=== PATIENT | male | born 1940 | race Caucasian/White ===

== ENCOUNTER 2018-02-21 08:32 | Outpatient (CLI) | payer OTHER, SELFPAY ==
[2018-02-21 10:23] LABS: ALT 33 U/L (12-78); AST 20 U/L (15-37); Albumin 4.1 g/dL (3.4-5.0); Alkaline Phosphatase 78 U/L (46-116); Anion Gap 7.8 mmol/L (3-11); BUN 13 mg/dL (7-18); Bilirubin, Total 0.7 mg/dL (0.2-1.0); CO2 27.2 mmol/L (21.0-32.0); CREATININE 1.15 mg/dL (0.70-1.30); Calcium 8.7 mg/dL (8.5-10.1); Chloride 104 mmol/L (98-107); Cholesterol 195 mg/dL (50-200); Glucose 101 mg/dL (70-100); HDL Cholesterol 36 mg/dL (40-60); LDL CHOLESTEROL 129 mg/dL (<100); Potassium 4.1 mmol/L (3.5-5.1); Sodium 139 mmol/L (136-145); TSH (W/Ref FT4) 3.36 uIU/mL (0.358-3.74); Total Protein 7.6 g/dL (6.4-8.2); Triglyceride 225 mg/dL (30-150)
[2018-02-22 10:29] LABS: PSA, Screening 1.1 ng/ml (0-6.5)
== END 2018-02-21 08:52 ==
DX: I10 Essential (primary) hypertension (principal); E03.9 Hypothyroidism, unspecified; E78.5 Hyperlipidemia, unspecified; Z12.5 Encounter for screening for malignant neoplasm of prostate
CPT/HCPCS: 36415; 80053; 80061; 83721; 84153; 84443

== ENCOUNTER 2018-12-13 13:03 | Emergency (ER) | payer OTHER, SELFPAY ==
[2018-12-13 13:19] VITALS: BP 152/64; PULSE 76; RESP 16; TEMP 36.9; O2SAT 100
--- NOTE | 2018-12-13 13:45 | W.ED.GENAD ---
Discharge Plan Disposition Patient Disposition: HOME Condition: Good Discharge Details Chief Complaint: Laceration Clinical Impression: Laceration Primary Care Provider: Carl Hooker ED Provider: [place] Home Meds and New Rx's Prescriptions: No Action vitamin B complex [B Complex-Vitamin B12] tablet 1 tab PO DAILY RF: 0 calcium carbonate 500 mg calcium (1,250 mg) tablet 500 mg PO BID RF: 0 levothyroxine 50 mcg capsule 50 mcg PO DAILY Qty: 90 RF: 3 inhalational spacing device [Aerochamber Plus Flow-Vu,S Msk] 1 EACH spacer 1 ea UD PRN PRNQty: 1 RF: 0 multivitamin [Daily Multiple] 1 EACH tablet 1 ea PO HS RF: 0 ibuprofen 200 MG tablet 400 mg PO Q6H PRN RF: 0 amlodipine 10 mg tablet 10 mg PO DAILY Qty: 90 RF: 3 ranitidine HCl 150 mg capsule 150 mg PO BID Qty: 180 RF: 3 fluticasone propion-salmeterol 115-21 mcg/actuation HFA aerosol inhaler 2 puff IH BID PRN (Reason: shortness of breath or wheezing) Qty: 8 RF: 0 albuterol sulfate 90 mcg/actuation HFA aerosol inhaler 2 puff IH Q4H PRN (Reason: shortness of breath or wheezing) Qty: 8.5 RF: 3 naproxen sodium [Aleve] 220 MG capsule 220 mg PO PRN PRNRF: 0 Discharge Instructions Instructions: Laceration (ED), Skin Adhesive Care (ED) Additional Instructions: Your tetanus is up-to-date. Please keep the area bandaged and covered. If you notice any redness, drainage, swelling, or pain please return immediately for reassessment. If you notice any worsening of your symptoms, or any new symptoms such as vomiting, diarrhea, fever, chills, shortness of breath, chest pain, numbness, weakness, or fainting , please return immediately to the emergency department for reevaluation. Please follow up with your primary care provider as soon as possible for reassessment and reevaluation. As always, it was a pleasure participating in your medical care today. Referrals: Carl Hooker [Primary Care Provider] - Discharge Data Discharge Date/Time-TO BE ENTERED AT DEPARTURE: 12/13/18 14:43 Medical Decision Making This is a very pleasant 78-year-old male who presents today with evidence of a superficial laceration to the left nondominant palmar hand just below the thenar eminence. Tetanus was updated in 2011. No evidence of neurovascular compromise, brisk capillary refill is present. Laceration is 1.5 cm in linear in nature. The area was scrubbed vigorously with chlorhexidine and then washed out. Because of the notably superficial component, I see no indication for suturing at this time. Dermabond was applied over the skin with excellent wound edge reapproximation. Patient tolerated this well. 3 layers were applied, and then the area was bandaged. Tetanus is up-to-date. Patient will be discharged home with close follow-up with his PCP, instructions for red flags which to return. I have extensively reviewed the treatment plan and discharge instructions with the patient. I have addressed all patient concerns at this time. The patient was made aware of what symptoms to monitor for that would warrant a return to the emergency department. Discussed the plan with the patient, they demonstrate verbal understanding and agreement with our assessment and plan at this time. HPI General Date/Time Provider Initiated Documentation: 12/13/18 13:14. HPI Narrative: This is a 78-year-old pleasant male who presents today for evaluation of laceration to his left nondominant hand on the palmar aspect. Patient states that he was working on an engine when a piece of metal slipped and caused a small laceration. His tetanus was updated in 2011. He denies any associated numbness tingling or weakness in the hand. He denies any other complaints of pain. No other modifying factors. Related Data Home Medications Medication Instructions Recorded Confirmed inhalational spacing device #1 ea 09/23/12 02/18/18 [Aerochamber Plus Flow-Vu,S Msk] ibuprofen 400 mg PO Q6H PRN tab-cap 03/06/15 12/13/18 multivitamin [Daily Multiple] 1 ea PO HS 03/06/15 12/13/18 naproxen sodium [Aleve] 220 mg PO PRN PRN 04/18/17 12/13/18 calcium carbonate 500 mg calcium 500 mg PO BID tab 02/16/18 12/13/18 (1,250 mg) tablet levothyroxine 50 mcg capsule 50 mcg PO DAILY #90 cap 02/16/18 12/13/18 vitamin B complex tablet 1 tab PO DAILY 02/16/18 12/13/18 amlodipine 10 mg tablet 10 mg PO DAILY #90 tab 02/22/18 ranitidine 150 mg capsule 150 mg PO BID #180 cap 04/17/18 12/13/18 fluticasone propionate-salmeterol 2 puff IH BID PRN #8 gm 05/16/18 12/13/18 115 mcg-21 mcg/actuation HFA inhaler albuterol sulfate HFA 90 2 puff IH Q4H PRN #8.5 gm 11/23/18 12/13/18 mcg/actuation aerosol inhaler Previous Rx's Medication Instructions Recorded levothyroxine 50 mcg capsule 50 mcg PO DAILY #90 cap 02/16/18 amlodipine 10 mg tablet 10 mg PO DAILY #90 tab 02/22/18 ranitidine 150 mg capsule 150 mg PO BID #180 cap 04/17/18 fluticasone propionate-salmeterol 2 puff IH BID PRN #8 gm 05/16/18 115 mcg-21 mcg/actuation HFA inhaler albuterol sulfate HFA 90 2 puff IH Q4H PRN #8.5 gm 11/23/18 mcg/actuation aerosol inhaler Allergies Allergy/AdvReac Type Severity Reaction Status Date / Time No Known Allergies Allergy Unverified 12/13/18 13:21 General Stated Complaint: Laceration JACKLEINE: 4 Review of Systems Review of Systems All systems reviewed & are unremarkable except as noted in HPI and below PFSH Social History Smoking/Tobacco Use Status: Former Tobacco Use Quit Date: 06/13/99 Alcohol Intake: never Drug use: Never Substance use type: does not use Household members: spouse Pets and animals: No What type of physical activity do you participate in: none Frequency: does not exercise Dina/Protestant: Yazdanism Special dina needs: No Do you feel safe in your relationship?: Yes Exam Narrative Exam Narrative: 1.Const: Well-nourished, Well-developed, appearing stated age 2.Eyes: PERRL, no conjunctival injection, and symmetrical lids. 3.ENT: Atraumatic external nose and ears. Moist MM. Neck: Symmetric, trachea midline, No thyromegaly. 4.CVS: +S1/S2, No murmurs or gallops. Peripheral pulses 2+ and equal in all extremities. Brisk capillary refill in all extremities. 5.RESP: Unlabored respiratory effort. Clear to auscultation bilaterally. No wheezes rales or rhonchi 6.GI: Soft, Nontender/Nondistended, No hepatosplenomegaly. No guarding or rebound. 7.MSK: Normocephalic/Atraumatic, Extremities w/o deformity or ttp No cyanosis or clubbing, Normal movement of all extremities left hand: Symmetrically palpable radial and ulnar pulses. Capillary refill less than 2 seconds to all digits. Intact sensation to light touch of the radial, median and ulnar nerves demonstrated by testing in the dorsal web space of the thumb, the distal palmar aspect of the index finger, and the lateral surface of the fifth finger. 2 point discrimination intact to 5mm (up to 6mm can be normal in digits 3-5) of discrimination in the affected digit. Intact motor function of the radial, median and ulnar nerves demonstrated by strength of extension of the isolated distal joint of the index finger, hand manual plate filler, and spreading of the 2nd through 5th digits. Intact recurrent median nerve as demonstrated by ability to move thumb fully through opposition, abduction and flexion. No snuffbox tenderness. 8.Skin: Warm, Dry. Small 1.5 cm linear laceration over the palmar aspect of the thenar eminence of the left hand. No evidence of deep tissue involvement, tendon involvement, or other abnormality. Minimal oozing of blood, no active significant hemorrhage. 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 Sensation grossly intact, no focal neurologic deficits. 10.Psych: (AAO) x3. Appropriate mood and affect Course Vital Signs Temperature 36.9 C 12/13/18 13:19 Pulse 76 12/13/18 13:19 Respiratory Rate 16 12/13/18 13:19 Blood Pressure 152/64 H 12/13/18 13:19 Pulse Oximetry 100 12/13/18 13:19 Temperature 36.9 C 12/13/18 13:19 Temperature Source Skin 12/13/18 13:19 Pulse 76 12/13/18 13:19 Respiratory Rate 16 12/13/18 13:19 Respiratory Effort Non-Labored 12/13/18 13:19 Blood Pressure 152/64 H 12/13/18 13:19 Blood Pressure Position Sitting 12/13/18 13:19 Pulse Oximetry 100 12/13/18 13:19 Oxygen Delivery Method Room Air 12/13/18 13:19 Oxygen Flow Rate 0 12/13/18 13:19 Pain Level 1 12/13/18 13:19
== END 2018-12-13 14:43 | disposition home or self-care (01) ==
PROVIDERS: Emergency Provider Student in an Organized Health Care Education/Training Program; PCP Family Medicine
DX: S61.412A Laceration without foreign body of left hand, initial encounter (principal); W45.8XXA Other foreign body or object entering through skin, initial encounter; I10 Essential (primary) hypertension
CPT/HCPCS: 12001

== ENCOUNTER 2019-02-21 06:49 | Outpatient (CLI) | payer OTHER, SELFPAY ==
[2019-02-21 07:30] LABS: HGB 16.2 g/dL (13.5-17.5); Mean Corp. HGB Concentration 34.5 g/dL (32.0-36.0); Mean Corpuscular Hemoglobin 32.1 pg (27.0-33.0); Mean Corpuscular Volume 93.1 fL (80-95); Mean Platelet Volume 9.7 fL (8.0-11.0); Platelet Count 291 x1000/uL (130-400); RBC 5.05 m/cumm (4.50-6.00); RBC Distribution Width 13.4 % (11.8-14.1)
[2019-02-21 08:09] LABS: ALT 34 U/L (16-63); AST 19 U/L (15-37); Albumin 4.3 g/dL (3.4-5.0); Alkaline Phosphatase 71 U/L (46-116); Anion Gap 7.1 mmol/L (3-11); BUN 13 mg/dL (7-18); Bilirubin, Total 0.6 mg/dL (0.2-1.0); CO2 28.9 mmol/L (21.0-32.0); CREATININE 1.08 mg/dL (0.70-1.30); Calcium 9.2 mg/dL (8.5-10.1); Chloride 107 mmol/L (98-107); Glucose 116 mg/dL (70-100); Potassium 3.9 mmol/L (3.5-5.1); Sodium 143 mmol/L (136-145); TSH (W/Ref FT4) 3.78 uIU/mL (0.36-3.74); Total Protein 7.9 g/dL (6.4-8.2)
[2019-02-21 08:37] LABS: FREE T4 1.03 ng/dL (0.76-1.46)
[2019-02-22 11:04] LABS: PSA, Screening 1.3 ng/ml (0-6.5)
== END 2019-02-21 07:09 ==
PROVIDERS: PCP Family Medicine; Visit Provider Family Medicine
DX: E03.9 Hypothyroidism, unspecified (principal); I10 Essential (primary) hypertension; J44.9 Chronic obstructive pulmonary disease, unspecified; N40.0 Benign prostatic hyperplasia without lower urinary tract symptoms; Z12.5 Encounter for screening for malignant neoplasm of prostate
CPT/HCPCS: 36415; 80053; 84153; 85027; 84439; 84443

== ENCOUNTER 2019-02-21 06:53 | Outpatient (CLI) | payer OTHER, SELFPAY ==
--- NOTE | 2019-02-21 | PFT_ITS ---
PULMONARY FUNCTION TEST REPORT Patient - Michelle Swenson DATE OF SERVICE February 21, 2019 REQUESTING PROVIDER Carl Hooker M.D. INTERPRETATION OF STUDY Spirometry shows mild obstructive airways disease with no significant bronchodilator response. LUNG VOLUMES - Lung volumes show no evidence of restriction. There is mild hyperinflation and air trapping. DIFFUSION CAPACITY- Mildly reduced even when corrected to alveolar volume. AIRWAY RESISTANCE - Normal. IMPRESSION Mild obstructive airways disease with no bronchodilator response. This is associated with mild hyperinflation and air trapping and mild diffusion defect. Clinical correlation recommended. Mariana Colin M.D. DAMION/ T- 03/01/2019
[2019-02-21] MEDS: Albuterol HFA 18 GM 200 PUFF INH IH (09:12)
[2019-02-21] MEDS: Inhaler, Assist Device 1 EACH MC (09:12)
== END 2019-02-21 07:13 ==
PROVIDERS: PCP Family Medicine; Visit Provider Family Medicine
DX: J44.9 Chronic obstructive pulmonary disease, unspecified (principal); R05 Cough; I10 Essential (primary) hypertension; Z87.891 Personal history of nicotine dependence
CPT/HCPCS: 94060; 94150; 94726; 94729

== ENCOUNTER 2019-08-27 07:31 | Outpatient (CLI) | payer OTHER, SELFPAY ==
[2019-08-27 09:59] LABS: Hemoglobin A1C 5.7 % (3.8-5.6)
[2019-08-27 10:32] LABS: Calculated LDL 147 mg/dL (<100); Cholesterol 220 mg/dL (<200); Glucose 112 mg/dL (74-106); HDL Cholesterol 41 mg/dL (40-60); TSH 2.49 uIU/mL (0.36-3.74); Triglyceride 160 mg/dL (<150)
== END 2019-08-27 07:51 ==
PROVIDERS: PCP Family Medicine; Visit Provider Family Medicine
DX: E03.9 Hypothyroidism, unspecified (principal); I10 Essential (primary) hypertension
CPT/HCPCS: 36415; 80061; 82947; 83036; 84443

== ENCOUNTER 2020-02-27 04:46 | Outpatient (CLI) | payer OTHER, SELFPAY ==
[2020-02-27 12:13] LABS: HCT 47.2 % (40.0-50.0); MCH 31.9 pg (27.0-33.0); MCHC 33.9 % (32.0-36.0); MCV 94.2 fL (80-95); MPV 10.2 fL (8.0-11.0); Platelet Count 282 10^3/uL (130-400); RBC 5.01 10^6/uL (4.36-5.78); RDW-SD 44.6 fL; WBC 7.44 10^3/uL (4.4-10.8)
[2020-02-27 12:35] LABS: Hemoglobin A1C 5.5 % (<5.7)
[2020-02-27 12:48] LABS: ALT 34 U/L (16-63); AST 14 U/L (15-37); Alkaline Phosphatase 85 U/L (46-116); BUN 12 mg/dL (7-18); Bilirubin, Total 0.6 mg/dL (0.2-1.0); CREATININE 1.16 mg/dL (0.70-1.30); Chloride 107 mmol/L (98-107); Glucose 103 mg/dL (74-106); Potassium 4.2 mmol/L (3.5-5.1); Sodium 142 mmol/L (136-145); Total Protein 7.4 g/dL (6.4-8.2)
== END 2020-02-27 05:06 ==
PROVIDERS: PCP Family Medicine; Visit Provider Family Medicine
DX: Z00.00 Encounter for general adult medical examination without abnormal findings (principal); Z13.1 Encounter for screening for diabetes mellitus; Z13.228 Encounter for screening for other metabolic disorders
CPT/HCPCS: 36415; 80053; 85027; 83036

== ENCOUNTER 2020-05-07 01:58 | Outpatient (CLI) | payer OTHER, SELFPAY ==
[2020-05-08 15:10] LABS: SARS-CoV-2 RNA Not Detected (NotDetected); SARS-CoV-2 RNA Source Nasal/Nares
== END 2020-05-07 02:18 ==
PROVIDERS: PCP Family Medicine; Visit Provider Surgery
DX: Z11.59 Encounter for screening for other viral diseases (principal); Z01.818 Encounter for other preprocedural examination
CPT/HCPCS: U0003

== ENCOUNTER 2020-05-12 09:46 | Day surgery (SDC) | payer OTHER, SELFPAY ==
--- NOTE | 2020-05-12 06:58 | COLE_ITS ---
Date of service: 05/12/20 Time of Service: 11:39 Colonoscopy Report Date of procedure: 05/12/20 Pre-op diagnosis general: Hx of polyps Post-op diagnosis procedure note: same Procedure: colonoscopy with polypectomy Surgeon: Samantha Bauer Anesthesia proc note operative: other (General/ASA 3/Nathaniel Aguilar, NICK) Estimated blood loss (mL): 5 Pathology: other (Ascending, descending and ractal polyp) Complications: None Disposition: same day Indications: The patient is here for Colonoscopy pre-op. His last screening was in 2016, which was remarkable for tubular adenoma and a tubulovillious adenoma. 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 He has no family history of colon cancer. He has not had any bowel habit changes. -Discussed colonoscopy bowel prep as well as the procedure. Discussed possible complications of the procedure to include bleeding, pain, perforation, missed small lesion/polyp, sore throat, aspiration and adverse reaction to the medi cations. Questions were answered to patient?s satisfaction. No guarantees were implied or given. Prep: Miralax/Dulcolax Procedure Start Time: 11:39 Procedure End Time: 12:00 Retraction Time: 17 minutes Findings: 3 small polyps Procedure Description: After informed consent was obtained the patient was taken to the procedure room and placed in a left decubitous position. Monitors were applied and a time out was done. The patients name, date of , procedure, allergies to medications and metal in their body was reviewed. The patient was then sedated. Once sedated and comfortable a rectal exam was done. External exam was normal. Internal exam revealed a normal sphincter tone and no palpable masses. The prostate felt smooth. The scope was then introduced and retro-flexed. No internal hemorrhoids were identified. The scope was then advanced to the cecum without difficulty. The ileocecal valve and appendiceal orifice were identified. The prep was good. The scope was then slowly retracted over 17 minutes back into the rectum. Polyps were removed with cold forceps in the ascending, descending colon and rectum. There were no diverticula noted. The scope was removed and the patient was woken up and taken back to Same day surgery in stable condition. The patient tolerated the procedure well and there were no immediate complications. Follow up: recommendations will depend on final pathology
--- NOTE | 2020-05-12 07:05 | W.PM.DSUDISC ---
Discharge Plan Disposition Patient Disposition: HOME Condition: Good Discharge Details Reason For Visit: colonoscopy Attending Provider: Samantha Bauer Primary Care Provider: Carl Hooker Home Meds and New Rx's Prescriptions: Continued vitamin B complex [B Complex-Vitamin B12] tablet 1 tab PO DAILY RF: 0 triamcinolone acetonide 0.1 % cream 1 applic TP TID PRN Qty: 80 RF: 2 cod liver oil Oil 5 ml PO DAILY RF: 0 (DME) nebulizer accessories Kit See Rx Instructions .ROUTE .MEDSUPPLY Qty: 50 RF: 1 (DME) Aerochamber Plus Flow-Vu,S Msk 1 EACH spacer 1 ea UD PRN Qty: 1 RF: 0 multivitamin [Daily Multiple] 1 EACH tablet 1 ea PO HS RF: 0 levothyroxine 50 mcg capsule 50 mcg PO DAILY Qty: 90 RF: 3 amlodipine 10 mg tablet 10 mg PO DAILY Qty: 90 RF: 3 Spiriva Respimat 1.25 mcg/actuation mist 2 puff IH DAILY Qty: 12 RF: 3 pantoprazole 20 mg tablet,delayed release (DR/EC) 20 mg PO DAILY Qty: 90 RF: 3 albuterol sulfate 2.5 mg /3 mL (0.083 %) solution for nebulization 2.5 mg IH QID PRN (Reason: shortness of breath or wheezing) Qty: 360 RF: 5 albuterol sulfate 90 mcg/actuation HFA aerosol inhaler 2 puff IH Q4H PRN (Reason: shortness of breath or wheezing) Qty: 18 RF: 5 Discontinued polyethylene glycol 3350 17 gram/dose powder 238 g PO ONCE Qty: 238 RF: 0 bisacodyl [Dulcolax (bisacodyl)] 5 mg tablet,delayed release (DR/EC) 5 mg PO ONCE Qty: 4 RF: 0 No Action budesonide-formoterol [Symbicort] 160-4.5 mcg/actuation HFA aerosol inhaler 2 puff IH Q12H RF: 0 Discharge Instructions Instructions: Colorectal Polyps (DC) Additional Instructions: Findings:3 polyps Follow up: 3-5 years Please call if you develop: fevers >101.5 Nausea or Vomiting Abdominal pain that is not transient DAY SURGERY UNIT POST ENDOSCOPY INSTRUCTIONS 1. Because there will be medication in your system for the next 24 hours, you may feel a little sleepy. Your coordination will be affected. Therefore: a. Do not drive or operate dangerous equipment for 24 hours. b. Do not drink alcohol beverages for 24 hours (not even beer). c. Plan to go home and rest for the day. 2. Generally there are no restrictions on your activity after a day or so has gone by, but you may feel a bit fatigued for a few days. 3 After you arrive home you may have a light meal and return to a normal diet as you can tolerate it without feeling sick to your stomach. 4. After surgery, you may feel pain or discomfort. This should be only transient, but if it persists please contact your doctor. 5. If there are any questions regarding the findings of your procedure, please feel free to contact your doctor. 6. If you are unable to contact your doctor with a problem, contact the hospital at [phone]. 7. Continue all your regular medications unless directed otherwise. I understand the above instructions and have no questions. Signature of Patient or Responsible Adult Escort Date/Time Name of Responsible Adult Escort Signature of Nurse Date/Time Stand Alone Forms: Kristopher Mcgovern (PAULU) Activity:: Activity as Tolerated Diet:: As Tolerated Discharge Orders Discharge Orders: Discharge Order (Routine); Ordered 05/12/20 Ordered By: Samantha Bauer
[2020-05-12 09:47] VITALS: BP 133/70; PULSE 82; RESP 24; TEMP 36.9; O2SAT 97
[2020-05-12] MEDS: Lactated Ringers 1,000 ML 80 ML IV (10:35)
--- NOTE | 2020-05-12 11:46 | BOWEL_PTH ---
PATIENT: Michelle Swenson LOC: [facility] U#:[id number] AGE/SX: 79/M ROOM: RE05/12/[address]: Samantha Bauer MD : 1940 BED: DIS: 05/12/2020 SPEC #: [id number] RECD: 05/12/20 12:45 STATUS: VITO RE #: [id number] LORENZA: 05/12/20 11:[address]: Samantha Bauer DEPT: Surgical Specimen RECD BY: Lizet Melgar ENTERED: 05/12/20 12:46 SP TYPE: Bowel OTHR DR: Carl Hooker MD Tissues: 1 - BIOPSY BOWEL 2 - BIOPSY BOWEL 3 - BIOPSY BOWEL Procedures: GROSS AND MICRO LEVEL 4 Comments: [id number]
[2020-05-12 12:36] VITALS: BP 129/64; PULSE 77; RESP 20; TEMP 36.3; O2SAT 97
== END 2020-05-12 13:35 | disposition home or self-care (01) ==
LOC: SUR 09:47
PROVIDERS: PCP Family Medicine; Visit Provider Surgery
PROC: 0DJD8ZZ Inspection of Lower Intestinal Tract, Via Natural or Artificial Opening Endoscopic (ICD-10-PCS; CPT 45378; principal; 2020-05-12 10:45)
DX: Z12.11 Encounter for screening for malignant neoplasm of colon (principal); Z86.010 Personal history of colon polyps; D12.8 Benign neoplasm of rectum; D12.2 Benign neoplasm of ascending colon; D12.4 Benign neoplasm of descending colon
CPT/HCPCS: 45380; 88305; J2001

== ENCOUNTER 2020-05-26 08:28 | Emergency (ER) | payer OTHER, SELFPAY ==
[2020-05-26] VITALS (27 sets, daily range): BP systolic 114–165; BP diastolic 50–117; PULSE 41–116; RESP 10–33; TEMP 36.5; O2SAT 82–99
--- NOTE | 2020-05-26 08:30 | RT.EKG_ITS ---
APPROVED REPORT Exam: Resting ECG Patient Location: E HR:86 bpm ECG Measurements Heart Rate 86 AXIS VA 174 P 78 QRSd 138 QRS 48 QT 418 T 55 QTc 502 Conclusion Sinus rhythm...normal P axis, V-rate 60- 99 Supraventricular bigeminy...bigeminy string>4 w/ SV complexes Right bundle branch block...QRSd>120, terminal axis(90,270) ---- PACs.
[2020-05-26 09:22] LABS: Abs Immature Grans 0.02 10^3/uL (0.0-0.06); Absolute Basophil Count 0.03 10^3/uL (0.0-0.2); Absolute Eosinophil Count 0.19 10^3/uL (0.0-0.7); Absolute Lymphocyte Count 1.64 10^3/uL (1.2-3.4); Absolute Monocyte Count 0.53 10^3/uL (0.1-0.8); Absolute Neutrophil Count 4.17 10^3/uL (1.2-6.7); Basophils % 0.5; Eosinophils % 2.9; HCT 47.6 % (40.0-50.0); HGB 16.5 g/dL (13.5-17.5); Immature Grans % 0.3; Lymphocytes % 24.9; MCH 32.4 pg (27.0-33.0); MCHC 34.7 % (32.0-36.0); MCV 93.5 fL (80-95); MPV 9.9 fL (8.0-11.0); Monocytes % 8.1; Neutrophils % 63.3; Nucleated RBC 0 %; Platelet Count 300 10^3/uL (130-400); RBC 5.09 10^6/uL (4.36-5.78); RDW 12.7 % (11.8-14.1); RDW-SD 43.8 fL; WBC 6.58 10^3/uL (4.4-10.8)
[2020-05-26] MEDS: Lactated Ringers 500 ML IV (09:26)
[2020-05-26] MEDS: Normal Saline Flush 10 ML SYR IVP (09:27)
[2020-05-26 09:35] LABS: Bilirubin Negative (Negative); Blood Negative (Negative); Clarity Clear (Clear); Glucose Negative (Negative); Ketones Negative (Negative); Leukocyte Esterase Small (Negative); Nitrite Negative (Negative); Specific Gravity 1.025 (1.005-1.025); Urobilinogen 0.2 EU/dL (Up TO 0.2)
[2020-05-26 09:47] LABS: ALT 37 U/L (16-63); AST 24 U/L (15-37); Alkaline Phosphatase 75 U/L (46-116); Anion Gap 5.4 mmol/L (3-11); BUN 19 mg/dL (7-18); Bilirubin, Total 0.7 mg/dL (0.2-1.0); CO2 28.6 mmol/L (21.0-32.0); CREATININE 1.26 mg/dL (0.70-1.30); Chloride 106 mmol/L (98-107); Estimated GFR 55.35 (mL/min/1.73m2); Glucose 122 mg/dL (74-106); Magnesium 2.2 mg/dL (1.8-2.4); Sodium 140 mmol/L (136-145); TSH (W/Ref FT4) 2.33 uIU/mL (0.36-3.74); Total Protein 8.2 g/dL (6.4-8.2); Troponin I 0.06 ng/mL (<0.06)
--- NOTE | 2020-05-26 09:54 | ED.GENADUL_ITS ---
Discharge Plan Disposition Patient Disposition: HOME Condition: Stable Discharge Details Clinical Impression: Acute UTI Primary Care Provider: Carl Hooker ED Provider: Corey Shah Home Meds and New Rx's Prescriptions: New cephalexin [Keflex] 500 mg capsule 500 mg PO BID Qty: 13 RF: 0 Continued vitamin B complex [B Complex-Vitamin B12] tablet 1 tab PO DAILY RF: 0 triamcinolone acetonide 0.1 % cream 1 applic TP TID PRN Qty: 80 RF: 2 cod liver oil Oil 5 ml PO DAILY RF: 0 (DME) nebulizer accessories Kit See Rx Instructions .ROUTE .MEDSUPPLY Qty: 50 RF: 1 (DME) Aerochamber Plus Flow-Vu,S Msk 1 EACH spacer 1 ea UD PRN Qty: 1 RF: 0 multivitamin [Daily Multiple] 1 EACH tablet 1 ea PO HS RF: 0 levothyroxine 50 mcg capsule 50 mcg PO DAILY Qty: 90 RF: 3 amlodipine 10 mg tablet 10 mg PO DAILY Qty: 90 RF: 3 Spiriva Respimat 1.25 mcg/actuation mist 2 puff IH DAILY Qty: 12 RF: 3 pantoprazole 20 mg tablet,delayed release (DR/EC) 20 mg PO DAILY Qty: 90 RF: 3 albuterol sulfate 2.5 mg /3 mL (0.083 %) solution for nebulization 2.5 mg IH QID PRN (Reason: shortness of breath or wheezing) Qty: 360 RF: 5 albuterol sulfate 90 mcg/actuation HFA aerosol inhaler 2 puff IH Q4H PRN (Reason: shortness of breath or wheezing) Qty: 18 RF: 5 budesonide-formoterol [Symbicort] 160-4.5 mcg/actuation HFA aerosol inhaler 2 puff IH Q12H RF: 0 Discharge Instructions Instructions: Urinary Tract Infection in Men (ED) Additional Instructions: Please keep monitor technician in place for the next 2 weeks and then return to the front end architect of the hospital for interpretation. Please take full course of antibiotic as prescribed. Please contact your primary care physician to arrange follow-up. Return to the ER for any worsening or new concerning symptoms. Referrals: Carl Hooker [Primary Care Provider] - Discharge Data Discharge Date/Time-TO BE ENTERED AT DEPARTURE: 05/26/20 10:47 Medical Decision Making 79-year-old male here with concern that this pulse ox was low at home and also noted to have a low pulse at home in the 30s. Screening ECG was reviewed and interpreted by me: Please see report. Patient does have superior treatment bigeminy and I wonder if this is causing erroneous reading on home pulse oximeter. His pulse here is 50-60. Patient is saturating well here and hemodynamically stable with sinus rhythm with bigeminy. Labs reviewed and nondiagnostic. No significant electrolyte abnormalities. Troponin negative. Urinalysis is consistent with urinary tract infection. On further questioning, patient does note that he has had some intermittent dysuria for at least a few weeks. Plan to treat for urinary tract infection. I will initiate antibiotic treatment here and have him follow-up with his primary care physician. Patient was observed in the emergency department on continuous cardiac monitoring and noted to have no significant cardiac arrhythmia during his observation. 14-day home monitor technician was initiated with plans for this to be followed up with his primary care physician. Patient was encouraged to return for any worsening or new concerning symptoms. HPI General Date/Time Provider Initiated Documentation: 05/26/20 08:30 . HPI Narrative: 79-year-old male with multiple medical problems including COPD, presents with chief complaint of low heart rate. Patient notes today he was checking his pulse ox and noted that his heart rate was in the upper 30s. No modifiers. He said this is atypical for him. He denied associated palpitations. No chest pain. No shortness of breath. No lightheadedness. No recent swelling. No change in chronic cough. No fevers. When I ask if he has had any dizziness he states he had a sensation of tingling in his scalp. He denies numbness or weakness. No visual changes. Related Data Home Medications Medication Instructions Recorded Confirmed Aerochamber Plus Flow-MikiS Msk #1 ea 09/23/12 05/06/20 multivitamin [Daily Multiple] 1 ea PO HS 03/06/15 05/26/20 vitamin B complex 1 tab PO DAILY 02/16/18 05/26/20 cod liver oil 5 ml PO DAILY 02/20/19 05/26/20 nebulizer accessories #50 each 02/20/19 05/06/20 amlodipine 10 mg tablet 10 mg PO DAILY #90 tab 09/26/19 05/26/20 levothyroxine 50 mcg capsule 50 mcg PO DAILY #90 cap 09/26/19 05/26/20 tiotropium bromide 1.25 2 puff IH DAILY #12 gm 09/27/19 05/26/20 mcg/actuation mist for inhalation triamcinolone acetonide 0.1 % 1 applic TP TID PRN #80 gm 12/01/19 05/26/20 topical cream pantoprazole 20 mg tablet,delayed 20 mg PO DAILY #90 tab 12/10/19 05/26/20 release albuterol sulfate 2.5 mg IH QID PRN #360 ml 03/03/20 05/26/20 albuterol sulfate 90 mcg/actuation 2 puff IH Q4H PRN #18 gm 03/30/20 05/26/20 aerosol inhaler budesonide-formoterol [Symbicort] 2 puff IH Q12H 05/12/20 05/26/20 cephalexin [Keflex] 500 mg PO BID #13 cap 05/26/20 Previous Rx's Medication Instructions Recorded nebulizer accessories #50 each 02/20/19 amlodipine 10 mg tablet 10 mg PO DAILY #90 tab 09/26/19 levothyroxine 50 mcg capsule 50 mcg PO DAILY #90 cap 09/26/19 tiotropium bromide 1.25 2 puff IH DAILY #12 gm 09/27/19 mcg/actuation mist for inhalation triamcinolone acetonide 0.1 % 1 applic TP TID PRN #80 gm 12/01/19 topical cream pantoprazole 20 mg tablet,delayed 20 mg PO DAILY #90 tab 12/10/19 release albuterol sulfate 2.5 mg IH QID PRN #360 ml 03/03/20 albuterol sulfate 90 mcg/actuation 2 puff IH Q4H PRN #18 gm 03/30/20 aerosol inhaler cephalexin [Keflex] 500 mg PO BID #13 cap 05/26/20 Allergies Allergy/AdvReac Type Severity Reaction Status Date / Time No Known Allergies Allergy Unverified 05/26/20 08:41 General Stated Complaint: Dizzy/Sync JACKELINE: 3 Review of Systems All systems reviewed & are unremarkable except as noted in HPI and below Constitutional Constitutional: Denies fever(s) Cardiovascular Cardiovascular: Denies chest pain PFSH Medical History (Updated 05/26/20 @ 10:39 by Corey Shah MD) COPD (chronic obstructive pulmonary disease) Essential (primary) hypertension GERD (gastroesophageal reflux disease) Hyperglycemia Hypothyroidism Primary malignant neoplasm of colon Surgical History Arthroplasty of knee (~09/2012) right Pt. states no arthoplasty but ARTHROSCOPY Colonoscopy - MAC (04/20/17) ELBOW SURGERY B/L Hemorrhoidectomy Vasectomy Family History Mother , AGE 76 Bone cancer Father , AGE 85 Diabetes Essential hypertension Hyperlipidemia Stroke Sister Essential hypertension Hyperlipidemia Maternal Grandfather Lung cancer Paternal Grandfather Heart disease Stroke Maternal Grandmother , Age 98 Diabetes Asthma Paternal Grandmother Heart disease Stroke Social History Smoking/Tobacco Use Status: Former Tobacco Use Quit Date: 09/12/99 Smoking risk assessment performed?: Yes Alcohol Intake: former Drug use: Never Substance use type: does not use Caregiver/Support person: No Household members: spouse Communication Needs: Hard of Hearing Pets and animals: No Do you think of yourself as: straight/heterosexual What is your relationship status?: Panel score (0-1 are the most socially isolated patients): 1 Do you feel safe at home: Yes Do you feel safe in your relationship?: Yes Exam Const General: cooperative and no acute distress Eyes Conjunctivae: normal conjunctivae Sclera: normal sclerae Neck Neck: supple Resp Auscultation: clear to auscultation bilaterally, no rales, no rhonchi and no wheezes Cardio Jugular venous pressure: no JVD Rate: regular rate Rhythm: regular rhythm GI Palpation: soft, not firm, no guarding, no masses, not rigid and nontender Skin General skin exam: no rashes or lesions noted Neuro General: patient alert, patient awake and tone normal Extrem General: no edema Psych Appearance: grossly normal Mental Status: mental status grossly normal Speech and Movement: speech and movement normal Course Vital Signs Vital signs: Vital Signs Pulse Oximetry 85 L 05/26/20 08:34 Temperature 36.5 C 05/26/20 08:36 Temperature Source Skin 05/26/20 08:36 Pulse 78 05/26/20 09:30 Pulse 90 05/26/20 09:40 Respiratory Rate 20 05/26/20 09:40 Respiratory Effort Non-Labored 05/26/20 08:55 Respiratory Depth Normal 05/26/20 08:55 Respiratory Pattern Normal 05/26/20 08:55 Blood Pressure 136/73 05/26/20 09:30 Blood Pressure Mean 86 05/26/20 09:30 Blood Pressure Position Sitting 05/26/20 08:36 Pulse Oximetry 96 05/26/20 09:40 Oxygen Delivery Method Room Air 05/26/20 08:36 Oxygen Flow Rate 0 05/26/20 08:36 Pain Level 0 05/26/20 08:36 Lab/Test Results Lab/Test Results: Laboratory Tests Range/Units 05/26/20 05/26/20 05/26/20 08:45 08:45 09:30 WBC (4.4-10.8) 10^3/uL 6.58 RBC (4.36-5.78) 10^6/uL 5.09 Hgb (13.5-17.5) g/dL 16.5 Hct (40.0-50.0) % 47.6 MCV (80-95) fL 93.5 MCH (27.0-33.0) pg 32.4 MCHC (32.0-36.0) % 34.7 RDW (11.8-14.1) % 12.7 Plt Count (130-400) 10^3/uL 300 MPV (8.0-11.0) fL 9.9 Immature Gran % 0.3 Neutrophils % 63.3 Lymphocytes % 24.9 Monocytes % 8.1 Eosinophils % 2.9 Basophils % 0.5 Nucleated RBC % % 0 Absolute Neutrophils (1.2-6.7) 10^3/uL 4.17 Absolute Lymphocytes (1.2-3.4) 10^3/uL 1.64 Absolute Monocytes (0.1-0.8) 10^3/uL 0.53 Absolute Eosinophils (0.0-0.7) 10^3/uL 0.19 Absolute Basophils (0.0-0.2) 10^3/uL 0.03 Sodium (136-145) mmol/L 140 Potassium (3.5-5.1) mmol/L 4.0 Chloride (98-107) mmol/L 106 Carbon Dioxide (21.0-32.0) mmol/L 28.6 Anion Gap (3-11) mmol/L 5.4 BUN (7-18) mg/dL 19 H Creatinine (0.70-1.30) mg/dL 1.26 Estimated GFR/1.73 m2 (mL/min/1.73m2) 55.35 Glucose (74-106) mg/dL 122 H Calcium (8.5-10.1) mg/dL 9.0 Magnesium (1.8-2.4) mg/dL 2.2 Total Bilirubin (0.2-1.0) mg/dL 0.7 AST (15-37) U/L 24 ALT (16-63) U/L 37 Alkaline Phosphatase (46-116) U/L 75 Troponin I (<0.06) ng/mL 0.06 Total Protein (6.4-8.2) g/dL 8.2 Albumin (3.4-5.0) g/dL 4.0 TSH (0.36-3.74) uIU/mL 2.33 Urine Color (Yellow) Yellow Urine Clarity (Clear) Clear Urine pH (5-8) 6.0 Ur Specific White (1.005-1.025) 1.025 Urine Protein (Negative) mg/dL Negative Urine Ketones (Negative) mg/dL Negative Urine Blood (Negative) Negative Urine Nitrite (Negative) Negative Urine Bilirubin (Negative) Negative Urine Urobilinogen (Up TO 0.2) EU/dL 0.2 Ur Leukocyte Esterase (Negative) Small H Urine Glucose (Negative) mg/dL Negative
[2020-05-26 09:57] LABS: Bacteria Moderate HPF (Negative); Epithelial Cells Negative HPF (Negative); RBC 0-2 HPF (0-2); WBC >50 HPF (0-5)
[2020-05-26 09:58] LABS: C & S Indicated? Yes; Casts Negative LPF (Negative); Crystals Negative HPF (Negative); Mucus Negative (Negative)
[2020-05-26] MEDS: Cephalexin 500 MG CAP PO (10:38)
--- NOTE | 2020-06-10 09:46 | ZIOP_ITS ---
Date of service: 06/10/20 Time of Service: 09:46 14 Day Regional Medical Director Referring Provider:: Morro Indications:: Bradycardia Note: This is a 14-day monitor reportedly ordered for bradycardia Predominant rhythm was sinus. Average heart rate was 75. Minimum was 56 maximum was 105 while in sinus rhythm There were moderately frequent premature ventricular contractions, 4.36% of total There were moderately frequent atrial premature contractions. There were multiple brief self-limited atrial runs generally 4-5 beats in duration There was a more prolonged episode of supraventricular tachycardia lasting approximately 2-1/2 minutes rate 150 There was no atrial fibrillation. There were no pauses greater than 3 seconds. There was no high-grade AV block Patient symptoms did not clearly correspond to any dysrhythmia
== END 2020-05-26 10:47 | disposition home or self-care (01) ==
PROVIDERS: Emergency Provider Student in an Organized Health Care Education/Training Program; PCP Family Medicine
DX: N39.0 Urinary tract infection, site not specified (principal); R00.8 Other abnormalities of heart beat; J44.9 Chronic obstructive pulmonary disease, unspecified; Z87.891 Personal history of nicotine dependence; I10 Essential (primary) hypertension
CPT/HCPCS: 0296T; 36415; 80053; 93005; 96360; 99284; 81003; 81015; 83735; 84443; 84484; 85025; 87086; 93010

== ENCOUNTER 2020-08-11 01:45 | Outpatient (CLI) | payer OTHER, SELFPAY ==
--- NOTE | 2020-08-11 07:15 | DI.NM_ITS ---
APPROVED REPORT Exam: Exercise Treadmill Patient Location: Out-Patient Room/Bed: Stress Nurse: Maude Hope RN Ordering Provider:ROMULO WISE, Contact Number: [phone] BMI: 31.00 Baseline Rhythm: Sinus Rhythm Comment: RBBB, borderline prolonged QT interval, inverted T waves V1-V4, PAC, PVC Indications: dyspnea on exertion, h/o PSVT Medical History Medical History: COPD, VILLEDA, hypertension, gerd, PSVT, hyperlipidemia, hypothyroidism Cardiac Medications: Metoprolol tartrate, amoldipine, pantoprazole, spiriva, albuterol sulfate Allergies: NKA Cardiac Risk Factors: family hx, hypertension, COPD, obesity, smoker (former) Previous Cardiac Procedures: None Pretest Chest Pain Characteristics: None Exercise History: Sedentary Physical Disabilities: None Lung Sounds: Clear to auscultation Heart Sounds: Regular Stress Test Details Test: Exercise stress testing was performed using a Delvis protocol. Nuclear Acquisition: Rest Tc-99m/Stress Tc-99m 1 day Rest Isotope: Tc-99m Sestamibi. Dose: 12.1 Date: 08/11/2020 Injection Time: 0915 Stress Isotope: Tc-99m Sestamibi. Dose: 36.6 Date: 08/11/2020 Injection Time: 1110 HR Resting HR Supine: 80 bpm Max Heart Rate (APMHR): 141 bpm Resting HR Standin bpm Target HR (85% APMHR): 119 bpm Max HR Achieved: 128 bpm % of APMHR: 90 Recovery HR: 92 bpm HR response to stress: Normal HR response to stress Comment: metoprolol tartrate held for 48 hrs BP Resting BP Supine: 150/76 mmHg Resting BP Standin/78 mmHg Max BP: 182/60 mmHg Recovery BP: 148/72 mmHg BP response to stress: Normal blood pressure response to stress. ECG Resting ECG: Sinus Rhythm, RBBB, borderline prolonged QT interval Ectopy: PAC, PVC Comment: Inverted T waves leads V1-V4 Stress ECG: Sinus Tachycardia, RBBB ST Change: No significant ST segment changes noted Arrhythmia: Frequent PACs, PVCs, couplet Comment: Inverted T waves leads V1-V4 Recovery ECG: Sinus Rhythm, RBBB Recovery ST Change: No significant ST segment changes noted Recovery Arrhythmia: PACs, PVCs Comment: Inverted T waves leads V1-V4 Clinical Reason for Termination: Dyspnea Stress Symptoms: Dyspnea, General Fatigue Exercise duration: 5 min59 sec Highest Stage Reached: Stage 2: 2.5 mph at 12% grade. Exercise capacity: 7.05 METs Blum Treadmill Score: 5 Rate Pressure Product: [id number] Stress ECG Conclusion 1. The patient exercised for 6 minutes (7 METS). Exercise was stopped due to fatigue. 2. The EKG portion of this exam is nondiagnostic due to baseline inverted T waves. Blum Treadmill Score is 5 which is Low risk. Stress Test Summary STAGE Time (mins) Speed (mph) Grade (%) HR BP SYMPTOMS METS Supine 80 150/76 Standing 79 138/78 1 3 1.7 10 108 4.6 2 6 2.5 12 110 7 1 min recovery 118 182/60 3 min recovery 98 164/66 6 min recovery 92 148/72 MPI Conclusion The patient's ejection fraction was 69% with stress. There were no wall motion normalities. There is no evidence of ischemia on the imaging portion exam. This represents a normal SPECT stress test.
== END 2020-08-11 02:05 ==
PROVIDERS: PCP Family Medicine
DX: Z86.79 Personal history of other diseases of the circulatory system (principal); R06.09 Other forms of dyspnea; Z82.49 Family history of ischemic heart disease and other diseases of the circulatory system; I10 Essential (primary) hypertension; J44.9 Chronic obstructive pulmonary disease, unspecified; E66.9 Obesity, unspecified; Z87.891 Personal history of nicotine dependence
CPT/HCPCS: 78452; 93017

== ENCOUNTER 2020-08-21 01:23 | Outpatient (CLI) | payer OTHER, SELFPAY ==
--- NOTE | 2020-08-21 07:00 | DI.US_ITS ---
APPROVED REPORT EXAM: Comprehensive 2D, Doppler, and color-flow Echocardiogram Patient Location: Out-Patient Vision Impaired Teacher: Rita Frye RDCS (AE) Indications: Dyspnea on exertion, Paroxysmal SVT Other Information Study Quality: Adequate Conclusion Left Ventricle : The left ventricle is normal size. The left ventricular systolic function is normal. The left ventricular ejection fraction is within the normal range. There is normal left ventricular wall thickness. There is normal LV segmental wall motion. The left ventricular diastolic function is normal. LVEF is 55%. Right Ventricle : The right ventricle is normal size. The right ventricular systolic function is norm al. The RVSP is 26.7mmHg. Atria : The left atrium size is normal. The right atrium size is normal. Mitral Valve : Mild mitral annular calcification. Trace to mild mitral regurgitation. No evidence of mitral valve stenosis. Great Vessels : The aortic root is normal in size. The ascending aorta is normal in size. Aortic arch is not well visualized. IVC is normal in size and collapses >50% with inspiration. Please see remainder of study for further details. Wall motion Left Ventricle The left ventricle is normal size. The left ventricular systolic function is normal. The left ventric ular ejection fraction is within the normal range. There is normal left ventricular wall thickness. T here is normal LV segmental wall motion. The left ventricular diastolic function is normal. There is no ventricular septal defect visualized. LVEF is 55%. Right Ventricle The right ventricle is normal size. The right ventricular systolic function is normal. The RVSP is 26 .7mmHg. Atria The left atrium size is normal. The right atrium size is normal. The interatrial septum is intact wit h no evidence for an atrial septal defect. Aortic Valve The aortic valve is normal in structure. Aortic valve is trileaflet. There is no aortic valvular sten osis. No aortic regurgitation is present. Mitral Valve Mild mitral annular calcification. No evidence of mitral valve stenosis. Trace to mild mitral regurgi tation. Tricuspid Valve The tricuspid valve is normal in structure. There is no tricuspid valve stenosis. Trace tricuspid reg urgitation. Pulmonic Valve The pulmonary valve is normal in structure. There is no pulmonic valvular stenosis. Trace pulmonic re gurgitation. Great Vessels The aortic root is normal in size. The ascending aorta is normal in size. Aortic arch is not well vis ualized. IVC is normal in size and collapses >50% with inspiration. Pericardium There is no pericardial effusion. 2D Dimensions IVSD d PLAX 0.80 cm M: 0.6-1.2 LV Vol A2C d MOD 119.5 mL LVPW d PLAX 0.81 cm M: 0.6 - 1.2 LV Vol A4C d MOD 98.3 mL LVID d PLAX 4.74 cm M: 4.2 - 5.8 LA vol/ BSA A2C s A-L 22.1 mL/m2 LVDs 3.35 cm M: 2.5 - 4.0 LA vol/ BSA A4C s A-L 17.8 mL/m2 Ao Root d 3.27 cm M: 3.1 - 3.7 LA Vol/ BSA Biplane s A-L 20.1 mL/m2 RA Area A4C 16.11 cm2 LA Area A4C s MOD 16.17 cm2 RA Vol/ BSA A4C s A-L 17.4 mL/m2 LA Area A2C s MOD 17.81 cm2 Ao Asc Diam d 3.33 cm M: 2.6 - 3.4 LV EF A4C MOD 56.0 % LV EF Teichholz 55.6 % LV EF A2C MOD 53.1 % LVEF (Galicia's) 55.82 % M: 52 - 72 LV EF Biplane MOD 55.8 % LV Volume 81.99 mL M: 62 - 150 SV 63.83 mL LV Volume Index 35.64 mL/m2 M: 34 - 74 SV Index 27.70 mL/m2 LV Vol Biplane MOD 114.4 mL FS 28.90 % M-Mode TAPSE 1.90 cm (M/F) >1.7 LV Diastology MV E' medial 0.052 (>0.07 m/s) E/A Ratio 0.8 LV E/e MED 11.65 (<14) MV E Vmax 0.61 (0.4-1.3 m/s) MV E' lateral 0.066 (>0.1 m/s) MV A Vmax 0.80 (0.4-1.3 m/s) LV E/e LAT 9.10 (<14) MV E/A Ratio 0.73 MV E/E' medial 11.70 MV E/E' lateral 9.12 Aortic Valve LVOT Area 3.37 cm2 AoV Area Vmax 2.78 cm2 LVOT Vmax 0.94 m/s AoV Area/ BSA (Vmax) 1.21 cm2/m2 LVOT Mean Jose Luis. 0.59 m/s JUAN Mean Jose Luis. 2.40 cm2 LVOT Peak Grad 3.5 mmHg JUAN Mean Jose Luis. Index 1.04 cm2/m2 LVOT Mean Grad 1.7 mmHg LVOT VTI 0.209 m LVOT Diam s 2.05 cm AoV Vmax 1.13 m/s Velocity Ratio 0.83 AoV Mean Jose Luis. 0.83 m/s AoV Peak Grad 5.1 mmHg LVOT SV 70.36 mL AoV Mean Grad 3.0 mmHg AoV VTI 0.264 m AoV Area VTI 2.67 cm2 AoV Area/ BSA (VTI) 1.16 cm/m2 Mitral Valve MV DT 340 (160-240 msec) MV PHT 99 msec MV Area PHT 2.23 cm2 Pulmonary Valve PV Vmax 1.00 (0.5-1.5 m/s) RVOT Peak Gr. 2.06 mmHg PV Peak Grad 4.0 mmHg RVOT Mean Gr. 1.05 mmHg PV Mean Grad 2.4 mmHg RVOT VTI 0.170 m PV VTI 0.224 m RVOT Vmax 0.72 m/s Tricuspid Valve TR Peak Grad 23.6 mmHg TR Vmax 2.43 m/s RA Pressure 3.00 mmHg RVSP (TR) 26.7 mmHg
== END 2020-08-21 01:43 ==
PROVIDERS: PCP Family Medicine; Visit Provider Internal Medicine Cardiovascular Disease
DX: I47.1 Supraventricular tachycardia (principal); R06.09 Other forms of dyspnea; I34.0 Nonrheumatic mitral (valve) insufficiency
CPT/HCPCS: 93306

== ENCOUNTER 2020-08-27 00:47 | Outpatient (CLI) | payer OTHER, SELFPAY ==
--- NOTE | 2020-08-27 09:35 | DI.RAD_ITS ---
EXAM: XR CHEST 2V PA LATERAL CLINICAL HISTORY: exertional dyspnea/copd/negative cardiac workup,R06.00. TECHNIQUE: 2D digital imaging was performed. COMPARISON: CR CHEST 2 VIEWS PA,LAT from 09/08/2017 FINDINGS: Heart size is normal. The mediastinum is not widened. Lungs are clear. No infiltrates nor pleural effusions. Mild hyperinflation. IMPRESSION: No acute pulmonary findings.No significant change from August 2017 DATA REPOSITORY: RADIATION DOSE DELIVERED:
== END 2020-08-27 01:07 ==
PROVIDERS: PCP Family Medicine; Visit Provider Family Medicine
DX: R06.09 Other forms of dyspnea (principal); J44.9 Chronic obstructive pulmonary disease, unspecified
CPT/HCPCS: 71046

== ENCOUNTER 2021-03-02 09:32 | Outpatient (CLI) | payer OTHER, SELFPAY ==
[2021-03-02 12:48] LABS: TSH 1.89 uIU/mL (0.36-3.74)
[2021-03-02 17:56] LABS: PSA, Screening 1.3 ng/mL (0.0-6.5)
== END 2021-03-02 09:33 | disposition home or self-care (01) ==
LOC: LOS 09:33
PROVIDERS: PCP Nurse Practitioner Family; Referring Provider Nurse Practitioner Family; Visit Provider Nurse Practitioner Family
DX: E03.9 Hypothyroidism, unspecified (principal); N40.0 Benign prostatic hyperplasia without lower urinary tract symptoms; Z12.5 Encounter for screening for malignant neoplasm of prostate
CPT/HCPCS: 36415; 84153; 84443

== ENCOUNTER 2022-03-05 00:56 | Outpatient (CLI) | payer OTHER, SELFPAY ==
--- OUTSIDE RECORDS SUMMARY | 2022-03-05 01:30 | XMS_ITS | Encounter Summary ---
:1940 Author Organization [facility] Address [facility] [address] [place] [address] Care Team Providers Name Role Phone Arminda Vick MD Primary Care Provider Reason for Visit Auth/Cert Specialty Diagnoses / Procedures Referred By Contact Refer red To Contact Diagnoses Age-related nuclear cataract, right eye Cataract Procedures PRO REMV CATARACT EXTRACAP,INSERT LENS CATARACT EXTRACTION, EXTRACAPSULAR, W/ LENS INSERTION Referral ID Status Reason Start Date Expiration Date Visits Requ ested Visits Authorized [id number] 1 1 Encounter Details Date Type Department Care Team Description 06/09/2015 Hospital Encounter Outpatient Surgery Oliver Harper e-related nuclear Center Gerda Avelar MD cataract of right [facility] [address] [place] [phone] Social History Tobacco Use Types Packs/Day Years Used Date Former Smoker Cigarettes, Pipe, Cigars 1 40 Qu it: 10/31/1999 Smokeless Tobacco: Never Used Alcohol Use Standard Drinks/Week Comments No 0 (1 standard drink = 0.6 oz pure alcoho l) Sex Assigned at Date Recorded Not on file documented as of this encounter Last Filed Vital Signs Vital Sign Reading Time Taken Comments Blood Pressure 119/60 06/09/2015 9:39 AM EST Pulse 82 06/09/2015 9:39 AM EST Temperature 36 ??C (96.8 ??F) 06/09/2015 9:24 AM EST Respiratory Rate 20 06/09/2015 9:39 AM EST Oxygen Saturation 92% 06/09/2015 9:39 AM EST Inhaled Oxygen Concentration - - Weight 104.8 kg (231 lb) 06/09/2015 7:54 AM EST Height 182.9 cm (6' 0.01) 06/09/2015 7:54 AM EST Body Mass Index 31.32 06/09/2015 7:54 AM EST documented in this encounter Discharge Instructions Discharge InstructionsKelsey Ribera RN - 06/09/2015 7:54 AM EST Home Care Instructions after Cataract Surgery Do not remove the eye patch or shield, unless instructed to do so. Take it easy today. Avoid strenuous activities. Bring your eye drops and the Eye Care Kit with you to each visit after your surgery. Resume all your regular medicines. It is normal to have a scratchy sensation or mild pain in your eye. Your eye will be red tomorrow- this is normal. If you develop vomiting or severe pain not relieved with medication please call. Your appointment with Dr. Harper is in the Eye Clinic Desk 4-B tomorrow. You may have received medication before and/or during your procedure, which affect your judgement and reaction time therefore for the next 24 hours: You may be unsteady on your feet, be careful on stairs. Do not drink alcoholic beverages. Do not drive or operate any type of machinery. Do not make important legal decisions. If you are having any problems or additional concerns or questions please call: 8am to 5 pm -F - [phone] After 5 pm or on a weekend or holiday please call the hospital rail detector car operator at [phone] and ask for opthalmology MD primary care nurse practitioner. documented in this encounter Medications at Time of Discharge Medication Sig Dispensed Refills Start Date End Date albuterol (ACCUNEB) 1.25 Take 1 ampule by 0 mg/3 mL Solution for nebulization every 6 Nebulization hours as needed for Wheezing. levothyroxine (SYNTHROID) Take 25 mcg by mouth 0 25 mcg Tablet daily. cyanocobalamin 1,000 mcg Take 1,000 mcg by 0 Tablet mouth daily. multivitamin (THERAGRAN) Take 1 tablet by mouth 0 Tablet daily. ibuprofen (ADVIL) 200 mg Take 400 mg by mouth 0 tablet as needed. amlodipine (NORVASC) 10 Take 10 mg by mouth 0 mg tablet daily. CIS Free Text Med - 2 Puff(s), Inh, Four 0 2008 Albuterol (Refill) times daily and PRN RANITIDINE HCL (ZANTAC 0 10/25/2008 ORAL) documented as of this encounter H&P Notes Valentino Harper MD - 06/09/2015 8:33 AM EST History and physical for PCP reviewed, no interval changes. Risks, benefits and alternatives of surgery revisited. Patient is keen to proceed with CEIOL OD. documented in this encounter Miscellaneous Notes Op Note - Valentino Harper MD - 06/09/2015 9:18 AM EST [facility] [place], [place] Operative Note Patient Name: Michelle Swenson : [id number] MR#: [id number] Case Date: 06/09/2015 Surgeon: Surgeon(s) and Role: * Valentino Harper MD - Primary Patient: Michelle Swenson Diagnosis: Cataract, Right eye Procedure: Cataract extraction/lens implantation, Right eye Complications: None Blood loss: Minimal Anesthesia type: General Implant: [id number] lens, 19.0 D power, placed in the capsular bag Procedure in detail: After the risks, benefits, and alternatives of the planned procedure had been discussed with the patient and the informed consent signed, the patient was taken back to the operating room suite. There, the patient was prepped and draped in the standard sterile ophthalmic fashion. Alid speculum was introduced into the operative eye. A paracentesis wound was created 60 degrees to the left of the planned temporal incision. Viscoat viscoelastic was injected intracamerally. The main temporal incision was then created using a 2.4 mm keratome. The anterior capsulotomy was then createdusing the combination of a cystotome and Utrata forceps. Hydrodissection was performed using a straight hydrodissection cannula. The nucleus was then divided in a groove and split technique. The nuclear fragments were then removed using the phacoemulsification handpiece. The remaining cortical and epinuclear material was then removed using the irrigation/aspiration handpiece. The capsular bag was filled with Provisc viscoelastic. The [id number] lens was then injected into the capsular bag using a lens injection system. The remaining viscoelastic was then removed from the eye using the irrigation/aspiration handpiece. The wounds were then hydrated. With the wounds found not to be leaking, all viscoelastic removed from the anterior segment, and the lens centered in the capsular bag, the surgery was deemed concluded. All instrumentation was removed from the operative eye. The patient was then escorted to the post-anesthesia care unit having tolerated the procedure well without additional issues. I performed this surgery by myself without the assistance of a resident. documented in this encounter Plan of Treatment Not on filedocumented as of this encounter Procedures Procedure Name Priority Date/Time Associated Diagnosis Comme nts CATARACT EXTRACTION, 06/09/2015 8:36 AM EST Age-relate d nuclear EXTRACAPSULAR, W/ LENS cataract of right eye INSERTION (WRVU 8.52) documented in this encounter Visit Diagnoses Diagnosis Age-related nuclear cataract of right ey e Senile nuclear sclerosis documented in this encounter Administered Medications Inactive Administered Medications - up to 3 most recent administrations Medication Order MAR Action Action Date Dose Rate Site cyclopentolate (CYCLODRYL) 1 % Given 06/09/2015 8:[address] op ophthalmic solution 1 drop 1 drop, Right Eye, EVERY 5 MIN, 3 doses, First dose on Tue06/09/15 at 0815, Last dose on Tue06/09/15 at 0825, 1 drop to the operative eye every 5 minutes times 3. Start day of surgery, Day of Surgery (Day of Procedure), Routine Given 06/09/2015 8:12 AM EST 1 drop Given 06/09/2015 8:05 AM EST 1 drop ibuprofen (ADVIL;MOTRIN) tablet 600 mg Given 06/09/2015 9:44 AM EST 600 mg 600 mg, Oral, ONCE, 1 dose, On Tue06/09/15 at 1000, Administer orally with milk or food to minimize GI irritation. Maximum dose of 3200 mg from all sources in 24 hours, PACU Recovery, Routine ketorolac tromethamine (ACULAR) 0.5 % Given 06/09/2015 8:[address] 1 drop ophthalmic solution 1 drop 1 drop, Right Eye, ONCE, 1 dose, On Tue06/09/15 at 0815, 1 drop to the operative eye once, start on day of surgery, Day of Surgery (Day of Procedure), Routine lactated ringers infusion 1,000 New Bag 06/09/2015 8:15 AM EST 1,000 mLs 100 mL/hr mL 1,000 mL, at 100 mL/hr, Intravenous, CONTINUOUS, Starting on Tue06/09/15 at 0815, Until Tue06/09/15 at 1231 moxifloxacin (VIGAMOX) 0.5 % ophthalmic Given 06/09/2015 8:21 AM EST 1 drop solution 1 drop 1 drop, Right Eye, EVERY 5 MIN, 3 doses, First dose on Tue06/09/15 at 0815, Last dose on Tue06/09/15 at 0825, 1 drop to the operative eye every 5 minutes times 3. Start on the day of surgery., Day of Surgery (Day of Procedure), Routine Given 06/09/2015 8:12 AM EST 1 drop Given 06/09/2015 8:04 AM EST 1 drop PHENYLephrine (MYDFRIN) 2.5 % ophthalmic Given 06/09/2015 8:21 A M EST 1 drop solution 1 drop 1 drop, Right Eye, EVERY 5 MIN, 3 doses, First dose on Tue06/09/15 at 0815, Last dose on Tue06/09/15 at 0825, 1 drop to the operative eye every 5 minutes times 3. Start on the day of surgery., Day of Surgery (Day of Procedure), Routine Given 06/09/2015 8:13 AM EST 1 drop Given 06/09/2015 8:05 AM EST 1 drop prednisoLONE acetate (PRED FORTE) 1 % Given 06/09/2015 8:[address] 1 drop ophthalmic suspension 1 drop 1 drop, Right Eye, ONCE, 1 dose, On Tue06/09/15 at 0815, 1 drop to the operative eye once, start on day of surgery, Day of Surgery (Day of Procedure), Routine documented in this encounter Active and Recently Administered Medications Times are shown in EST. Scheduled Medication Order 06/07/2015 06/08/2015 06/09/2015 cyclopentolate (CYCLODRYL) 1 % ophthalmic solution 1 drop (COMPL ETED) 0805 (Given - Provider: Kelsey Ribera RN)0812 (Given - Provider: Kelsey Ribera RN)0821 (Given - Provider: Kelsey Ribera RN) 1 drop, Right Eye, EVERY 5 MIN, 3 doses, First dose on Tue06/09/15 at 0815, Last dose on Tue06/09/15 at 0825, 1 drop to the operative eye every 5 minutes times 3. Start day of surgery, Day of Surgery (Day of Procedure), Routine ibuprofen (ADVIL;MOTRIN) tablet 600 mg (COMPLETED) 943 (Given - Provider: Kelsey Ribera RN) 600 mg, Oral, ONCE, 1 dose, Tue06/09/15 at 1000, Administer orally with milk or food to minimize GI irritation. Maximum dose of 3200 mg from all sources in 24 hours, PACU Recovery, Routine ketorolac tromethamine (ACULAR) 0.5 % ophthalmic solution 1 drop (COMPLETED) 08 (Given - Provider: Kelsey Ribera RN) 1 drop, Right Eye, ONCE, 1 dose, Tue at 0815, 1 drop to the operative eye once, start on day of surgery, Day of Surgery (Day of Procedure), Routine moxifloxacin (VIGAMOX) 0.5 % ophthalmic solution 1 drop (COMPLET ED) 0804 (Given - Provider: Kelsey Ribera RN)0812 (Given - Provider: Kelsey Ribera RN)0821 (Given - Provider: Kelsey Ribera RN) 1 drop, Right Eye, EVERY 5 MIN, 3 doses, First dose on Tue06/09/15 at 0815, Last dose on Tue06/09/15 at 0825, 1 drop to the operative eye every 5 minutes times 3. Start on the day of surgery., Day of Surgery (Day of Procedure), Routine PHENYLephrine (MYDFRIN) 2.5 % ophthalmic solution 1 drop (COMPLE VÍCTOR) 0805 (Given - Provider: Kelsey Ribera RN)0813 (Given - Provider: Kelsey Ribera RN)0821 (Given - Provider: Kelsey Ribera RN) 1 drop, Right Eye, EVERY 5 MIN, 3 doses, First dose on Tue06/09/15 at 0815, Last dose on Tue06/09/15 at 0825, 1 drop to the operative eye every 5 minutes times 3. Start on the day of surgery., Day of Surgery (Day of Procedure), Routine prednisoLONE acetate (PRED FORTE) 1 % ophthalmic suspension 1 drop (COMPLETED) 08 (Given - Provider: Kelsey jiang RN) 1 drop, Right Eye, ONCE, 1 dose, Tue at 0815, 1 drop to the operative eye once, start on day of surgery, Day of Surgery (Day of Procedure), Routine Continuous Medication Order 06/07/2015 06/08/2015 06/09/2015 lactated ringers infusion 1,000 mL (CANCELED) 0815 (New Bag - Provider: Kelsey Ribera RN)0930 (Anesthesia Volume Adjustment - Provider: Stephanie Costa CRNA) 1,000 mL, at 100 mL/hr, Intravenous, CON TINUOUS, Starting Tue06/09/15 at 0815, Until Tue06/09/15 at 1231 PRN Medication Order 06/07/2015 06/08/2015 06/09/2015 fentaNYL 50 mcg/mL multi-dose injection (CANCELED) 0856 (Given - Provider: Stephanie Costa CRNA)0859 (Given - Provider: Stephanie Costa CRNA) 25 mcg, Intravenous, EVERY 5 MIN PRN, St arting Tue06/09/15 at 0753, Until Tue06/09/15 at 1231, Pain, For use in the Operating Room (OR), [facility] ([facility])C, or Special Procedure Room o nly under direct provider supervision an d verbal order. Hold for respiratory rate less than 8 breaths per minute. (maximum dose 100 mcg), Intra-Operative (Intra-Procedure), Routine documented in this encounter Care Teams Adoption Services Manager Relationship Specialty Start Date End Date Arminda Vick MD PCP - General 05/05/10 09/11/[address] [place] [address] documented as of this encounter
--- OUTSIDE RECORDS SUMMARY | 2022-03-05 01:30 | XMS_ITS | Encounter Summary ---
:1940 Author Organization [facility] [place] [address] Care Team Providers Name Role Phone Arminda Vick MD Primary Care Provider Reason for Visit Reason Comments Post Op 1 week s/p cat w/ IOL OD Pseudophakia OU (OS 03/31/2015) Encounter Details Date Type Department Care Team Description 06/16/2015 Office Visit Ophthalmology at [facility] Yessenia Harper, Pseudophakia of [facility] [place] [address] [place] [address] OPHTHALMOLOGY DEPT [place], [place] [address] Social History Tobacco Use Types Packs/Day Years Used Date Former Smoker Cigarettes, Pipe, Cigars 1 40 Qu it: 10/31/1999 Smokeless Tobacco: Never Used Alcohol Use Standard Drinks/Week Comments No 0 (1 standard drink = 0.6 oz pure alcoho l) Sex Assigned at Date Recorded Not on file documented as of this encounter Progress Notes Valentino Harper MD - 06/16/2015 9:47 AM EST Michelle Swenson is a 74 y.o. male with the following medical problems; Past Medical History Diagnosis Date ??? Hypertensive disease 1 year Borddering on high, amlodipine besylate ??? Breathing problem ? emphysema ??? Cancer 3 Years colon polop W/ cells removed all good ??? Digestive problems ? heartburn ??? ENT disease ? hearing loss, tinnitus ??? Cataract ??? GERD (gastroesophageal reflux disease) ??? COPD (chronic obstructive pulmonary disease) ??? Thyroid disease Assessment and Plan: Pseudophakia of right eye POW# 1 Doing well Plan: - Prednisolone acetate 1% three times a day in the operative eye for 1 week, followed by twice a dayfor 1 week, then once daily for the subsequent week - Moxifloxicin STOP - Ketorolac four times a day in operative eye until it runs out Follow up: - 3 weeks for MR OU and DFE OU with IOP check Findings discussed with Michelle Swenson today and he has expressed understanding. He will call me if he has any further concerns. documented in this encounter Miscellaneous Notes Assessment & Plan Note - Valentino Harper MD - 06/16/2015 9:47 AM EST Associated Problem(s): Pseudophakia of right eye POW# 1 Doing well Plan: - Prednisolone acetate 1% three times a day in the operative eye for 1 week, followed by twice a dayfor 1 week, then once daily for the subsequent week - Moxifloxicin STOP - Ketorolac four times a day in operative eye until it runs out Follow up: - 3 weeks for MR OU and DFE OU with IOP check documented in this encounter Plan of Treatment Not on filedocumented as of this encounter Visit Diagnoses Diagnosis Pseudophakia of right eye Lens replaced by other means documented in this encounter Care Teams Credentialing Analyst Relationship Specialty Start Date End Date Arminda Vick MD PCP - General 05/05/10 09/11/15 [address] [place] [address] documented as of this encounter
--- OUTSIDE RECORDS SUMMARY | 2022-03-05 01:30 | XMS_ITS | Encounter Summary ---
:1940 Author Organization [facility] [address] Care Team Providers Name Role Phone Arminda Vick MD Primary Care Provider Reason for Visit Reason Comments Post Op 1 week s/p cat w/ IOL OS Encounter Details Date Type Department Care Team Description 04/07/2015 Office Visit Ophthalmology at [facility] Yessenia Harper, Pseudophakia of [facility] [place] [address] [place] [address] OPHTHALMOLOGY DEPT [place] [phone] Social History Tobacco Use Types Packs/Day Years Used Date Former Smoker Cigarettes, Pipe, Cigars 1 40 Qu it: 10/31/1999 Smokeless Tobacco: Never Used Alcohol Use Standard Drinks/Week Comments No 0 (1 standard drink = 0.6 oz pure alcoho l) Sex Assigned at Date Recorded Not on file documented as of this encounter Progress Notes Valentino Harper MD - 04/07/2015 10:02 AM EDT Michelle Swenson is a 74 y.o. male [...] Thyroid disease Assessment and Plan: Pseudophakia of left eye POW# 1 Doing well. Corneal suture removed. Plan: - Prednisolone acetate 1% three times a day in the operative eye for 1 week, followed by twice a dayfor 1 week, then once daily for the subsequent week - Moxifloxicin QID for 4 days - Ketorolac four times a day in operative eye until it runs out Follow up: - 3 weeks for MR and IOP check Findings discussed with Michelle Swenson today and he has expressed understanding. He will call me if he has any further concerns. documented in this encounter Miscellaneous Notes Assessment & Plan Note - Valentino Harper MD - 04/07/2015 9:59 AM EDT Associated Problem(s): Pseudophakia of left eye POW# 1 Doing well. Corneal suture removed. Plan: - Prednisolone acetate 1% three times a day in the operative eye for 1 week, followed by twice a dayfor 1 week, then once daily for the subsequent week - Moxifloxicin QID for 4 days - Ketorolac four times a day in operative eye until it runs out Follow up: - 3 weeks for MR and IOP check documented in this encounter Plan of Treatment Not on filedocumented as of this encounter Visit Diagnoses Diagnosis Pseudophakia of left eye Lens replaced by other means documented in this encounter Care Teams Web Marketing Strategist Relationship Specialty Start Date End Date Arminda Vick MD PCP - General 05/05/10 09/11/15 [address] [place] [address] documented as of this encounter
--- OUTSIDE RECORDS SUMMARY | 2022-03-05 01:30 | XMS_ITS | Clinical Summary ---
:1940 Author Organization [place] [address] Care Team Providers Name Role Phone Genna Marks APRN Primary Care Provider Allergies No known active allergies Medications Medication Sig Dispensed Refills Start Date End Date Status CIS Free Text Med - 2 Puff(s), Inh, 0 10/25/2008 Active Albuterol (Refill) Four times daily and PRN RANITIDINE HCL 0 10/25/2008 Acti ve (ZANTAC ORAL) amlodipine (NORVASC) Take 10 mg by mouth 0 Active 10 mg tablet daily. ibuprofen (ADVIL) 200 Take 400 mg by 0 Active mg tablet mouth as needed. levothyroxine Take 25 mcg by 0 A ctive (SYNTHROID) 25 mcg mouth daily. Tablet cyanocobalamin 1,000 Take 1,000 mcg by 0 Active mcg Tablet mouth daily. multivitamin Take 1 tablet by 0 Active (THERAGRAN) Tablet mouth daily. albuterol (ACCUNEB) Take 1 ampule by 0 Active 1.25 mg/3 mL Solution nebulization every for Nebulization 6 hours as needed for Wheezing. Active Problems Problem Noted Date Bilateral pseudophakia 07/11/2015 Last Assessment & Plan: Formatting of th is note might be different from the original. Doing great- return precautions given. Will use OTC readers. 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 POW# 1 Doing well Plan: - Prednisolone acetate 1% three times a day in the operative eye for 1 week, followed by twice a day for 1 week, then once daily for the subsequent week - Moxifloxicin STOP - Ketorolac four times a day in operativ e eye until it runs out Follow up: - 3 weeks for MR OU and DFE OU with IOP check Pseudophakia of left eye 04/07/2015 Last Assessment & Plan: Formatting of th is note might be different from the original. POM #1. Doing well - off all drops. S/P right knee arthroscopy 10/12/2012 Overview: Case Date: 10/03/2012 Surgeon: Sammie Hopkins MD Procedure(s): ARTHROSCOPY KNEE, MENISCECTOMY SINGLE W/ SHAVING FINDINGS: Patellofemoral Joint: GRADE II-III BOTH SIDES Medial Compartment: COMPLEX MEDIAL MENIS TORRI TEAR POSTERIOR HORN, GRADE II CHANGES ACL/PCL: INTACT Lateral Compartment: GRADE II Resolved Problems Problem Noted Date Resolved Date Age-related nuclear cataract of right eye 05/06/2015 11/10/2015 Last Assessment & Plan: Formatting of th is note might be different from the original. Michelle Swenson has visually significan t cataract interfering with visual tasks. We discussed the risks, benefits and alternatives to cataract surgery. Michelle expressed understanding and is keen to [place] cataract surgery in his Right eye wi th a monofocal IOL. he denies any history of amblyopia, patc nicolas or strabismus surgery in the past. No history of trauma or Flomax use. No PXE or phacodenesis noted on exam. Target Refraction: [place] to -0.50 Discus sed that this is an estimate and that there would likely be a post operative need for glasses to achieve best vision. Type of Cataract: 3+NSC + vacoules Special surgical issues: None Anesthesia: GA - due to anxiety Dilation: 7.5mm Allergies: No Known Allergies Surgical orders entered Surgical consent signed POM and surgical coordination initiated Call prn any problems or questions. Age-related nuclear cataract, bilateral 02/20/2015 11/10/2015 Last Assessment & Plan: Formatting of th is note might be different from the original. Michelle Swenson has visually significan t cataract interfering with visual tasks. Left eye worse than the right. We discussed the risks, benefits and alternatives to cataract surgery. Michelle expressed u nderstanding and is keen to pursue catar act surgery in his Left eye with a monofocal IOL. he denies any history of amblyopia, patc nicolas or strabismus surgery in the past. No history of trauma or Flomax use. No PXE or phacodenesis noted on exam. Target Refraction: [place] to -0.50 Discus sed that this is an estimate and that there would likely be a post operative need for glasses to achieve best vision. 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 Immunizations Name Administration Dates Next Due Influenza Vaccine w/Preservative, Split 04/12/2011 Influenza Vaccine, Whole 04/08/2008, 05/02/2006 Family History Medical History Relation Comments Coronary Artery Disease Father High Blood Pressure Father Cancer Maternal Grandfather Diabetes Maternal Grandmother Breast Cancer Maternal Uncle Heart Disease Paternal Grandmother Alcohol Use Disorder Paternal Uncle Relation Status Comments Father Maternal Grandfather Maternal Grandmother Maternal Uncle Paternal Grandmother Paternal Uncle Social History Tobacco Use Types Packs/Day Years Used Date Former Smoker Cigarettes, Pipe, Cigars 1 40 Qu it: 10/31/1999 Smokeless Tobacco: Never Used Alcohol Use Standard Drinks/Week Comments No 0 (1 standard drink = 0.6 oz pure alcoho l) Sex Assigned at Date Recorded Not on file Last Filed Vital Signs Vital Sign Reading Time Taken Comments Blood Pressure 147/73 11/10/2015 11:19 AM EDT Pulse 85 11/10/2015 11:19 AM EDT Temperature 36.6 ??C (97.9 ??F) 11/10/2015 11:19 AM EDT Respiratory Rate 16 11/10/2015 11:19 AM EDT Oxygen Saturation 94% 11/10/2015 11:19 AM EDT Inhaled Oxygen Concentration - - Weight 104.3 kg (230 lb) 11/10/2015 11:19 AM EDT Height 182.9 cm (6') 11/10/2015 11:19 AM EDT Body Mass Index 31.19 11/10/2015 11:19 AM EDT Plan of Treatment Health Maintenance Due Date Last Done Comments Covid-19 Vaccine (#1) 1946 Hepatitis C Screening 1959 Tdap adult 1960 Tetanus vaccine 1960 Zoster vaccine (1 of 2) 1991 Advance Directive 1996 Pneumoccocal Vaccine: 65+ (1 - PCV) 2006 Influenza (Flu) vaccine (1 of 1 - 02/11/2022 04/12/2011, , Influenza standard series) 05/02/2006 Medical Devices Implanted Type Area Aluminizer Device Shelf Model / Identifier Expiration Serial / Date Lot Iol,Ma60ac,19.5 ([id number]) (Autoreq) - [id number] IMPLANTS Left: Pete 01/29/2018 MA60AC 19.5 / Implanted: Qty: 1 on 03/31/2015 at [facility] - [id number] / [id number] Iol,Sn60wf,19.0 ([id number]) ([employer]) - [id number] IMPLANTS Right: Pete 02/11/2020 [id number] 19.0 / Implanted: Qty: 1 on 06/09/2015 by Valentino Harper MD at [facility] - [id number] / [id number] Explanted Type Area Aluminizer Device Shelf Model / Identifier Expiration Serial / Date Lot Iol,Sn60wf,20.0 ([id number]) ([employer]oreq) - [id number] IMPLANTS Left: Pete 01/11/2020 SN60WF 20.0 / Implanted: Qty: 1 [facility] - [id number] / Explanted: Qty: 1 on 03/31/2015 at [facility] [id number] 20.0 Insurance Payer Benefit Plan Subscriber ID Effective Dates Phone Address Type / Group BRITTNEY VELARDE [id number] 2007-Becca [phone] [address] [address] [address] [place] [address] Advance Directives Latest Code Status on File Code Status Date Activated Date Inactivated Comments Full Code 03/31/2015 11:49 AM 03/31/2015 5:25 PM Does patient have capacity to make decision: Yes Full Code 10/03/2012 11:50 AM 10/03/2012 4:04 PM Order Status: Initial Order Does patient have decision making capacity? Yes, Order is based on Patients wishes. Care Teams Sewing Inspector Relationship Specialty Start Date End Date Genna Marks, HEREDITARY CANCER PROGRAM COORDINATOR PCP - General Family Medicine 09/12/[address] [place] [address]
--- OUTSIDE RECORDS SUMMARY | 2022-03-05 01:30 | XMS_ITS | Encounter Summary ---
:1940 Author Organization [facility] [place] [address] Care Team Providers Name Role Phone Arminda Vick MD Primary Care Provider Reason for Visit Reason Onset Date Comments Post Op Shared with Dr. Dhara york. 1 Day S/P CE IOL OD 06/09/15. Post Op 06/10/2015 Encounter Details Date Type Department Care Team Description 06/10/2015 Office Visit Ophthalmology at [facility], Status post cataract extract ion and insertion of intraocular lens, right; [facility] MD Valent[place] [address] [place] [address] OPHTHALMOLOGY DEPT [place], [place] [address] Social History Tobacco Use Types Packs/Day Years Used Date Former Smoker Cigarettes, Pipe, Cigars 1 40 Qu it: 10/31/1999 Smokeless Tobacco: Never Used Alcohol Use Standard Drinks/Week Comments No 0 (1 standard drink = 0.6 oz pure alcoho l) Sex Assigned at Date Recorded Not on file documented as of this encounter Patient Instructions Patient InstructionsValentino Harper MD - 06/10/2015 9:48 AM EST Instruction following eye surgery Section of Ophthalmology [facility] 1) AVOID EYE INJURIES: Following eye surgery your eye is more susceptible to injuries. Therefore, special attention has to be given to preventing an accidental injury - Do not rub the operative eye - Wear eye protection at all times - glasses or a shield during the day - Shield at night for the first 7 days after surgery. - Do not engage in any activities that could result in a blow to the eye. - Do not engage in any heavy physical activities that cause you to strain. 2) AVOID EYE CONTAMINATION: Following eye surgery your eye is more susceptible to ocular infections. - Wash hands before touching the eye. - Do not swim or bath in contaminated water such as a pond or hot tub. - Wash hands after any contamination such as working in the garden. 3) CALL THE EYE CLINIC WITH ANY WORSENING PAIN, REDNESS, NEW FLASHES NEW FLOATERS OR DECREASING VISION: There is always a doctor telecommunications support at the eye clinic if you develop a problem as described above, especially in the first 14 days following surgery: 4) USE THE PRESCRIBED EYE DROPs AND BRING THEM FOLLOW UP APPOINTMENTS - Prednisolone acetate (pink cap) 1 drop operative eye 4 times a day (Shake before using) - Vigamox (galeano cap) 1 drop operative eye 4 times a day (when you run out, it is OK to stop) - Ketorolac (foote cap) 1 drop operative eye 4 times a day (this drop may burn or sting) documented in this encounter Progress Notes Valentino Harper MD - 06/10/2015 9:48 AM EST Assessment: No diagnosis found. Michelle Swenson is POD#1 cataract surgery in his right eye Doing well with a normal post operative appearance. Plan: - Prednisolone acetate 1% qid in operative eye - Moxifloxicin qid in operative eye - Ketorolac qid in operative eye - Post op precaution sheet reviewed and given to patient Follow up: - 1 week or as needed. Upon return IOP OU MR operative eye documented in this encounter Plan of Treatment Not on filedocumented as of this encounter Visit Diagnoses Diagnosis Status post cataract extraction and inse rtion of intraocular lens, right Pseudophakia Lens replaced by other means documented in this encounter Care Teams Floor Molder Relationship Specialty Start Date End Date Arminda Vick MD PCP - General 05/05/10 09/11/15 [address] [place] [address] documented as of this encounter
--- OUTSIDE RECORDS SUMMARY | 2022-03-05 01:30 | XMS_ITS | Encounter Summary ---
:1940 Author Organization [facility] [place] [address] Care Team Providers Name Role Phone Genna Marks APRN Primary Care Provider Reason for Visit Reason Comments Eye Problem Encounter Details Date Type Department Care Team Description 11/10/2015 Unscheduled Ophthalmology at [facility] Holly Ruiz, Pseudophakia of Encounter [facility] left eye [facility] [address] OPHTHALMOLOGY [phone] [place] [address] Social History Tobacco Use Types Packs/Day Years Used Date Former Smoker Cigarettes, Pipe, Cigars 1 40 Qu it: 10/31/1999 Smokeless Tobacco: Never Used Alcohol Use Standard Drinks/Week Comments No 0 (1 standard drink = 0.6 oz pure alcoho l) Sex Assigned at Date Recorded Not on file documented as of this encounter Progress Notes Holly Mason MD - 11/10/2015 12:16 PM EDT Encounter Diagnosis Name Primary? Pseudophakia of left eye Michelle Swenson, a 75 y.o. male with the following problem(s): 1. New flashes/floaters OS: no RT/RD/RH, bolden's sign negative - RD precautions reviewed. - Findings and concerns discussed with Michelle and he expressed understanding. FOLLOW UP - with Dr. Bowden as scheduled documented in this encounter Plan of Treatment Not on filedocumented as of this encounter Visit Diagnoses Diagnosis Pseudophakia of left eye Lens replaced by other means documented in this encounter Care Teams Bus Washer Relationship Specialty Start Date End Date Genna Marks APRN PCP - General Family Medicine 09/12/[address] [place] [address] documented as of this encounter
--- OUTSIDE RECORDS SUMMARY | 2022-03-05 01:30 | XMS_ITS | Encounter Summary ---
:1940 [place] [address] Care Team Providers Name Role Phone Genna Marks APRN Primary Care Provider Encounter Details Date Type Department Care Team Description 11/10/2015 Emergency Emergency Department [place] [address] Social History Tobacco Use Types Packs/Day Years [...] Mass Index 31.19 11/10/2015 11:19 AM EDT documented in this encounter Medications at Time [...] 10/25/2008 ORAL) documented as of this encounter Miscellaneous Notes ED Triage - Farzana De Luna RN - 11/10/2015 11:19 AM EDT Pt arrived via private vehicle with c/o seeing flashes in his left eye that started yesterday. Had some flashes this morning, but none now. Had cataract surgery 03/2015 on OS. Denies headache, nausea, vomiting or injuries. Pt reports that he called the chocolate packer food and beverage controller yesterday and she informed him to come to [facility] today. Pt reports that he is only letting the chocolate packer look at his eye. A+O x 3, NAD, PWD documented in this encounter Plan of Treatment Not on filedocumented as of this encounter Visit Diagnoses Diagnosis Other subjective visual disturbances documented in this encounter Care Teams Clinical Biostatistics Director Relationship Specialty Start Date End Date Genna Marks APRN PCP - General Family Medicine 09/12/[address] [place] [address] documented as of this encounter
--- OUTSIDE RECORDS SUMMARY | 2022-03-05 01:30 | XMS_ITS | Encounter Summary ---
:1940 Author Organization [place] [address] Care Team Providers Name Role Phone Arminda Vick MD Primary Care Provider Reason for Visit Auth/Cert Specialty Diagnoses / Procedures Referred By Contact Refer red To Contact Diagnoses Age-related nuclear cataract, right eye Cataract Procedures PRO REMV CATARACT EXTRACAP,INSERT LENS CATARACT EXTRACTION, EXTRACAPSULAR, W/ LENS INSERTION Referral ID Status Reason Start Date Expiration Date Visits Requ ested Visits Authorized [id number] 1 1 Encounter Details Date Type Department Care Team Description 06/09/2015 Surgery Outpatient Surgery [facility], CATARACT EXTRACTION, Center Gerda Martinez i, MD EXTRACAPSULAR, W/ LENS [facility] INSERTION (WRVU 8.52) [facility] DR Wilson [place] [address] [place] [address] [phone] (Wo rk) Social History Tobacco Use Types Packs/Day Years [...] questions please call: 8am to 5 pm M-F - [phone] After 5 pm or on a weekend or holiday please call the hospital compressor operator adjuster at [phone] and ask for opthalmology MD enterprise application developer. documented in this encounter Medications at Time [...] Harper MD - 06/09/2015 9:18 AM EST [facility] Operative Note Patient Name: Michelle Swenson : [id number] MR#: [id number] Case Date: 06/09/2015 Surgeon: Surgeon(s) and Role: [...] of right ey e Senile nuclear sclerosis Age-related nuclear cataract of right ey e [...] Routine documented in this encounter Care Teams Data Integration Developer Relationship Specialty Start Date End Date Arminda Vick MD PCP - General 05/05/10 09/11/[address] [place] [address] documented as of this encounter
--- OUTSIDE RECORDS SUMMARY | 2022-03-05 01:30 | XMS_ITS | Encounter Summary ---
:1940 Author Organization [facility] [place] [address] Care Team Providers Name Role Phone Genna Marks APRN Primary Care Provider Reason for Visit Reason Comments Flashes Of Light flashes and floaters OS Pseudophakia OU (OD 06/09/2015, OS 2014) Encounter Details Date Type Department Care Team Description 12/16/2015 Office Visit Ophthalmology at [facility] Zeny Ellis, vitreous, [facility] [place] [address] [place] [address] OPHTHALMOLOGY DEPT [place] [address] Social History Tobacco Use Types Packs/Day Years Used Date Former Smoker Cigarettes, Pipe, Cigars 1 40 Qu it: 10/31/1999 Smokeless Tobacco: Never Used Alcohol Use Standard Drinks/Week Comments No 0 (1 standard drink = 0.6 oz pure alcoho l) Sex Assigned at Date Recorded Not on file documented as of this encounter Progress Notes Valentino Harper MD - 12/16/2015 1:53 PM EDT 1. F.u for flashes/floaters OS: no RT/RD/RH, bolden's sign negative - RD precautions reviewed. - Findings and concerns discussed with Michelle and he expressed understanding. FOLLOW UP - 1 year documented in this encounter Plan of Treatment Not on filedocumented as of this encounter Visit Diagnoses Diagnosis Floater, vitreous, left documented in this encounter Care Teams Dynamicist Relationship Specialty Start Date End Date Genna Marks APRN PCP - General Family Medicine 09/12/15 [address] [place] [address] documented as of this encounter
--- OUTSIDE RECORDS SUMMARY | 2022-03-05 01:30 | XMS_ITS | Encounter Summary ---
:1940 Author Organization [facility] [place] [address] Care Team Providers Name Role Phone Arminda Vick MD Primary Care Provider Reason for Visit Reason Comments Post Op 1 month s/p cat w/ IOL OD Pseudophakia OU (OS 03/31/2015) Encounter Details Date Type Department Care Team Description 07/11/2015 Office Visit Ophthalmology at [facility] Yessenia Harper [facility] MD Valentino [place] [address] [place] [address] OPHTHALMOLOGY DEPT [place], [place] [address] Social History Tobacco Use Types Packs/Day Years Used Date Former Smoker Cigarettes, Pipe, Cigars 1 40 Qu it: 10/31/1999 Smokeless Tobacco: Never Used Alcohol Use Standard Drinks/Week Comments No 0 (1 standard drink = 0.6 oz pure alcoho l) Sex Assigned at Date Recorded Not on file documented as of this encounter Progress Notes Valentino Harper MD - 07/11/2015 9:30 AM EST Michelle Swenson is a 74 [...] disease) ??? Thyroid disease Assessment and Plan: Bilateral pseudophakia Doing great- return precautions given. Will use OTC readers. 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 He will call me if he has any further concerns. For Follow up Visit 6 mths documented in this encounter Miscellaneous Notes Assessment & Plan Note - Valentino Harper MD - 07/11/2015 9:30 AM EST Associated Problem(s): Bilateral pseudophakia Doing great- return precautions given. Will use OTC readers. 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
--- OUTSIDE RECORDS SUMMARY | 2022-03-05 01:30 | XMS_ITS | Encounter Summary ---
:1940 Author Organization [place] [address] Care Team Providers Name Role Phone Genna Marks APRN Primary Care Provider Encounter Details Date Type Department Care Team Description 05/07/2020 Hospital [place] [address] Social History Tobacco Use Types Packs/Day Years Used Date Former Smoker Cigarettes, Pipe, Cigars 1 40 Qu it: 10/31/1999 Smokeless Tobacco: Never Used Alcohol Use Standard Drinks/Week Comments No 0 (1 standard drink = 0.6 oz pure alcoho l) Sex Assigned at Date Recorded Not on file documented as of this encounter Medications at Time of Discharge [...] 10/25/2008 ORAL) documented as of this encounter Plan of Treatment Not on filedocumented as of this encounter Procedures Procedure Name Priority Date/Time Associated Diagnosis Comme nts COVID-19 PCR Routine 05/07/2020 9:20 AM Results f or this EST procedure are i n the results section . documented in this encounter Results COVID-19 PCR (05/07/2020 9:20 AM EST) [facility] Method Time Signature SARS-CoV-2 Not Detected Not Detected [facility] Comment: This result should be interpreted in com bination with the clinical observations, patient history and epidem iological information. For testing of asymptomatic individuals, assay performa nce characteristics and clinical utility have not been evaluated. Testing for SARS-CoV-2 (Severe acute respiratory syndrome coronavirus 2, form erly known as 2018 novel coronavirus or 2019-nCoV) to aid in the diagnosis of CO VID-19 is performed using the Aptima SARS Co-V-2 Assay on the App[employer] System ([employer] as authorized by the FDA issued Emergency Use Authorization ( EUA). This assay is intended for In-vitro Diagnostic (IVD) use with nasop haryngeal swabs collected from individuals meeting the CDC criteria for testing. The assay is performed based on the instructions for use and addition al guidance provided by the FDA. Testing is performed in the Microbiology Laboratory within the Department of Pathology and Laboratory Medicine at [facility], certified under the Clinical Laboratory Improvement Amendments of 1988 (CLIA), 42 U.S.C. section 263a, to perform high- complexity tests. Assay performance has been verified according to clinical labo ratory regulatory requirements. Test results are provided above. A resul t of Not Detected indicates that the viral RNA target is not present but does not preclude SARS-CoV-2 infection. False negative results may occur if a sp ecimen is improperly collected, transported or handled; if amplification inhibitors are present; or if inadequate numbers of viral particles ar e present in the specimen. A result of Detected suggests a current or recent infection and the patient is presumed to be infected. Positive and negative pr edictive values for this test are highly dependent on disease prevalence. A result of Invalid indicates the inability to conclusively determine the presence or absence of SARS-CoV-2 RNA in the sample which can be due to a vari ety of factors. ??Collection of a new sample for repeat testing is recommended in the case of an invalid result. CDC COVID-19 criteria for testing on hum an specimens and clinical management guidance information are available at [facility] CDC Coronavirus Disease 2019 (COVID-19) webpage under Information fo r Healthcare Professionals (https://www.cdc.gov/coronavirus/2019-nc ov/hcp/index.html). SARS-Cov-2 RNA Source DEPLOYMENT MANAGER Swab [facility] Specimen (Source) Anatomical Collection Method Collection Time Re ceived Time Location / / Volume Laterality Nasopharyngeal swab Other / Unknown 05/07/2020 9:20 (specimen) AM EST 3:57 AM EST Resulting Agency Comment Spec In Lab Rylan Hendrickson MD MICROBIOLOGY - [facility] Address City/State/[place] [address] documented in this encounter Visit Diagnoses Not on filedocumented in this encounter Care Teams Commercial Sales Consultant Relationship Specialty Start Date End Date Genna Marks APRN PCP - General Family Medicine 09/12/15 [address] [place] [address] documented as of this encounter
--- OUTSIDE RECORDS SUMMARY | 2022-03-05 01:30 | XMS_ITS | Encounter Summary ---
:1940 [place] [address] Care Team Providers Name Role Phone Arminda Vick MD Primary Care Provider Reason for Visit Auth/Cert Specialty Diagnoses / Procedures Referred By Contact Refer red To Contact Diagnoses Age-related nuclear cataract, right eye Cataract Procedures PRO REMV CATARACT EXTRACAP,INSERT LENS CATARACT EXTRACTION, EXTRACAPSULAR, W/ LENS INSERTION Referral ID Status Reason Start Date Expiration Date Visits Requ ested Visits Authorized [id number] 1 1 Encounter Details Date Type Department Care Team Description 06/09/2015 Anesthesia Event Outpatient Surgery Sites, Dane Parry MD [facility] [place] [address] [facility] Stephanie Costa CRNA [facility] [place] [address] [facility] [place] [address] Anesthesia Record Procedure Summary Procedure Name Responsible Anesthesia Start Anesthesia Stop Time Anesthesiologist Time CATARACT Sites, Dane Parry MD 06/09/15 0834 06/09/15 0931 EXTRACTION, EXTRACAPSULAR, W/ LENS INSERTION (WRVU 8.52) (Right Eye) Events Date Time Event Comment 06/09/2015 0756 0834 Start 0836 AN Verify 0836 An Start Data 0842 An Induction 0843 An Intubation 0844 Anesthesia Ready 0921 Extubation/LMA Out 0923 an stop data 0931 Recovery or ICU Handoff Patient care was transferred to the destination unit staff after review of the patient's medica l history, current anesthetic/surgi tony status and plan, according to the Provider Handoff Checklist. 0931 Stop Name Total IV Lidocaine 50 mg Propofol 250 mg ePHEDrine 20 mg Dexmedetomidine INF 41.75 mcg fentaNYL 50 mcg/mL multi-dose injection 50 mcg lactated ringers infusion 1,000 mL 400 mL Agents Name O2 Air Sevoflurane (et) Blood No blood administrations on file. Lines, Drains, and Airways Type Details Placement Removal Incision 10/03/12; 02/08/22 (LDA 10/03/12 0000 by 2 1715 by cleanup utility RA#[id number]); Leslie Mcnulty RN Muller, Dierdre L 1715 ([facility] cleanup utility RA#[id number]) Incision 03/31/15; eye; 02/08/22 03/31/15 0000 by Ehler, 02/08/22 1715 by ([facility] cleanup utility BEAU Cordero Die rdre L RA#[id number]); 1715 ([facility] cleanup utility RA#[id number]) Incision 06/09/15; eye; 02/08/22 06/09/15 0000 by 2 1715 by ([facility] cleanup utility Leslie Ledesma Dierdre L RA#[id number]); 1715 ([facility] cleanup utility RA#[id number]) PIV 06/09/15; 0815; median 06/09/15 0815 by 06/09/15 0954 by cubital vein left Kelsey Ribera, Kelsey Richards, (antecubital fossa); RN BEAU [id number] catheter system; 22 gauge, 1 in length; intradermal injection, tolerated well; 06/09/15; 0954 Supraglottic Mask Ventilation: Easy 06/09/15 0843 by 06/09/15 0921 by (1); LMA Type: Unique; LMA TickStephanie leonard CRNA Ticknor, Ruth L, CRNA Size: 4; Inserted by: Stephanie Costa CRNA documented in this encounter Social History Tobacco Use Types Packs/Day Years Used Date Former Smoker Cigarettes, Pipe, Cigars 1 40 Qu it: 10/31/1999 Smokeless Tobacco: Never Used Alcohol Use Standard Drinks/Week Comments No 0 (1 standard drink = 0.6 oz pure alcoho l) Sex Assigned at Date Recorded Not on file documented as of this encounter OR Notes Anesthesia Preprocedure Evaluation - [facility], Dane Parry MD - 06/09/2015 7:55 AM EST Pre-Anesthesia Evaluation for: Michelle Swenson a 74 y.o. male. Procedure(s): CATARACT EXTRACTION, EXTRACAPSULAR, W/ LENS INSERTION Patient Active Problem List Diagnosis ??? Age-related nuclear cataract of right eye ??? Pseudophakia of left eye ??? Age-related nuclear cataract, bilateral ??? S/P right knee arthroscopy Case Date: 10/03/2012 Surgeon: Juan Antonio Hopkins MD Procedure(s): ARTHROSCOPY KNEE, MENISCECTOMY SINGLE W/ SHAVING FINDINGS: Patellofemoral Joint: GRADE II-III BOTH SIDES Medial Compartment: COMPLEX MEDIAL MENISCAL TEAR POSTERIOR HORN, GRADE II CHANGES ACL/PCL: INTACT Lateral Compartment: GRADE II Past Medical History Diagnosis Date ??? Hypertensive disease 1 year Borddering on high, amlodipine besylate ??? Breathing problem ? emphysema ??? Cancer 3 Years colon polop W/ cells removed all good ??? Digestive problems ? heartburn ??? ENT disease ? hearing loss, tinnitus ??? Cataract ??? GERD (gastroesophageal reflux disease) ??? COPD (chronic obstructive pulmonary disease) ??? Thyroid disease Past Surgical History Procedure Laterality Date ??? Pro unlisted procedure, musculoskeletal system, general ? Both elbows ??? Pro unlisted px ur sys ? vasectomy ??? Pro knee scope, med/lat menisectomy 10/03/2012 ARTHROSCOPY KNEE, MENISCECTOMY SINGLE W/ SHAVING performed by Jaun Antonio Hopkins MD at [facility] OSC ??? Pro remv cataract extracap,insert lens Left 03/31/2015 CATARACT EXTRACTION, EXTRACAPSULAR, W/ LENS INSERTION performed by Valentino Harper MD [facility] OSC ??? Cataract removal Left 03/31/2015 OS SK History Substance Use Topics ??? Smoking status: Former Smoker -- 1.00 packs/day for 40 years Types: Cigarettes, Pipe, Cigars Quit date: 10/31/1999 ??? Smokeless tobacco: Never Used ??? Alcohol Use: No History Drug Use No No Known Allergies Medications: MAR and/or home medications have been reviewed. Physical Exam: There were no vitals filed for this visit. There is no weight on file to calculate BMI. Airway Assessment: Mallampati: II TM distance: >3 FB Neck ROM: full Cardiovascular Assessment: Rhythm: regular Pulmonary Assessment: breath sounds clear to auscultation Dental Assessment: Misc Assessment: IV access: Peripheral line Other exam findings: Poor dentition Anesthesia Plan: ASA 2 General, with a(n) intravenous induction I have seen and examined the patient. I have reviewed the medical record. I have reviewed the risks and benefits of sedation vs. GA. I have noted his likely COPD, inhaler use, obesity, and hypertension. Patient had emergence violence last time and we will try a different approach pharmacologically. Region - Other Informed Consent: Anesthetic plan and risks discussed with patient. Plan discussed with PANTOGRAPH TRANSFERRER. PAT Staff Note documented in this encounter Plan of Treatment Not on filedocumented as of this encounter Visit Diagnoses Not on filedocumented in this encounter Administered Medications Inactive Administered Medications - up to 3 most recent administrations Medication Order MAR Action Action Date Dose Rate Site dexmedetomidine Rate/Dose Change 06/09/2015 8:53 0.7 mcg/kg/hr 18.3 m L/hr (PRECEDEX) IV infusion AM EST (anesthesia) CONTINUOUS PRN, Starting on Tue06/09/15 at 0840, Until Tue06/09/15 at 0929, Anesthesia Intra-op, Routine New Bag 06/09/2015 8:40 AM EST 0.6 mcg/kg/hr 15.7 mL/hr ePHEDrine 5 mg/mL multi-dose injection Given 06/09/2015 9:04 AM EST 20 mg PRN, Starting on Tue06/09/15 at 0904, Until Tue06/09/15 at 0931, Anesthesia Intra-op, Routine fentaNYL 50 mcg/mL multi-dose injection Given 06/09/2015 8:59 AM EST 25 mcg 25 mcg, Intravenous, EVERY 5 MIN PRN, Starting on Tue06/09/15 at 0753, Until Tue06/09/15 at 1231, Pain, For use in the Operating Room (OR), [facility] ([facility])C, or Special Procedure Room only under direct provider supervision and verbal order. Hold for respiratory rate less than 8 breaths per minute. (maximum dose 100 mcg), Intra-Operative (Intra-Procedure), Routine Given 06/09/2015 8:56 AM EST 25 mcg lidocaine (PF) (XYLOCAINE) 100 mg/5 mL (2 %) Given 5 8:42 AM EST 50 mg injection PRN, Starting on Tue06/09/15 at 0842, Until Tue06/09/15 at 0931, Anesthesia Intra-op, Routine propofol (DIPRIVAN) 10 mg/mL bolus injection Given 5 8:53 AM EST 50 mg (Anesthesia) PRN, Starting on Tue06/09/15 at 0842, Until Tue06/09/15 at 0931, Anesthesia Intra-op Given 06/09/2015 8:42 AM EST 200 mg documented in this encounter Care Teams Travertine Installer Relationship Specialty Start Date End Date Arminda Vick MD PCP - General 05/05/10 09/11/[address] [address] documented as of this encounter
--- OUTSIDE RECORDS SUMMARY | 2022-03-05 01:30 | XMS_ITS | Encounter Summary ---
:1940 Author Organization [place] [address] Care Team Providers Name Role Phone Arminda Vick MD Primary Care Provider Reason for Visit Reason Onset Date Comments Post Op 1 day s/p cat w/ IOL OS 03/31/2015 Post Op 04/01/2015 Encounter Details Date Type Department Care Team Description 04/01/2015 Office Visit Ophthalmology at [facility] Yessenia Harper, Status post cataract extract ion and insertion of intraocular lens, left; [facility] MD Valent[place] [address] [address] [place] [address] OPHTHALMOLOGY DEPT [place], [place] [address] Social History Tobacco Use Types Packs/Day Years Used Date Former Smoker Cigarettes, Pipe, Cigars 1 40 Qu it: 10/31/1999 Smokeless Tobacco: Never Used Alcohol Use Standard Drinks/Week Comments No 0 (1 standard drink = 0.6 oz pure alcoho l) Sex Assigned at Date Recorded Not on file documented as of this encounter Patient Instructions Patient InstructionsValentino Harper MD - 04/01/2015 9:06 AM EDT Instruction following eye surgery Section of Ophthalmology [facility] 1) AVOID EYE INJURIES: Following eye [...] DECREASING VISION: There is always a doctor food preparation supervisor at the eye clinic if you develop [...] encounter Progress Notes Valentino Harper MD - 04/01/2015 9:06 AM EDT Assessment: No diagnosis found. Michelle Swenson is POD#1 cataract surgery in his left eye Doing well with a normal post [...] extraction and inse rtion of intraocular lens, left Pseudophakia Lens replaced by other means documented in this encounter Care Teams Network Engineering Advisor Relationship Specialty Start Date End Date Arminda Vick MD PCP - General 05/05/10 09/11/15 [address] [place] [address] documented as of this encounter
--- OUTSIDE RECORDS SUMMARY | 2022-03-05 01:30 | XMS_ITS | Encounter Summary ---
:1940 Author Organization [facility] [address] Care Team Providers Name Role Phone Arminda Vick MD Primary Care Provider Reason for Visit Reason Comments Post Op 1 month s/p cat w/ IOL OS Encounter Details Date Type Department Care Team Description 05/06/2015 Office Visit Ophthalmology at [facility] Yessenia Harper, Pseudophakia of left eye; [facility] MD Valentino Age-related [place] [address] [place] [address] OPHTHALMOLOGY DEPT [place], [place] [address] Social History Tobacco Use Types Packs/Day Years Used Date Former Smoker Cigarettes, Pipe, Cigars 1 40 Qu it: 10/31/1999 Smokeless Tobacco: Never Used Alcohol Use Standard Drinks/Week Comments No 0 (1 standard drink = 0.6 oz pure alcoho l) Sex Assigned at Date Recorded Not on file documented as of this encounter Progress Notes Valentino Harper MD - 05/06/2015 1:50 PM EST Michelle Swenson is a 74 y.o. [...] Assessment and Plan: Pseudophakia of left eye POM #1. Doing well - off all drops. Age-related nuclear cataract of right eye Michelle Swenson has visually significant cataract interfering with visual tasks. We discussed the risks, benefits and alternatives to cataract surgery. Michelle expressed understanding and is keen to pursue cataract surgery in his Right eye with a monofocal IOL. he denies any history of amblyopia, patching or strabismus surgery in the past. No history of trauma or Flomax use. No PXE or phacodenesis noted on exam. Target Refraction: [place] to -0.50 Discussed that this is an estimate and that there would likely be a post operative need for glasses to achieve best vision. Type of Cataract: 3+NSC + vacoules Special surgical issues: None Anesthesia: GA - due to anxiety Dilation: 7.5mm Allergies: No Known Allergies Surgical orders entered Surgical consent signed POM and surgical coordination initiated Call prn any problems or questions. Findings discussed with Michelle Swenson today and he has expressed understanding. He will call me if he has any further concerns. For Follow up Visit CEIOL OD documented in this encounter Miscellaneous Notes Assessment & Plan Note - Valentino Harper MD - 05/06/2015 1:49 PM EST Associated Problem(s): Age-related nuclear cataract of right eye (Resolved 11/10/2015) Michelle Swenson has visually significant cataract interfering with visual tasks. We discussed the risks, benefits and alternatives to cataract surgery. Michelle expressed understanding and is keen to pursue cataract surgery in his Right eye with a monofocal IOL. he denies any history of amblyopia, patching or strabismus surgery in the past. No history of trauma or Flomax use. No PXE or phacodenesis noted on exam. Target Refraction: [place] to -0.50 Discussed that this is an estimate and that there would likely be a post operative need for glasses to achieve best vision. Type of Cataract: 3+NSC + vacoules Special surgical issues: None Anesthesia: GA - due to anxiety Dilation: 7.5mm Allergies: No Known Allergies Surgical orders entered Surgical consent signed POM and surgical coordination initiated Call prn any problems or questions. Assessment & Plan Note - Valentino Harper MD - 05/06/2015 1:49 PM EST Associated Problem(s): Pseudophakia of left eye POM #1. Doing well - off all drops. documented in this encounter Plan of Treatment Not on filedocumented as of this encounter Procedures Procedure Name Priority Date/Time Associated Diagnosis Comme nts CATARACT EXTRACTION, Routine 05/06/2015 1:51 PM EST Age-relate d nuclear EXTRACAPSULAR, W/ LENS cataract of right eye INSERTION documented in this encounter Visit Diagnoses Diagnosis Pseudophakia of left eye Lens replaced by other means Age-related nuclear cataract of right ey e Senile nuclear sclerosis documented in this encounter Care Teams Verification Lead Relationship Specialty Start Date End Date Arminda Vick MD PCP - General 05/05/10 09/11/15 [address] [place] [address] documented as of this encounter
--- OUTSIDE RECORDS SUMMARY | 2022-03-05 01:30 | XMS_ITS | Encounter Summary ---
:1940 Author Organization [facility] [place] [address] Care Team Providers Name Role Phone Genna Marks APRN Primary Care Provider Reason for Visit Reason Comments Pseudophakia 6 month check, psph OU. Also seen in October by Dr. Mason for flashes and floaters OS Encounter Details Date Type Department Care Team Description 11/26/2015 Office Visit Ophthalmology at [facility] Zeny Ellis, vitreous, [facility] [place] [address] [place] [address] OPHTHALMOLOGY DEPT [place] [address] Social History Tobacco Use Types Packs/Day Years Used Date Former Smoker Cigarettes, Pipe, Cigars 1 40 Qu it: 10/31/1999 Smokeless Tobacco: Never Used Alcohol Use Standard Drinks/Week Comments No 0 (1 standard drink = 0.6 oz pure alcoho l) Sex Assigned at Date Recorded Not on file documented as of this encounter Progress Notes Valentino Harper MD - 11/26/2015 1:35 PM EDT 1. New flashes/floaters OS: no RT/RD/RH, bolden's sign negative - RD precautions reviewed. - Findings and concerns discussed with Troymis and he expressed understanding. FOLLOW UP - 3 weeks repeat DFE documented in this encounter Plan of Treatment Not on filedocumented as of this encounter Visit Diagnoses Diagnosis Floater, vitreous, left documented in this encounter Care Teams Drier Tender Relationship Specialty Start Date End Date Genna Marks APRN PCP - General Family Medicine 09/12/[address] [place] [address] documented as of this encounter
--- OUTSIDE RECORDS SUMMARY | 2022-03-05 01:31 | XMS_ITS | Encounter Summary ---
:1940 Author Organization [facility] [place] [address] Care Team Providers Name Role Phone Arminda Vick MD Primary Care Provider Encounter Details Date Type Department Care Team Description 08/18/2012 Orders Only Orthopaedics at [facility] Juan Antonio Hopkins, Right knee pain [facility] (Primary Dx) [place] [address] [phone] ORTHOPAEDIC SURGERY [place] [address] Social History Tobacco Use Types Packs/Day Years Used Date Never Assessed Sex Assigned at Date Recorded Not on file documented as of this encounter Plan of Treatment Not on filedocumented as of this encounter Results XR JOINT TEAM ALIGNMENT AP LAT SCHUSS SKYLINE (09/07/2012 7:23 AM EDT) Anatomical Region Laterality Modality N/A Radiographic Imaging Specimen (Source) Anatomical Collection Method Collection Time Re ceived Time Location / / Volume Laterality 09/07/2012 7:23 AM EDT Narrative 09/07/2012 8:57 AM EDT Examination JOINT TEAM STANDING ALIGNMENT AP LAT LIAM USS SKYLINE/RIGHT Clinical History RT KNEE PAIN ?DJD Comparison None. Technique Separate images of the pelvis, knees and feet were acquired in the AP projection with the patient standing. In addition to routine views of the knee, these images were stitched together to f orm a composite image of the pelvis and legs allowing for evaluation of lower ex tremity alignment in the weight bearing position. Findings Standing knee alignment shows mechanical axes in midline. ??Joint spaces are preserved. ??There is trace marginal ost eophyte formation but no effusion. Impression Trace degenerative change otherwise norm al exam. Procedure Note Kelsey Smith MD - 09/07/2012Format ting of this note might be different from the original. Examination JOINT TEAM STANDING ALIGNMENT AP LAT LIAM USS SKYLINE/RIGHT Clinical History RT KNEE PAIN ?DJD Comparison None. Technique Separate images of the pelvis, knees and feet were acquired in the AP projection with the patient standing. In addition to routine views of the knee, these images were stitched together to f orm a composite image of the pelvis and legs allowing for evaluation of lower ex tremity alignment in the weight bearing position. Findings Standing knee alignment shows mechanical axes in midline. Joint spaces are preserved. There is trace marginal osteo phyte formation but no effusion. Impression Trace degenerative change otherwise norm al exam. Juan Antonio Hopkins MD IMG DX ORDERABLES documented in this encounter Visit Diagnoses Diagnosis Right knee pain - Primary Pain in joint, lower leg Right knee pain Pain in joint, lower leg documented in this encounter Care Teams House Cleaner Relationship Specialty Start Date End Date Arminda Vick MD PCP - General 05/05/10 09/11/15 [address] [place] [address] documented as of this encounter
--- OUTSIDE RECORDS SUMMARY | 2022-03-05 01:31 | XMS_ITS | Encounter Summary ---
:1940 Author Organization [facility] [place] [address] Care Team Providers Name Role Phone Arminda Vick MD Primary Care Provider Reason for Visit Reason Comments Follow Up Surgery S/P RIGHT KNEE SCOPE DOS 09/12 08/23 Encounter Details Date Type Department Care Team Description 10/12/2012 Office Visit Orthopaedics at [facility] Graham Cartagena S/P right knee [facility] BRENNEN Guerrier arthroscopy (Primary [facility] [place]note 2] Dx) [place] [address] ORTHOPAEDIC SURGERY [phone] [place], [place] [address] (Wo rk) Social History Tobacco Use Types [...] Sign Reading Time Taken Comments Blood Pressure 149/78 10/12/2012 7:53 AM EDT Pulse 79 10/12/2012 7:53 AM EDT Temperature 36.7 ??C (98 ??F) 10/12/2012 7:53 AM EDT Respiratory Rate - - Oxygen Saturation - - Inhaled Oxygen Concentration - - Weight 104.4 kg (230 lb 1.6 oz) 10/12/2012 7:53 AM EDT Height 185.4 cm (6' 1) 10/12/2012 7:53 AM EDT Body Mass Index 30.36 10/12/2012 7:53 AM EDT documented in this encounter Progress Notes Graham Cartagena PA - 10/12/2012 7:52 AM EDT Case Date: 10/03/2012 Surgeon: Juan Antonio Hopkins MD Procedure(s): ARTHROSCOPY KNEE, MENISCECTOMY SINGLE W/ SHAVING FINDINGS: Patellofemoral Joint: GRADE II-III BOTH SIDES Medial Compartment: COMPLEX MEDIAL MENISCAL TEAR POSTERIOR HORN, GRADE II CHANGES ACL/PCL: INTACT Lateral Compartment: GRADE II HPI: Mr Swenson returns 10 days from his knee arthroscopy. He is doing well. There is no pain. He has mild swelling. ROM and stability are not limiting. He has returned to normal activities without limitation. He has had no trouble with anaesthesia. He denies chest pain or SOB Physical Exam: Ambulatory without assist or antalgia. The right knee shows no effusion; mild synovial bogginess. No pain or laxity with varus valgus stress. ROM from 0-120. Calves soft and nontender with trace dependent edema. Assessment: S/p right knee arthroscopy Plan: He is doing well. We discussed the operative findings. 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 We removed his sutures. He can continue to increase activity as tolerated. documented in this encounter Plan of Treatment Not on filedocumented as of this encounter Visit Diagnoses Diagnosis S/P right knee arthroscopy - Primary Other postprocedural status documented in this encounter Care Teams Oil Well Service Unit Operator Relationship Specialty Start Date End Date Arminda Vick MD PCP - General 05/05/10 09/11/15 [address] [place] [address] documented as of this encounter
--- OUTSIDE RECORDS SUMMARY | 2022-03-05 01:31 | XMS_ITS | Encounter Summary ---
:1940 [place] [address] Care Team Providers Name Role Phone Arminda Vick MD Primary Care Provider Reason for Visit Auth/Cert - Closed Specialty Diagnoses / Procedures Referred By Contact Refer red To Contact Diagnoses Cataract Procedures PRO REMV CATARACT EXTRACAP,INSERT LENS CATARACT EXTRACTION, EXTRACAPSULAR, W/ LENS INSERTION Referral ID Status Reason Start Date Expiration Date Visits Requ ested Visits Authorized [id number] Closed 1 1 Encounter Details Date Type Department Care Team Description 03/31/2015 Anesthesia Event Outpatient Surgery Greg Hinton MD [facility] [place] [address] [place] Stephanie Moreno CRNA [facility] [place] [address] [facility] [place] [address] Anesthesia Record Procedure Summary Procedure Name Responsible Anesthesia Start Anesthesia Stop Time Anesthesiologist Time CATARACT Juan Antonio Hinton MD 03/31/15 1304 03/31/15 1426 EXTRACTION, EXTRACAPSULAR, W/ LENS INSERTION (WRVU 8.52) (Left Eye) Events Date Time Event Comment 03/31/2015 1149 1304 Start 1306 AN Verify 1306 An Start Data 1308 An Induction 1309 An Intubation 1311 Anesthesia Ready 1418 Extubation/LMA Out To Delete (sk ip) the Extubation event, click the X below. 1418 an stop data 1426 Stop Name Total IV Lidocaine 30 mg Propofol 400 mg Ondansetron 8 mg Dexamethasone 8 mg Propofol INF 422.42 mg acetaZOLAMIDE 500 mg lactated ringers infusion 1,000 mL 700 mL Agents Name O2 Sevoflurane (et) Blood No blood administrations on file. Lines, Drains, and Airways Type Details Placement Removal Incision 10/03/12; 02/08/22 (LDA 10/03/12 0000 by 2 1715 by cleanup utility RA#[id number]); Leslie Mcnulty Mul ler, Dierdre L 1715 ([facility] cleanup utility RN RA#[id number]) (RETIRED) Non-Surgical Nasopharyngeal Size: 32 10/03/12 1144 by 03/31/15 1418 by Airway Fr Stephanie Costa Ticknor, Ruth L , NICK HIDE MILL WORKER Incision 03/31/15; eye; 02/08/22 03/31/15 0000 by 2 1715 by ([facility] cleanup utility Holly Cooper Muller, Dierdre L RA#[id number]); 1715 ([facility] RN cleanup utility RA#[id number]) PIV 03/31/15; 1109; median 03/31/15 1109 by 03/31/15 1523 by cubital vein left Friend, Perlita Dumas, RN Friend, Alyse Dumas, (antecubital fossa); RN [id number] catheter system; 22 gauge, 1 in length; BEAU Carrillo; intradermal injection, tolerated well, appears comfortable; 1; 03/31/15; 1523 Supraglottic Mask Ventilation: Easy 03/31/15 1309 by 03/31/15 1418 by (1); LMA Type: Flexible; Stephanie Costa, Stephanie Jama, LMA Size: 4; Inserted by: NICK Costa CRNA documented in this encounter Social History Tobacco Use Types Packs/Day Years Used Date Former Smoker Cigarettes, Pipe, Cigars 1 40 Qu it: 10/31/1999 Smokeless Tobacco: Never Used Alcohol Use Standard Drinks/Week Comments No 0 (1 standard drink = 0.6 oz pure alcoho l) Sex Assigned at Date Recorded Not on file documented as of this encounter OR Notes Anesthesia Postprocedure Evaluation - Juan Antonio Hinton MD - 03/31/2015 4:42 PM EDT Patient: Michelle Swenson Procedure(s) Performed: Procedure(s): CATARACT EXTRACTION, EXTRACAPSULAR, W/ LENS INSERTION Actual Anesthetic: general Patient location: PACU Post-op pain: Adequate analgesia Post-op nausea: no nausea or vomiting Last Vitals: Filed Vitals: 03/31/15 1445 BP: Pulse: 83 Temp: Resp: 20 Post-op cardiovascular and respiratory status: is stable Level of consciousness: awake, alert and oriented Complications: no apparent complications and tolerated the procedure well Fluid Status: normal Anesthesia Preprocedure Evaluation - Juan Antonio Hinton MD - 03/31/2015 11:47 AM EDT Pre-Anesthesia Evaluation for: Michelle Swenson a 74 y.o. male. Procedure(s): CATARACT EXTRACTION, EXTRACAPSULAR, W/ LENS INSERTION Patient Active Problem List Diagnosis ??? Age-related nuclear cataract, bilateral ??? S/P [...] KNEE, MENISCECTOMY SINGLE W/ SHAVING performed by Juan Antonio Hopkins MD at [facility] History Substance Use Topics ??? Smoking status: Former Smoker -- 1.00 packs/day for 40 years Types: Cigarettes, Pipe, Cigars Quit date: 10/31/1999 ??? Smokeless tobacco: Never Used ??? Alcohol Use: No History Drug Use No No Known Allergies Medications: MAR and/or home medications have been reviewed. Physical Exam: Filed Vitals: 03/31/15 1100 BP: 148/74 Pulse: 86 Temp: 36.6 ??C (97.9 ??F) Resp: 20 Body mass index is 30.35 kg/(m^2). Height: 185.4 cm (6' 0.99) Weight - Scale: 104.327 kg (230 lb) Airway Assessment: Mallampati: II TM distance: >3 FB Neck ROM: full Cardiovascular Assessment: Rhythm: regular Rate: normal Pulmonary Assessment: (+) decreased breath sounds Dental Assessment: Comment: Multiple missing Misc Assessment: IV access: Peripheral line Anesthesia Plan: ASA 3 general, with a(n) intravenous induction 74 yo Hx COPD and chronic cough (inhaler use, no recent flares, no home oxygen) GERD controlled on meds (No symptoms today) Hx includes colon ca, htn. Hypothyroid Patient requesting GA to do Anxiety and fear of coughing during procedure Discussed with surgeon who is okay with GA Risks and benefits of GA discussed All questions answered Region - Other Informed Consent: Anesthetic plan and risks discussed with patient. Plan discussed with HIDE MILL WORKER. Misc. Assessment: documented in this encounter Miscellaneous Notes Addendum Note - Juan Antonio Hinton MD - 03/31/2015 4:42 PM EDT Addendum created 03/31/15 1642 by Juan Antonio Hinton MD Modules edited: Notes Section Notes Section: File: [id number] documented in this encounter Plan of Treatment Not on filedocumented as of this encounter Visit Diagnoses Not on filedocumented in this encounter Administered Medications Inactive Administered Medications - up to 3 most recent administrations Medication Order MAR Action Action Date Dose Rate Site acetaZOLAMIDE (DIAMOX) injection Given 03/31/2015 2:13 PM EDT 500 mg PRN, Starting on Tue03/31/15 at 1413, Until Tue03/31/15 at 1426, Anesthesia Intra-op, Routine dexamethasone (DECADRON) injection Given 03/31/2015 1:16 PM EDT 8 mg PRN, Starting on Tue03/31/15 at 1316, Until Tue03/31/15 at 1426, Anesthesia Intra-op, Routine lidocaine (PF) (XYLOCAINE) 100 mg/5 mL (2 %) Given 5 1:08 PM EDT 30 mg injection PRN, Starting on Tue03/31/15 at 1308, Until Tue03/31/15 at 1426, Anesthesia Intra-op, Routine ondansetron (ZOFRAN) injection Given 03/31/2015 1:37 PM EDT 8 mg PRN, Starting on Tue03/31/15 at 1337, Until Tue03/31/15 at 1426, Nausea, Anesthesia Intra-op, Routine propofol (DIPRIVAN) 10 mg/mL bolus injection Given 5 1:43 PM EDT 50 mg (Anesthesia) PRN, Starting on Tue03/31/15 at 1308, Until Tue03/31/15 at 1426, Anesthesia Intra-op Given 03/31/2015 1:08 PM EDT 350 mg propofol (DIPRIVAN) Rate/Dose 03/31/2015 1:45 100 mcg/kg/min 62.6 mL /hr infusion Change PM EDT CONTINUOUS PRN, Starting on Tue03/31/15 at 1314, Until Tue03/31/15 at 1426, Anesthesia Intra-op, Routine New Bag 03/31/2015 1:14 PM EDT 50 mcg/kg/min 31.3 mL/hr documented in this encounter Care Teams Roper Operator Relationship Specialty Start Date End Date Arminda Vick MD PCP - General 05/05/10 09/11/[address] [place] [id number] documented as of this encounter
--- OUTSIDE RECORDS SUMMARY | 2022-03-05 01:31 | XMS_ITS | Encounter Summary ---
:1940 [place] [address] Care Team Providers Name Role Phone Arminda Vick MD Primary Care Provider Encounter Details Date Type Department Care Team Description 10/03/2012 Anesthesia Event Outpatient Surgery Yogesh Hilario MD [facility] DR [place] [address] [place] Gerda BacaFort MohaveKit Cook MD [facility] [place] [address] [place] [address] Anesthesia Record Procedure Summary Procedure Name Responsible Anesthesia Start Anesthesia Stop Anesthesiologist Time Time ARTHROSCOPY KNEE, Graham Hilario MD 10/03/12 1100 3 1153 MENISCECTOMY SINGLE W/ SHAVING (WRVU 7.03) (Right Knee) Events Date Time Event Comment 10/03/2012 1041 1100 Start 1102 AN Verify 1102 An Start Data 1105 An Induction 1107 An Intubation 1108 Anesthesia Ready 1144 Extubation/LMA Out 1146 an stop data 1153 Stop Name Total Propofol 200 mg Propofol INF 182.53 mg IV Lidocaine 50 mg Dexamethasone 8 mg ceFAZolin (ANCEF) 2,000 mg in sodium chloride 0.9% 55 mL 2 g fentaNYL 25 mcg lactated ringers infusion 1,000 mL 0 mL Agents Name O2 Air N2O Sevoflurane (et) Blood No blood administrations on file. Lines, Drains, and Airways Type Details Placement Removal Incision 10/03/12; 02/08/22 (LDA 10/03/12 0000 by 2 1715 by cleanup utility RA#[id number]); Leslie Mcnulty RN Muller, Dierdre L 1715 ([facility] cleanup utility RA#[id number]) PIV 10/03/12; 1055; 10/03/12; 10/03/12 1055 by 10/03 1305 by 1305 Kae Harley RN Majeski, Carolanne, APRN (RETIRED) Mask Ventilation: Easy 10/03/12 1107 by 10/03/12 1144 by Non-Surgical Airway (1); LMA Type: Datil; Stephanie Costa, CRN A Stephanie Costa, LMA Size: 4 DAIRY TESTER (RETIRED) Nasopharyngeal Size: 32 Fr 10/03/12 1144 by 03/13 02/25 1418 by Non-Surgical Airway Stephanie Costa, Stephanie Lazaro, DAIRY TESTER documented in this encounter Social History Tobacco Use Types Packs/Day Years Used Date Former Smoker Cigarettes, Pipe, Cigars 1 40 Qu it: 10/31/1999 Smokeless Tobacco: Never Used Alcohol Use Standard Drinks/Week Comments No 0 (1 standard drink = 0.6 oz pure alcoho l) Sex Assigned at Date Recorded Not on file documented as of this encounter OR Notes Anesthesia Postprocedure Evaluation - Graham Hilario MD - 10/03/2012 12:38 PM EDT Patient: Michelle Swenson Procedure(s) Performed: Procedure(s): ARTHROSCOPY KNEE, MENISCECTOMY SINGLE W/ SHAVING Actual Anesthetic: general Patient location: PACU Post-op pain: Adequate analgesia Post-op nausea: no nausea or vomiting Last Vitals: Filed Vitals: 10/03/12 1220 BP: Pulse: 71 Temp: Resp: 18 Post-op cardiovascular and respiratory status: is stable Level of consciousness: awake, alert and oriented Complications: no apparent complications and tolerated the procedure well Fluid Status: normal Anesthesia Preprocedure Evaluation - Graham Hilario MD - 10/03/2012 10:40 AM EDT Today I evaluated Michelle Swenson a 72 y.o. male. Procedure(s): ARTHROSCOPY KNEE, MENISCECTOMY SINGLE W/ SHAVING There are no active problems to display for this patient. Past Medical History Diagnosis Date ??? Hypertensive disease 1 year Borddering on high, amlodipine besylate ??? Breathing problem ? emphysema ??? Cancer 3 Years colon polop W/ cells removed all good ??? Digestive problems ? heartburn ??? ENT disease ? hearing loss, tinnitus Past Surgical History Procedure Date ??? Musculoskeletal surgery unlisted ? Both elbows ??? Urology surgery procedure unlisted ? vasectomy History Substance Use Topics ??? Smoking status: Former Smoker -- 1.0 packs/day for 40 years Types: Cigarettes, Pipe, Cigars Quit date: 10/31/1999 ??? Smokeless tobacco: Never Used ??? Alcohol Use: No No Known Allergies Medications: MAR and/or home medications have been reviewed. Physical Exam: There were no vitals filed for this visit. There is no height or weight on file to calculate BMI. Airway Assessment: Mallampati: II TM distance: >3 FB Neck ROM: full Cardiovascular Assessment: Rhythm: regular Rate: normal Pulmonary Assessment: Dental Assessment: - normal exam (+) upper dentures and lower dentures Misc Assessment: IV access: Peripheral line Anesthesia Plan: ASA 2 general, with a(n) intravenous induction LMA Anesthetic risks, benefits, and alternatives discussed in detail with patient who appears to understand and agree. Questions answered and consent form signed. Region - Other Informed Consent: Anesthetic plan and risks discussed with patient and spouse. Plan discussed with [NICK Misc. Assessment: documented in this encounter Plan of Treatment Not on filedocumented as of this encounter Visit Diagnoses Not on filedocumented in this encounter Administered Medications Inactive Administered Medications - up to 3 most recent administrations Medication Order MAR Action Action Date Dose Rate Site ceFAZolin (ANCEF) 2,000 mg in Given 10/03/2012 11:00 AM EDT 2 g sodium chloride 0.9% 55 mL 2,000 mg (2 g), Intravenous, ONCE, 1 dose, On Tue10/03/12 at 1115, Administer over 30 Minutes, Indication for (Active or Suspected): Prophylaxis dexamethasone (DECADRON) injection Given 10/03/2012 11:14 AM EDT 8 mg PRN, Starting on Tue10/03/12 at 1114, Until Tue10/03/12 at 1153, Anesthesia Intra-op, Routine fentaNYL 50mcg/mL injection Given 10/03/2012 11:42 AM EDT 25 mcg PRN, Starting on Tue10/03/12 at 1142, Until Tue10/03/12 at 1153, Pain, Anesthesia Intra-op, Routine lactated ringers infusion 1,000 mL New Bag 10/03/2012 11:00 AM EDT mL 1,000 mL, at 100 mL/hr, Intravenous, CONTINUOUS, Starting on Tue10/03/12 at 1100, Until Tue10/03/12 at 1604 lidocaine (PF) (XYLOCAINE) 100 mg/5 mL (2 %) Given 11:05 AM EDT 50 mg injection PRN, Starting on Tue10/03/12 at 1105, Until Tue10/03/12 at 1153, Anesthesia Intra-op, Routine propofol (DIPRIVAN) 10 mg/mL bolus injection Given 11:05 AM EDT 200 mg (Anesthesia) PRN, Starting on Tue10/03/12 at 1105, Until Tue10/03/12 at 1153, Anesthesia Intra-op propofol (DIPRIVAN) infusion New Bag 10/03/2012 11:05 AM 50 mcg/kg/min 31.3 mL/hr CONTINUOUS PRN, Starting on EDT Tue10/03/12 at 1105, Until Tue10/03/12 at 1153, Anesthesia Intra-op, Routine documented in this encounter Care Teams Fiber Optics Supervisor Relationship Specialty Start Date End Date Arminda Vick MD PCP - General 05/05/10 09/11/15 [address] [place] [address] documented as of this encounter
--- OUTSIDE RECORDS SUMMARY | 2022-03-05 01:31 | XMS_ITS | Encounter Summary ---
:1940 Author Organization [facility] [place] [address] Care Team Providers Name Role Phone Arminda Vick MD Primary Care Provider Encounter Details Date Type Department Care Team Description 09/07/2012 Orders Only Orthopaedics at [facility] Juan Antonio Hopkins, Retained metal [facility] fragment (Primary Dx) [place] [address] ORTHOPAEDIC SURGERY [place], [place] [address] Social History Tobacco Use Types [...] as of this encounter Visit Diagnoses Diagnosis Retained metal fragment - Primary Retained metal fragments, unspecified documented in this encounter Care Teams Double Needle Operator Relationship Specialty Start Date End Date Arminda Vick MD PCP - General 05/05/10 09/11/15 [address] [place] [address] documented as of this encounter
--- OUTSIDE RECORDS SUMMARY | 2022-03-05 01:31 | XMS_ITS | Encounter Summary ---
:1940 Author Organization [facility] Address [address] [place] [address] Care Team Providers Name Role Phone Arminda Vick MD Primary Care Provider Reason for Visit Auth/Cert - Closed Specialty Diagnoses / Procedures Referred By Contact Refer red To Contact Diagnoses Cataract Procedures PRO REMV CATARACT EXTRACAP,INSERT LENS CATARACT EXTRACTION, EXTRACAPSULAR, W/ LENS INSERTION Referral ID Status Reason Start Date Expiration Date Visits Requ ested Visits Authorized [id number] Closed 1 1 Encounter Details Date Type Department Care Team Description 03/31/2015 Hospital Encounter Outpatient Surgery Oliver Harper e-related nuclear Center Gerda Avelar MD cataract, bilateral [facility] [place] [id number] [phone] Social History Tobacco Use Types Packs/Day Years [...] Sign Reading Time Taken Comments Blood Pressure 114/57 03/31/2015 2:18 PM EDT Pulse 83 03/31/2015 2:45 PM EDT Temperature 36.7 ??C (98.1 ??F) 03/31/2015 2:18 PM EDT Respiratory Rate 20 03/31/2015 2:45 PM EDT Oxygen Saturation 95% 03/31/2015 2:45 PM EDT Inhaled Oxygen Concentration - - Weight 104.3 kg (230 lb) 03/31/2015 11:00 AM EDT Height 185.4 cm (6' 0.99) 03/31/2015 11:00 AM EDT Body Mass Index 30.35 03/31/2015 11:00 AM EDT documented in this encounter Discharge Instructions Discharge InstructionsFrPerlita jamison RN - 03/31/2015 11:43 AM EDT Instructions for the first day following CATARACT surgery Lucius Sanchez MD, [facility], [facility] Section of ophthalmology [facility] [phone] - Wear either the eye shield or glasses of any kind 24 hours per day for the first week following surgery. - The surgery center nurses should confirm time of your follow up appointment for tomorrow with Dr. Sanchez. This appointment will be at the Eye Clinic in the main building at [facility]. - Mild discomfort is normal, but if you have any severe eye pain or bleeding call [phone] and ask to speak to the eye doctor loss control consultant. - Call you Primary Care Doctor or the Emergency Room for any non eye related medical issues. - Your eye will be red tomorrow - this is normal. - Start your post-op drops in 2 hours. Your post-op drops to take while awake are prednisolone acetate 1% (pink), Vigamox (galeano) and Ketorolac (foote) each four times daily. - Be sure to wait 5 minutes between each drop so that they don't dilute each other. - The prednisolone acetate drops (pink) need to be shaken 30 times. - Some of the drops, especially the Ketorolac (foote), may sting. It can be helpful to refrigerate them to make them more comfortable. - If you are on glaucoma drops, it is very important that you keep taking these as usual. - After the first week, stop the vigamox and ketorolac drops and begin tapering your prednisolone drops to 3x/day for 1 week, then 2x/day for 1 week, then 1x/day for 1 week, then STOP. - Bring your Eye Kit to all postoperative visits. Moderate Sedation You may have received medication before and/or during your procedure, which affects your judgement and reaction time. Do not drive, operate machinery, drink alcoholic beverages, or make any legal decisions for 24 hours. Be careful on stairs, as you may be unsteady on your feet. You may eat a regular diet as tolerated. IV site -- slight redness, or tenderness is normal, you can use a warm compress. If tenderness and redness increases or foul drainage occurs, please contact your M. D. Questions or problems after 5pm or on a weekend: Call the [facility] waterworks operator and ask for the physician on callcovering for your doctor. documented in this encounter Medications at Time of Discharge Medication Sig Dispensed Refills Start Date End Date albuterol (ACCUNEB) 1.25 Take 1 ampule by 0 mg/3 mL Solution for nebulization every 6 Nebulization hours as needed for Wheezing. levothyroxine Take 25 mcg by mouth 0 (SYNTHROID) 25 mcg daily. Tablet cyanocobalamin 1,000 mcg Take 1,000 mcg by 0 Tablet mouth daily. multivitamin (THERAGRAN) Take 1 tablet by 0 Tablet mouth daily. ibuprofen (ADVIL) 200 mg Take 400 mg by mouth 0 tablet as needed. amlodipine (NORVASC) 10 Take 10 mg by mouth 0 mg tablet daily. CIS Free Text Med - 2 Puff(s), Inh, Four 0 2008 Albuterol (Refill) times daily and PRN RANITIDINE HCL (ZANTAC 0 10/25/2008 ORAL) acetaZOLAMIDE (DIAMOX) Take 500 mg by mouth 0 04/07/2015 500 mg Capsule, once. Sustained Release documented as of this encounter H&P Notes Valentino Harper MD - 03/31/2015 11:42 AM EDT History and physical for PCP reviewed, no interval changes. Risks, benefits and alternatives of surgery revisited. Patient is keen to proceed with CEIOL OS. documented in this encounter Miscellaneous Notes Op Note - Valentino Harper MD - 03/31/2015 2:18 PM EDT [facility] Operative Note Patient Name: Michelle Swenson : [id number] MR#: [id number] Case Date: 03/31/2015 Patient: Michelle Swenson Surgeon: Valentino Harper MD Diagnosis: Cataract, Left eye Procedure: Cataract extraction/lens implantation, Left eye Complications: Possible Posterior capsule tear Blood loss: Minimal Anesthesia type: GA Implant: MA60AC lens, 19.5 D power, placed in the sulcus with optic capture. Procedure in detail: After the risks, benefits, and alternatives of the planned procedure had been discussed with the patient and the informed consent signed, the patient was taken back to the operating room suite and general anesthesia was administered successfully. There, the patient was prepped anddraped in the standard sterile ophthalmic fashion. A lid speculum was introduced into the operative eye. A paracentesis wound was created 60 degrees to the left of the planned temporal incision. Viscoat viscoelastic was injected intracamerally. The main temporal incision was then created using a 2.4 mm keratome. The anterior capsulotomy was then created using the combination of a cystotome and Utrata forceps. Hydrodissection was performed using a straight hydrodissection cannula. The nucleus was then divided in a groove and split technique. The nuclear fragments were then removed using the phacoemulsification handpiece. The remaining cortical and epinuclear material was then removed using the irrig ation/aspiration handpiece. The capsular bag was filled with Provisc viscoelastic. The SN60WF lens was then injected into the capsular bag using a lens injection system. The remaining viscoelastic was then removed from the eye using the irrigation/aspiration handpiece. The patient did move during surgery and more general anesthetic was required. A fold was noted in the posterior capsule than could represent a posterior capsule tear. The SN60WF lens was cut in half and removed from an enlarged temporal incision. More viscoat was injected into the ear. The MA60AC lens was placed in the sulcus with optic capture. Miochol was administered. The wounds were then hydrated. With the wounds found not to beleaking. A 10.0 nylon suture was placed a the temporal wound. All instrumentation was removed from the operative eye. The patient was then escorted to the post-anesthesia care unit having tolerated theprocedure well without additional issues. I performed this surgery by myself without the assistance of a resident. He was given Diamox 500mg IV. documented in this encounter Plan of Treatment Not on filedocumented as of this encounter Procedures Procedure Name Priority Date/Time Associated Diagnosis Comme nts CATARACT EXTRACTION, 03/31/2015 1:05 PM EDT Age-relate d nuclear EXTRACAPSULAR, W/ LENS cataract, bilatera l INSERTION (WRVU 8.52) Case Notes MD consulted patient chart a nd IOL Power calculations and chose an MA60AC 19.5 diopter lens. this was confi rmed twice before delivering to field Harish YANEZ documented in this encounter Visit Diagnoses Diagnosis Age-related nuclear cataract, bilateral Senile nuclear sclerosis documented in this encounter Administered Medications Inactive Administered Medications - up to 3 most recent administrations Medication Order MAR Action Action Date Dose Rate Site cyclopentolate (CYCLODRYL) 1 % Given 03/31/2015 11:55 AM EDT 1 d rop ophthalmic solution 1 drop 1 drop, Left Eye, EVERY 5 MIN, 3 doses, First dose on Tue03/31/15 at 1115, Last dose on Tue03/31/15 at 1125, 1 drop to the operative eye every 5 minutes times 3. Start day of surgery, Day of Surgery (Day of Procedure), Routine Given 03/31/2015 11:50 AM EDT 1 drop Given 03/31/2015 11:45 AM EDT 1 drop ibuprofen (ADVIL;MOTRIN) tablet 600 mg Given 03/31/2015 2:58 PM EDT 600 mg 600 mg, Oral, ONCE, 1 dose, On Tue03/31/15 at 1515, Administer orally with milk or food to minimize GI irritation. Maximum dose of 3200 mg from all sources in 24 hours, Day of Surgery (Day of Procedure), Routine ketorolac tromethamine (ACULAR) 0.5 % Given 03/31/2015 11:15 AM EDT 1 drop ophthalmic solution 1 drop 1 drop, Left Eye, ONCE, 1 dose, On Tue03/31/15 at 1115, 1 drop to the operative eye once, start on day of surgery, Day of Surgery (Day of Procedure), Routine lactated ringers infusion 1,000 New Bag 03/31/2015 11:57 AM ED T 1,000 mLs 100 mL/hr mL 1,000 mL, at 100 mL/hr, Intravenous, CONTINUOUS, Starting on Tue03/31/15 at 1115, Until Tue03/31/15 at 1725 moxifloxacin (VIGAMOX) 0.5 % ophthalmic Given 03/31/2015 11:55 A M EDT 1 drop solution 1 drop 1 drop, Left Eye, EVERY 5 MIN, 3 doses, First dose on Tue03/31/15 at 1115, Last dose on Tue03/31/15 at 1125, 1 drop to the operative eye every 5 minutes times 3. Start on the day of surgery., Day of Surgery (Day of Procedure), Routine Given 03/31/2015 11:50 AM EDT 1 drop Given 03/31/2015 11:45 AM EDT 1 drop PHENYLephrine (MYDFRIN) 2.5 % ophthalmic Given 03/31/2015 11:55 AM EDT 1 drop solution 1 drop 1 drop, Left Eye, EVERY 5 MIN, 3 doses, First dose on Tue03/31/15 at 1115, Last dose on Tue03/31/15 at 1125, 1 drop to the operative eye every 5 minutes times 3. Start on the day of surgery., Day of Surgery (Day of Procedure), Routine Given 03/31/2015 11:50 AM EDT 1 drop Given 03/31/2015 11:45 AM EDT 1 drop prednisoLONE acetate (PRED FORTE) 1 % Given 03/31/2015 11:15 AM EDT 1 drop ophthalmic suspension 1 drop 1 drop, Left Eye, ONCE, 1 dose, On Tue03/31/15 at 1115, 1 drop to the operative eye once, start on day of surgery, Day of Surgery (Day of Procedure), Routine documented in this encounter Active and Recently Administered Medications Times are shown in EDT. Scheduled Medication Order 03/29/2015 03/30/2015 03/31/2015 cyclopentolate (CYCLODRYL) 1 % ophthalmic solution 1 drop (COMPL ETED) 1145 (Given - Provider: Perlita Keene RN - Comment: orders released early)1150 (Given - Provider: Perlita Keene RN - Comment: orders released early)1155 (Given - Provider: Perlita Keene RN - Comment: orders released early) 1 drop, Left Eye, EVERY 5 MIN, 3 doses, First dose on Tue03/31/15 at 1115, Last dose on Tue03/31/15 at 1125, 1 drop to the operative eye every 5 minutes times 3. Start day of surgery, Day of Surgery (Day of Procedure), Routine ibuprofen (ADVIL;MOTRIN) tablet 600 mg (COMPLETED) 1458 (Given - Provider: Perlita Keene RN) 600 mg, Oral, ONCE, 1 dose, Tue03/31/15 at 1515, Administer orally with milk or food to minimize GI irritation. Maximum dose of 3200 mg from all sources in 24 hours, Day of Surgery (Day of Procedure), Routine ketorolac tromethamine (ACULAR) 0.5 % ophthalmic solution 1 drop (COMPLETED) 1115 (Given - Provider: Perlita Keene RN - Comment: orders released early) 1 drop, Left Eye, ONCE, 1 dose, 03/13 at 1115, 1 drop to the operative eye once, start on day of surgery, Day of Surgery (Day of Procedure), Routine moxifloxacin (VIGAMOX) 0.5 % ophthalmic solution 1 drop (COMPLET ED) 1145 (Given - Provider: Perlita Keene RN - Comment: orders released early)1150 (Given - Provider: Perlita Keene RN - Comment: orders released early)1155 (Given - Provider: Perlita Keene RN - Comment: orders released early) 1 drop, Left Eye, EVERY 5 MIN, 3 doses, First dose on Tue03/31/15 at 1115, Last dose on Tue03/31/15 at 1125, 1 drop to the operative eye every 5 minutes times 3. Start on the day of surgery., Day of Surgery (Day of Procedure), Routine PHENYLephrine (MYDFRIN) 2.5 % ophthalmic solution 1 drop (COMPLE VÍCTOR) 1145 (Given - Provider: Perlita Keene RN)1150 (Given - Provider: Perlita E Friend, RN - Comment: orders released early)1155 (Given - Provider: Perlita Keene RN - Comment: orders released early) 1 drop, Left Eye, EVERY 5 MIN, 3 doses, First dose on Tue03/31/15 at 1115, Last dose on Tue03/31/15 at 1125, 1 drop to the operative eye every 5 minutes times 3. Start on the day of surgery., Day of Surgery (Day of Procedure), Routine prednisoLONE acetate (PRED FORTE) 1 % ophthalmic suspension 1 drop (COMPLETED) 1115 (Given - Provider: Perlita Keene RN - Comment: orders released early) 1 drop, Left Eye, ONCE, 1 dose, 03/13 at 1115, 1 drop to the operative eye once, start on day of surgery, Day of Surgery (Day of Procedure), Routine Continuous Medication Order 03/29/2015 03/30/2015 03/31/2015 lactated ringers infusion 1,000 mL (CANCELED) 1157 (New Bag - Provider: Perlita Keene RN)1409 (Anesthesia Volume Adjustment - Provider: Stephanie Costa CRNA)1426 (Anesthesia Volume Adjustment - Provider: Stephanie Costa CRNA) 1,000 mL, at 100 mL/hr, Intravenous, CON TINUOUS, Starting Tue03/31/15 at 1115, Until Tue03/31/15 at 1725 documented in this encounter Care Teams Industrial Order Clerk Relationship Specialty Start Date End Date Arminda Vikc MD PCP - General 05/05/10 09/11/[address] [place] [address] documented as of this encounter
--- OUTSIDE RECORDS SUMMARY | 2022-03-05 01:31 | XMS_ITS | Encounter Summary ---
:1940 Author Organization [facility] Address [address] [place] [address] Care Team Providers Name Role Phone Arminda Vick MD Primary Care Provider Reason for Visit Reason Comments Blurred Vision OS x 2 months, sent by Dr. Marcelino Vick Eye Problem nevus OU, pt has had photos of these in the past Encounter Details Date Type Department Care Team Description 01/16/2015 Office Visit Ophthalmology [facility] Sandra Gutiérrez, Combined forms of age-relate d cataract of both eyes; [facility] Choroidal nevus of both eyes; [address] [place] [address] [place] [phone] OPHTHALMOLOGY DEPT [place], [place] [address] Social History Tobacco Use Types Packs/Day Years Used Date Former Smoker Cigarettes, Pipe, Cigars 1 40 Qu it: 10/31/1999 Smokeless Tobacco: Never Used Alcohol Use Standard Drinks/Week Comments No 0 (1 standard drink = 0.6 oz pure alcoho l) Sex Assigned at Date Recorded Not on file documented as of this encounter Progress Notes Sandra Gutiérrez, OD - 01/16/2015 9:35 AM EDT Encounter Diagnoses Name Primary? Combined forms of age-related cataract of both eyes ??? Choroidal nevus of both eyes ??? Refractive error Michelle Swenson is a 74 y.o. with the following ophthalmic problems: Assessment and Plan: Cataracts OS>OD, vision improves with eyeglass Rx but patient requests surgical consultation at this time. - Refer to Dr. Harper for evaluation in 1-2 months per patient request. Choroidal Nevus OD & OS. - Pt ed. Monitor 1 yr. Refractive Error OU - Rx given today - Findings and concerns discussed with Michelle and he expressed understanding. -Upon Return Refer to Dr. Harper for evaluation in 1-2 months per patient request, sooner with changes in sx/vision. 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
--- OUTSIDE RECORDS SUMMARY | 2022-03-05 01:31 | XMS_ITS | Encounter Summary ---
:1940 Author Organization [facility] [place] [address] Care Team Providers Name Role Phone Arminda Vick MD Primary Care Provider Encounter Details Date Type Department Care Team Description 09/07/2012 Hospital Encounter XRay at [facility] Right [facility] [place] [address] Social History Tobacco Use Types Packs/Day [...] Sig Dispensed Refills Start Date End Date CIS Free Text Med - 2 Puff(s), Inh, Four 0 2008 Albuterol (Refill) times daily and PRN RANITIDINE HCL (ZANTAC 0 10/25/2008 ORAL) lisinopril Take 10 mg by mouth 0 09/21 (PRINIVIL;ZESTRIL) 10 mg daily. tablet naproxen sodium (ALEVE) Take 220 mg by mouth 0 10/12/2012 220 mg tablet as needed. documented as of this encounter Miscellaneous Notes Miscellaneous - Provider, Scanning - 09/20/2012 10:56 AM EDT documented in this encounter Plan of Treatment Not on filedocumented as of this encounter Procedures Procedure Name Priority Date/Time Associated Diagnosis Comme nts XR JOINT TEAM Routine 09/07/2012 7:23 AM Right knee pain Resul ts for this ALIGNMENT AP LAT EDT procedure a re in [place] the results section. documented in this encounter Results XR JOINT TEAM ALIGNMENT [...] encounter Visit Diagnoses Diagnosis Right knee pain Pain in joint, lower leg documented in this encounter Care Teams Business Transformation Consultant Relationship Specialty Start Date End Date Arminda Vick MD PCP - General 05/05/10 09/11/[address] [place] [address] documented as of this encounter
--- OUTSIDE RECORDS SUMMARY | 2022-03-05 01:31 | XMS_ITS | Encounter Summary ---
:1940 Author Organization [facility] [place] [address] Care Team Providers Name Role Phone Arminda Vick MD Primary Care Provider Encounter Details Date Type Department Care Team Description 09/07/2012 Hospital Encounter MRI at [facility] [place] Knee pain, [place] [address] Social History Tobacco Use Types Packs/Day [...] as needed. documented as of this encounter Plan of Treatment Not on filedocumented as of this encounter Procedures Procedure Name Priority Date/Time Associated Diagnosis Comme nts MRI KNEE WO Routine 09/07/2012 12:28 PM Knee pain, right Resu lts for this CONTRAST EDT procedure are i n the results section. documented in this encounter Results MRI knee WO contrast (09/07/2012 12:28 PM EDT) Anatomical Region Laterality Modality Knee Magnetic Resonance Specimen (Source) Anatomical Collection Method Collection Time Re ceived Time Location / / Volume Laterality 09/07/2012 12:28 PM EDT Narrative 09/07/2012 4:29 PM EDT Examination MR Knee Without Laex/RIGHT Clinical History medial joint line tenderness ?? eval for MMT Comparison Radiographs of the knees from 09/07/2012 . Technique Images were obtained of the right knee w ithout contrast. Findings Menisci: ??There is a large complex tear of the undersurface of the posterior body and posterior horn of the medial me niscus, largely horizontal in orientation with possible small interrup tion of the superior meniscal surface and small associated parameniscal cyst. ?? There is a focal a globular intrasubstan ce signal intensity in the posterior horn lateral meniscus on series 7-21, wh ich approximates articular surface, which may reflect severe meniscal degene ration or possibly a small complex tear. ??Lateral meniscus otherwise intac t. ?? Ligaments: The cruciate ligaments are in tact as is the lateral collateral ligamentous complex of. ??There is mild soft tissue edema in about the a proximal mid MCL with mild intermediate intrasubstance signal intensity suggestive of a MCL sprain on series 3-1 3. ??No discrete tear. ?? Tendons: Extensor mechanism and popliteu s tendons are normal in appearance. ?? Cartilage: There is alteration normal ch ondral signal intensity of the lateral patellar facet cartilage on series 3-7, compatible with a chondral degeneration. ??There is a small linear hyperintense signal focus at the median ridge on series 3-8, which is suspicious for a partial thickness chondral fissure. Additional of the suspected oscar t high-grade partial thickness chondral fissure at the posterior lateral tibial plateau cartilage on series 6-23 in the sub meniscal region. ?? Bone: No bone marrow signal abnormalitie s. Patella hussein is noted. ?? Other: No knee effusion. Prepatellar garret ma present. Tiny amount of fluid in the semimembranosus gastrocnemius bursa area ?? Impression ? 1. Complex tear of the posterior body segment and posterior horn of the medial meniscus and associated small clu ster of parameniscal cysts, as above. ? 2. Findings compatible with MCL s prain. ??No discrete ligament tear appreciated. ? 3. 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 ?? Additional suspected high-grade partial/ near full thickness chondral fissure at the posterior and lateral tibial plateau cartilage, as above. ?? Film and interpretation reviewed by the attending Procedure Note Tj Vu MD - 09/07/2012Formatti ng of this note might be different from the original. Examination MR Knee Without Alex/RIGHT Clinical History medial joint line tenderness eval for MMT Comparison Radiographs of the knees from 09/07/2012 . Technique Images were obtained of the right knee w ithout contrast. Findings Menisci: There is a large complex tear o f the undersurface of the posterior body and posterior horn of the medial me niscus, largely horizontal in orientation with possible small interrup tion of the superior meniscal surface and small associated parameniscal cyst. There is a focal a globular intrasubstan ce signal intensity in the posterior horn lateral meniscus on series 7-21, wh ich approximates articular surface, which may reflect severe meniscal degene ration or possibly a small complex tear. Lateral meniscus otherwise intact. Ligaments: The cruciate ligaments are in tact as is the lateral collateral ligamentous complex of. There is mild so ft tissue edema in about the a proximal mid MCL with mild intermediate intrasubstance signal intensity suggestive of a MCL sprain on series 3-1 3. No discrete tear. Tendons: Extensor mechanism and popliteu s tendons are normal in appearance. Cartilage: There is alteration normal ch ondral signal intensity of the lateral patellar facet cartilage on series 3-7, compatible with a chondral degeneration. There is a small linear hy perintense signal focus at the median ridge on series 3-8, which is suspicious for a partial thickness chondral fissure. Additional of the suspected oscar t high-grade partial thickness chondral fissure at the posterior lateral tibial plateau cartilage on series 6-23 in the sub meniscal region. Bone: No bone marrow signal abnormalitie s. Patella hussein is noted. Other: No knee effusion. Prepatellar garret ma present. Tiny amount of fluid in the semimembranosus gastrocnemius bursa area Impression 1. Complex tear of the posterior body s egment and posterior horn of the medial meniscus and associated small clu ster of parameniscal cysts, as above. 2. Findings compatible with MCL sprain. No discrete ligament tear appreciated. 3. Patella hussein with area of chondral d egeneration at the lateral patellar facet and suspected partial thickness ch ondral fissure at the median ridge. Additional suspected high-grade partial/ near full thickness chondral fissure at the posterior and lateral tibial plateau cartilage, as above. Film and interpretation reviewed by the attending Juan Antonio Hopkins MD IMG MRI ORDERABLES documented in this encounter Visit Diagnoses Diagnosis Knee pain, right Pain in joint, lower leg documented in this encounter Care Teams Weight Loss Consultant Relationship Specialty Start Date End Date Arminda Vick MD PCP - General 05/05/10 09/11/15 [address] [place] [address] documented as of this encounter
--- OUTSIDE RECORDS SUMMARY | 2022-03-05 01:31 | XMS_ITS | Encounter Summary ---
:1940 Author Organization [facility] [place] [address] Care Team Providers Name Role Phone Arminda Vick MD Primary Care Provider Reason for Visit Reason Comments Right Knee Pain Encounter Details Date Type Department Care Team Description 09/21/2012 Office Visit Orthopaedics at [facility] [place] Juan Antonio Hopkins (medial meniscus [facility] B, tear) (Primary Dx) [place] [address] [place] [address] ORTHOPAEDIC SURGERY [place], [place] [address] Social History Tobacco Use Types [...] Sign Reading Time Taken Comments Blood Pressure 137/80 09/21/2012 7:54 AM EDT Pulse 84 09/21/2012 7:54 AM EDT Temperature - - Respiratory Rate - - Oxygen Saturation - - Inhaled Oxygen Concentration - - Weight 103.6 kg (228 lb 8 oz) 09/21/2012 7:54 AM EDT Height 185.4 cm (6' 1) 09/21/2012 7:54 AM EDT Body Mass Index 30.15 09/21/2012 7:54 AM EDT documented in this encounter Progress Notes Juanito Salamanca PA - 09/21/2012 8:32 AM EDT PATIENT NAME: Michelle Swenson AGE: 72 y.o. MR#: [id number] CHIEF COMPLAINT: right knee pain HISTORY OF PRESENT ILLNESS Mr. Swenson a 72 y.o. year old male comes into clinic today for right knee pain, Follow up after MRI. He reports that 3 months ago he was building a floor he was stepped in between the floor joist and had hit the medial aspect of the right knee and left hip. He reports that if he sits for an hour, he feels like the knee won't straighten for 30-40 seconds. He has noted some instability if he turns wrong. The knee pain has not curtailed his activities. He usually does not take anything for the pain. He has had no swelling or bruising. He feels stiff going up and down stairs. No history of knee problems. PAST MEDICAL HISTORY: HTN, COPD, history of colon polyp PAST SURGICAL HISTORY: Colonoscopy, internal hemorroidectomy, elbow surgery bilaterally. FAMILY HISTORY: Coronary artery disease, hypertension, cancer, diabetes, breast cancer, heart disease, alcohol abuse SOCIAL HISTORY: Tobacco: Quit in 1999 Alcohol: none Occupation: Retired, he does flagging in the summer Physical Exam Blood pressure 137/80, pulse 84, height 185.4 cm (6' 1), weight 103.647 kg (228 lb 8 oz). Constitutional: oriented to person, place, and time and well-developed, well- nourished, and in no distress. Skin: Skin is warm and dry. Comments: Comes in without antalgia. No effusion. ROM 130 deg flexion, 0 deg extension. He does have medial joint line tenderness. No lateral joint line tenderness Stable to varus/valgus stress. Negative Anterior/Posterior drawer. Negative Lachmans with a firm endpoint. He has painful Steinmann's and Mary testing. Able to do a straight leg raise without lag. Normal sensation and motor function distally. Able to do a full squat without difficulty, able to do a single leg squat without pain. Gait, Coordination, and Reflexes Gait Gait: normal MRI: Impression 1. Complex tear of the posterior body segment and posterior horn of the medial meniscus and associated small cluster of parameniscal cysts, as above. 2. Findings compatible with MCL sprain. No discrete ligament tear appreciated. 3. 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 Additional suspected high-grade partial/near full thickness chondral fissure at the posterior and lateral tibial plateau cartilage, as above. ASSESSMENT/PLAN: The patient's plan was formulated in conjunction with Dr. Hopkins. Michelle Swenson is a 72 y.o. male presents to the clinic with right knee pain, and medial joint line tenderness and provocative signs and symptoms consistent with a medial meniscus tear. We reviewed hisMRI at length and discussed options. He is a candidate for arthroscopy, he would like to move forward with that. He understands that he has some degenerative changes that may not entirely respond to scope. documented in this encounter Plan of Treatment Not on filedocumented as of this encounter Procedures Procedure Name Priority Date/Time Associated Diagnosis Comme nts ARTHROSCOPY KNEE, Routine 09/21/2012 8:31 AM MMT (medial menis cus MENISCECTOMY SINGLE W/ EDT tear) SHAVING documented in this encounter Visit Diagnoses Diagnosis MMT (medial meniscus tear) - Primary Tear of medial cartilage or meniscus of knee, current documented in this encounter Care Teams Furniture Manager Relationship Specialty Start Date End Date Arminda Vick MD PCP - General 05/05/10 09/11/15 [address] [place] [address] documented as of this encounter
--- OUTSIDE RECORDS SUMMARY | 2022-03-05 01:31 | XMS_ITS | Encounter Summary ---
:1940 Author Organization [facility] [place] [address] Care Team Providers Name Role Phone Arminda Vick MD Primary Care Provider Encounter Details Date Type Department Care Team Description 09/07/2012 Hospital Encounter XRay at [address] [place] [address] Social History Tobacco Use Types Packs/Day [...] Priority Date/Time Associated Diagnosis Comme nts XR PRE MRI ORBITS Routine 09/07/2012 10:02 AM Retained metal R esults for this EDT fragments, procedure are i n unspecified the results section. documented in this encounter Results XR pre MRI eye foreign body (09/07/2012 10:02 AM EDT) Anatomical Region Laterality Modality Head N/A Radiographic Imaging Specimen (Source) Anatomical Collection Method Collection Time Re ceived Time Location / / Volume Laterality 09/07/2012 10:02 AM EDT Narrative 09/07/2012 10:54 AM EDT Examination EYE F.B. Clinical History HX WELDING, XR PRIOR TO MRI; [facility] Comparison None. ?? Findings 2 views show no radiodense foreign giuseppe s projecting over the orbits. ?? Paranasal sinuses are clear. Procedure Note Kelsey Smith MD - 09/07/2012Format ting of this note might be different from the original. Examination EYE F.B. Clinical History HX WELDING, XR PRIOR TO MRI; [facility] CL[facility] Comparison None. Findings 2 views show no radiodense foreign giuseppe s projecting over the orbits. Paranasal sinuses are clear. Juan Antonio Hopkins MD IMG DX ORDERABLES documented in this encounter Visit Diagnoses Diagnosis Retained metal fragment Retained metal fragments, unspecified documented in this encounter Care Teams Head Of Business Development Relationship Specialty Start Date End Date Arminda Vick MD PCP - General 05/05/10 09/11/15 [address] [place] [address] documented as of this encounter
--- OUTSIDE RECORDS SUMMARY | 2022-03-05 01:31 | XMS_ITS | Encounter Summary ---
:1940 Author Organization [facility] [place] [address] Care Team Providers Name Role Phone Arminda Vick MD Primary Care Provider Encounter Details Date Type Department Care Team Description 10/03/2012 Surgery Outpatient Surgery Jitendra Gibbs, CARLOS HROSCOPY KNEE, Center Gerad Sheridan MD MENISCECTOMY [facility] SHAVING (WRVU 7.03) [facility] [address] [place] [address] [place] [address] [phone] (Wo rk) Social History Tobacco Use Types [...] Sign Reading Time Taken Comments Blood Pressure 131/68 10/03/2012 12:23 PM EDT Pulse 71 10/03/2012 12:20 PM EDT Temperature 36.6 ??C (97.9 ??F) 10/03/2012 11:52 AM EDT Respiratory Rate 18 10/03/2012 12:20 PM EDT Oxygen Saturation 94% 10/03/2012 12:44 PM EDT Inhaled Oxygen Concentration - - Weight 104.3 kg (230 lb) 10/03/2012 10:28 AM EDT Height 185.4 cm (6' 1) 10/03/2012 10:28 AM EDT Body Mass Index 30.34 10/03/2012 10:28 AM EDT documented in this encounter Discharge Instructions Discharge InstructionsKristi Alcocer RN - 10/03/2012 11:56 AM EDT Images from the original note were not included. General Anesthesia Discharge Instructions Go home and rest. You may be sleepy for several hours. Take it easy as sudden position changes may cause nausea. Be careful on stairs, as you may be unsteady on your feet. Do not smoke if you are alone. Follow a light to regular diet as tolerated today. If nausea occurs, start with clear liquids, and progress slowly to a regular diet. Do not drive, operate machinery, drink alcoholic beverages, or make important decisions for 24 hoursafter having general anesthesia. The medications given may change your reaction time or judgement without your awareness. IV site -- slight redness is normal, you can use warm compresses. If tenderness and redness increases or foul drainage occurs, please contact your M.D. Patients who have had endotracheal tubes. (this tube, used by the anesthesia department, is passed down your throat after you are asleep, to ensure safe air passage during your operation). A sore throat is normal due to the tube. Cold liquids or soothing lozenges will help ease the discomfort. The generalized muscle aches are due to the medication given to you just before the tube is inserted. As the medication wears off, you may develop muscle soreness, which usually goes away in 12 - 24 hours. Narcotic pain medications can cause constipation, please ask the surgeons office what they recommendfor prevention of this. Some non-pharmaceutical means of constipation prevention include increasing intake of fluids, eating more fruits and vegetables as well as fruit juices. If after 8 hours at home you are unable to pass urine or are experiencing pain from inability to urinate, call the Outpatient Surgery Center at [phone]. If you get an answering machine, we will return your call. If you need to talk to someone immediately, call the main hospital number [phone] ask for your surgeon promotional model or call your local MD. You may also proceed to the closest Emergency Department. [facility] 03/01 ask for your doctor promotional model [facility] Learning About Deep Vein Thrombosis What is deep vein thrombosis? A deep vein thrombosis (DVT) is a blood clot in certain veins of the legs, pelvis, or arms. The clot is usually in the legs. DVT may damage the vein and cause the area to ache, swell, and change color. DVT also can lead to sores. DVT in these veins needs to be treated because the clots can get bigger, break loose, and travel through the bloodstream to the lungs. A blood clot in a lung can cause . Blood clots can form in the veins when you are not active for a long period of time. For example, they can form if you need to stay in bed because of a health problem or must sit for a long time on an airplane or in a car. Surgery or an injury can damage your blood vessels and cause a clot to form. Cancer also can cause DVT. And some people have blood that clots too easily, which is a problem that may run in families. A risk factor is something that makes you more likely to develop a disease. Here are some major risk factors for DVT: You have surgery. You have to stay in bed for more than 3 days (such as in the hospital). Your blood is likely to clot because of an injury, cancer, or inherited condition. Here are some minor risk factors for DVT: You take control hormones. You are . You are in a car or airplane for a long trip. What are the symptoms? Symptoms of DVT may include: Swelling in the affected area. Redness and warmth in the affected area. Pain or tenderness. You may have pain only when you touch the affected area or when you stand or walk. If your doctor thinks you may have DVT, you will probably have an ultrasound test. You may have other tests as well. How can you prevent DVT? Exercise your lower leg muscles to help blood flow in your legs. Point your toes up toward your headso the calves of your legs are stretched, then relax and repeat. This is a good exercise to do when you are sitting for long periods of time. Get out of bed as soon as you can after an illness or surgery. If you need to stay in bed, do the leg exercise noted above every hour when you are awake. Use special stockings called compression stockings. These stockings are tight at the feet with a gradually looser fit on the leg. Many doctors recommend that you wear compression stockings during a journey longer than 8 hours. Take breaks when you are on long trips. Stop the car and walk around. On long airplane flights, walkup and down the aisle hourly, flex and point your feet every 20 minutes while sitting, and drink plenty of water. Take blood-thinning medicines before and after some types of surgery if your doctor recommends it. Blood thinners also may be used if you are likely to develop clots. How is DVT treated? Treatment for DVT usually involves taking blood thinners. These medicines are given through a vein (intravenously, or IV) or as a pill. You will have blood tests often so your doctor can see how well the blood thinners are working. Your doctor also may suggest that you prop up or elevate your leg when possible, take walks, and wear compression stockings. These measures may help reduce the pain and swelling that can happen with DVT. Follow-up care is a mccormack part of your treatment and safety. Be sure to make and go to all appointments, and call your doctor if you are having problems. It's also a good idea to know your test results and keep a list of the medicines you take. Where can you learn more? Visit our health information library at [email or web address]. You can also view health information on [employer], your personal patient account. Log in or sign up today. Enter X941 in the search box to learn more about Learning About Deep Vein Thrombosis. ?? [id number] [employer]. Care instructions adapted under license by [facility]. This care instruction is for use with your licensed healthcare professional. If you have questionsabout a medical condition or this instruction, always ask your healthcare professional. [employer] disclaims any warranty or liability for your use of this information. Content Version: 8.9.45212; Last Revised: July 29, 2009 Patient InstructionsClint Castaneda MD - 10/03/2012 11:49 AM EDT ORTHOPAEDIC SURGERY DISCHARGE INSTRUCTIONS S/P right knee arthroscopy with meniscal debridement Activity level: Weight bear to your right lower extremity as tolerated. Use crutches or a walker as needed for balance and protection. Anticoagulation: Take an aspirin 325mg tablet twice daily for two weeks. Diet: Resume your regular diet but increase your intake of fluids and fiber while you are on narcotic pain meds to prevent constipation. You should also increase your intake of high protein fluids and foods to promote wound healing. Driving: No driving while you are taking narcotic pain medication OR if you are in significant pain - your judgement and reaction time can be affected. No driving until you are instructed by your orthopedic physician. Call the office if you have questions. Medications: Take the pain medication as prescribed. Shower/Bath: Dressing: Keep the compression wrap in place for 72 hours then remove it including the white surgical dressing. You may shower then but use an occlusive (plastic) dressing or waterproof adhesive dressings until one week after surgery. Then you may shower while letting water run over the wound. DO NOT submerge the wound until sutures removed and the wound is completely healed, approximately 3 weeks. Wound Care: Cover the incisions with bandaids until they are healed. Call your doctor if you develop: Fevers greater than 100.5 Severe nausea or vomiting Increasing pain not controlled by pain medications Increasing redness or drainage from incisions Change in sensation Contact Information: Your orthopaedic surgeon: Jitendra Gibbs MD: Sports: [phone] If it is after 5:00PM on a weekday or a weekend and it is of an urgent nature please call [phone] and ask for the on-call orthopaedic resident. documented in this encounter Medications at Time of Discharge Medication Sig Dispensed Refills Start Date End Date amlodipine (NORVASC) 10 Take 10 mg by mouth 0 mg tablet daily. CIS Free Text Med - 2 Puff(s), Inh, Four 0 2008 Albuterol (Refill) times daily and PRN RANITIDINE HCL (ZANTAC 0 10/25/2008 ORAL) hydroCODone-acetaminophen Take 1-2 tablets by 30 tablet 0 0 10/03/2012 02/20/2015 (VICODIN) 5-500 mg per mouth every 6 hours tablet as needed for Pain. fluticasone (FLOVENT) 110 Inhale 1 puff into 0 02/20/2015 mcg/actuation inhaler the lungs 2 times daily. naproxen sodium (ALEVE) Take 220 mg by mouth 0 10/12/2012 220 mg tablet as needed. documented as of this encounter Progress Notes Jm Vaughan RN - 10/03/2012 1:06 PM EDT Pt sipping gingerale. and son at bedside. Discharge instructions given. documented in this encounter H&P Notes Jitendra Gibbs MD - 10/03/2012 10:40 AM EDT The patient's history and physical exam have been reviewed and completed. There has been no intervalchange from that of the pre-operative history and physical exam done within the last 30 days. Jitendra Gibbs MD - 10/03/2012 10:40 AM EDT Patient Name: Michelle Swenson Patient Age: 72 y.o. Birthdate: 1940 Admit date: 10/03/2012 Attending Physician: Jitendra Gibbs MD See scanned document for pre-procedural H&P. documented in this encounter Miscellaneous Notes Keyonacellaneous - Provider, Scanning - 10/03/2012 9:50 PM EDT Estradaaneous - Provider, Scanning - 10/03/2012 1:07 PM EDT OR Attestation - Jitendra Gibbs MD - 10/03/2012 11:40 AM EDT Attestation: Case Date: 10/03/2012 I was present and I participated during the entire procedure (does not need to include opening and closing). JITENDRA GIBBS MD 10/03/2012 Op Note - Jitendra Gibbs MD - 10/03/2012 11:37 AM EDT [facility] Operative Note Patient Name: Michelle Swenson : [id number] MR#: [id number] Case Date: 10/03/2012 Surgeon: Surgeon(s) and Role: * Jitendra Gibbs MD - Primary * Clint Castaneda MD Preoperative diagnosis: MMT Postoperative diagnosis: MMT Procedure(s): ARTHROSCOPY KNEE, MENISCECTOMY SINGLE W/ SHAVING General Estimated Blood Loss: <5 CC FLUIDS: 400 CC Drains: NONE Disposition: awakened from anesthesia, extubated and taken to the recovery room in a stable condition, having suffered no apparent untoward event. Condition: doing well without problems NO TOURNIQUET USED INDICATIONS: The patient is a 72 y.o. male who presented with symptoms, imaging, and exam findings consistent with a meniscal tear. Being refractory to non-operative measures, the patient elected to undergo surgical intervention. FINDINGS: Patellofemoral Joint: GRADE II-III BOTH SIDES Medial Compartment: COMPLEX MEDIAL MENISCAL TEAR POSTERIOR HORN, GRADE II CHANGES ACL/PCL: INTACT Lateral Compartment: GRADE II DESCRIPTION OF PROCEDURE: After the patient was properly identified in the pre-operative holding area, the patient was taken to the operating room where a clinical time out was held prior to proceeding with the procedure. Pre-operative antibiotics were given within one hour of the procedure. A pneumatic tourniquet was not applied. The patient's lower extremity was prepped and draped in the sterile fashion. We began by making a standard anterior lateral portal. We entered the patellofemoral joint with the arthroscopic cannula. A complete arthroscopic exam was performed in a standard fashion and findings were as noted above. A standard anterior medial portal was then made with a spinal needle and a #15 blade. We then inserted a probe to inspect the medial meniscus. We then inserted an arthroscopic punch and debrided the medial mensicus followed by a 3.5 mm full radius shaver. The mensicus was debrided back to a stable base. The notch was then visualized followed by the lateral compartment. The knee was then irrigated. Portal sites were closed with 4.0 prolene. The knee was then injected with dilaudid and clonidine. A sterile dressing was then applied consisting of xeroform, gauze, Kerlix, followed by an heath wrap. The patient was then extubated, transferred to a stretcher, then brought to the Same Day Surgery holding area having tolerated the procedure well. There appeared to be no operative complications and all sponge and needle counts were correct at the end of the case. Post-operative plan: Weight bear as tolerated with range of motion as tolerated. Crutches for comfort. Aspirin 325 mg PO BID for 2 weeks for DVT prophylaxis until fully ambulatory. Follow-up in 10-14 days for hospital check. documented in this encounter Plan of Treatment Not on filedocumented as of this encounter Procedures Procedure Name Priority Date/Time Associated Diagnosis Comme [facility] ARTHROSCOPY KNEE, 10/03/2012 10:54 AM MMT (medial meni scus MENISCECTOMY SINGLE W/ EDT tear) SHAVING (WRVU 7.03) documented in this encounter Visit Diagnoses Diagnosis Meniscus, medial, posterior horn derange ment - Primary Derangement of posterior horn of medial meniscus MMT (medial meniscus tear) Tear of medial cartilage or meniscus of knee, current documented in this encounter Administered Medications Inactive Administered Medications - up to 3 most recent administrations Medication Order MAR Action Action Date Dose Rate Site epiNEPHrine (ADRENALIN) Given 10/03/2012 11:28 AM EDT 0.25 mg injection ONCE PRN, Starting on Tue10/03/12 at 1128, Until Tue10/03/12 at 1604, Intra-Operative (Intra-Procedure), Routine fentaNYL 50mcg/mL injection Given 10/03/2012 12:19 PM EDT 25 mcg 25-50 mcg, Intravenous, EVERY 5 MIN PRN, Starting on Tue10/03/12 at 1210, Until Tue10/03/12 at 1604, Pain, for breakthrough pain, Hold for respiratory rate less than 10 per minute. Maximum dose: 250 mcg over one hour., PACU Recovery, Routine OXYcodone (ROXICODONE) immediate release Given 10/03/2012 12:45 PM EDT 5 mg tablet 5 mg 5 mg, Oral, EVERY 4 HOURS PRN, Starting on Tue10/03/12 at 1211, Until Tue10/03/12 at 1604, Pain, mild pain, PACU Recovery, Routine Given 10/03/2012 12:20 PM EDT 5 mg documented in this encounter Active and Recently Administered Medications Times are shown in EDT. Scheduled Medication Order 10/01/2012 10/02/2012 10/03/2012 ceFAZolin (ANCEF) 2,000 mg in sodium chloride 0.9% 55 mL (COMPLE VÍCTOR) 1100 (Given - Provider: Stephanie Costa CRNA)1115 (Due) 2 g = 2,000 mg, Intravenous, ONCE, 1 dos e, Tue10/03/12 at 1115, for 30 Minutes, Indication (Active or Suspected): Prophylaxis Continuous Medication Order 10/01/2012 10/02/2012 10/03/2012 lactated ringers infusion 1,000 mL (CANCELED) 1100 (New Bag - Provider: Stephanie Costa CRNA)1129 (Anesthesia Volume Adjustment - Provider: Stephanie Costa CRNA)1152 (Anesthesia Volume Adjustment - Provider: Stephanie Costa CRNA) 1,000 mL, at 100 mL/hr, Intravenous, CON TINUOUS, Starting Tue10/03/12 at 1100, Until Tue10/03/12 at 1604 PRN Medication Order 10/01/2012 10/02/2012 10/03/2012 epiNEPHrine (ADRENALIN) injection (CANCELED) 1128 (Given - Provider: Jitendra Gibbs MD - Comment: in 50 mls of injectable nacl) ONCE PRN, Starting Tue10/03/12 at 1128, Until Tue10/03/12 at 1604, Intra- Operative (Intra-Procedure), Routine fentaNYL 50mcg/mL injection (CANCELED) 1219 (Given - Provider: Jm Vaughan, BEAU) 25-50 mcg, Intravenous, EVERY 5 MIN PRN, Starting e 10/03/12 at 1210, Until 10/03/12 at 1604, Pain, for breakthrough pain, Hold for respiratory rate less than 10 per minute. Maximum dose: 250 mcg over one hour., PACU Recovery, Routine OXYcodone (ROXICODONE) immediate release tablet 5 mg (CANCELED) 1220 (Given - Provider: Jm Vaughan, BEAU)1245 (Given - Provider: Jm Vaughan, BEAU) 5 mg, Oral, EVERY 4 HOURS PRN, Starting e 10/03/12 at 1211, Until Tu10/03/12 at 1604, Pain, mild pain, PACU Recovery, Routine documented in this encounter Care Teams Pump Servicer Supervisor Relationship Specialty Start Date End Date Arminda Vick MD PCP - General 05/05/10 09/11/15 [address] [place] [address] documented as of this encounter
--- OUTSIDE RECORDS SUMMARY | 2022-03-05 01:31 | XMS_ITS | Encounter Summary ---
:1940 Author Organization [facility] [place] [address] Care Team Providers Name Role Phone Arminda Vick MD Primary Care Provider Reason for Visit Reason Comments Right Knee Pain Encounter Details Date Type Department Care Team Description 09/07/2012 Office Visit Orthopaedics at [facility] Juan Antonio Hopkins MD [facility] [place] [address] Knee pain, right [facility] Matt Farias, PA [address] [place] [place] [address] (Primary Dx) [place] [address] Social History Tobacco Use Types Packs/Day [...] Sign Reading Time Taken Comments Blood Pressure 144/66 09/07/2012 9:04 AM EDT Pulse 86 09/07/2012 9:04 AM EDT Temperature - - Respiratory Rate - - Oxygen Saturation - - Inhaled Oxygen Concentration - - Weight 105.3 kg (232 lb 3.2 oz) 09/07/2012 9:04 AM EDT Height 185.4 cm (6' 1) 09/07/2012 9:04 AM EDT Body Mass Index 30.64 09/07/2012 9:04 AM EDT documented in this encounter Progress Notes Matt Farias PA - 09/07/2012 9:03 AM EDT PATIENT NAME: Michelle Swenson AGE: 72 y.o. MR#: [id number] DATE OF VISIT: 09/07/2012 DATE OF INJURY/ONSET: 3 months ago. STAFF: The patient's plan was formulated in conjunction with Dr. Hopkins. CHIEF COMPLAINT: right knee pain HISTORY OF PRESENT ILLNESS Mr. Swenson a 72 y.o. year old male comes into clinic today for right knee pain. He reports that 3 months ago he [...] Retired, he does flagging in the summer Current Outpatient Prescriptions on File Prior to Visit Medication Sig Dispense Refill ??? CIS Free Text Med - Albuterol (Refill) 2 Puff(s), Inh, Four times daily and PRN ??? CIS Free Text Med - Multiple Vitamin ??? RANITIDINE HCL (ZANTAC ORAL) ??? GLUCOSAMINE HCL/CHONDRO CAMARENA A (GLUCOSAMINE-CHONDROITIN ORAL) ROS: negative for fever, chills, chest pain, shortness of breath, nausea or vomiting. Physical Exam Blood pressure 144/66, pulse 86, height 185.4 cm (6' 1), weight 105.325 kg (232 lb 3.2 oz). Constitutional: oriented to person, place, and [...] Gait, Coordination, and Reflexes Gait Gait: normal RADIOLOGICAL STUDIES: I reviewed images of the right knee taken today, which included, Standing alignment, AP, Lateral, Schuss, [place] images, which showed standing knee alignment shows mechanical axes in midline. Joint spaces are preserved. There is trace marginal osteophyte formation but no effusion. ASSESSMENT/PLAN: The patient's plan was formulated in conjunction with Dr. Hopkins. Michelle Swenson is a 72 y.o. male presents to the clinic with right knee pain, and medial joint line tenderness and provocative signs and symptoms consistent with a medial meniscus tear. We reviewed his x-rays and exam findings with the patient. We discussed surgical and non-surgical interventions for his pain. Given his minimal degree of arthritic changes of the left knee, it would be reasonable toproceed with an MRI of the knee to further evaluate his pain, degree of arthritis and help guide surgical management if warranted. The patient was agreeable with this plan. The patient will follow up with Dr. Hopkins after his MRI to is performed to review the results. documented in this encounter Plan of Treatment Not on filedocumented as of this encounter Results MRI knee WO contrast (09/07/2012 12:28 PM EDT) Anatomical Region Laterality Modality Knee Magnetic Resonance Specimen (Source) Anatomical Collection Method Collection Time Re ceived Time Location / / Volume Laterality 09/07/2012 12:28 PM EDT Narrative 09/07/2012 4:29 PM EDT Examination MR Knee Without Alex/RIGHT Clinical History medial joint line tenderness ?? [...] encounter Visit Diagnoses Diagnosis Knee pain, right - Primary Pain in joint, lower leg Knee pain, right Pain in joint, lower leg documented in this encounter Care Teams Auto Garage Attendant Relationship Specialty Start Date End Date Arminda Vick MD PCP - General 05/05/10 09/11/15 [address] [place] [address] documented as of this encounter
--- OUTSIDE RECORDS SUMMARY | 2022-03-05 01:31 | XMS_ITS | Encounter Summary ---
:1940 Author Organization [facility] [place] [address] Care Team Providers Name Role Phone Arminda Vick MD Primary Care Provider Encounter Details Date Type Department Care Team Description 10/03/2012 Hospital Encounter Outpatient Surgery Jitendra Gibbs Meniscus, medial, Center Gerda Arnold MD [facility] (Primary Hospital CENTER DR Enriquez) [facility] [address] [place] [address] [phone] Social History Tobacco Use Types Packs/Day Years [...] urinate, call the Outpatient Surgery Center at [phone]. If you get an answering machine, we will return your call. If you need to talk to someone immediately, call the [facility] number [phone] ask for your surgeon front office agent or call your local MD. You may also proceed to the closest Emergency Department. [facility] 03/01 ask for your doctor front office agent [facility] Learning About Deep Vein Thrombosis What [...] more? Visit our health information library at [email or web address]. You can also view health information on [employer], your personal patient account. Log in or sign up today. Enter X941 in the search box to learn more about Learning About Deep Vein Thrombosis. ?? [phone] Ask The Doctor. Care instructions adapted under license by [facility]. This care instruction is for use with your licensed healthcare professional. If you have questionsabout a medical condition or this instruction, always ask your healthcare professional. Ask The Doctor disclaims any warranty or liability for your use of this information. Content Version: 8.9.10206; Last Revised: July 29, 2009 Patient InstructionsClint [...] Your orthopaedic surgeon: Jitendra Gibbs MD: Sports: [phone] If it is after 5:00PM on a weekday or a weekend and it is of an urgent nature please call [phone] and ask for the on-call orthopaedic resident. [...] H&P. documented in this encounter Miscellaneous Notes Miscellaneous - Provider, Scanning - 10/03/2012 9:50 PM EDT Miscellaneous - Provider, Scanning - 10/03/2012 1:07 PM EDT OR Attestation - Jitendra Gibbs MD - 10/03/2012 11:40 AM EDT Attestation: Case Date: 10/03/2012 I was present and I participated during the entire procedure (does not need to include opening and closing). JITENDRA GIBBS MD 10/03/2012 Op Note - Jitendra Gibbs MD - 10/03/2012 11:37 AM EDT [facility] Operative Note Patient Name: Michelle Swenson : [id number] MR#: [id number] Case Date: 10/03/2012 Surgeon: Surgeon(s) and Role: [...] Date/Time Associated Diagnosis Comme nts ARTHROSCOPY KNEE, 10/03/2012 10:54 AM MMT (medial meni scus MENISCECTOMY SINGLE W/ EDT tear) SHAVING (WRVU 7.03) documented in this encounter Visit Diagnoses Diagnosis Meniscus, medial, posterior horn derange ment - Primary Derangement of posterior horn of medial meniscus documented in this encounter Administered Medications Inactive Administered Medications - up to 3 most recent administrations Medication Order MAR Action Action Date Dose Rate Site fentaNYL 50mcg/mL injection Given 10/03/2012 12:19 PM [...] injection (CANCELED) 1219 (Given - Provider: Jm Vaughan RN) 25-50 mcg, Intravenous, EVERY 5 MIN PRN, Starting Tue10/03/12 at 1210, Until Tue10/03/12 at 1604, Pain, for breakthrough pain, Hold for respiratory rate less than 10 per minute. Maximum dose: 250 mcg over one hour., PACU Recovery, Routine OXYcodone (ROXICODONE) immediate release tablet 5 mg (CANCELED) 1220 (Given - Provider: Jm Vaughan, RN)1245 (Given - Provider: Jm Vaughan, BEAU) 5 mg, Oral, EVERY 4 HOURS PRN, Starting 10/03/12 at 1211, Until 10/03/12 at 1604, Pain, mild pain, PACU Recovery, Routine documented in this encounter Care Teams Toolroom Attendant Relationship Specialty Start Date End Date Arminda Vick MD PCP - General 05/05/10 09/11/15 [address] [place] [address] documented as of this encounter
--- OUTSIDE RECORDS SUMMARY | 2022-03-05 01:31 | XMS_ITS | Encounter Summary ---
:1940 Author Organization [facility] [place] [address] Care Team Providers Name Role Phone Arminda Vick MD Primary Care Provider Reason for Visit Auth/Cert - Closed Specialty Diagnoses / Procedures Referred By Contact Refer red To Contact Diagnoses Cataract Procedures PRO REMV CATARACT EXTRACAP,INSERT LENS CATARACT EXTRACTION, EXTRACAPSULAR, W/ LENS INSERTION Referral ID Status Reason Start Date Expiration Date Visits Requ ested Visits Authorized [id number] Closed 1 1 Encounter Details Date Type Department Care Team Description 03/31/2015 Surgery Outpatient Surgery Meredith, CATARACT EXTRACTION, Center Gerda Martinez i, MD EXTRACAPSULAR, W/ LENS [facility] INSERTION (WRVU 8.52) [facility] [address] Wilson [place] [address] [place] [address] [phone] (Wo rk) Social History Tobacco Use Types [...] Sign Reading Time Taken Comments Blood Pressure 148/74 03/31/2015 11:00 AM EDT Pulse 86 03/31/2015 11:00 AM EDT Temperature 36.6 ??C (97.9 ??F) 03/31/2015 11:00 AM EDT Respiratory Rate 20 03/31/2015 11:00 AM EDT Oxygen Saturation 97% 03/31/2015 11:00 AM EDT Inhaled Oxygen Concentration - - Weight 104.3 kg (230 lb) 03/31/2015 11:00 AM EDT Height 185.4 cm (6' 0.99) 03/31/2015 11:00 AM EDT Body Mass Index 30.35 03/31/2015 11:00 AM EDT documented in this encounter Discharge Instructions Discharge InstructionsFrPerlita jamison RN - 03/31/2015 11:43 AM EDT Instructions for the first day following CATARACT surgery Lucius Sanchez MD, [facility], [facility] Section of ophthalmology [facility] [phone] - Wear either the eye shield or glasses of any kind 24 hours per day for the first week following surgery. - The surgery center nurses should confirm time of your follow up appointment for tomorrow with Dr. Sanchez. This appointment will be at the Eye Clinic in the main building at [facility]. - Mild discomfort is normal, but if you have any severe eye pain or bleeding call [phone] and ask to speak to the eye doctor inspector publications. 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
--- OUTSIDE RECORDS SUMMARY | 2022-03-05 01:31 | XMS_ITS | Encounter Summary ---
:1940 Author Organization [facility] [place] [address] Care Team Providers Name Role Phone Arminda Vick MD Primary Care Provider Reason for Visit Reason Comments Procedure Here for POM, anticipating C E Encounter Details Date Type Department Care Team Description 03/27/2015 Procedure visit Ophthalmology at [facility] C Age-related nuclear [facility] D [place], [place] [address] Social History Tobacco Use Types Packs/Day [...] encounter Procedures Procedure Name Priority Date/Time Associated Comments Diagnosis JYSULER-BKKID-EEC CALC Routine 04/03/2015 10:24 Age-related R esults for this BY LASER INTERFEROMETRY AM EDT nuclear cataract, procedure are in - OU - BOTH EYES bilateral the results section. documented in this encounter Results [id number]-BHC CALC BY LASER [id number] EYES (04/03/2015 10:24 AM EDT) Anatomical Region Laterality Modality Other Specimen (Source) Anatomical Location Collection Method / Collectio n Time Received Time / Laterality Volume Narrative 04/03/2015 10:24 AM EDT reviewed Avg IOL-M K's ?? OD ?? 44.06 @ 086 / 44. 88 @ 176>>>>>> ?O S ?? 44.23 @ 038 / 44.64 @ 128>>>>>> Target ?? OD ??-0.25 ?OS ??-0.25>>>>>> HWTW ?? OD 12.7 ? OS 12.3>>>>>> ACD ? OD 2.98 ? OS 3.45>>>>>> Axial Length ?? OD ??23.96 ??IOL-M ? OS ??23.86>>>>>> Valentino Harper MD OPHTHALMOLOGY SERVICES ORD ALESSANDRA documented in this encounter Visit Diagnoses Diagnosis Age-related nuclear cataract, bilateral Senile nuclear sclerosis documented in this encounter Care Teams Editing Computer Publisher Relationship Specialty Start Date End Date Arminda Vick MD PCP - General 05/05/10 09/11/15 [address] [place] [address] documented as of this encounter
--- OUTSIDE RECORDS SUMMARY | 2022-03-05 01:31 | XMS_ITS | Encounter Summary ---
:1940 Author Organization [facility] [place] [address] Care Team Providers Name Role Phone Arminda Vick MD Primary Care Provider Reason for Visit Reason Comments Cataract Pt sent by Dr. Gutiérrez for cat eval Encounter Details Date Type Department Care Team Description 02/20/2015 Office Visit Ophthalmology at [facility] C Meredith, Age-related nuclear [facility] MD Valentino [place] [address] [place] [address] OPHTHALMOLOGY DEPT [place], [place] [address] Social History Tobacco Use Types Packs/Day Years Used Date Former Smoker Cigarettes, Pipe, Cigars 1 40 Qu it: 10/31/1999 Smokeless Tobacco: Never Used Alcohol Use Standard Drinks/Week Comments No 0 (1 standard drink = 0.6 oz pure alcoho l) Sex Assigned at Date Recorded Not on file documented as of this encounter Progress Notes Valentino Harper MD - 02/20/2015 9:55 AM EDT Michelle Swenson is a 74 [...] disease) ??? Thyroid disease Assessment and Plan: Age-related nuclear cataract, bilateral Michelle Swenson has visually significant cataract interfering with visual tasks. Left eye worse than the right. We discussed the risks, benefits and alternatives to cataract surgery. Michelle expressed understanding and is keen to pursue cataract surgery in his Left eye with a monofocal IOL. he denies any history of amblyopia, patching or strabismus surgery in the past. No history of trauma or Flomax use. No PXE or phacodenesis noted on exam. Target Refraction: [place] to -0.50 Discussed that this is an estimate and that there would likely be a post operative need for glasses to achieve best vision. 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 Findings discussed with Michelle Swenson today and he has expressed understanding. He will call me if he has any further concerns. For Follow up Visit POM documented in this encounter Miscellaneous Notes Assessment & Plan Note - Valentino Harper MD - 02/20/2015 9:54 AM EDT Associated Problem(s): Age-related nuclear cataract, bilateral (Resolved 11/10/2015) Michelle Swenson has visually significant cataract interfering with visual tasks. Left eye worse than the right. We discussed the risks, benefits and alternatives to cataract surgery. Michelle expressed understanding and is keen to pursue cataract surgery in his Left eye with a monofocal IOL. he denies any history of amblyopia, patching or strabismus surgery in the past. No history of trauma or Flomax use. No PXE or phacodenesis noted on exam. Target Refraction: [place] to -0.50 Discussed that this is an estimate and that there would likely be a post operative need for glasses to achieve best vision. 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 documented in this encounter Plan of Treatment Not on filedocumented as of this encounter Procedures Procedure Name Priority Date/Time Associated Diagnosis Comme nts CATARACT EXTRACTION, Routine 02/20/2015 9:53 AM EDT Age-relate d nuclear EXTRACAPSULAR, W/ LENS cataract, bilatera l INSERTION documented in this encounter Results [id number]-ETOOP-YOG CALC BY LASER [id number] EYES (04/03/2015 10:24 AM EDT) Anatomical Region [...] sclerosis documented in this encounter Care Teams Stone Processing Machine Operator Relationship Specialty Start Date End Date Arminda Vick MD PCP - General 05/05/10 09/11/15 [address] [place] [address] documented as of this encounter
--- OUTSIDE RECORDS SUMMARY | 2022-03-05 01:32 | XMS_ITS | Encounter Summary ---
:1940 Author Organization [facility] Address [address] [place] [address] Care Team Providers Name Role Phone Arminda Merino MD Primary Care Provider Encounter Details Date Type Department Care Team Description 03/31/2010 Results Only [facility] , Laboratory Services - [address] [place] [address] [place], [place] [id number] [phone] Social History Tobacco Use Types Packs/Day Years Used Date Never Assessed Sex Assigned at Date Recorded Not on file documented as of this encounter Plan of Treatment Not on filedocumented as of this encounter Procedures Procedure Name Priority Date/Time Associated Diagnosis Comme [facility] SURGICAL PATHOLOGY Routine 03/31/2010 0:00 EDT Re sults for this procedure are i n the results section. documented in this encounter Results SURGICAL PATHOLOGY (03/31/2010 0:00 EDT) Pathology Report: SURGICAL PATHOLOGY REPORT ? [facility] Reports generated via electr Vimty interface contain original data; ? LAB however they are lacking the format of the original report. ? Caution should be taken when reading/interpreting unformatted reports. ? Name: ? LEELA, ALDOPH K ? Accession #: ? [id number] ? : ? 1940 (Age: 69) ??M ? Collec t Date: ? 03/31/2010 ? Location: ? [facility] ? R eceive Date: ? 04/01/2010 ? Provider: GRAHAM CALDERÓN SON DO ? Copy to: ARMINDA MERINO MD ? Final Pathologic Diagnosis: ? A. ?Small intes gerardo, duodenum, biopsy: ? 1. ?Duodenal mu cosa with no specific pathologic features. ? B. ?Stomach, an trum, biopsy: ? 1. ?Antral muco sa with mild, chronic gastritis. ? - No Helicobacter pylori-like microorganisms identified on H&E-stained sections. ? C. ?? Esophagus, dist al, biopsy: ?1. ?? Columna r and squamous mucosa with reactive and inflammatory ? changes. ??See comment. ?- Negative for intestinal metaplasia. ? D. ?? Esophagus, mid, biopsy: ?1. ?? Squamou s mucosa with mild, reactive changes. ??See comment. ? E. ?? Esophagus, prox imal, biopsy: ?1. ?? Squamou s mucosa with no specific pathologic features. ? Comment: ? The findings in the e sophageal biopsies along with the appropriate clinical context, may represent gastr oesophageal reflux disease. (Dr. Tamayo)/mpl ? Document reviewed and electr onically signed by: ? WAYNE GONZALEZ [facility] ? Report ??Date: 04/03/2010 15 :54 ? By the signature above, the attending physician certifies that he/she has ? personally conducted a gross and/or microscopic examination of the described ? specimens and rendered or co nfirmed the above diagnosis. ? Specimen(s) Received: ? A. ?Bx duodenum ? B. ? Bx gastric antrum ? C. ? Bx distal esophagus ? D. ? Bx mid esophagus ? E. ? Bx proximal esophag us ? Clinical History: ? GERD ? Gross Description: ? Received in [facility] solution labelled Leela, Aldoph and biopsy ? duodenum is a single 0.3 x 0.3 x 0.2 cm pink-galeano irregular soft tissue. ? Submitted in toto as (A). ? Received in [facility]'s solut ion labelled Leela, Aldoph and biopsy gastric ?? antrum are two pink-galeano irr egular soft tissues, 0.3 x 0.2 x 0.2 cm and 0.4 x ?? 0.3 x 0.2 cm. ??Submitted in [place] as (B). ? [facility] solut ion labelled Leela, Aldoph and biopsy distal ?? esophagus are six pink-galeano irregular soft tissues ranging from 0.2 x 0.2 x 0.1 cm to 0.6 x 0.3 x 0.1 cm. ?? Submitted in toto as (C1) and (C2). ? Received in [facility]'s solut ion labelled Leela, Aldoph and biopsy mid ? esophagus are two pink-galeano irregular soft tissues, 0.3 x 0.2 x 0.1 cm and 0.3 x 0.3 x 0.1 cm. ??Submitted in toto as (D). ? [facility] solut ion labelled Leela, Aldoph and biopsy proximal esophagus are two pink-galeano irregular soft tissues, each 0.5 x 0.2 x 0.1 cm. ? Submitted in toto as (E). ?? (Jake Gusman)/carloz ? End of Report ? Specimen Performing Organization Address City/State/ZIP Code Phon e Number [facility] [address] [place] [address] SERVICES [facility] [address] [place] [address] documented in this encounter Visit Diagnoses Not on filedocumented in this encounter Care Teams Culinary Worker Relationship Specialty Start Date End Date Arminda Merino MD PCP - General 06/04/09 05/11/[address] [facility] [facility] [place] [address] documented as of this encounter
--- OUTSIDE RECORDS SUMMARY | 2022-03-05 01:32 | XMS_ITS | Encounter Summary ---
:1940 Author Organization [facility] Address [address] [place] [address] Care Team Providers Name Role Phone Arminda Vick MD Primary Care Provider Encounter Details Date Type Department Care Team Description 04/20/2017 Hospital Encounter [facility] Unknown, Provider, [facility] 0 [facility] [phone] [place] [address] (Work) [phone] Social History Tobacco Use Types Packs/Day Years Used Date Never Assessed Sex Assigned at Date Recorded Not on file documented as of this encounter Discharge Disposition Disposition Code Departure Means Destination Home or Self Alf documented in this encounter Plan of Treatment Not on filedocumented as of this encounter Visit Diagnoses Not on filedocumented in this encounter Care Teams Hand Surgeon Relationship Specialty Start Date End Date Arminda Vick MD PCP - General 06/04/09 05/11/[address] [place] [address] [place] [address] documented as of this encounter
--- OUTSIDE RECORDS SUMMARY | 2022-03-05 01:32 | XMS_ITS | Encounter Summary ---
:1940 Author Organization [facility] Address [address] [place] [address] Care Team Providers Name Role Phone Unavailable Primary Care Provider Unavailable Encounter Details Date Type Department Care Team Description 05/28/2008 Before [facility] - [place], Kate Visit Maple conversion DO Graham (Maple) [address] [facility] [address] [place] [address] ,[place], [place] [id number] (Wo rk) Social History Tobacco Use Types Packs/Day Years Used Date Never Assessed Sex Assigned at Date Recorded Not on file documented as of this encounter Plan of Treatment Not on filedocumented as of this encounter Procedures Procedure Name Priority Date/Time Associated Diagnosis Comme [facility] SURGICAL PATHOLOGY Routine 05/28/2008 0:00 EST Re sults for this procedure are i n the results section. documented in this encounter Results SURGICAL PATHOLOGY (05/28/2008 0:00 EST) Pathology Report: SURGICAL PATHOLOGY REPORT ? [facility] Reports generated via electr Veeva interface contain original data; ? LAB however they are lacking the format of the original report. ? Caution should be taken when reading/interpreting unformatted reports. ? Name: ? LEELA, ALDOPH K ? Accession #: ? [id number] ? : ? 1940 (Age: 67) ??M ? Collec t Date: ? 05/28/2008 ? Location: ? [facility] ? R eceive Date: ? 05/28/2008 ? Provider: GRAHAM CALDERÓN SON DO ? Copy to: CINTHIA MERINO MD ? Final Pathologic Diagnosis: ? Colon, 20 cm, biopsy, endoscopic excision: ? - ??Villous adenoma. ??See c omment. ? Comment: ? Supervisor Offset Plate Preparation sectio ns of this case have been reviewed at ? intradepartmental consultati on conference. (Dr. Levin)/lgk ? Document reviewed and electr onically signed by: ? Jayson Cruz MD ? Report ??Date: 05/31/2008 17 :36 ? By the signature above, the attending physician certifies that he/she has ? personally conducted a gross and/or microscopic examination of the described ? specimens and rendered or co nfirmed the above diagnosis. ? Specimen(s) Received: ? Polyp 20 cm ? Clinical History: ? H/O colon polyp 20 cm . ??Re-scope to get the rest of the polyp. ? Gross Description: ? Received in [facility]' s labelled Leela and polyp 20 cm are ? twenty-seven galeano-pink, irreg ular to villous and polypoid tissues ranging from ?? 0.1 x 0.1 x 0.1 cm to 2.7 x 2.0 x 2.0 cm. ??The largest tissue fragment is ? serially sectioned and entir tonya submitted as (A1) through (A9). ??The five ? intermediate tissues are bis ected and submitted entirely as (A10) through (A14). The remaining smaller tissu es are entirely submitted as (A15) through (A21). ?? Deonte Khan)/ronalk ? End of Report ? Specimen Performing Organization Address City/State/ZIP Code Phon e Number [facility] [address] [place] [address] SERVICES [facility] [address] [place] [address] documented in this encounter Visit Diagnoses Not on filedocumented in this encounter
--- OUTSIDE RECORDS SUMMARY | 2022-03-05 01:32 | XMS_ITS | Encounter Summary ---
:1940 Author Organization [facility] Address [address] [place] [address] Care Team Providers Name Role Phone Unavailable Primary Care Provider Unavailable Encounter Details Date Type Department Care Team Description 09/10/2008 Before [facility] - Kaylee, Kate Visit Maple conversion DO Aniya (Maple) [address] [facility] [address] [place] [address] ,[place], [place] [id number] (Wo rk) Social History Tobacco Use Types Packs/Day Years Used Date Never Assessed Sex Assigned at Date Recorded Not on file documented as of this encounter Plan of Treatment Not on filedocumented as of this encounter Procedures Procedure Name Priority Date/Time Associated Diagnosis Comme [facility] SURGICAL PATHOLOGY Routine 09/10/2008 0:00 EDT Re sults for this procedure are i n the results section. documented in this encounter Results SURGICAL PATHOLOGY (09/10/2008 0:00 EDT) Pathology Report: SURGICAL PATHOLOGY REPORT ? [facility] Reports generated via electr [employer] interface contain original data; ? LAB however they are lacking the format of the original report. ? Caution should be taken when reading/interpreting unformatted reports. ? Name: ? JONATHAN, ALDOPH K ? Accession #: ? [id number] ? : ? 1940 (Age: 68) ??M ? Collec t Date: ? 09/10/2008 ? Location: ? [facility] ? R eceive Date: ? 09/10/2008 ? Provider: ANIYA CALDERÓN SON DO ? Copy to: CINTHIA MERINO MD ? Final Pathologic Diagnosis: ? A. ?Colon, hepa tic flexure, polyp, biopsy: ? 1. 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 ??See comment. ? B. ?Colon, poly p, 20 cm, biopsy: ? 1. ?Tubular leroy noma. ? C. ?Colon, poly p, 15 cm, biopsy: ? 1. ?Tubular leroy noma. ? Comment: ? The biopsy of the mathieu yp from the hepatic flexure reveals features of ? 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 The background ?? stroma is desmoplastic. The precise depth of invasion cannot be assessed in this fragmented specimen. This ca se has been reviewed at the intradepartmental ? consultation conference. (Dr Nicole Galindo)/mpl ? Document reviewed and electr onically signed by: ? Rita Galindo MD ? Report ??Date: 09/12/2008 17 :10 ? By the signature above, the attending physician certifies that he/she has ? personally conducted a gross and/or microscopic examination of the described ? specimens and rendered or co nfirmed the above diagnosis. ? Specimen(s) Received: ? A. ?Hepatic fle xure polyp (#1) ? B. ? Polyp 20 cm (#2) ? C. ? Polyp 15 cm (#3) ? Clinical History: ? A. Hepatic flexure po lyp; B. 20 cm polyp, removed piecemeal fashion March 22, 2008, May 28, 2008; H/O colon polyps ? Gross Description: ? Received in [facility] fixative labelled Jonathan, Michelle and #1 ??bx ? hepatic flexure is a 0.6 x 0.4 x 0.2 cm papillary, polypoid structure. ??The ? specimen is inked at the res ection margin, bisected, and submitted entirely as ?? (A1). ??Also present are thr ee smaller fragments of tissue which vary in size ? from 0.2 x 0.2 x 0.1 cm up t o 0.3 x 0.2 x 0.1 cm. ??The specimens are submitted ?? intact as (A2). ? Received in [facility]'s fixat juvenal labelled Jonathan, Aldoph and #2 ??polyp at 20 cm are five biopsies which vary in size from 0.3 x 0.3 x 0.1 cm up to 0.7 x 0.4 x 0.2 cm. ??The specimens ar e submitted intact as (B1) and (B2). ? Received in [facility]'s fixat juvenal labelled Jonathan, Michelle and #3 ??polyp at 15 cm is a 0.4 x 0.3 x 0.2 cm polypoid structure which is submitted intact as ? (C1). ??Also present within the specimen container are multiple fragments of ? tissue which measure 0.6 x 0 .4 x 0.2 cm in aggregate. ??These tissues are ? submitted intact as (C2). ?? (Ruma Emerson)/yvonne ? End of Report ? Specimen Performing Organization Address City/State/ZIP Code Phon e Number [facility] [address] [place] [address] SERVICES [facility] [address] [place] [address] documented in this encounter Visit Diagnoses Not on filedocumented in this encounter
--- OUTSIDE RECORDS SUMMARY | 2022-03-05 01:32 | XMS_ITS | Encounter Summary ---
:1940 Author Organization [facility] Address [address] [place] [address] Care Team Providers Name Role Phone Carl Hooker MD Primary Care Provider Encounter Details Date Type Department Care Team Description 03/02/[address] [facility] Outr Resulting Lab, Pathology & Laboratory Provider [facility] [address] [place], [place] [id number] Social History Tobacco Use Types Packs/Day Years Used Date Never Assessed Sex Assigned at Date Recorded Not on file documented as of this encounter Plan of Treatment Not on filedocumented as of this encounter Procedures Procedure Name Priority Date/Time Associated Comments Diagnosis PSA TOTAL, Routine 03/02/2021 9:58 EDT Results for this DIAGNOSTIC procedure are i n the results section. documented in this encounter Results PSA TOTAL, DIAGNOSTIC (03/02/2021 9:58 EDT) Pathologist Sig nature PSA 1.3 0.0 - 6.5 ng/mL [facility] Specimen Blood - Venous blood (substance) Narrative [facility] - 03/02/2021 17:51 EDT NOTE: Serum PSA concentration should not be in terpreted as absolute evidence for the presence or absence of malignant disease. Assayed on Siemens ADVIA Centaur XPT usi ng chemiluminescent technology.??Values obtained by using different assay methods cannot be used interchangeably. Performing Organization Address City/State/ZIP Code Phon e Number [facility] [address] [place] [address] SERVICES documented in this encounter Visit Diagnoses Not on filedocumented in this encounter Care Teams Geotechnician Relationship Specialty Start Date End Date Carl Hooker MD PCP - General Family Medicine - Primary 05/12/20 Care documented as of this encounter
--- OUTSIDE RECORDS SUMMARY | 2022-03-05 01:32 | XMS_ITS | Clinical Summary ---
:1940 Author Organization [facility] Address [address] [place] [address] Care Team Providers Name Role Phone Carl Hooker MD Primary Care Provider Social History Tobacco Use Types Packs/Day Years Used Date Never Assessed Sex Assigned at Date Recorded Not on file Plan of Treatment Health Maintenance Due Date Last Done Comments Hepatitis C Screen 1940 COVID-19 Vaccine (1) 1953 Fall Risk Screening 2006 Insurance Payer Benefit Plan / Subscriber ID Effective Phone Address T ype Group Dates [place] [id number] 2008-Pre [address] Medicare MEDICARE GENERATIONS sent [id number] [place] [address] Care Teams Pot Runner Relationship Specialty Start Date End Date Carl Hooker MD PCP - General Family Medicine - Primary 05/12/20 Care
--- OUTSIDE RECORDS SUMMARY | 2022-03-05 01:32 | XMS_ITS | Encounter Summary ---
:[address] [facility] Address [address] [place] [address] Care Team Providers Name Role Phone Arminda Vick MD Primary Care Provider Encounter Details Date Type Department Care Team Description 04/20/2017 Results Only [facility] Graham Aj, DO [address] [place] [address] [place] [address] [place] [address] (Wo rk) Social History Tobacco Use Types Packs/Day Years Used Date Never Assessed Sex Assigned at Date Recorded Not on file documented as of this encounter Plan of Treatment Not on filedocumented as of this encounter Procedures Procedure Name Priority Date/Time Associated Diagnosis Comme [facility] SURGICAL PATHOLOGY Routine 04/20/2017 17:55 Resul ts for this EST procedure are i n the results section. documented in this encounter Results SURGICAL PATHOLOGY (04/20/2017 17:55 EST) Pathology Report: SURGICAL PATHOLOGY REPORT [facility] Reports generated via electronic interface contain yessica ginal data; LABORATORY however they are lacking the format of the original re port. SERVICES Caution should be taken when reading/interpreting unfo rmatted reports. Name: ? MICHELLE SWENSON ? Accession #: ? [id number] ? : ? 1940 (Age: [age]) ??M ? Collect Date: ? 04/20/2017 ? Location: ? [facility] ? Receive Date: ? 04/20/20 17 ? Provider: GRAHAM AJ DO Copy to: LUCIA Fareed [facility]- ? Final Pathologic Diagnosis: A. COLON, HEPATIC FLEXURE, POLYP, BIOPSY: - ??Superficial fragments of tubulovillous adenoma. B. COLON, DISTAL TRANSVERSE, POLYP, BIOPSY: - ??Fragment of tubular adenoma. Document reviewed and electronically signed by: DASHAWN DELA CRUZ MD Report ??Date: 04/22/2017 11:52 By the signature above, the attending physician certif ies that he/she has personally conducted a gross and/or microscopic examin ation of the described specimens and rendered or confirmed the above diagnosi s. Specimen(s) Received: A. ??Hepatic flexure polyp B. ??Distal transverse colon polyp Clinical History: Hx of colon Ca Gross Description: A. ?Received in formalin labelled with proper p atient identification (initials C, A) and 1. hepa tic flexure polyp are eight pink-galeano tissues (0.1 x 0.1 x 0.1 cm to 0.4 x 0.3 x 0.1 cm). Entirely submitte d in A1-A3. B. ?Received in formalin labelled with proper p atient identification (initials C, A) and 2. distal transverse colon polyp is a pink-galeano tissue fragment (0.5 x 0.4 x 0.1 cm). Submitted intact in B1. BRENNEN Monterroso (ASCP) 04/21/2017 8:23 AM End of Report Specimen Performing Organization Address City/State/ZIP Code Phon e Number [facility] [address] [place] [id number] SERVICES documented in this encounter Visit Diagnoses Not on filedocumented in this encounter Care Teams Senior Dynamics Crm Developer Relationship Specialty Start Date End Date Arminda Vick MD PCP - General 06/04/09 05/11/[address] [place] [address] [place] [address] documented as of this encounter
--- OUTSIDE RECORDS SUMMARY | 2022-03-05 01:32 | XMS_ITS | Encounter Summary ---
:1940 Author Organization [facility] Address [address] [place] [address] Care Team Providers Name Role Phone Unavailable Primary Care Provider Unavailable Encounter Details Date Type Department Care Team Description 04/05/2008 Before [facility] - Kaylee, Kate Visit Maple conversion DO Graham (Maple) [address] [facility] [address] [place] [address] ,[place], [place] [id number] (Wo rk) Social History Tobacco Use Types Packs/Day Years Used Date Never Assessed Sex Assigned at Date Recorded Not on file documented as of this encounter Plan of Treatment Not on filedocumented as of this encounter Procedures Procedure Name Priority Date/Time Associated Diagnosis Comme [facility] SURGICAL PATHOLOGY Routine 04/05/2008 0:00 EDT Re sults for this procedure are i n the results section. documented in this encounter Results SURGICAL PATHOLOGY (04/05/2008 0:00 EDT) Pathology Report: SURGICAL PATHOLOGY REPORT ? [facility] Reports generated via electr [employer] interface contain original data; ? LAB however they are lacking the format of the original report. ? Caution should be taken when reading/interpreting unformatted reports. ? Name: ? LEELA, ALDOPH K ? Accession #: ? [id number] ? : ? 1940 (Age: 67) ??M ? Collec t Date: ? 04/05/2008 ? Location: ? [facility] ? R eceive Date: ? 04/05/2008 ? Provider: GRAHAM CALDERÓN SON DO ? Copy to: CINTHIA MERINO MD ? Final Pathologic Diagnosis: ? A. ?Colon, asce nding polyp, biopsies: ? 1. ?Fragments o f tubular adenoma. ? B. ?Colon, poly p at 50 cm, biopsies: ? 1. ?Fragments o f tubular adenoma. ? C. ?Colon, poly p at 20 cm, biopsies: ? 1. ?Fragments o f tubulovillous adenoma. ? Document reviewed and electr onically signed by: ? Rosana C Cardozo MD ? Report ??Date: 04/10/2008 17 :18 ? By the signature above, the attending physician certifies that he/she has ? personally conducted a gross and/or microscopic examination of the described ? specimens and rendered or co nfirmed the above diagnosis. ? Specimen(s) Received: ? A. ?Polyp ascen ding colon (#1) ? B. ? Polyp at 50 cm (#2) ? C. ? Polyp at 20 cm (#3) ? Clinical History: ? Screening ? Gross Description: ? Received in [facility]' s fixative labelled Leela and polyp ascending ? colon are multiple galeano-pink soft tissue fragments ranging from 0.1 x 0.1 x 0.1 cm to 0.5 x 0.3 x 0.2 cm. Rehman bmitted entirely as (A1) ??(A3). ? Received in [facility]'s fixat juvenal labelled Leela and polyp at 50 cm is a 0.2 x 0.2 x 0.2 cm galeano-pink poly poid soft tissue fragment. ??Submitted intact as (B). ? Received in [facility]'s fixat juvenal labelled Leela and polyp at 20 cm are four papillary galeano-pink portions of soft tissue which range from 0.6 x 0.4 x 0.3 cm ?? to 1.4 x 0.9 x 0.5 cm. ??Ser ially sectioned and entirely submitted as (C1) ??(C4). (Dr. Evans)/mms ? End of Report ? Specimen Performing Organization Address City/State/ZIP Code Phon e Number [facility] [address] [place] [address] SERVICES [facility] [address] [place] [address] documented in this encounter Visit Diagnoses Not on filedocumented in this encounter
[2022-03-05 11:28] LABS: HCT 46.4 % (40.0-50.0); HGB 15.5 g/dL (13.5-17.5); MCH 31.1 pg (27.0-33.0); MCHC 33.4 % (32.0-36.0); MCV 93 fL (80-95); MPV 9.4 fL (8.0-11.0); Platelet Count 252 10^3/uL (130-400); RBC 4.98 10^6/uL (4.36-5.78); RDW 13.2 % (11.8-14.1); WBC 5.87 10^3/uL (4.4-10.8)
[2022-03-05 12:25] LABS: Hemoglobin A1C 5.7 % (<5.7)
[2022-03-05 12:32] LABS: ALT 29 U/L (16-63); AST 15 U/L (15-37); Albumin 4.1 g/dL (3.4-5.0); Alkaline Phosphatase 71 U/L (46-116); Anion Gap 6.7 mmol/L (3-11); BUN 16 mg/dL (7-18); Bilirubin, Total 0.8 mg/dL (0.2-1.0); CO2 30.3 mmol/L (21.0-32.0); CREATININE 1.2 mg/dL (0.70-1.30); Calcium 9.1 mg/dL (8.5-10.1); Chloride 105 mmol/L (98-107); Estimated GFR 61.13 (mL/min/1.73m2); Glucose 101 mg/dL (74-106); Potassium 3.8 mmol/L (3.5-5.1); Sodium 142 mmol/L (136-145); TSH (W/Ref FT4) 2.12 uIU/mL (0.36-3.74); Total Protein 8.1 g/dL (6.4-8.2)
[2022-03-05 22:53] LABS: PSA, Screening 1.5 ng/mL (<=6.5)
== END 2022-03-05 00:57 | disposition home or self-care (01) ==
PROVIDERS: PCP Nurse Practitioner Family; Visit Provider Nurse Practitioner Family
DX: E03.9 Hypothyroidism, unspecified (principal); I10 Essential (primary) hypertension; R73.9 Hyperglycemia, unspecified; N40.0 Benign prostatic hyperplasia without lower urinary tract symptoms; Z12.5 Encounter for screening for malignant neoplasm of prostate
CPT/HCPCS: 36415; 80053; 84153; 85027; 83036; 84443

== ENCOUNTER → 2022-03-08 01:39 | Outpatient (CLI) | payer OTHER, SELFPAY ==
--- NOTE | 2022-03-08 06:45 | DI.RAD_ITS ---
Exam(s) XR HIP RT COMPLETE AP PELVIS EXAM: XR HIP RT COMPLETE AP PELVIS INDICATION: Worsening RT HIP PAIN, [id number]. COMPARISON: No exams were available for comparison TECHNIQUE: 2D digital imaging was performed. 2 views. FINDINGS: Hip joint spaces are maintained. There is mild bilateral acetabular spurring. There is a minimal en thesophyte at the right greater trochanter. There are mild degenerative changes of the SI joints. N o soft tissue or joint space calcifications. IMPRESSION: Mild degenerative changes. DATA REPOSITORY: RADIATION DOSE DELIVERED:
== END ==
PROVIDERS: PCP Nurse Practitioner Family; Visit Provider Nurse Practitioner Family
DX: M16.11 Unilateral primary osteoarthritis, right hip (principal)
CPT/HCPCS: 73502

== ENCOUNTER 2023-03-11 09:17 | Outpatient (CLI) | payer OTHER, SELFPAY ==
[2023-03-11 07:15] LABS: HCT 47.3 % (40.0-50.0); HGB 16.1 g/dL (13.5-17.5); MCH 31.7 pg (27.0-33.0); MCV 93 fL (80-95); MPV 9.5 fL (8.0-11.0); Platelet Count 253 10^3/uL (130-400); RBC 5.08 10^6/uL (4.36-5.78); RDW 12.9 % (11.8-14.1); RDW-SD 44.2 fL; WBC 6.07 10^3/uL (4.4-10.8)
[2023-03-11 07:39] LABS: Hemoglobin A1C 5.8 % (<5.7)
[2023-03-11 07:59] LABS: Anion Gap 8.1 mmol/L (3-11); BUN 14 mg/dL (7-18); CO2 27.9 mmol/L (21.0-32.0); CREATININE 1.2 mg/dL (0.70-1.30); Calcium 9.2 mg/dL (8.5-10.1); Calculated LDL 132 mg/dL (<100); Chloride 104 mmol/L (98-107); Cholesterol 201 mg/dL (<200); Estimated GFR 60.75 (mL/min/1.73m2); Glucose 129 mg/dL (74-106); HDL Cholesterol 42 mg/dL (40-60); Potassium 3.9 mmol/L (3.5-5.1); Sodium 140 mmol/L (136-145); TSH (W/Ref FT4) 2.84 uIU/mL (0.36-3.74); Triglyceride 138 mg/dL (<150)
[2023-03-11 18:33] LABS: PSA, Screening 1.6 ng/mL (<=6.5)
== END 2023-03-11 09:18 | disposition home or self-care (01) ==
LOC: LBO 09:17
PROVIDERS: PCP Nurse Practitioner Family; Visit Provider Nurse Practitioner Family
DX: D12.6 Benign neoplasm of colon, unspecified (principal); E03.9 Hypothyroidism, unspecified; F10.11 Alcohol abuse, in remission; I10 Essential (primary) hypertension; J44.9 Chronic obstructive pulmonary disease, unspecified; K21.9 Gastro-esophageal reflux disease without esophagitis; N40.0 Benign prostatic hyperplasia without lower urinary tract symptoms; R63.8 Other symptoms and signs concerning food and fluid intake; R73.9 Hyperglycemia, unspecified; Z00.00 Encounter for general adult medical examination without abnormal findings
CPT/HCPCS: 36415; 80048; 80061; 84153; 85027; 83036; 84443

== ENCOUNTER 2024-01-24 19:20 | Emergency (ER) | payer OTHER, SELFPAY ==
[2024-01-24 19:23] VITALS: BP 140/63; PULSE 90; RESP 16; TEMP 37.1; O2SAT 96
--- NOTE | 2024-01-24 19:39 | ED.GENADUL_ITS ---
Discharge Plan Disposition Patient Disposition: Home Condition: Stable Discharge Details Clinical Impression: Acute constipation Primary Care Provider: Umu Mims ED Provider: Marissa Landry Home Meds and New Rx's Prescriptions: Continued (DME) nebulizer accessories Kit See Rx Instructions .ROUTE .MEDSUPPLY Qty: 50 1RF Rx Instructions: As directed amlodipine 10 mg tablet 10 mg PO DAILY Qty: 90 3RF levothyroxine 50 mcg capsule 50 mcg PO DAILY Qty: 90 3RF pantoprazole 20 mg tablet,delayed release (DR/EC) 20 mg PO DAILY Qty: 90 3RF Spiriva Respimat 1.25 mcg/actuation mist 2 puff IH DAILY Qty: 12 3RF betamethasone valerate 0.1 % cream 1 applic topical TID PRN (Reason: skin irritation) Qty: 45 3RF (DME) Aerochamber Plus Flow-Vu,S Msk 1 EACH spacer 1 ea UD PRN Qty: 1 Rx Instructions: DIRECTED WITH INHALER albuterol sulfate 90 mcg/actuation HFA aerosol inhaler 2 puff IH Q4H PRN (Reason: shortness of breath or wheezing) Qty: 34 4RF ipratropium-albuterol 0.5 mg-3 mg(2.5 mg base)/3 mL solution for nebulization 3 ml inhalation QID PRN (Reason: wheezing) Qty: 15 3RF Discharge Instructions Instructions: Constipation, Adult ED Additional Instructions: Increase oral fluids including water. You may try prunes and prune juice at home. You may also get glycerin suppositories and fleets enemas which you can get [id number]. Return to the ER for any worsening abdominal pain, vomiting, fever or concerns. This text was generated using Cogniticsation system, please disregard any oddities of phrase or misspellings. Referrals: Umu Mims NP [Primary Care Provider] - 5 days HPI General Mode of arrival: EMS . Date/Time Provider Initiated Documentation: 01/24/24 19:28 . Limitations to Documentation: no limitations . Information obtained by: patient, RN notes reviewed and old records reviewed . HPI Narrative: 83 year old male presents with cc of constipation unable to pass a very hard stool around 10 this morning. He reports he feels it near his rectum. Denies any fever chills nausea vomiting. Did take MiraLAX and attempted digital disimpaction at home without success. He is alert and oriented x 4 no other associated symptoms or complaints. For the little bit of left lower quadrant abdominal pain. He does have a past medical history paroxysmal SVT, malignant neoplasm of colon, BPH, GERD hypertension. Related Data Home Medications ?Medication ?Instructions ?Recorded ?Confirmed inhalational spacing device #1 ea 09/23/12 03/10/23 (Aerochamber Plus Flow-Vu,Small Mask) nebulizer accessories #50 ea 02/20/19 03/10/23 amlodipine 10 mg tablet 10 mg PO DAILY #90 tabs 03/08/23 01/24/24 betamethasone valerate 0.1 % 1 applic topical TID PRN skin 03/08/23 01/24/24 topical cream irritation #45 grams levothyroxine 50 mcg capsule 50 mcg PO DAILY #90 caps 03/08/23 01/24/24 pantoprazole 20 mg tablet,delayed 20 mg PO DAILY #90 tabs 03/08/23 01/24/24 release tiotropium bromide 1.25 2 puff inhalation DAILY #12 grams 03/08/23 01/24/24 mcg/actuation mist for inhalation (Spiriva Respimat) albuterol sulfate 90 mcg/actuation 2 puff inhalation Q4H PRN 10/06/23 01/24/24 aerosol inhaler shortness of breath or wheezing #34 grams ipratropium 0.5 mg-albuterol 3 mg 3 ml inhalation QID PRN wheezing 12/20/23 01/24/24 (2.5 mg base)/3 mL nebulization #15 mL soln Previous Rx's ?Medication ?Instructions ?Recorded nebulizer accessories #50 ea 02/20/19 amlodipine 10 mg tablet 10 mg PO DAILY #90 tabs 03/08/23 betamethasone valerate 0.1 % 1 applic topical TID PRN skin 03/08/23 topical cream irritation #45 grams levothyroxine 50 mcg capsule 50 mcg PO DAILY #90 caps 03/08/23 pantoprazole 20 mg tablet,delayed 20 mg PO DAILY #90 tabs 03/08/23 release tiotropium bromide 1.25 2 puff inhalation DAILY #12 grams 03/08/23 mcg/actuation mist for inhalation (Spiriva Respimat) albuterol sulfate 90 mcg/actuation 2 puff inhalation Q4H PRN 10/06/23 aerosol inhaler shortness of breath or wheezing #34 grams ipratropium 0.5 mg-albuterol 3 mg 3 ml inhalation QID PRN wheezing 12/20/23 (2.5 mg base)/3 mL nebulization #15 mL soln Allergies Allergy/AdvReac Type Severity Reaction Status Date / Time No Known Allergies Allergy Verified 01/24/24 19:34 General Stated Complaint: Abd Prob JACKELINE: 3 Review of Systems All systems reviewed & are unremarkable except as noted in HPI and below Constitutional Constitutional: Reports as per HPI Gastrointestinal Gastrointestinal: Reports abdominal pain, Reports tenesmus, Reports constipation, Denies nausea and Denies vomiting Exam Narrative Exam Narrative: Constitutional: Alert and oriented x3. Appears stated age. Normal body habitus. Head: Normocephalic, no trauma. Eyes: Pupils PERRL, Red reflex noted, EOM's intact. Eyelids symmetrical without lesions, discharge, or swelling. Chest: RRR, Normal S1, S2, distal pulses intact. Resp: Lungs clear to auscultation bilaterally, no wheezes, rales, or rhonchi. Abdomen: Soft, non-distended, Normoactive bowel sounds all 4 quads. Slightly tender with palpation left lower quadrant. Musculoskeletal: Normal gait, Moves all 4 extremities without difficulty. Skin: No suspicious rashes or lesions. Capillary refill less than 2 sec. Neurologic: Cranial nerves II-XII intact. Alert and oriented x 3. Motor: No de ficits noted. Sensory: Intact bilaterally all 4 extremities. Hematologic/Lymphatic: No ecchymosis, no lymphadenopathy. Course Vital Signs Vital signs: Vital Signs Temperature 37.1 C 01/24/24 19:23 Pulse 90 01/24/24 19:23 Respiratory Rate 16 01/24/24 19:23 Blood Pressure 140/63 01/24/24 19:23 Pulse Oximetry 96 01/24/24 19:23 Temperature 37.1 C 01/24/24 19:23 Temperature Source Temporal Artery Scan 01/24/24 19:23 Pulse 90 01/24/24 19:23 Respiratory Rate 16 01/24/24 19:23 Respiratory Effort Normal 01/24/24 19:29 Blood Pressure 140/63 01/24/24 19:23 Blood Pressure Position Sitting 01/24/24 19:23 Pulse Oximetry 96 01/24/24 19:23 Oxygen Delivery Method Room Air 01/24/24 19:23 Oxygen Flow Rate 0 01/24/24 19:23 Pain Level 5 01/24/24 19:29 Comment Has not taken anything for pain. 01/24/24 19:23 Medical Decision Making 83 year old male presents with cc of constipation unable to pass a very hard stool around 10 this morning. He reports he feels it near his rectum. Denies any fever chills nausea vomiting. Did take MiraLAX and attempted digital disimpaction at home without success. He is alert and oriented x 4 no other associated symptoms or complaints. For the little bit of left lower quadrant abdominal pain. He does have a past medical history paroxysmal SVT, malignant neoplasm of colon, BPH, GERD hypertension. Fleets enema ordered. Patient had successful bowel movement feels much better. Will discharge patient to home with follow-up with PCP. This text was generated using Cogniticsation system, please disregard any oddities of phrase or misspellings. Quality:SDOH Health Related Social Needs: No Data to Display PFSH All Active Problems (Updated 01/24/24 @ 21:12 by Marissa Landry NP) Acute constipation (Acute) Right hip pain (Acute) Exertional dyspnea (Acute) Tubular adenoma of colon (Acute) BPH (benign prostatic hyperplasia) (Acute) Stable. Voiding without difficulty. Continue to monitor. Chronic obstructive lung disease (Acute) O2 saturation 95-97% both at rest and with ambulating in the halls greater than 150 at a fast pace. Long discussion regarding her portable oxygen and not being helpful for his symptoms. Using albuterol prophylactically for increased activity. I also offered pulmonary function tests and or referral to pulmonology. Patient declined both. I stressed that his VILLEDA is not related to low oxygen levels but more to a functional issue with his respiratory status. Encouraged him to focus on weight loss and maintain activity. I encouraged him to call for f/u so we could spend more time on th is condition. Chronic pain of left wrist (Acute 09/14/16) Dental caries (Acute 11/28/12) Essential hypertension (Acute 05/29/13) Gastroesophageal reflux disease (Acute) Taking ranitidine 150 mg daily with good control of his GERD symptoms. Continue and monitor. Hypothyroidism (Acute 12/05/14) Increased BMI (body mass index) (Acute 12/27/16) . BMI is 32%. He has remained stable over the last several years. Encouraged to stay active. We did talk about again making healthy diet choices and portion control. 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 states no arthoplasty but ARTHROSCOPY Family History Mother , AGE 76 Bone cancer Father , AGE 85 Diabetes Essential hypertension Hyperlipidemia Stroke Sister Essential hypertension Hyperlipidemia Maternal Grandfather Lung cancer Paternal Grandfather Heart disease Stroke Maternal Grandmother , Age 98 Diabetes Asthma Paternal Grandmother Heart disease Stroke Social History Smoking/Tobacco Use Status: Former Tobacco Use tobacco type: cigarettes Quit Date: 09/12/99 Second Hand Exposure: Yes Smoking risk assessment performed?: Yes Alcohol Intake: former Drug use: Never Substance use type: does not use Caregiver/Support person: No Household members: spouse Communication Needs: Hard of Hearing Pets and animals: No Do you think of yourself as: straight/heterosexual What is your relationship status?: How often do you talk on the phone with friends or family?: three or more times per week How often do you get together with friends or relatives?: three or more times per week How often do you attend restorationist or jain services?: decline to answer Do you belong to any clubs or organized social groups?: no Panel score (0-1 are the most socially isolated patients): 2 Duration: < 15 minutes/day Do you feel safe at home: Yes Do you feel safe in your relationship?: Yes
[2024-01-24] MEDS: Na Phosphate Enema-Adult 133 ML BTL PR (20:16)
--- NOTE | 2024-01-24 21:50 | NUR.NOTE ---
[facility] needed a authorization paper filled out and faxed.Nursing Note:
== END 2024-01-24 21:13 | disposition home or self-care (01) ==
PROVIDERS: Emergency Provider Registered Nurse Emergency; PCP Nurse Practitioner Family
DX: K59.00 Constipation, unspecified (principal); R10.32 Left lower quadrant pain; Z85.038 Personal history of other malignant neoplasm of large intestine; Z87.891 Personal history of nicotine dependence
CPT/HCPCS: 99283; 99282

== ENCOUNTER 2024-03-12 13:01 | Outpatient (CLI) | payer OTHER, SELFPAY ==
[2024-03-12 10:49] LABS: Hemoglobin A1C 5.6 % (<5.7)
[2024-03-12 11:12] LABS: Anion Gap 8.7 mmol/L (3-11); BUN 15 mg/dL (7-18); CO2 27.3 mmol/L (21.0-32.0); CREATININE 1.3 mg/dL (0.70-1.30); Calcium 9.7 mg/dL (8.5-10.1); Calculated LDL 112 mg/dL (<100); Chloride 106 mmol/L (98-107); Cholesterol 190 mg/dL (<200); Estimated GFR 54.85 (mL/min/1.73m2); Glucose 131 mg/dL (74-106); HDL Cholesterol 42 mg/dL (40-60); Potassium 3.6 mmol/L (3.5-5.1); Sodium 142 mmol/L (136-145); TSH (W/Ref FT4) 2.96 uIU/mL (0.36-3.74); Triglyceride 184 mg/dL (<150)
[2024-03-12 18:28] LABS: PSA, Screening 1.3 ng/mL (<=6.5)
== END 2024-03-12 13:02 | disposition home or self-care (01) ==
LOC: LBO 13:02
PROVIDERS: PCP Nurse Practitioner Family; Visit Provider Nurse Practitioner Family
DX: Z00.00 Encounter for general adult medical examination without abnormal findings (principal); N40.0 Benign prostatic hyperplasia without lower urinary tract symptoms; K21.9 Gastro-esophageal reflux disease without esophagitis; R73.9 Hyperglycemia, unspecified; E03.9 Hypothyroidism, unspecified; I10 Essential (primary) hypertension; Z12.5 Encounter for screening for malignant neoplasm of prostate; J44.9 Chronic obstructive pulmonary disease, unspecified
CPT/HCPCS: 36415; 80048; 80061; 84153; 83036; 84443

== ENCOUNTER 2024-03-12 15:29 | Outpatient (REF) | payer OTHER, SELFPAY ==
[2024-03-12 13:36] LABS: Bilirubin Negative (Negative); Blood Negative (Negative); Clarity Cloudy (Clear); Glucose Negative (Negative); Ketones Negative (Negative); Leukocyte Esterase Negative (Negative); Nitrite Negative (Negative); Urobilinogen 0.2 mg/dL (Up to 0.2)
== END 2024-03-12 15:30 | disposition home or self-care (01) ==
LOC: LBN 15:29
PROVIDERS: PCP Nurse Practitioner Family; Visit Provider Nurse Practitioner Family
DX: I89.0 Lymphedema, not elsewhere classified (principal); Z00.00 Encounter for general adult medical examination without abnormal findings; E03.9 Hypothyroidism, unspecified; I10 Essential (primary) hypertension; K21.9 Gastro-esophageal reflux disease without esophagitis; J44.9 Chronic obstructive pulmonary disease, unspecified; N40.0 Benign prostatic hyperplasia without lower urinary tract symptoms; R73.9 Hyperglycemia, unspecified
CPT/HCPCS: 81003

== ENCOUNTER 2024-03-25 13:51 | Emergency (ER) | payer OTHER, SELFPAY ==
[2024-03-25 13:53] VITALS: BP 161/80; PULSE 103; RESP 18; TEMP 36.5; O2SAT 98
--- NOTE | 2024-03-25 14:03 | ED.GENADUL_ITS ---
Discharge Plan Disposition Patient Disposition: Home Condition: Stable Discharge Details Clinical Impression: Dental infection Primary Care Provider: Umu Mims ED Provider: Juan Antonio Hong Home Meds and New Rx's Prescriptions: New amoxicillin-pot clavulanate 875-125 mg tablet 1 tab PO BID Qty: 14 0RF Continued (DME) nebulizer accessories Kit See Rx Instructions .ROUTE .MEDSUPPLY Qty: 50 1RF Rx Instructions: As directed Spiriva Respimat 1.25 mcg/actuation mist 2 puff IH DAILY Qty: 12 3RF betamethasone valerate 0.1 % cream 1 applic topical TID PRN (Reason: skin irritation) Qty: 45 3RF triamcinolone acetonide 0.1 % ointment 1 applic topical DAILY PRN (Reason: pruritis) Qty: 80 3RF (DME) Aerochamber Plus Flow-Vu,S Msk 1 EACH spacer 1 ea UD PRN Qty: 1 Rx Instructions: DIRECTED WITH INHALER albuterol sulfate 90 mcg/actuation HFA aerosol inhaler 2 puff IH Q4H PRN (Reason: shortness of breath or wheezing) Qty: 34 4RF amlodipine 10 mg tablet 10 mg PO DAILY Qty: 90 3RF ipratropium-albuterol 0.5 mg-3 mg(2.5 mg base)/3 mL solution for nebulization 3 ml inhalation QID PRN (Reason: wheezing) Qty: 15 3RF levothyroxine 50 mcg capsule 50 mcg PO DAILY Qty: 90 3RF Discharge Instructions Additional Instructions: Take the antibiotic as prescribed Follow-up with your dentist as scheduled If you feel more ill, have severe worsening pain or high fevers return to the emergency department for reevaluation HPI General Mode of arrival: ambulatory . Date/Time Provider Initiated Documentation: 03/25/24 13:52 . Limitations to Documentation: no limitations . Information obtained by: patient . History of Present Illness 83 year old M presents to the emergency department with the chief complaint of left lower dental pain, described as moderate, Quality is described as aching, Patient started experiencing this week(s) (2) and it has been constant. No relieving factors improve symptom(s), No exacerbating factors reported . Patient notes no other symptoms.. Patient did receive the following treatments prior to arrival, none Related Data Home Medications ?Medication ?Instructions ?Recorded ?Confirmed inhalational spacing device #1 ea 09/23/12 03/12/24 (Aerochamber Plus Flow-Vu,Small Mask) nebulizer accessories #50 ea 02/20/19 03/12/24 tiotropium bromide 1.25 2 puff inhalation DAILY #12 grams 03/08/23 03/12/24 mcg/actuation mist for inhalation (Spiriva Respimat) albuterol sulfate 90 mcg/actuation 2 puff inhalation Q4H PRN 10/06/23 03/12/24 aerosol inhaler shortness of breath or wheezing #34 grams amlodipine 10 mg tablet 10 mg PO DAILY #90 tabs 03/01/24 03/12/24 ipratropium 0.5 mg-albuterol 3 mg 3 ml inhalation QID PRN wheezing 03/01/24 03/12/24 (2.5 mg base)/3 mL nebulization #15 mL soln levothyroxine 50 mcg capsule 50 mcg PO DAILY #90 caps 03/01/24 03/12/24 betamethasone valerate 0.1 % 1 applic topical TID PRN skin 03/12/24 03/12/24 topical cream irritation #45 grams triamcinolone acetonide 0.1 % 1 applic topical DAILY PRN 03/12/24 03/12/24 topical ointment pruritis #80 grams amoxicillin 875 mg-potassium 1 tab PO BID #14 tabs 03/25/24 clavulanate 125 mg tablet Previous Rx's ?Medication ?Instructions ?Recorded nebulizer accessories #50 ea 02/20/19 tiotropium bromide 1.25 2 puff inhalation DAILY #12 grams 03/08/23 mcg/actuation mist for inhalation (Spiriva Respimat) albuterol sulfate 90 mcg/actuation 2 puff inhalation Q4H PRN 10/06/23 aerosol inhaler shortness of breath or wheezing #34 grams amlodipine 10 mg tablet 10 mg PO DAILY #90 tabs 03/01/24 ipratropium 0.5 mg-albuterol 3 mg 3 ml inhalation QID PRN wheezing 03/01/24 (2.5 mg base)/3 mL nebulization #15 mL soln levothyroxine 50 mcg capsule 50 mcg PO DAILY #90 caps 03/01/24 betamethasone valerate 0.1 % 1 applic topical TID PRN skin 03/12/24 topical cream irritation #45 grams triamcinolone acetonide 0.1 % 1 applic topical DAILY PRN 03/12/24 topical ointment pruritis #80 grams amoxicillin 875 mg-potassium 1 tab PO BID #14 tabs 03/25/24 clavulanate 125 mg tablet Allergies Allergy/AdvReac Type Severity Reaction Status Date / Time No Known Allergies Allergy Verified 03/25/24 13:56 General Stated Complaint: DentalOral JACKELINE: 4 Review of Systems All systems reviewed & are unremarkable except as noted in HPI and below Constitutional Constitutional: Denies chills, Denies fever(s) and Denies weakness ENT Ears, Nose, Mouth, and Throat: Denies change in voice Cardiovascular Cardiovascular: Denies chest pain and Denies dyspnea Respiratory Respiratory: Denies cough and Denies dyspnea Gastrointestinal Gastrointestinal: Denies abdominal pain and Denies vomiting Neurologic Neurologic: Denies weakness Exam Const General: no acute distress Orientation: alert HENMT Head: normal to inspection Ears: external ears normal General nose exam: external nose normal Mouth: moist mucous membranes Eyes General: appearance normal, both eyes and all related structures Neck Neck: normal visual inspection Resp Effort & Inspection: normal respiratory effort and able to speak in complete sentences Cardio Rate: regular rate Skin General skin exam: no rashes or lesions noted Neuro General: patient alert and patient oriented x3 Extrem General: normal to inspection Psych Mental Status: mental status grossly normal Course Vital Signs Vital signs: Vital Signs Temperature 36.5 C 03/25/24 13:53 Pulse 103 H 03/25/24 13:53 Respiratory Rate 18 03/25/24 13:53 Blood Pressure 161/80 H 03/25/24 13:53 Pulse Oximetry 98 03/25/24 13:53 Temperature 36.5 C 03/25/24 13:53 Temperature Source Oral 03/25/24 13:53 Pulse 103 H 03/25/24 13:53 Respiratory Rate 18 03/25/24 13:53 Blood Pressure 161/80 H 03/25/24 13:53 Pulse Oximetry 98 03/25/24 13:53 Oxygen Delivery Method Room Air 03/25/24 13:53 Oxygen Flow Rate 0 03/25/24 13:53 Medical Decision Making 83-year-old male comes in with 2 weeks of left lower jaw and tooth pain. Denies any fevers, difficulty breathing or swallowing. He appears well on exam speaking full sentences, no stridor or drooling on exam. He has numerous missing teeth and dental caries, he has no significant facial swelling. No submandibular swelling, no pain over the hyoid restricted neck movements. He does have tenderness to an eroded left mid molar. There is no visible abscess I can drain. No findings on exam or history to suggest Samuel's. I will start him on Augmentin and he will follow-up with his dentist, return precautions given Differential Diagnosis Differential Diagnosis: Dental caries, pulpitis, abscess Quality:SDOH Health Related Social Needs: No Data to Display PFSH All Active Problems (Updated 03/25/24 @ 14:06 by Juan Antonio Hong MD) Dental infection (Acute) Right hip pain (Acute) Exertional dyspnea (Acute) Tubular adenoma of colon (Acute) BPH (benign prostatic hyperplasia) (Acute) Stable. Voiding without difficulty. Continue to monitor. Chronic obstructive lung disease (Acute) O2 saturation 95-97% both at rest and with ambulating in the halls greater than 150 at a fast pace. Long discussion regarding her portable oxygen and not being helpful for his symptoms. Using albuterol prophylactically for increased activity. I also offered pulmonary function tests and or referral to pulmonology. Patient declined both. I stressed that his VILLEDA is not related to low oxygen levels but more to a functional issue with his respiratory status. Encouraged him to focus on weight loss and maintain activity. I encouraged him to call for f/u so we could spend more time on this condition. Chronic pain of left wrist (Acute 09/14/16) Dental caries (Acute 11/28/12) Essential hypertension (Acute 05/29/13) Gastroesophageal reflux disease (Acute) Taking ranitidine 150 mg daily with good control of his GERD symptoms. Continue and monitor. Hypothyroidism (Acute 12/05/14) Increased BMI (body mass index) (Acute 12/27/16) . BMI is 32%. He has remained stable over the last several years. Encouraged to stay active. We did talk about again making healthy diet choices and portion control. 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 states no arthoplasty but ARTHROSCOPY Family History Mother , AGE 76 Bone cancer Father , AGE 85 Diabetes Essential hypertension Hyperlipidemia Stroke Sister Essential hypertension Hyperlipidemia Maternal Grandfather Lung cancer Paternal Grandfather Heart disease Stroke Maternal Grandmother , Age 98 Diabetes Asthma Paternal Grandmother Heart disease Stroke Social History (Updated 03/12/24 @ 10:14 by Pricilla Dye) Smoking/Tobacco Use Status: Former Tobacco Use tobacco type: cigarettes Quit Date: 09/12/99 Second Hand Exposure: Yes Smoking risk assessment performed?: Yes Alcohol Intake: former Drug use: Never Substance use type: does not use Adopted: No Caregiver/Support person: Yes Household members: spouse Housing: house Number of Children: 2 number of grandchildren: 2 Communication Needs: Hard of Hearing Education Level: college Details: 1 year Do you need help understanding health information?: Never current occupation: Retired Pets and animals: No Sexually active: No Do you think of yourself as: straight/heterosexual Current gender identity: male What is your relationship status?: How often do you talk on the phone with friends or family?: three or more times per week How often do you get together with friends or relatives?: three or more times per week How often do you attend scientologist or hinduism services?: decline to answer Do you belong to any clubs or organized social groups?: no Panel score (0-1 are the most socially isolated patients): 2 Duration: < 15 minutes/day Do you feel safe at home: Yes Do you feel safe in your relationship?: Yes
[2024-03-25] MEDS: Amoxicillin 875/Clav. 125 TAB PO (14:18)
[2024-03-25 14:21] VITALS: BP 161/80; PULSE 103; RESP 18; TEMP 36.5; O2SAT 96; O2SAT 98
== END 2024-03-25 14:21 | disposition home or self-care (01) ==
PROVIDERS: Emergency Provider Emergency Medicine; PCP Nurse Practitioner Family
DX: R68.84 Jaw pain (principal); K04.7 Periapical abscess without sinus
CPT/HCPCS: 99283

== ENCOUNTER 2024-06-21 06:58 | Emergency (ER) | payer OTHER, SELFPAY ==
[2024-06-21] VITALS (28 sets, daily range): BP systolic 110–149; BP diastolic 43–65; PULSE 87–104; RESP 13–23; TEMP 36.8; O2SAT 92–96
--- NOTE | 2024-06-21 06:45 | RT.EKG_ITS ---
APPROVED REPORT Exam: Resting ECG Reason for Exam: sob Patient Location: E HR:100 bpm ECG Measurements Heart Rate 100 AXIS VA 233 P 135 QRSd 134 QRS 39 QT 392 T 103 QTc 504 Conclusion SINUS 100 PAC RBBB no stemi
[2024-06-21 07:30] LABS: Abs Immature Grans 0.09 10^3/uL (0.0-0.06); Absolute Lymphocyte Count 1.07 10^3/uL (1.2-3.4); Absolute Monocyte Count 0.99 10^3/uL (0.1-0.8); Basophils % 0.3 %; Eosinophils % 0.1 %; HCT 43.6 % (40.0-50.0); HGB 15.2 g/dL (13.5-17.5); Immature Grans % 0.6 %; Lymphocytes % 7.1 %; MCH 32.2 pg (27.0-33.0); MCHC 34.9 % (32.0-36.0); MCV 92 fL (80-95); MPV 9.6 fL (8.0-11.0); Monocytes % 6.6 %; Neutrophils % 85.3 %; Platelet Count 254 10^3/uL (130-400); RBC 4.72 10^6/uL (4.36-5.78); RDW 12.6 % (11.8-14.1); RDW-SD 42.6 fL; WBC 15.02 10^3/uL (4.4-10.8)
[2024-06-21 07:32] LABS: Absolute Basophil Count 0.05 10^3/uL (0.0-0.2); Absolute Eosinophil Count 0.02 10^3/uL (0.0-0.7); Absolute Neutrophil Count 12.81 10^3/uL (1.2-6.7)
--- NOTE | 2024-06-21 07:34 | ED.GENADUL_ITS ---
Discharge Plan Disposition Patient Disposition: Home Discharge Details Clinical Impression: Chronic obstructive lung disease, SOB (shortness of breath), Cough, Atypical pneumonia, Elevated bilirubin Primary Care Provider: Umu Mims ED Provider: Hardy Garcia Home Meds and New Rx's Prescriptions: New azithromycin 250 mg tablet See Rx Instructions .ROUTE .COMPLEX Qty: 6 0RF Rx Instructions: For 250 mg dose pack: take 500 mg today (day 1), then 250 mg for 4 days (days 2-5) No Action (DME) nebulizer accessories Kit See Rx Instructions .ROUTE .MEDSUPPLY Qty: 50 1RF Rx Instructions: As directed Spiriva Respimat 1.25 mcg/actuation mist 2 puff IH DAILY Qty: 12 3RF triamcinolone acetonide 0.1 % ointment 1 applic topical DAILY PRN (Reason: pruritis) Qty: 80 3RF (DME) Aerochamber Plus Flow-Vu,S Msk 1 EACH spacer 1 ea UD PRN Qty: 1 Rx Instructions: DIRECTED WITH INHALER albuterol sulfate 90 mcg/actuation HFA aerosol inhaler 2 puff IH Q4H PRN (Reason: shortness of breath or wheezing) Qty: 34 4RF amlodipine 10 mg tablet 10 mg PO DAILY Qty: 90 3RF levothyroxine 50 mcg capsule 50 mcg PO DAILY Qty: 90 3RF ipratropium-albuterol 0.5 mg-3 mg(2.5 mg base)/3 mL solution for nebulization 3 ml inhalation QID PRN (Reason: wheezing) Qty: 15 3RF Discharge Instructions Instructions: Community-acquired pneumonia in adults Additional Instructions: Given your increased cough and mucus production, will treat with antibiotics to cover for atypical pneumonia Please complete this course at the pharmacy Please take your Spiriva daily and use your albuterol inhaler or updraft every 4-6 hours as needed for cough or shortness of breath Your oxygen levels have been normal in the emergency department and you do not need supplemental oxygen at this time Your bilirubin level was noted to be elevated and you should follow-up with your primary care provider to reevaluate this and discuss further testing as needed HPI General Date/Time Provider Initiated Documentation: 06/21/24 07:13 . Limitations to Documentation: no limitations . Information obtained by: patient . HPI Narrative: 83-year-old gentleman with past medical history of COPD, BPH, hypertension, prior smoking history presents for evaluation of shortness of breath. He reports that he has been having increased cough productive of mucus. No fever. He states that he has been using his inhaler and DuoNeb updraft once daily. He states that overnight he became more short of breath and checked his oxygen level and it was 62%. He states that he but his supplemental oxygen on and felt better. He states he has never required oxygen before. Denies any chest pain. Denies any leg swelling. Related Data Home Medications ?Medication ?Instructions ?Recorded ?Confirmed inhalational spacing device #1 ea 09/23/12 06/21/24 (Aerochamber Plus Flow-Vu,Small Mask) nebulizer accessories #50 ea 02/20/19 06/21/24 tiotropium bromide 1.25 2 puff inhalation DAILY #12 grams 03/08/23 06/21/24 mcg/actuation mist for inhalation (Spiriva Respimat) albuterol sulfate 90 mcg/actuation 2 puff inhalation Q4H PRN 10/06/23 06/21/24 aerosol inhaler shortness of breath or wheezing #34 grams amlodipine 10 mg tablet 10 mg PO DAILY #90 tabs 03/01/24 06/21/24 levothyroxine 50 mcg capsule 50 mcg PO DAILY #90 caps 03/01/24 06/21/24 triamcinolone acetonide 0.1 % 1 applic topical DAILY PRN 03/12/24 06/21/24 topical ointment pruritis #80 grams ipratropium 0.5 mg-albuterol 3 mg 3 ml inhalation QID PRN wheezing 05/01/24 06/21/24 (2.5 mg base)/3 mL nebulization #15 mL soln azithromycin 250 mg tablet See Rx Instructions PO .COMPLEX #6 06/21/24 tabs Previous Rx's ?Medication ?Instructions ?Recorded nebulizer accessories #50 ea 02/20/19 tiotropium bromide 1.25 2 puff inhalation DAILY #12 grams 03/08/23 mcg/actuation mist for inhalation (Spiriva Respimat) albuterol sulfate 90 mcg/actuation 2 puff inhalation Q4H PRN 10/06/23 aerosol inhaler shortness of breath or wheezing #34 grams amlodipine 10 mg tablet 10 mg PO DAILY #90 tabs 03/01/24 levothyroxine 50 mcg capsule 50 mcg PO DAILY #90 caps 03/01/24 triamcinolone acetonide 0.1 % 1 applic topical DAILY PRN 03/12/24 topical ointment pruritis #80 grams ipratropium 0.5 mg-albuterol 3 mg 3 ml inhalation QID PRN wheezing 05/01/24 (2.5 mg base)/3 mL nebulization #15 mL soln azithromycin 250 mg tablet See Rx Instructions PO .COMPLEX #6 06/21/24 tabs Allergies Allergy/AdvReac Type Severity Reaction Status Date / Time No Known Allergies Allergy Verified 06/21/24 07:08 General Stated Complaint: SOB JACKELINE: 2 Exam Narrative Exam Narrative: Review of Systems: All systems reviewed & are unremarkable except as noted in HPI and below Well-developed, no acute distress Afebrile NCAT RRR no murmur Unlabored respiratory effort, crackles in bilateral bases, no increased tachypnea or significant work of breathing, patient is on nasal cannula, but it is in his swift, not his nares Nondistended abdomen soft nontender Extremities w/o edema Course Vital Signs Vital signs: Vital Signs Pulse Oximetry 93 06/21/24 07:02 Temperature 36.8 C 06/21/24 07:06 Temperature Source Tympanic 06/21/24 07:06 Pulse 94 H 06/21/24 07:16 Pulse 95 H 06/21/24 07:20 Respiratory Rate 17 06/21/24 07:20 Respiratory Effort Short of Breath, Labored 06/21/24 07:10 Respiratory Depth Shallow 06/21/24 07:10 Respiratory Pattern Normal 06/21/24 07:10 Blood Pressure 147/58 H 06/21/24 07:16 Blood Pressure Mean 87 06/21/24 07:16 Blood Pressure Position Sitting 06/21/24 07:06 Pulse Oximetry 95 06/21/24 07:20 Oxygen Delivery Method Nasal Cannula 06/21/24 07:06 Oxygen Flow Rate 0 06/21/24 07:06 Pain Level 0 06/21/24 07:06 Lab/Test Results Lab/Test Results: Laboratory Tests Range/Units 06/21/24 07:15 WBC (4.4-10.8) 10^3/uL 15.02 H RBC (4.36-5.78) 10^6/uL 4.72 Hgb (13.5-17.5) g/dL 15.2 Hct (40.0-50.0) % 43.6 MCV (80-95) fL 92 MCH (27.0-33.0) pg 32.2 MCHC (32.0-36.0) % 34.9 RDW (11.8-14.1) % 12.6 Plt Count (130-400) 10^3/uL 254 MPV (8.0-11.0) fL 9.6 Immature Gran % % 0.6 Neutrophils % % 85.3 Lymphocytes % % 7.1 Monocytes % % 6.6 Eosinophils % % 0.1 Basophils % % 0.3 Nucleated RBC % (0.0-0.3) % 0.0 Absolute Neutrophils (1.2-6.7) 10^3/uL 12.81 H Absolute Lymphocytes (1.2-3.4) 10^3/uL 1.07 L Absolute Monocytes (0.1-0.8) 10^3/uL 0.99 H Absolute Eosinophils (0.0-0.7) 10^3/uL 0.02 Absolute Basophils (0.0-0.2) 10^3/uL 0.05 Medical Decision Making Emergent evaluation of shortness of breath. Patient reports hypoxia at home though no hypoxia noted here. Does have some crackles on examination, but no hypoxia or wheezing noted given his COPD history. Plan for lab work, to evaluate for infectious etiology, CHF, viral illness. Lab work reviewed there is a mild leukocytosis of 15 with a shift. His lab work otherwise does not indicate significant derangement. His total bilirubin is elevated at 2.4 which is new from 3 years ago, but he has no signs of jaundice and no signs of right upper quadrant abdominal pain. Will defer to PCP perforation of this. First troponin not elevated, BNP slightly elevated at 520.. Chest x-ray reviewed, no focal consolidation or significant pulmonary edema noted. Viral testing is negative. Given his evidence of crackles on examination we will give a dose of IV Lasix. Patient was ambulated around the emergency department and no hypoxia was noted. He is off supplemental oxygen at this time. Serial troponin is flat. Given the patient's cough, mucus change in history, will prescribe antibiotic for atypical coverage. Stable for discharge home at this time with close follow-up with his PCP recommended. Quality:SDOH Health Related Social Needs: No Data to Display PFSH All Active Problems (Updated 06/21/24 @ 09:26 by Hardy Garcia MD) Elevated bilirubin (Acute) Atypical pneumonia (Acute) Cough (Acute) SOB (shortness of breath) (Acute) Right hip pain (Acute) Exertional dyspnea (Acute) Tubular adenoma of colon (Acute) BPH (benign prostatic hyperplasia) (Acute) Stable. Voiding without difficulty. Continue to monitor. Chronic obstructive lung disease (Acute) O2 saturation 95-97% both at rest and with ambulating in the halls greater than 150 at a fast pace. Long discussion regarding her portable oxygen and not being helpful for his symptoms. Using albuterol prophylactically for increased activity. I also offered pulmonary function tests and or referral to pulmonology. Patient declined both. I stressed that his VILLEDA is not related to low oxygen levels but more to a functional issue with his respiratory status. Encouraged him to focus on weight loss and maintain activity. I encouraged him to call for f/u so we could spend more time on this condition. Chronic pain of left wrist (Acute 09/14/16) Dental caries (Acute 11/28/12) Essential hypertension (Acute 05/29/13) Gastroesophageal reflux disease (Acute) Taking ranitidine 150 mg daily with good control of his GERD symptoms. Continue and monitor. Hypothyroidism (Acute 12/05/14) Increased BMI (body mass index) (Acute 12/27/16) . BMI is 32%. He has remained stable over the last several years. Encouraged to stay active. We did talk about again making healthy diet choices and portion control. 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 states no arthoplasty but ARTHROSCOPY Family History Mother , AGE 76 Bone cancer Father , AGE 85 Diabetes Essential hypertension Hyperlipidemia Stroke Sister Essential hypertension Hyperlipidemia Maternal Grandfather Lung cancer Paternal Grandfather Heart disease Stroke Maternal Grandmother , Age 98 Diabetes Asthma Paternal Grandmother Heart disease Stroke Social History Smoking/Tobacco Use Status: Former Tobacco Use tobacco type: cigarettes Quit Date: 09/12/99 Second Hand Exposure: Yes Smoking risk assessment performed?: Yes Alcohol Intake: former Drug use: Never Substance use type: does not use Adopted: No Caregiver/Support person: Yes Household members: spouse Housing: house Number of Children: 2 number of grandchildren: 2 Communication Needs: Hard of Hearing Education Level: college Details: 1 year Do you need help understanding health information?: Never current occupation: Retired Pets and animals: No Sexually active: No Do you think of yourself as: straight/heterosexual Current gender identity: male What is your relationship status?: How often do you talk on the phone with friends or family?: three or more times per week How often do you get together with friends or relatives?: three or more times per week How often do you attend gnosticism or baptist services?: decline to answer Do you belong to any clubs or organized social groups?: no Panel score (0-1 are the most socially isolated patients): 2 Duration: < 15 minutes/day Do you feel safe at home: Yes Do you feel safe in your relationship?: Yes
[2024-06-21 07:43] LABS: INR 1.1 (0.9-1.1); PTT Activated 33.9 sec (23.6-32.8); Prothrombin Time 10.6 sec (9.1-11.1)
--- NOTE | 2024-06-21 07:46 | DI.RAD_ITS ---
Exam(s) XR PORTABLE CHEST AP EXAM: XR PORTABLE CHEST AP CLINICAL HISTORY: sob TECHNIQUE: 2D digital imaging was performed of the chest. One image was obtained. An AP view was ob tained. COMPARISON: CR XR CHEST 2V PA LATERAL from 08/27/2020 FINDINGS: MEDIASTINUM: Normal. HEART: Normal. PULMONARY VASCULATURE: Normal. LUNGS: Clear. PLEURAL SPACE: No pleural effusion or pneumothorax. BONE:Within normal limits for the patient's age. OTHER FINDINGS:Normal. IMPRESSION: No acute pulmonary findings. DATA REPOSITORY: RADIATION DOSE DELIVERED:
[2024-06-21 07:52] LABS: ALT 16 U/L (16-63); AST 20 U/L (15-37); Albumin 3.5 g/dL (3.4-5.0); Alkaline Phosphatase 65 U/L (46-116); Anion Gap 11.1 mmol/L (3-11); BUN 14 mg/dL (7-18); Bilirubin, Total 2.42 mg/dL (0.2-1.0); CO2 25.9 mmol/L (21.0-32.0); CREATININE 1.4 mg/dL (0.70-1.30); Calcium 9.5 mg/dL (8.5-10.1); Chloride 105 mmol/L (98-107); Estimated GFR 50.18 (mL/min/1.73m2); Glucose 141 mg/dL (74-106); Magnesium 2.1 mg/dL (1.8-2.4); NT-proBNP 520 pg/mL (<300); Potassium 3.8 mmol/L (3.5-5.1); Sodium 142 mmol/L (136-145); Total Protein 8.1 g/dL (6.4-8.2); Troponin I 22 ng/L (<or=76)
[2024-06-21 08:09] LABS: COVID-19 PCR Negative (Negative); Influenza A PCR Negative (Negative); Influenza B PCR Negative (Negative); RSV PCR Negative (Negative)
[2024-06-21 08:39] LABS: Source Nasopharynx
[2024-06-21 08:50] LABS: Troponin I 22 ng/L (<or=76)
[2024-06-21] MEDS: Normal Saline Flush 10 ML SYR IVP (09:00)
[2024-06-21] MEDS: Furosemide 40 MG/4 ML VIAL IVP (09:00)
--- NOTE | 2024-06-21 09:44 | DI.[facility]_ITS ---
PROCEDURE INFORMATION: Exam: XR Chest Exam date and time: 06/21/2024 7:45 AM Age: 83 years old Clinical indication: Shortness of breath; Patient HX: SOB TECHNIQUE: Imaging protocol: Radiologic exam of the chest. Views: 1 view. COMPARISON: CR XR CHEST 2V PA LATERAL 08/27/2020 9:26 AM FINDINGS: Lungs: Unremarkable. No consolidation. Pleural spaces: Unremarkable. No pleural effusion. No pneumothorax. Heart/Mediastinum: Unremarkable. No cardiomegaly. Bones/joints: Unremarkable. IMPRESSION: No acute findings. Dictated and Authenticated by: Reagan Brand MD. Ordering:JOURDAN Bowman MD
== END 2024-06-21 09:55 | disposition home or self-care (01) ==
PROVIDERS: Emergency Provider Emergency Medicine; PCP Nurse Practitioner Family
DX: J44.9 Chronic obstructive pulmonary disease, unspecified (principal); R06.02 Shortness of breath; R07.9 Chest pain, unspecified; J18.9 Pneumonia, unspecified organism; R17 Unspecified jaundice
CPT/HCPCS: 36415; 80053; 87637; 93005; 99285; 71045; 83735; 83880; 84484; 85025; 85610; 85730; 93010; J1940

== ENCOUNTER 2024-06-29 09:32 | Outpatient (CLI) | payer OTHER, SELFPAY ==
[2024-06-29 09:43] LABS: Abs Immature Grans 0.15 10^3/uL (0.0-0.06); Absolute Basophil Count 0.04 10^3/uL (0.0-0.2); Absolute Eosinophil Count 0.15 10^3/uL (0.0-0.7); Absolute Lymphocyte Count 1.05 10^3/uL (1.2-3.4); Absolute Monocyte Count 0.66 10^3/uL (0.1-0.8); Absolute Neutrophil Count 6.09 10^3/uL (1.2-6.7); Basophils % 0.5 %; Eosinophils % 1.8 %; HGB 15.4 g/dL (13.5-17.5); Immature Grans % 1.8 %; Lymphocytes % 12.9 %; MCH 31.9 pg (27.0-33.0); MCHC 33.5 % (32.0-36.0); MCV 95 fL (80-95); MPV 9.5 fL (8.0-11.0); Monocytes % 8.1 %; Neutrophils % 74.9 %; Platelet Count 295 10^3/uL (130-400); RBC 4.83 10^6/uL (4.36-5.78); RDW 12.9 % (11.8-14.1); RDW-SD 45.5 fL; Reticulocyte 1.4 % (0.5-2.4); WBC 8.14 10^3/uL (4.4-10.8)
[2024-06-29 10:36] LABS: ALT 22 U/L (16-63); AST 11 U/L (15-37); Albumin 3.2 g/dL (3.4-5.0); Alkaline Phosphatase 69 U/L (46-116); Anion Gap 6.4 mmol/L (3-11); BUN 13 mg/dL (7-18); Bilirubin, Direct 0.1 mg/dL (0.0-0.2); Bilirubin, Total 0.59 mg/dL (0.2-1.0); CO2 29.6 mmol/L (21.0-32.0); CREATININE 1.2 mg/dL (0.70-1.30); Chloride 108 mmol/L (98-107); Estimated GFR 60.38 (mL/min/1.73m2); Glucose 112 mg/dL (74-106); Potassium 3.9 mmol/L (3.5-5.1); Sodium 144 mmol/L (136-145); Total Protein 7.6 g/dL (6.4-8.2)
== END 2024-06-29 09:33 | disposition home or self-care (01) ==
LOC: LBO 09:33
PROVIDERS: PCP Nurse Practitioner Family; Visit Provider Nurse Practitioner Family
DX: R17 Unspecified jaundice (principal); J18.9 Pneumonia, unspecified organism; J44.9 Chronic obstructive pulmonary disease, unspecified
CPT/HCPCS: 36415; 80053; 82248; 85025; 85045

== ENCOUNTER 2024-08-24 02:15 | Outpatient (CLI) | payer OTHER, SELFPAY | END 2024-08-24 02:16 | disposition home or self-care (01) | LOC: RT 02:15 | PROVIDERS: PCP Nurse Practitioner Family; Visit Provider Physician Assistant Surgical | DX: J44.9 Chronic obstructive pulmonary disease, unspecified (principal) | CPT/HCPCS: 94618 ==

== ENCOUNTER 2025-01-02 04:56 | Inpatient (IN) | payer OTHER, SELFPAY ==
[2025-01-02] VITALS (52 sets, daily range): BP systolic 111–156; BP diastolic 46–83; PULSE 67–120; RESP 15–29; TEMP 36–38.7; O2SAT 93–99
--- NOTE | 2025-01-02 05:00 | RT.EKG_ITS ---
APPROVED REPORT Exam: Resting ECG Reason for Exam: SOB Patient Location: E HR:103 bpm ECG Measurements Heart Rate 103 AXIS UT 176 P 82 QRSd 129 QRS 7 QT 358 T 42 QTc 468 Conclusion Sinus tachycardia...rate> 99 Right bundle branch block...QRSd>120, terminal axis(90,270) Physician: miryam
--- NOTE | 2025-01-02 05:15 | DI.RAD_ITS ---
Exam(s) XR PORTABLE CHEST AP EXAM: XR PORTABLE CHEST AP CLINICAL HISTORY: SOB, fever, cough, eval for pneumonia TECHNIQUE: 2D digital imaging was performed. COMPARISON: CR,XR XR PORTABLE CHEST AP from 06/21/2024 FINDINGS: Overlying monitoring leads. LUNGS: Clear. No pleural abnormality seen. HEART: Normal size. AORTA: Normal diameter. BONES: Unremarkable for age. Soft tissues: Unremarkable. IMPRESSION: No acute findings. The preliminary [facility] report was reviewed. DATA REPOSITORY: RADIATION DOSE DELIVERED:
--- NOTE | 2025-01-02 05:21 | W.ED.GENAD ---
Discharge Plan Disposition Patient Disposition: Admit to [facility] Condition: Good Discharge Details Clinical Impression: Severe sepsis, Community acquired pneumonia Primary Care Provider: Umu Mims ED Provider: [place] Home Meds and New Rx's Prescriptions: No Action (DME) nebulizer accessories Kit See Rx Instructions .ROUTE .MEDSUPPLY Qty: 50 1RF Rx Instructions: As directed triamcinolone acetonide 0.1 % ointment 1 applic topical DAILY PRN (Reason: pruritis) Qty: 80 3RF Spiriva Respimat 1.25 mcg/actuation mist 2 puff IH DAILY Qty: 12 3RF (DME) Aerochamber Plus Flow-Vu,S Msk 1 EACH spacer 1 ea UD PRN Qty: 1 Rx Instructions: DIRECTED WITH INHALER amlodipine 10 mg tablet 10 mg PO DAILY Qty: 90 3RF levothyroxine 50 mcg capsule 50 mcg PO DAILY Qty: 90 3RF ipratropium-albuterol 0.5 mg-3 mg(2.5 mg base)/3 mL solution for nebulization 3 ml inhalation QID PRN (Reason: wheezing) Qty: 15 3RF albuterol sulfate 90 mcg/actuation HFA aerosol inhaler 2 puff IH Q4H PRN (Reason: shortness of breath or wheezing) Qty: 34 4RF betamethasone valerate 0.1 % cream TOPICAL DAILY levothyroxine 50 mcg tablet 50 mcg PO DAILY HPI General Date/Time Provider Initiated Documentation: 01/02/25 05:09. HPI Narrative: This is a 84-year-old male with a past medical history of hypothyroidism, hypertension, COPD, previous colon cancer, who presents today for evaluation of fever and weakness. Patient states that he woke up this morning and felt notably weak. He lowered himself to the ground, crawled to another room and called for help. He did not fall or hit his head. There was no trauma. Family checked his oxygen status and noticed that it was in the mid 80s. He was started on oxygen and brought to the ER for further treatment. He admits to a chronic cough but denies any acute new change in this. He denies any new rashes. He denies any abdominal pain or chest pain. He denies any headache or neck pain. He does admit to fever and chills that started today as well. Patient has no other complaints at this time. No other sick contacts at home. Related Data Home Medications ?Medication ?Instructions ?Recorded ?Confirmed inhalational spacing device #1 ea 09/23/12 01/02/25 (Aerochamber Plus Flow-Vu,Small Mask) nebulizer accessories #50 ea 02/20/19 01/02/25 amlodipine 10 mg tablet 10 mg PO DAILY #90 tabs 03/01/24 01/02/25 levothyroxine 50 mcg capsule 50 mcg PO DAILY #90 caps 03/01/24 01/02/25 triamcinolone acetonide 0.1 % 1 applic topical DAILY PRN 03/12/24 01/02/25 topical ointment pruritis #80 grams tiotropium bromide 1.25 2 puff inhalation DAILY #12 grams 08/02/24 01/02/25 mcg/actuation mist for inhalation (Spiriva Respimat) ipratropium 0.5 mg-albuterol 3 mg 3 ml inhalation QID PRN wheezing 09/17/24 01/02/25 (2.5 mg base)/3 mL nebulization #15 mL soln albuterol sulfate 90 mcg/actuation 2 puff inhalation Q4H PRN 12/03/24 01/02/25 aerosol inhaler shortness of breath or wheezing #34 grams betamethasone valerate 0.1 % applic topical DAILY 01/02/25 topical cream levothyroxine 50 mcg tablet 50 mcg PO DAILY 01/02/25 01/02/25 Previous Rx's ?Medication ?Instructions ?Recorded nebulizer accessories #50 ea 02/20/19 amlodipine 10 mg tablet 10 mg PO DAILY #90 tabs 03/01/24 levothyroxine 50 mcg capsule 50 mcg PO DAILY #90 caps 03/01/24 triamcinolone acetonide 0.1 % 1 applic topical DAILY PRN 03/12/24 topical ointment pruritis #80 grams tiotropium bromide 1.25 2 puff inhalation DAILY #12 grams 08/02/24 mcg/actuation mist for inhalation (Spiriva Respimat) ipratropium 0.5 mg-albuterol 3 mg 3 ml inhalation QID PRN wheezing 09/17/24 (2.5 mg base)/3 mL nebulization #15 mL soln albuterol sulfate 90 mcg/actuation 2 puff inhalation Q4H PRN 12/03/24 aerosol inhaler shortness of breath or wheezing #34 grams Allergies Allergy/AdvReac Type Severity Reaction Status Date / Time No Known Allergies Allergy Verified 01/02/25 05:04 General Stated Complaint: SOB JACKELINE: 3 Exam Narrative Exam Narrative: 1.Const: Well-nourished, Well-developed, appearing stated age 2.Eyes: PERRL, no conjunctival injection, and symmetrical lids. 3.ENT: Atraumatic external nose and ears. Moist MM. Neck: Symmetric, trachea midline, No thyromegaly. Patient demonstrates good movement of cervical neck. There is no nuchal rigidity, no nuchal tenderness. Patient is able to flex the neck without any difficulty or significant pain. Negative Kernig's and Brudzinski sign. 4.CVS: +S1/S2, Peripheral pulses 2+ and equal in all extremities. Brisk capillary refill in all extremities. 5.RESP: Unlabored respiratory effort. Mild crackles in the left lower lung field. 6.GI: Soft, Nontender/Nondistended, No hepatosplenomegaly. No guarding or rebound. 7.MSK: Normocephalic/Atraumatic, Extremities w/o deformity or ttp No cyanosis or clubbing, Normal movement of all extremities 8.Skin: Warm, Dry. No rashes or lesions. 9.Neuro: agility instructor II-XII grossly intact. Sensation grossly intact, no focal neurologic deficits. 10.Psych: (AAO) x3. Appropriate mood and affect Course Vital Signs Vital signs: Vital Signs Temperature 38.7 C H 01/02/25 04:58 Pulse 105 H 01/02/25 04:58 Respiratory Rate 24 01/02/25 04:58 Blood Pressure 139/64 01/02/25 04:58 Pulse Oximetry 97 01/02/25 04:58 Temperature 38.7 C H 01/02/25 05:07 Temperature Source Tympanic 01/02/25 05:07 Pulse 105 H 01/02/25 05:07 Respiratory Rate 24 01/02/25 05:07 Respiratory Effort Short of Breath, Labored, Incrsd Work of Breathing 01/02/25 05:07 Respiratory Depth Shallow 01/02/25 05:07 Respiratory Pattern Normal 01/02/25 05:07 Blood Pressure 139/64 01/02/25 05:07 Blood Pressure Position Sitting 01/02/25 05:07 Pulse Oximetry 97 01/02/25 05:07 Oxygen Delivery Method Nasal Cannula 01/02/25 05:07 Oxygen Flow Rate 2 01/02/25 05:07 Lab/Test Results Lab/Test Results: 01/02/25 05:19 Blood Blood Culture - Pending 01/02/25 05:19 Blood Blood Culture - Pending Medical Decision Making This is a 84-year-old male with a past medical history of hypothyroidism, hypertension, COPD, previous colon cancer, who presents today for evaluation of fever and weakness. Patient states that he woke up this morning and felt notably weak. He lowered himself to the ground, crawled to another room and called for help. He did not fall or hit his head. There was no trauma. Family checked his oxygen status and noticed that it was in the mid 80s. He was started on oxygen and brought to the ER for further treatment. He admits to a chronic cough but denies any acute new change in this. He denies any new rashes. He denies any abdominal pain or chest pain. He denies any headache or neck pain. He does admit to fever and chills that started today as well. Patient has no other complaints at this time. No other sick contacts at home. Exam demonstrates mild crackles in the left lower lung field, no meningeal signs, no abdominal tenderness, no new rashes. Concern for pneumonia. Will check for UTI. Will get blood cultures. Will start ceftriaxone and azithromycin as patient does meet sepsis criteria and concern is for potential pneumonia. Will monitor closely and reassess. He denies any recent tick bites. 7:41 AM Laboratory workup is returning, no white count or bandemia. Mild lymphopenia. Lactate is elevated at 3.8. Electrolytes normal. Procalcitonin elevated at 0.12. COVID flu and RSV is negative. Chest x-ray was read as negative per radiology, but I suspect there is a small infiltrate on the left on my review. Clinically with his chronic but worsening cough, his productive yellow sputum, and his crackles on the left I do feel that this is the source of infection. Still pending urinalysis at this time. Vital signs have improved. Heart rate is now in the 80s to 90s. Temperature has resolved after NSAID therapy. I do feel that with the patient's age, risk factors, and severe sepsis criteria and that he would benefit from inpatient admission. Discussed the case with the hospitalist Dr. Ceballos, he agrees with the assessment and plan. I have extensively reviewed the treatment plan with the patient. I have addressed all patient concerns at this time. I have also discussed the plan with the admitting physician and they agree with the current assessment and plan and have agreed to assume responsibility for the patient. All parties demonstrate verbal understanding and agreement with our assessment and plan at this time. The documentation in this chart was dictated using [employer] dictation software. Please excuse any dictation errors. PFSH All Active Problems (Updated 08/02/24 @ 15:24 by Umu Mims NP) Right hip pain (Acute) Exertional dyspnea (Acute) Tubular adenoma of colon (Acute) BPH (benign prostatic hyperplasia) (Acute) Stable. Voiding without difficulty. Continue to monitor. Chronic obstructive lung disease (Acute) O2 saturation 95-97% both at rest and with ambulating in the halls greater than 150 at a fast pace. Long discussion regarding her portable oxygen and not being helpful for his symptoms. Using albuterol prophylactically for increased activity. I also offered pulmonary function tests and or referral to pulmonology. Patient declined both. I stressed that his VILLEDA is not related to low oxygen levels but more to a functional issue with his respiratory status. Encouraged him to focus on weight loss and maintain activity. I encouraged him to call for f/u so we could spend more time on this condition. Chronic pain of left wrist (Acute 09/14/16) Essential hypertension (Acute 05/29/13) Gastroesophageal reflux disease (Acute) Taking ranitidine 150 mg daily with good control of his GERD symptoms. Continue and monitor. Hypothyroidism (Acute 12/05/14) Increased BMI (body mass index) (Acute 12/27/16) . BMI is 32%. He has remained stable over the last several years. Encouraged to stay active. We did talk about again making healthy diet choices and portion control. 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 states no arthoplasty but ARTHROSCOPY Family History Mother , AGE 76 Bone cancer Father , AGE 85 Diabetes Essential hypertension Hyperlipidemia Stroke Sister Essential hypertension Hyperlipidemia Maternal Grandfather Lung cancer Paternal Grandfather Heart disease Stroke Maternal Grandmother , Age 98 Diabetes Asthma Paternal Grandmother Heart disease Stroke Social History Smoking/Tobacco Use Status: Former Tobacco Use tobacco type: cigarettes Quit Date: 09/12/99 Second Hand Exposure: Yes Smoking risk assessment performed?: Yes Alcohol Intake: former Drug use: Never Substance use type: does not use Adopted: No Caregiver/Support person: Yes Household members: spouse Housing: house Number of Children: 2 number of grandchildren: 2 Communication Needs: Hard of Hearing Education Level: college Details: 1 year Do you need help understanding health information?: Never current occupation: Retired Pets and animals: No Sexually active: No Do you think of yourself as: straight/heterosexual Current gender identity: male What is your relationship status?: How often do you talk on the phone with friends or family?: three or more times per week How often do you get together with friends or relatives?: three or more times per week How often do you attend buddhism or pentecostal services?: decline to answer Do you belong to any clubs or organized social groups?: no Panel score (0-1 are the most socially isolated patients): 2 Duration: < 15 minutes/day Do you feel safe at home: Yes Do you feel safe in your relationship?: Yes
[2025-01-02] MEDS: ACETAMINOPHEN 1,000 MG/100 ML BAG 400 MG (05:31)
[2025-01-02] MEDS: Normal Saline 500 ML IV ×2 (05:32→06:33)
[2025-01-02 05:36] LABS: Abs Immature Grans 0.02 10^3/uL (0.0-0.06); HCT 45.6 % (40.0-50.0); HGB 15.7 g/dL (13.5-17.5); Immature Grans % 0.3 %; MCH 31.9 pg (27.0-33.0); MCHC 34.4 % (32.0-36.0); MCV 93 fL (80-95); MPV 10.0 fL (8.0-11.0); Platelet Count 206 10^3/uL (130-400); RBC 4.92 10^6/uL (4.36-5.78); RDW 12.6 % (11.8-14.1); RDW-SD 42.8 fL; WBC 5.80 10^3/uL (4.4-10.8)
[2025-01-02] MEDS: cefTRIAXone 2 GM/50 ML BAG IVPB (05:52)
[2025-01-02 06:21] LABS: COVID-19 PCR Negative (Negative); RSV PCR Negative (Negative)
[2025-01-02] MEDS: AZITHROMYCIN 500 MG in Normal Saline 250 ML 250 MG IVPB (06:28)
[2025-01-02 06:32] LABS: ALT 29 U/L (16-63); AST 18 U/L (15-37); Albumin 4.0 g/dL (3.4-5.0); Alkaline Phosphatase 71 U/L (46-116); Anion Gap 12.6 mmol/L (3-11); BUN 13 mg/dL (7-18); Bilirubin, Total 0.9 mg/dL (0.2-1.0); CO2 23.4 mmol/L (21.0-32.0); Calcium 9.2 mg/dL (8.5-10.1); Chloride 103 mmol/L (98-107); Estimated GFR 60.00 (mL/min/1.73m2); Glucose 159 mg/dL (74-106); Potassium 3.8 mmol/L (3.5-5.1); Sodium 139 mmol/L (136-145); TSH (W/Ref FT4) 1.65 uIU/mL (0.36-3.74); Total Protein 7.7 g/dL (6.4-8.2)
--- NOTE | 2025-01-02 06:58 | DI.VRAD_ITS ---
PROCEDURE INFORMATION: Exam: XR Chest Exam date and time: 01/02/2025 5:41 AM Age: 84 years old Clinical indication: Fever and shortness of breath; SOB, fever, eval for pneumonia TECHNIQUE: Imaging protocol: Radiologic exam of the chest. Views: 1 view. COMPARISON: CR XR PORTABLE CHEST AP 06/21/2024 7:45 AM FINDINGS: Lungs: No focal consolidation. Pleural spaces: No significant pleural fluid. No pneumothorax detected. Heart/Mediastinum: Heart size within normal range. No pulmonary vascular congestion. Bones/joints: No obvious acute abnormality. IMPRESSION: No acute cardiopulmonary abnormality detected on AP portable chest radiograph. Dictated and Authenticated by: Tj Scott MD. Orderin Chuck Rees MD
--- NOTE | 2025-01-02 07:21 | NUR.NOTE ---
Nursing Note: Pt accidentally pulled out RAC 18g. Inserted 20G IV in same arm. Temp re-checked down to 98.5.
[2025-01-02 07:24] LABS: Procalcitonin 0.12 ng/mL
--- NOTE | 2025-01-02 07:42 | HPE_ITS ---
Date of service: 01/02/25 Time of Service: 07:43 Assessment and Plan Assessment and plan (1) Severe sepsis: Status: Acute Assessment and plan: - Patient meets criteria for severe sepsis with fever 101.7 ?F, heart rate of 105 bpm, source of infection presumed left lower lobe pneumonia, and initial lactic acid of 3.8 (repeat 1.2) - Patient started on ceftriaxone and azithromycin, will continue - Status post 1 L bolus normal saline in the emergency department (2) CAP (community acquired pneumonia): Status: Acute Assessment and plan: - Source of infection as noted above (3) Acute respiratory failure with hypoxia: Status: Acute Assessment and plan: - Secondary to severe sepsis and community acquired pneumonia as noted above -Has since been transition to room air and saturating 93% - Goal O2 saturation 8892% as patient has history of COPD (4) Chronic obstructive lung disease: Status: Acute Assessment and plan: - Currently without acute exacerbation - Continue home inhaler regimen (5) Essential hypertension: Status: Acute Assessment and plan: - Continue home amlodipine (6) Hypothyroidism: Status: Acute Assessment and plan: - Continue home Synthroid History of Present Illness History of Present Illness Chief Complaint: shortness of breath Narrative: 84-year-old male with a past medical history of hypothyroidism, hypertension, COPD who presents to the emergency department with fever and weakness. Patient states that he woke up earlier in the morning and noted himself to be significantly more weak having to lower himself to the ground and crawl to the phone to call for help. He did not fall or hit his head and there was no trauma. Family members checked his oxygen saturation and noted as being in the mid 80s he was started on oxygen and brought to the emergency department. He states he does have a chronic cough but denies any change in frequency or sputum production. He denies any headache, lightheadedness, dizziness, chest pain, nausea vomiting or diarrhea. In the emergency department the patient was noted as being tachycardic with heart rate of 105, normal blood pressure, was initially on 2 L nasal cannula but was saturating no lower than 95%, and subsequently transitioned to room air and was saturating at 93%. He was also noted as having a fever of 101.7 ?F. CBC and CMP were unremarkable, but chest x-ray was performed and showed likely early signs of left lower lobe pneumonia for which patient was started on ceftriaxone and azithromycin. Additionally, initial lactic acid was 3.8 for which the patient was given 1 L of normal saline with repeat lactic acid of 1.2. At which time emergency room physician paged hospitalist for admission for patient with severe sepsis secondary to community-acquired pneumonia. Review of Systems All systems reviewed & are unremarkable except as noted in HPI and below PFSH All Active Problems (Updated 01/02/25 @ 07:43 by Jason Ceballos MD) Acute respiratory failure with hypoxia (Acute) CAP (community acquired pneumonia) (Acute) Severe sepsis (Acute) Right hip pain (Acute) Exertional dyspnea (Acute) Tubular adenoma of colon (Acute) BPH (benign prostatic hyperplasia) (Acute) Stable. Voiding without difficulty. Continue to monitor. Chronic obstructive lung disease (Acute) O2 saturation 95-97% both at rest and with ambulating in the halls greater than 150 at a fast pace. Long discussion regarding her portable oxygen and not being helpful for his symptoms. Using albuterol prophylactically for increased activity. I also offered pulmonary function tests and or referral to pulmonology. Patient declined both. I stressed that his VILLEDA is not related to low oxygen levels but more to a functional issue with his respiratory status. Encouraged him to focus on weight loss and maintain activity. I encouraged him to call for f/u so we could spend more time on this condition. Chronic pain of left wrist (Acute 09/14/16) Essential hypertension (Acute 05/29/13) Gastroesophageal reflux disease (Acute) Taking ranitidine 150 mg daily with good control of his GERD symptoms. Continue and monitor. Hypothyroidism (Acute 12/05/14) Increased BMI (body mass index) (Acute 12/27/16) . BMI is 32%. He has remained stable over the last several years. Encouraged to stay active. We did talk about again making healthy diet choices and portion control. 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 states no arthoplasty but ARTHROSCOPY Family History Mother , AGE 76 Bone cancer Father , AGE 85 Diabetes Essential hypertension Hyperlipidemia Stroke Sister Essential hypertension Hyperlipidemia Maternal Grandfather Lung cancer Paternal Grandfather Heart disease Stroke Maternal Grandmother , Age 98 Diabetes Asthma Paternal Grandmother Heart disease Stroke Social History Smoking/Tobacco Use Status: Former Tobacco Use tobacco type: cigarettes Quit Date: 09/12/99 Second Hand Exposure: Yes Smoking risk assessment performed?: Yes Alcohol Intake: former Drug use: Never Substance use type: does not use Adopted: No Caregiver/Support person: Yes Household members: spouse Housing: house Number of Children: 2 number of grandchildren: 2 Communication Needs: Hard of Hearing Education Level: college Details: 1 year Do you need help understanding health information?: Never current occupation: Retired Pets and animals: No Sexually active: No Do you think of yourself as: straight/heterosexual Current gender identity: male What is your relationship status?: How often do you talk on the phone with friends or family?: three or more times per week How often do you get together with friends or relatives?: three or more times per week How often do you attend congregation or latter-day services?: decline to answer Do you belong to any clubs or organized social groups?: no Panel score (0-1 are the most socially isolated patients): 2 Duration: < 15 minutes/day Do you feel safe at home: Yes Do you feel safe in your relationship?: Yes Meds Allergies and Home Medications Allergies Allergy/AdvReac Type Severity Reaction Status Date / Time No Known Allergies Allergy Verified 01/02/25 05:04 Home Medications ?Medication ?Instructions ?Recorded ?Confirmed ?Type inhalational spacing device #1 ea 09/23/12 01/02/25 Hi story (Aerochamber Plus Flow-Vu,Small Mask) nebulizer accessories #50 ea 02/20/19 01/02/25 Rx amlodipine 10 mg tablet 10 mg PO DAILY #90 tabs 02/1101/02/25 Rx levothyroxine 50 mcg capsule 50 mcg PO DAILY #90 caps 03/01/24 01/02/25 Rx triamcinolone acetonide 0.1 % 1 applic topical DAILY P RN 03/12/24 01/02/25 Rx topical ointment pruritis #80 grams tiotropium bromide 1.25 2 puff inhalation DAILY #12 grams 08/02/24 01/02/25 Rx mcg/actuation mist for inhalation (Spiriva Respimat) ipratropium 0.5 mg-albuterol 3 mg 3 ml inhalation QID PRN wheezing 09/17/24 01/02/25 Rx (2.5 mg base)/3 mL nebulization #15 mL soln albuterol sulfate 90 mcg/actuation 2 puff inhalation Q 4H PRN 12/03/24 01/02/25 Rx aerosol inhaler shortness of breath or wheez ing #34 grams betamethasone valerate 0.1 % applic topical DAILY 12/12 09/04 History topical cream levothyroxine 50 mcg tablet 50 mcg PO DAILY 01/02/25 0 01/02/25 History Exam Narrative Exam Narrative: Well-appearing older gentleman laying in bed in no acute distress, ANO x 4, heart regular rhythm, lungs good auscultation bilaterally Results Labs 01/02/25 05:10 01/02/25 05:10 Labs: Laboratory Results - last 24 hr 01/02/25 01/02/25 05:10 05:26 WBC 5.80 RBC 4.92 Hgb 15.7 Hct 45.6 MCV 93 MCH 31.9 MCHC 34.4 RDW 12.6 Plt Count 206 MPV 10.0 Immature Gran % 0.3 Neutrophils % 87.8 Lymphocytes % 6.6 Monocytes % 4.8 Eosinophils % 0.0 Basophils % 0.5 Nucleated RBC % 0.0 Absolute Neutrophils 5.09 Absolute Lymphocytes 0.38 L Absolute Monocytes 0.28 Absolute Eosinophils 0.00 Absolute Basophils 0.03 VBG Lactate 3.8 H* Sodium 139 Potassium 3.8 Chloride 103 Carbon Dioxide 23.4 Anion Gap 12.6 H BUN 13 Creatinine 1.2 Est GFR (CKD-EPI 2020) 60.00 Glucose 159 H Calcium 9.2 Total Bilirubin 0.9 AST 18 ALT 29 Alkaline Phosphatase 71 Total Protein 7.7 Albumin 4.0 Procalcitonin 0.12 TSH 1.65 COVID-19 Source Nasopharynx SARS-CoV-2 (PCR) Negative Influenza Type A (PCR) Negative Influenza Type B (PCR) Negative RSV (PCR) Negative Last Vital Signs Temp 98.5 F 01/02/25 07:21 Pulse 105 H 01/02/25 05:07 Resp 24 01/02/25 05:07 BP 139/64 01/02/25 05:07 Pulse Ox 97 01/02/25 05:07 Time Spent Time spent with Patient: >75 minutes Time was spent: preparing to see the patient(eg.review tests), obtaining and/or reviewing separately otained hiistory, ordering medications,tests, procedures, referring, communicating with other health school child care attendant, indepentently interpreting results, counseling the patient and care coordination
[2025-01-02 08:16] LABS: Glucose Negative (Negative)
[2025-01-02 08:24] LABS: C & S Indicated? No; WBC 0-2 HPF (0-5)
--- NOTE | 2025-01-02 09:32 | W.PC.ACHO ---
Registration Status: REG ER Primary Language: Preferred Language: Sami ED Information & Data Chief Complaint SOB 01/02/25 05:47 Triage Note arrives via POV from home 01/02/25 04:58 with Grandson, found him down on the floor, denies dizziness, head strike, LOC. was getting out of bed but was weak and lowered himself down on his hands and knees and was unable to stand. Feels SOB. was down into the 80s. not usually on oxygen. came in on 2L oxygen which is his wifes. denies CP, N/V/D. 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) Primary malignant neoplasm of colon (04/21/12) Primary malignant neoplasm of colon (Last Reviewed 06/21/24 @ 09:10 by Hardy Garcia MD) History of arthroscopy of knee History of hemorrhoidectomy History of orthopedic surgery Status post vasectomy Vasectomy Hemorrhoidectomy ELBOW SURGERY Colonoscopy - MAC (04/20/17) Arthroplasty of knee (~09/2012) Most Recent Vital Signs Temperature 36.9 C 01/02/25 07:21 Temperature Source Oral 01/02/25 07:21 Pulse 88 01/02/25 08:31 Pulse 88 01/02/25 08:31 Respiratory Rate 20 01/02/25 08:31 Respiratory Effort Short of Breath, Labored, Incrsd Work of Breathing 01/02/25 05:07 Respiratory Depth Shallow 01/02/25 05:07 Respiratory Pattern Normal 01/02/25 05:07 Blood Pressure 130/51 L 01/02/25 08:31 Blood Pressure Mean 71 01/02/25 08:31 Blood Pressure Position Sitting 01/02/25 05:07 Pulse Oximetry 93 01/02/25 08:31 Oxygen Delivery Method Room Air 01/02/25 08:00 Oxygen Flow Rate 0 01/02/25 08:00 Allergies No Known Allergies Allergy (Verified 01/02/25 05:04) Precautions Isolation Standard precaution 01/02/25 05:04 IV IV Catheter Type [Right Saline Lock Antecubital] IV Catheter Gauge [Right 20 Antecubital] Diagnostics 01/02/25 01/02/25 01/02/25 Range/Units 08:26 07:57 05:26 WBC (4.4-10.8) 10^3/uL RBC (4.36-5.78) 10^6/uL Hgb (13.5-17.5) g/dL Hct (40.0-50.0) % MCV (80-95) fL MCH (27.0-33.0) pg MCHC (32.0-36.0) % RDW (11.8-14.1) % Plt Count (130-400) 10^3/uL MPV (8.0-11.0) fL Immature Gran % % Neutrophils % % Lymphocytes % % Monocytes % % Eosinophils % % Basophils % % Nucleated RBC % (0.0-0.3) % Absolute Neutrophils (1.2-6.7) 10^3/uL Absolute Lymphocytes (1.2-3.4) 10^3/uL Absolute Monocytes (0.1-0.8) 10^3/uL Absolute Eosinophils (0.0-0.7) 10^3/uL Absolute Basophils (0.0-0.2) 10^3/uL VBG Lactate 1.2 (<or=2.0) mmol/L Sodium (136-145) mmol/L Potassium (3.5-5.1) mmol/L Chloride (98-107) mmol/L Carbon Dioxide (21.0-32.0) mmol/L Anion Gap (3-11) mmol/L BUN (7-18) mg/dL Creatinine (0.70-1.30) mg/dL Est GFR (CKD-EPI 2020) (mL/min/1.73m2) Glucose (74-106) mg/dL Calcium (8.5-10.1) mg/dL Total Bilirubin (0.2-1.0) mg/dL AST (15-37) U/L ALT (16-63) U/L Alkaline Phosphatase (46-116) U/L Total Protein (6.4-8.2) g/dL Albumin (3.4-5.0) g/dL Procalcitonin ng/mL TSH (0.36-3.74) uIU/mL Urine Color Yellow (Yellow) Urine Clarity Clear (Clear) Urine pH 7.0 (5-8) Ur Specific [place] 1.015 (1.005-1.025) Urine Protein 30 H (Neg-Trace) mg/dL Urine Ketones Negative (Negative) mg/dL Urine Blood Trace-intact H (Negative) Urine Nitrite Negative (Negative) Urine Bilirubin Negative (Negative) Urine Urobilinogen 0.2 (Up to 0.2) mg/dL Ur Leukocyte Esterase Negative (Negative) Urine RBC 3-5 H (0-2) HPF Urine WBC 0-2 (0-5) HPF Ur Epithelial Cells Rare (Negative) HPF Urine Crystals Negative (Negative) HPF Urine Bacteria Rare (Negative) HPF Urine Casts Negative (Negative) LPF Urine Mucus Trace (Negative) Ur Culture Indicated? No Urine Glucose Negative (Negative) mg/dL COVID-19 Source Nasopharynx SARS-CoV-2 (PCR) Negative (Negative) Influenza Type A (PCR) Negative (Negative) Influenza Type B (PCR) Negative (Negative) RSV (PCR) Negative (Negative) 01/02/25 Range/Units 05:10 WBC 5.80 (4.4-10.8) 10^3/uL RBC 4.92 (4.36-5.78) 10^6/uL Hgb 15.7 (13.5-17.5) g/dL Hct 45.6 (40.0-50.0) % MCV 93 (80-95) fL MCH 31.9 (27.0-33.0) pg MCHC 34.4 (32.0-36.0) % RDW 12.6 (11.8-14.1) % Plt Count 206 (130-400) 10^3/uL MPV 10.0 (8.0-11.0) fL Immature Gran % 0.3 % Neutrophils % 87.8 % Lymphocytes % 6.6 % Monocytes % 4.8 % Eosinophils % 0.0 % Basophils % 0.5 % Nucleated RBC % 0.0 (0.0-0.3) % Absolute Neutrophils 5.09 (1.2-6.7) 10^3/uL Absolute Lymphocytes 0.38 L (1.2-3.4) 10^3/uL Absolute Monocytes 0.28 (0.1-0.8) 10^3/uL Absolute Eosinophils 0.00 (0.0-0.7) 10^3/uL Absolute Basophils 0.03 (0.0-0.2) 10^3/uL VBG Lactate 3.8 H* (<or=2.0) mmol/L Sodium 139 (136-145) mmol/L Potassium 3.8 (3.5-5.1) mmol/L Chloride 103 (98-107) mmol/L Carbon Dioxide 23.4 (21.0-32.0) mmol/L Anion Gap 12.6 H (3-11) mmol/L BUN 13 (7-18) mg/dL Creatinine 1.2 (0.70-1.30) mg/dL Est GFR (CKD-EPI 2020) 60.00 (mL/min/1.73m2) Glucose 159 H (74-106) mg/dL Calcium 9.2 (8.5-10.1) mg/dL Total Bilirubin 0.9 (0.2-1.0) mg/dL AST 18 (15-37) U/L ALT 29 (16-63) U/L Alkaline Phosphatase 71 (46-116) U/L Total Protein 7.7 (6.4-8.2) g/dL Albumin 4.0 (3.4-5.0) g/dL Procalcitonin 0.12 ng/mL TSH 1.65 (0.36-3.74) uIU/mL Urine Color (Yellow) Urine Clarity (Clear) Urine pH (5-8) Ur Specific [place] (1.005-1.025) Urine Protein (Neg-Trace) mg/dL Urine Ketones (Negative) mg/dL Urine Blood (Negative) Urine Nitrite (Negative) Urine Bilirubin (Negative) Urine Urobilinogen (Up to 0.2) mg/dL Ur Leukocyte Esterase (Negative) Urine RBC (0-2) HPF Urine WBC (0-5) HPF Ur Epithelial Cells (Negative) HPF Urine Crystals (Negative) HPF Urine Bacteria (Negative) HPF Urine Casts (Negative) LPF Urine Mucus (Negative) Ur Culture Indicated? Urine Glucose (Negative) mg/dL COVID-19 Source SARS-CoV-2 (PCR) (Negative) Influenza Type A (PCR) (Negative) Influenza Type B (PCR) (Negative) RSV (PCR) (Negative) 01/02/25 05:17 Blood Culture - Pending Blood 01/02/25 05:10 Blood Culture - Pending Blood Intake and Output - 24 Hour Total 01/02/25 04:56 thru 01/02/25 08:30 Intake Total 1300 Balance 1300 Weight 102.058 kg Intake: IV 1300 Falls Risk Assessment History of Falls Previous History 01/02/25 05:07 Contributing Factors Impairments 01/02/25 05:07 Ambulatory Aids Uses ambulatory device + 01/02/25 05:07 Tubes/Lines With any additional score 01/02/25 05:07 Gait Evaluation W/any additional score 01/02/25 05:07 Cognition No cognitive impairment 01/02/25 05:07 Fall Total Score 88 01/02/25 05:07 Level of Risk Maximum Risk 01/02/25 05:07 Problems (Last Reviewed 06/21/24 @ 09:10 by Hardy Garcia MD) Acute respiratory failure with hypoxia (Acute) CAP (community acquired pneumonia) (Acute) Severe sepsis (Acute) Chronic obstructive lung disease (Acute) Essential hypertension (Acute 05/29/13) Hypothyroidism (Acute 12/05/14) Notes 01/02/25 07:21 Nursing Notes by Sabi Lei Nursing Note: Pt accidentally pulled out RAC 18g. Inserted 20G IV in same arm. Temp re-checked down to 98.5. Initialized on 01/02/25 07:21 - END OF NOTE v v v v v v v v v Sending and/or Receiving Nurses: Please use comment section below to note any information pertinent to the patient hand-off not included above. Information / Comments: this nurse received report from ED patient oriented, vitals stables, probably pneumonia, patient is transferred [facility] observation. Report received from: Sabi YANEZ ED
[2025-01-02] MEDS: amLODIPine 10 MG TAB PO (13:19)
[2025-01-02] MEDS: Enoxaparin 40 MG/0.4 ML SYR SC (13:19)
[2025-01-02] MEDS: Levothyroxine 50 MCG TAB PO (13:19)
[2025-01-02] MEDS: Normal Saline Flush 10 ML SYR IVP (13:20)
--- NOTE | 2025-01-02 15:57 | PHA.REVIEW2 ---
Pharmacy Admission Review Admission Clinical Review Admission Pharmacy Review: Acute respiratory failure with hypoxia (Acute) CAP (community acquired pneumonia) (Acute) Severe sepsis (Acute) Chronic obstructive lung disease (Acute) Essential hypertension (Acute 05/29/13) Hypothyroidism (Acute 12/05/14) No Known Allergies Allergy (Verified 01/02/25 05:04) Resuscitation Status Full Code Height 6 ft Weight 102 kg Pharmacy Admission Review Renal Dosing Renal Dosing: BUN 13 mg/dL (7-18) 01/02/25 05:10 Creatinine 1.2 mg/dL (0.70-1.30) 01/02/25 05:10 Medications needing adjustments: Reviewed (CrCl 57.6 mL/min) List of meds needing interventions: Current medications are okay Anticoagulation Anticoagulation: Hgb 15.7 g/dL (13.5-17.5) 01/02/25 05:10 Hct 45.6 % (40.0-50.0) 01/02/25 05:10 Plt Count 206 10^3/uL (130-400) 01/02/25 05:10 Creatinine 1.2 mg/dL (0.70-1.30) 01/02/25 05:10 DVT Prophylaxis: Reviewed Medications: Enoxaparin (40mg daily) Relevant Labs Relevant Labs: Sodium 139 mmol/L (136-145) 01/02/25 05:10 Potassium 3.8 mmol/L (3.5-5.1) 01/02/25 05:10 Chloride 103 mmol/L (98-107) 01/02/25 05:10 Electrolytes, C-Reactive P, ESR: Reviewed Cardiac Review BP, HR, EF%: Reviewed (BP WNL, HR 114) List meds needing interventions: Has order for amlodipine 10mg daily QTc Review QTc: Reviewed (468 from 01/02/25) IV to PO Switch IV Medications: Reviewed (ceftriaxone) Home Meds Home Med List reviewed: Intervened Relevent Home Meds Not ordered & why?: betamethasone cream Changed order for Spiriva to patients own (non-formulary). Asked nurse to see if this could be brought in for the patient, waiting to hear back Current Meds Current Medication Order Review: Intervened Comments: Changed IV ED access order Pharmacy Antibiotic Review Relevant Labs: Relevant Labs 01/02/25 05:10 Procalcitonin 0.12 WBC 5.80 10^3/uL (4.4-10.8) 01/02/25 05:10 Procalcitonin 0.12 ng/mL 01/02/25 05:10 Temperature 37.8 C Temperature 36 C Temperature 36.9 C Temperature 38.7 C Temperature 38.7 C Pharmacy Antibiotic Activity: C/S review and Reviewed, no change Comments: Patient is on ceftriaxone and azithromycin, day 1, for sepsis/community acquired pneumonia. Blood cultures are pending.
[2025-01-02] MEDS: Acetaminophen 325 MG TAB 650 MG PO (17:14)
[2025-01-03 02:20] VITALS: BP 163/82; PULSE 107; RESP 20; TEMP 36.6; O2SAT 96
[2025-01-03] MEDS: cefTRIAXone 1 GM/50 ML BAG IVPB (05:40)
[2025-01-03] MEDS: Levothyroxine 50 MCG TAB PO (05:40)
[2025-01-03] MEDS: Normal Saline Flush 10 ML SYR IVP ×2 (05:40→07:51)
[2025-01-03 06:07] LABS: HCT 45.2 % (40.0-50.0); HGB 15.4 g/dL (13.5-17.5); MCH 31.9 pg (27.0-33.0); MCHC 34.1 % (32.0-36.0); MCV 94 fL (80-95); MPV 10.1 fL (8.0-11.0); Platelet Count 127 10^3/uL (130-400); RBC 4.83 10^6/uL (4.36-5.78); RDW 12.6 % (11.8-14.1); RDW-SD 43.5 fL; WBC 3.11 10^3/uL (4.4-10.8)
[2025-01-03 06:17] LABS: Anion Gap 10.4 mmol/L (3-11); BUN 11 mg/dL (7-18); CO2 24.6 mmol/L (21.0-32.0); Calcium 8.5 mg/dL (8.5-10.1); Chloride 105 mmol/L (98-107); Estimated GFR 66.61 (mL/min/1.73m2); Glucose 126 mg/dL (74-106); Magnesium 2.0 mg/dL (1.8-2.4); Potassium 3.7 mmol/L (3.5-5.1); Sodium 140 mmol/L (136-145)
[2025-01-03] MEDS: Enoxaparin 40 MG/0.4 ML SYR SC (07:50)
[2025-01-03] MEDS: amLODIPine 10 MG TAB PO (07:51)
[2025-01-03] MEDS: Azithromycin 250 MG TAB PO (07:51)
[2025-01-03 07:59] VITALS: BP 135/60; PULSE 91; RESP 18; TEMP 37; O2SAT 92
[2025-01-03 10:16] VITALS: O2SAT 97
--- NOTE | 2025-01-03 10:20 | PDOC.CMIN ---
Date of service: 01/03/25 Time of Service: 10:21 Care Management Initial Assmt Initial Assessment Reason for Hospitalization: pneumonia and severe sepsis Functional Status/Living Situation Town of Residence: [facility] Resides with: Spouse ( Mariajose) Employment Status: Retired Medications Medication Management: No Issues/Barriers identified Advance Directives Advance Directives: Do you have an Advance Directive: N 02/07/23, 13:21 AD On File at [facility]: N 02/07/23, 13:21 Date Asked 01/02/25 01/02/25, 09:40 AD Date Reviewed COLST On File at [facility] COLST Date Scanned Code Status Resuscitation Status Full Code Insurance Coverage/Financial Issues Insurance: [employer] Care Team Visit Care Team Role Provider Type Umu Mims NP Primary Care Provider NURSE PRACTITIONER [place] DO Emergency Provider [facility] STAFF PHYSICIAN Jason Ceballos MD Admit Provider [facility] STAFF PHYSICIAN Attending Provider Discharge Potential Discharge Needs: PCP F/U Appt Anticipated Barriers to Discharge: None Identified Patient/Family Education Needs: Review discharge instructions, discuss Ask Me Three Transportation: Private vehicle Plan: Anticipate Umesh will be discharged home, possibly with new home health services, when medically cleared. He will follow up with his community providers and plan of care and transport with family. CM will follow. Social Determinants of Health Screening Will the Patient Participate in the Screening?: Unable to obtain Do you worry about having a steady place to live?: no In the past 12 months, have you had to go without electric, gas, oil or water in your home?: no Has lack of transportation kept you from medical appointments or from doing things needed for daily living?: no Has anyone in your life made you feel unsafe or unsupported?: no How hard is it for you to pay for the very basics like food, housing, medical care, and heating? Would you say it is:: Not hard at all Do you want help finding or keeping work or a job?: I do not need or want help If for any reason you need help with day-to-day activities such as bathing, preparing meals, shopping, managing finances, etc., do you get the help you need?: I could use a little more help How often do you feel lonely or isolated from those around you?: Rarely Do you speak a language other than [place] at home?: No Does the patient want assistance with any of the above?: No Health Related Social Needs Health related social needs: problems with daily activities (Z73.9) and feeling lonely/isolated (Z60.8) Health related social needs details: caregiver is his VIN All Active Problems (Updated 01/02/25 @ 07:43 by Jason Ceballos MD) Acute respiratory failure with hypoxia (Acute) CAP (community acquired pneumonia) (Acute) Severe sepsis (Acute) Right hip pain (Acute) Exertional dyspnea (Acute) Tubular adenoma of colon (Acute) BPH (benign prostatic hyperplasia) (Acute) Stable. Voiding without difficulty. Continue to monitor. Chronic obstructive lung disease (Acute) O2 saturation 95-97% both at rest and with ambulating in the halls greater than 150 at a fast pace. Long discussion regarding her portable oxygen and not being helpful for his symptoms. Using albuterol prophylactically for increased activity. I also offered pulmonary function tests and or referral to pulmonology. Patient declined both. I stressed that his VILLEDA is not related to low oxygen levels but more to a functional issue with his respiratory status. Encouraged him to focus on weight loss and maintain activity. I encouraged him to call for f/u so we could spend more time on this condition. Chronic pain of left wrist (Acute 09/14/16) Essential hypertension (Acute 05/29/13) Gastroesophageal reflux disease (Acute) Taking ranitidine 150 mg daily with good control of his GERD symptoms. Continue and monitor. Hypothyroidism (Acute 12/05/14) Increased BMI (body mass index) (Acute 12/27/16) . BMI is 32%. He has remained stable over the last several years. Encouraged to stay active. We did talk about again making healthy diet choices and portion control. 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 states no arthoplasty but ARTHROSCOPY Family History Mother , AGE 76 Bone cancer Father , AGE 85 Diabetes Essential hypertension Hyperlipidemia Stroke Sister Essential hypertension Hyperlipidemia Maternal Grandfather Lung cancer Paternal Grandfather Heart disease Stroke Maternal Grandmother , Age 98 Diabetes Asthma Paternal Grandmother Heart disease Stroke Social History Smoking/Tobacco Use Status: Former Tobacco Use tobacco type: cigarettes Quit Date: 09/12/99 Second Hand Exposure: Yes Smoking risk assessment performed?: Yes Alcohol Intake: former Drug use: Never Substance use type: does not use Adopted: No Caregiver/Support person: Yes Household members: spouse Housing: house Number of Children: 2 number of grandchildren: 2 Communication Needs: Hard of Hearing Education Level: college Details: 1 year Do you need help understanding health information?: Never current occupation: Retired Pets and animals: No Sexually active: No Do you think of yourself as: straight/heterosexual Current gender identity: male What is your relationship status?: How often do you talk on the phone with friends or family?: three or more times per week How often do you get together with friends or relatives?: three or more times per week How often do you attend sikhism or yarsani services?: decline to answer Do you belong to any clubs or organized social groups?: no Panel score (0-1 are the most socially isolated patients): 2 Duration: < 15 minutes/day Do you feel safe at home: Yes Do you feel safe in your relationship?: Yes
--- NOTE | 2025-01-03 10:38 | DSE_ITS ---
Date of service: 01/03/25 Time of Service: 10:39 DS: Diagnosis Discharge Diagnosis (1) Severe sepsis: Status: Acute (2) CAP (community acquired pneumonia): Status: Acute (3) Acute respiratory failure with hypoxia: Status: Acute (4) Chronic obstructive lung disease: Status: Acute (5) Essential hypertension: Status: Acute (6) Hypothyroidism: Status: Acute Discharge Plan Disposition Patient Disposition: Home Condition: Good Discharge Details Reason For Visit: Severe Sepsis CAP Admit Date/Time: 01/02/25 07:42 Admit Provider: Jason Ceballos Attending Provider: Jason Ceballos Primary Care Provider: [facility] Course Hospital Course: Patient initially presented with signs and symptoms consistent with severe sepsis secondary to a community-acquired pneumonia. He was treated with ceftriaxone and azithromycin and had rapid improvement of his symptoms though he did have an additional fever shortly after being admitted. Patient only briefly required oxygen while in the emergency department and since that time saturated above 93% not necessitating supplemental oxygen. Given patient's overall improvement it was determined he was stable for discharge home and will have an additional 5 days of p.o. cefpodoxime and p.o. azithromycin for an additional 2 days. Of note, patient's family member who was in the room both last evening 01/02/2025 and 01/03/2025 has been noted as being repeatedly disrespectful towards myself, nursing staff and respiratory therapy. He was highly insistent on patient receiving supplemental oxygen despite not being hypoxic. It was explained to him that administering supplemental oxygen to patients who were not hypoxic could have secondary outcomes especially those with COPD. He frequently used inappropriate language directed both at myself and at staff, stating that I want to talk to whoever I need to to discuss the fucking bullshit arbitrary nu mber of oxygen requirements. Home Meds and New Rx's Prescriptions: New azithromycin 250 mg Tablet 250 mg PO DAILY Qty: 2 0RF cefpodoxime 100 mg tablet 100 mg PO BID Qty: 10 0RF Rx Instructions: must administer with a meal/food Continued (DME) nebulizer accessories Kit See Rx Instructions .ROUTE .MEDSUPPLY Qty: 50 1RF Rx Instructions: As directed triamcinolone acetonide 0.1 % ointment 1 applic topical DAILY PRN (Reason: pruritis) Qty: 80 3RF Spiriva Respimat 1.25 mcg/actuation mist 2 puff IH DAILY Qty: 12 3RF (DME) Aerochamber Plus Flow-Vu,S Msk 1 EACH spacer 1 ea UD PRN Qty: 1 Rx Instructions: DIRECTED WITH INHALER amlodipine 10 mg tablet 10 mg PO DAILY Qty: 90 3RF ipratropium-albuterol 0.5 mg-3 mg(2.5 mg base)/3 mL solution for nebulization 3 ml inhalation QID PRN (Reason: wheezing) Qty: 15 3RF albuterol sulfate 90 mcg/actuation HFA aerosol inhaler 2 puff IH Q4H PRN (Reason: shortness of breath or wheezing) Qty: 34 4RF betamethasone valerate 0.1 % cream TOPICAL DAILY levothyroxine 50 mcg tablet 50 mcg PO DAILY Discharge Instructions Activity:: Activity as Tolerated Equipment/Supplies:: No Equipment Needed Diet:: As Tolerated Discharge Orders Discharge Orders: Discharge Order (Routine); Ordered 01/03/25 Ordered By: Jason Ceballos DS: Summary Time Spent with Patient providing and/or coordinating discharge services: Greater than 30 minutes Status at Discharge Functional status at discharge: independent ambulation Overall status at discharge: patient is back to baseline Mental Status: mental status grossly normal Speech and Movement: speech and movement normal Mood: congruent mood Affect: normal affect Quality:SDOH Health Related Social Needs: Health related social needs daily activities lonely/is olated Health related social needs details caregiver is his w nikunj Health related social needs details: caregiver is his Exam Narrative Exam Narrative: Well-appearing older gentleman laying in bed in no acute distress, ANO x 4, heart regular rhythm, lungs clear to auscultation bilaterally, abdomen soft, nontender, nondistended Psych Mental Status: mental status grossly normal Speech and Movement: speech and movement normal Mood: congruent mood Affect: normal affect DS: Data Vitals/I&O Vitals and I&O: Vital Signs Temperature 98.6 F 01/03/25 07:59 Temperature Source Temporal Artery Scan 01/03/25 07:59 Pulse 91 H 01/03/25 07:59 Pulse 83 01/02/25 09:20 Respiratory Rate 18 01/03/25 07:59 Respiratory Effort Normal 01/02/25 09:44 Respiratory Depth Normal 01/02/25 09:44 Respiratory Pattern Normal 01/02/25 09:44 Blood Pressure 135/60 01/03/25 07:59 Blood Pressure Mean 85 01/03/25 07:59 Blood Pressure Position Sitting 01/02/25 05:07 Pulse Oximetry 97 01/03/25 10:16 Oxygen Delivery Method Room Air 01/03/25 10:16 Oxygen Flow Rate 0 01/03/25 10:16 Pain Level 0 01/03/25 02:20 Comment HR hovering 130-150 01/02/25 17:07 Intake & Output 01/02/25 01/03/25 01/03/25 17:59 05:59 17:59 Intake Total 1300 / 1300 500 / 1800 Output Total 200 / 200 Balance 1100 / 1100 500 / 1600 Weight 224 lb 13.944 oz Intake: IV 1300 / 1300 500 / 1800 Output: Urine 200 / 200 Other: Urine Color Yellow Yellow Urine Appearance Clear Urine Odor Strong Comment pt incontinent, large amount, into brief and bed. pt voided into toilet, unmeasurable. Stool Size Small Stool Characteristics Soft Data Completed and Pending Labs on day of discharge: Labs from last 24 hours 01/03/25 05:20 WBC 3.11 L RBC 4.83 Hgb 15.4 Hct 45.2 MCV 94 MCH 31.9 MCHC 34.1 RDW 12.6 Plt Count 127 L MPV 10.1 Sodium 140 Potassium 3.7 Chloride 105 Carbon Dioxide 24.6 Anion Gap 10.4 BUN 11 Creatinine 1.1 Est GFR (CKD-EPI 2020) 66.61 Glucose 126 H Calcium 8.5 Magnesium 2.0 Preliminary micro results at discharge 01/02/25 05:17 Blood Blood Culture - Preliminary NO GROWTH 24 HOURS 01/02/25 05:10 Blood Blood Culture - Preliminary NO GROWTH 24 HOURS [facility] All Active Problems (Updated 01/02/25 @ 07:43 by Jason Ceballos MD) Acute respiratory failure with hypoxia (Acute) CAP (community acquired pneumonia) (Acute) Severe sepsis (Acute) Right hip pain (Acute) Exertional dyspnea (Acute) Tubular adenoma of colon (Acute) BPH (benign prostatic hyperplasia) (Acute) Stable. Voiding without difficulty. Continue to monitor. Chronic obstructive lung disease (Acute) O2 saturation 95-97% both at rest and with ambulating in the halls greater than 150 at a fast pace. Long discussion regarding her portable oxygen and not being helpful for his symptoms. Using albuterol prophylactically for increased activity. I also offered pulmonary function tests and or referral to pulmonology. Patient declined both. I stressed that his VILLEDA is not related to low oxygen levels but more to a functional issue with his respiratory status. Encouraged him to focus on weight loss and maintain activity. I encouraged him to call for f/u so we could spend more time on this condition. Chronic pain of left wrist (Acute 09/14/16) Essential hypertension (Acute 05/29/13) Gastroesophageal reflux disease (Acute) Taking ranitidine 150 mg daily with good control of his GERD symptoms. Continue and monitor. Hypothyroidism (Acute 12/05/14) Increased BMI (body mass index) (Acute 12/27/16) . BMI is 32%. He has remained stable over the last several years. Encouraged to stay active. We did talk about again making healthy diet choices and portion control. 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 states no arthoplasty but ARTHROSCOPY Family History Mother , AGE 76 Bone cancer Father , AGE 85 Diabetes Essential hypertension Hyperlipidemia Stroke Sister Essential hypertension Hyperlipidemia Maternal Grandfather Lung cancer Paternal Grandfather Heart disease Stroke Maternal Grandmother , Age 98 Diabetes Asthma Paternal Grandmother Heart disease Stroke Social History Smoking/Tobacco Use Status: Former Tobacco Use tobacco type: cigarettes Quit Date: 09/12/99 Second Hand Exposure: Yes Smoking risk assessment performed?: Yes Alcohol Intake: former Drug use: Never Substance use type: does not use Adopted: No Caregiver/Support person: Yes Household members: spouse Housing: house Number of Children: 2 number of grandchildren: 2 Communication Needs: Hard of Hearing Education Level: college Details: 1 year Do you need help understanding health information?: Never current occupation: Retired Pets and animals: No Sexually active: No Do you think of yourself as: straight/heterosexual Current gender identity: male What is your relationship status?: How often do you talk on the phone with friends or family?: three or more times per week How often do you get together with friends or relatives?: three or more times per week How often do you attend anabaptism or jewish services?: decline to answer Do you belong to any clubs or organized social groups?: no Panel score (0-1 are the most socially isolated patients): 2 Duration: < 15 minutes/day Do you feel safe at home: Yes Do you feel safe in your relationship?: Yes Time Spent with Patient Time Spent with Patient: <45 minutes Time was spent: preparing to see the patient(eg.review tests), obtaining and/or reviewing separately otained hiistory, ordering medications,tests, procedures, referring, communicating with other health healthcare business analyst, indepentently interpreting results, counseling the patient and care coordination
--- NOTE | 2025-01-03 18:13 | PDOC.CMPRO ---
Date of service: 01/03/25 Time of Service: 18:13 Care Management Progress Note Progress Note Text Progress Note Text: Michelle was admitted on 01/02/25 with pneumonia. He was treated with antibiotics and intermittent supplemental oxygen and did well. By this morning he was saturating in the upper 90s on room air, was afebrile and was considered stable for discharge. Social Determinants of Health Screening Will the Patient Participate in the Screening?: Unable to obtain Do you worry about having a steady place to live?: no In the past 12 months, have you had to go without electric, gas, oil or water in your home?: no Has lack of transportation kept you from medical appointments or from doing things needed for daily living?: no Has anyone in your life made you feel unsafe or unsupported?: no How hard is it for you to pay for the very basics like food, housing, medical care, and heating? Would you say it is:: Not hard at all Do you want help finding or keeping work or a job?: I do not need or want help If for any reason you need help with day-to-day activities such as bathing, preparing meals, shopping, managing finances, etc., do you get the help you need?: I could use a little more help How often do you feel lonely or isolated from those around you?: Rarely Do you speak a language other than Turkmen at home?: No Does the patient want assistance with any of the above?: No Health Related Social Needs Health related social needs: problems with daily activities (Z73.9) and feeling lonely/isolated (Z60.8) Health related social needs details: caregiver is his
== END 2025-01-03 11:02 | disposition home or self-care (01) | DRG 871 ==
LOC: ER 07:43 → MS 09:40
PROVIDERS: Emergency Medicine; Admitting Provider Family Medicine; Emergency Provider Student in an Organized Health Care Education/Training Program; PCP Nurse Practitioner Family; Responsible Provider Family Medicine; Visit Provider Family Medicine
DX: A41.9 Sepsis, unspecified organism (principal); J18.9 Pneumonia, unspecified organism; J96.01 Acute respiratory failure with hypoxia; J44.0 Chronic obstructive pulmonary disease with (acute) lower respiratory infection; I47.10 Supraventricular tachycardia, unspecified; E87.20 Acidosis, unspecified; R65.20 Severe sepsis without septic shock; I10 Essential (primary) hypertension; E03.9 Hypothyroidism, unspecified; M25.551 Pain in right hip; N40.0 Benign prostatic hyperplasia without lower urinary tract symptoms; G89.29 Other chronic pain; M25.532 Pain in left wrist; E53.8 Deficiency of other specified B group vitamins; F10.11 Alcohol abuse, in remission; Z87.891 Personal history of nicotine dependence; Z86.0101 Personal history of adenomatous and serrated colon polyps; Z85.038 Personal history of other malignant neoplasm of large intestine; Z79.899 Other long term (current) drug therapy; R53.1 Weakness
CPT/HCPCS: 00123; 36415; 80048; 80053; 84145; 85027; 87040; 87637; 93005; 96365; 96366; 96367; 96372; 99285; J1650; 71045; 81003; 81015; 83605; 83735; 84443; 85025; 93010; 94667; 94760; 99223; 99239; J0131; J0456; J0696

== ENCOUNTER 2025-01-16 22:02 | Inpatient (IN) | payer OTHER, SELFPAY ==
[2025-01-16] VITALS (19 sets, daily range): BP systolic 115–157; BP diastolic 33–74; PULSE 94–150; RESP 16–36; TEMP 39.4; O2SAT 91–98
--- NOTE | 2025-01-16 22:00 | RT.EKG_ITS ---
APPROVED REPORT Exam: Resting ECG Reason for Exam: Sepsis Patient Location: E HR:136 bpm ECG Measurements Heart Rate 136 AXIS ME [id number] P [id number] QRSd 130 QRS 53 QT 333 T 21 QTc 501 Conclusion Atrial fibrillation...V-rate 98-170, irreg A-activity Right bundle branch block...QRSd>120, terminal axis(90,270) Physician: minimmal lateral depression likely rate related, RBBB, unchanged sophia prior
[2025-01-16 22:25] LABS: BE (Venous) 0 mmol/L (-2-3); HCO3 (Venous) 25 mmol/L (23-28); O2 Sat (Venous) 44 %; TCO2 (Venous) 22 mmol/L (24-29); pCO2 (Venous) 39 mmHg (41-51); pO2 (Venous) 24 mmHg
[2025-01-16 22:26] LABS: Abs Immature Grans 0.02 10^3/uL (0.0-0.06); HCT 43.8 % (40.0-50.0); HGB 14.6 g/dL (13.5-17.5); Immature Grans % 0.3 %; MCH 31.1 pg (27.0-33.0); MCHC 33.3 % (32.0-36.0); MCV 93 fL (80-95); MPV 9.9 fL (8.0-11.0); Platelet Count 227 10^3/uL (130-400); RBC 4.70 10^6/uL (4.36-5.78); RDW 13.1 % (11.8-14.1); RDW-SD 44.9 fL; WBC 5.97 10^3/uL (4.4-10.8)
[2025-01-16] MEDS: PIPERACILLIN/TAZO 4.5 GM in Normal Saline 100 ML IVPB (22:26)
[2025-01-16] MEDS: DOXYCYCLINE 100 MG in Normal Saline 100 ML IVPB (22:27)
[2025-01-16] MEDS: dilTIAZem 25 MG/5 ML VIAL 15 MG IVP (22:27)
--- NOTE | 2025-01-16 22:37 | DI.RAD_ITS ---
Exam(s) XR PORTABLE CHEST AP EXAM: XR PORTABLE CHEST AP CLINICAL HISTORY: cough, fever, sob, recent pneumonia TECHNIQUE: 2D digital imaging was performed of the chest. One image was obtained. An AP view was obtained. COMPARISON: CR,XR XR PORTABLE CHEST AP from 06/21/2024 CR,XR XR PORTABLE CHEST AP from 01/02/2025 FINDINGS: MEDIASTINUM: Normal. HEART: Normal. PULMONARY VASCULATURE: Normal. LUNGS: There are no focal consolidating infiltrates. PLEURAL SPACE: No pleural effusion or pneumothorax. BONE:Within normal limits for the patient's age. OTHER FINDINGS:Normal. IMPRESSION: 1. No acute pulmonary findings. 2. The preliminary [facility] report was reviewed. DATA REPOSITORY: RADIATION DOSE DELIVERED:
[2025-01-16 22:43] LABS: ALT 29 U/L (16-63); AST 18 U/L (15-37); Albumin 3.7 g/dL (3.4-5.0); Alkaline Phosphatase 68 U/L (46-116); Anion Gap 10.8 mmol/L (3-11); BUN 13 mg/dL (7-18); Bilirubin, Total 1.9 mg/dL (0.2-1.0); CO2 26.2 mmol/L (21.0-32.0); Calcium 8.5 mg/dL (8.5-10.1); Chloride 102 mmol/L (98-107); Estimated GFR 49.87 (mL/min/1.73m2); Glucose 176 mg/dL (74-106); Potassium 3.7 mmol/L (3.5-5.1); Sodium 139 mmol/L (136-145); Total Protein 8.0 g/dL (6.4-8.2)
--- NOTE | 2025-01-16 22:46 | DI.[facility]_ITS ---
PROCEDURE INFORMATION: Exam: XR Chest Exam date and time: 01/16/2025 10:36 PM Age: 84 years old Clinical indication: Cough and fever and shortness of breath; Cough, fever, SOB, recent pneumonia TECHNIQUE: Imaging protocol: Radiologic exam of the chest. Views: 1 view. COMPARISON: CR XR PORTABLE CHEST AP 01/02/2025 5:41 AM FINDINGS: Lungs: Lung volumes are low. No acute airspace consolidation. Pleural spaces: No pleural effusion. No pneumothorax. Heart/Mediastinum: The heart is normal size. Bones/joints: Unremarkable. IMPRESSION: No acute cardiopulmonary findings. Dictated and Authenticated by: Kristin Polo MD. Orderin Chuck Rees MD
[2025-01-16] MEDS: ACETAMINOPHEN 1,000 MG/100 ML BAG 400 MG IVPB (22:50)
--- NOTE | 2025-01-16 22:51 | W.ED.GENAD ---
Discharge Plan Disposition Patient Disposition: Admit to [facility] Condition: Improving Discharge Details Clinical Impression: Sepsis, Dehydration, Acute kidney injury, Pneumonia, Atrial fibrillation with RVR Primary Care Provider: Umu Mims ED Provider: Cabrera Woods Home Meds and New Rx's Prescriptions: No Action (DME) nebulizer accessories Kit See Rx Instructions .ROUTE .MEDSUPPLY Qty: 50 1RF Rx Instructions: As directed triamcinolone acetonide 0.1 % ointment 1 applic topical DAILY PRN (Reason: pruritis) Qty: 80 3RF Spiriva Respimat 1.25 mcg/actuation mist 2 puff IH DAILY Qty: 12 3RF (DME) Aerochamber Plus Flow-Vu,S Msk 1 EACH spacer 1 ea UD PRN Qty: 1 Rx Instructions: DIRECTED WITH INHALER amlodipine 10 mg tablet 10 mg PO DAILY Qty: 90 3RF ipratropium-albuterol 0.5 mg-3 mg(2.5 mg base)/3 mL solution for nebulization 3 ml inhalation QID PRN (Reason: wheezing) Qty: 15 3RF albuterol sulfate 90 mcg/actuation HFA aerosol inhaler 2 puff IH Q4H PRN (Reason: shortness of breath or wheezing) Qty: 34 4RF betamethasone valerate 0.1 % cream TOPICAL DAILY levothyroxine 50 mcg tablet 50 mcg PO DAILY azithromycin 250 mg Tablet 250 mg PO DAILY Qty: 2 0RF cefpodoxime 100 mg tablet 100 mg PO BID Qty: 10 0RF Rx Instructions: must administer with a meal/food HPI General Date/Time Provider Initiated Documentation: 01/16/25 22:08. HPI Narrative: This is a 84-year-old male with a past medical history of hypothyroidism, hypertension, COPD, previous colon cancer, who presents today for evaluation of altered mental status and weakness. Patient was here and admitted on 01/02/2025, he was admitted for sepsis and mild pneumonia. He was eventually discharged after about 24 to 36 hours of inpatient stay after he had a notably appropriate improvement of his clinical symptomatology, his oxygen needs resolved, and he was doing clinically well. He was discharged with prescriptions for cefpodoxime and azithromycin, with 5 more days of treatment after discharge on the . He has now been off of his antibiotics for about a week and has been doing well. Unfortunately over the last 72 hours he became more fatigued and tired. And then this evening he was notably short of breath, could not get up, and was confused. He was brought in by EMS for reassessment. He was noted to be tachycardic in the 150s, normal blood pressure, tachypneic and febrile. Patient has no complaints, but is also quite unaware of the situation. Family members at bedside. No history of recent falls. No vomiting. No worsening cough. Related Data Home Medications ?Medication ?Instructions ?Recorded ?Confirmed inhalational spacing device #1 ea 09/23/12 01/08/25 (Aerochamber Plus Flow-Vu,Small Mask) nebulizer accessories #50 ea 02/20/19 01/08/25 amlodipine 10 mg tablet 10 mg PO DAILY #90 tabs 03/01/24 01/08/25 triamcinolone acetonide 0.1 % 1 applic topical DAILY PRN 03/12/24 01/08/25 topical ointment pruritis #80 grams tiotropium bromide 1.25 2 puff inhalation DAILY #12 grams 08/02/24 01/08/25 mcg/actuation mist for inhalation (Spiriva Respimat) ipratropium 0.5 mg-albuterol 3 mg 3 ml inhalation QID PRN wheezing 09/17/24 01/08/25 (2.5 mg base)/3 mL nebulization #15 mL soln albuterol sulfate 90 mcg/actuation 2 puff inhalation Q4H PRN 12/03/24 01/08/25 aerosol inhaler shortness of breath or wheezing #34 grams betamethasone valerate 0.1 % applic topical DAILY 01/02/25 01/08/25 topical cream levothyroxine 50 mcg tablet 50 mcg PO DAILY 01/02/25 01/08/25 azithromycin 250 mg tablet 250 mg PO DAILY #2 tabs 01/03/25 cefpodoxime 100 mg tablet 100 mg PO BID #10 tabs 01/03/25 Previous Rx's ?Medication ?Instructions ?Recorded nebulizer accessories #50 ea 02/20/19 amlodipine 10 mg tablet 10 mg PO DAILY #90 tabs 03/01/24 triamcinolone acetonide 0.1 % 1 applic topical DAILY PRN 03/12/24 topical ointment pruritis #80 grams tiotropium bromide 1.25 2 puff inhalation DAILY #12 grams 08/02/24 mcg/actuation mist for inhalation (Spiriva Respimat) ipratropium 0.5 mg-albuterol 3 mg 3 ml inhalation QID PRN wheezing 09/17/24 (2.5 mg base)/3 mL nebulization #15 mL soln albuterol sulfate 90 mcg/actuation 2 puff inhalation Q4H PRN 12/03/24 aerosol inhaler shortness of breath or wheezing #34 grams azithromycin 250 mg tablet 250 mg PO DAILY #2 tabs 01/03/25 cefpodoxime 100 mg tablet 100 mg PO BID #10 tabs 01/03/25 Allergies Allergy/AdvReac Type Severity Reaction Status Date / Time No Known Allergies Allergy Verified 01/08/25 12:59 General Stated Complaint: AMS/LOC JACKELINE: 3 Exam Narrative Exam Narrative: 1.Const: Well-nourished, Well-developed, appearing stated age 2.Eyes: PERRL, no conjunctival injection, and symmetrical lids. 3.ENT: Atraumatic external nose and ears. Moist MM. Neck: Symmetric, trachea midline, No thyromegaly. 4.CVS: +S1/S2, Peripheral pulses 2+ and equal in all extremities. Brisk capillary refill in all extremities. 5.RESP: Unlabored respiratory effort. Clear to auscultation bilaterally. No wheezes rales or rhonchi 6.GI: Soft, Nontender/Nondistended, No hepatosplenomegaly. No guarding or rebound. 7.MSK: Normocephalic/Atraumatic, Extremities w/o deformity or ttp No cyanosis or clubbing, Normal movement of all extremities 8.Skin: Warm, Dry. No rashes or lesions. 9.Neuro: technology auditor II-XII grossly intact. Sensation grossly intact, no focal neurologic deficits. GCS 13 10.Psych: (AAO) x2. Mildly confused Course Vital Signs Vital signs: Vital Signs Temperature 39.4 C H 01/16/25 22:04 Pulse 120 H 01/16/25 22:04 Respiratory Rate 30 H 01/16/25 22:04 Blood Pressure 157/74 H 01/16/25 22:04 Pulse Oximetry 98 01/16/25 22:04 Temperature 39.4 C H 01/16/25 22:09 Temperature Source Oral 01/16/25 22:09 Pulse 150 H 01/16/25 22:27 Respiratory Rate 30 H 01/16/25 22:09 Blood Pressure 157/74 H 01/16/25 22:27 Blood Pressure Position Sitting 01/16/25 22:09 Pulse Oximetry 98 01/16/25 22:09 Oxygen Delivery Method Room Air 01/16/25 22:09 Oxygen Flow Rate 0 01/16/25 22:09 Lab/Test Results Lab/Test Results: 01/16/25 22:47 Blood Blood Culture - Pending 01/16/25 22:15 Blood Blood Culture - Pending Laboratory Tests Range/Units 01/16/25 22:15 WBC (4.4-10.8) 10^3/uL 5.97 RBC (4.36-5.78) 10^6/uL 4.70 Hgb (13.5-17.5) g/dL 14.6 Hct (40.0-50.0) % 43.8 MCV (80-95) fL 93 MCH (27.0-33.0) pg 31.1 MCHC (32.0-36.0) % 33.3 RDW (11.8-14.1) % 13.1 Plt Count (130-400) 10^3/uL 227 MPV (8.0-11.0) fL 9.9 Immature Gran % % 0.3 Neutrophils % % 82.3 Lymphocytes % % 11.4 Monocytes % % 5.5 Eosinophils % % 0.0 Basophils % % 0.5 Nucleated RBC % (0.0-0.3) % 0.0 Absolute Neutrophils (1.2-6.7) 10^3/uL 4.91 Absolute Lymphocytes (1.2-3.4) 10^3/uL 0.68 L Absolute Monocytes (0.1-0.8) 10^3/uL 0.33 Absolute Eosinophils (0.0-0.7) 10^3/uL 0.00 Absolute Basophils (0.0-0.2) 10^3/uL 0.03 VBG pH (7.31-7.41) 7.41 VBG pCO2 (41-51) mmHg 39 L VBG pO2 mmHg 24 VBG HCO3 (23-28) mmol/L 25 VBG Total CO2 (24-29) mmol/L 22 L VBG O2 Saturation % 44 VBG Base Excess (-2-3) mmol/L 0 VBG Lactate (<or=2.0) mmol/L 1.9 Sodium (136-145) mmol/L 139 Potassium (3.5-5.1) mmol/L 3.7 Chloride (98-107) mmol/L 102 Carbon Dioxide (21.0-32.0) mmol/L 26.2 Anion Gap (3-11) mmol/L 10.8 BUN (7-18) mg/dL 13 Creatinine (0.70-1.30) mg/dL 1.4 H Est GFR (CKD-EPI 2020) (mL/min/1.73m2) 49.87 Glucose (74-106) mg/dL 176 H Calcium (8.5-10.1) mg/dL 8.5 Total Bilirubin (0.2-1.0) mg/dL 1.9 H AST (15-37) U/L 18 ALT (16-63) U/L 29 Alkaline Phosphatase (46-116) U/L 68 Total Protein (6.4-8.2) g/dL 8.0 Albumin (3.4-5.0) g/dL 3.7 Medical Decision Making This is a 84-year-old male with a past medical history of hypothyroidism, hypertension, COPD, previous colon cancer, who presents today for evaluation of altered mental status and weakness. Patient was here and admitted on 01/02/2025, he was admitted for sepsis and mild pneumonia. He was eventually discharged after about 24 to 36 hours of inpatient stay after he had a notably appropriate improvement of his clinical symptomatology, his oxygen needs resolved, and he was doing clinically well. He was discharged with prescriptions for cefpodoxime and azithromycin, with 5 more days of treatment after discharge on the . He has now been off of his antibiotics for about a week and has been doing well. Unfortunately over the last 72 hours he became more fatigued and tired. And then this evening he was notably short of breath, could not get up, and was confused. He was brought in by EMS for reassessment. He was noted to be tachycardic in the 150s, normal blood pressure, tachypneic and febrile. Patient has no complaints, but is also quite unaware of the situation. Family members at bedside. No history of recent falls. No vomiting. No worsening cough. Physical exam demonstrates a tachycardic febrile male, clear lung sounds, no signs of ulcers or lesions. GCS is 13. He appears fatigued and minimally altered. Patient certainly meets sepsis criteria. He appears to be in A-fib with RVR. Will give 15 mg of Cardizem, rehydrate with 1000 mL liter normal saline bolus. 1:22 AM After Cardizem and a liter of fluids the patient's vital signs notably improved. Heart rate still is in A-fib, but now resides in the low 100s. Blood pressure remained stable at 124/64. Oxygenation is at 93 to 94%. On reassessment patient appears clinically improved. His temperature is gone down, heart rates improved, he is now talkative and much more interactive. He has not yet urinated, and so I do suspect dehydration certainly was a component of the cause of his symptomatology. However he still had a notable fever. Laboratory workup shows lymphopenia, no white count or bandemia. Concern for potential tickborne illness. Tickborne panel was sent. Electrolytes stable, creatinine is slightly worse than normal at 1.4 compared to his baseline 1.1. Procalcitonin is 0.28. Thyroid function normal. COVID flu and RSV negative. Chest x-ray was read as negative, CT scan of the chest and abdomen was ordered and shows evidence of diffuse interstitial infiltrate , As well as notable lymphadenopathy in the chest and lungs. No other evidence of acute life-threatening component. Patient still certainly meets sepsis criteria and. I discussed the case with hospitalist Dr. Sury Blanco, he agrees with the assessment and plan. I discussed the case with the family, they agree with the plan. I have extensively reviewed the treatment plan with the patient. I have addressed all patient concerns at this time. I have also discussed the plan with the admitting physician and they agree with the current assessment and plan and have agreed to assume responsibility for the patient. All parties demonstrate verbal understanding and agreement with our assessment and plan at this time. The documentation in this chart was dictated using [employer] dictation software. Please excuse any dictation errors. FINDINGS: Brain: No acute intracranial hemorrhage or mass lesions. No midline shift. Normal ferrer-white differentiation. There are extensive scattered deep and periventricular white matter changes likely associated with chronic microvascular ischemia. Cerebral ventricles: No ventriculomegaly. Paranasal sinuses: Visualized sinuses are unremarkable. No fluid levels. Mastoid air cells: Visualized mastoid air cells are well aerated. Bones: Unremarkable. No acute fracture. Soft tissues: Unremarkable. Vasculature: Atheromatous calcifications are present bilaterally within the cavernous portions of the internal carotid arteries. IMPRESSION: 1. No acute intracranial findings. 2. Findings likely associated with chronic microvascular ischemia FINDINGS: Lungs: There are diffuse interstitial infiltrates present. This may represent cardiogenic versus noncardiogenic edema. An acute inflammatory process and/or infectious process/pneumonia are not excluded. There is minimal bibasilar atelectasis. [id number] paraseptal emphysematous changes. Mild centrilobular emphysematous changes are present. There is heterogeneous attenuation of the pulmonary parenchyma, consistent with air trapping from underlying small airways disease. Pleural spaces: There is no evidence of pneumothorax. There are no pleural effusions present. Heart: Unremarkable. No cardiomegaly. No pericardial effusion. Coronary arteries: No evidence of coronary artery atherosclerotic plaque or calcification. Lymph nodes: Mild prominence of the mediastinal lymph nodes within the pretracheal region and peribronchial regions may represent reactive lymphadenopathy. Vasculature: The arterial peripheral vasculature demonstrates diffuse mild atherosclerotic calcification. The aorta demonstrates mild atherosclerotic calcification. Bones/joints: The skeletal structures and soft tissues show no evidence of fracture or other acute processes. Soft tissues: The soft tissues of the extrathoracic region are unremarkable. IMPRESSION: 1. There are diffuse interstitial infiltrates present. This may represent cardiogenic versus noncardiogenic edema. An acute inflammatory process and/or infectious process/pneumonia are not excluded. 2. There is heterogeneous attenuation of the pulmonary parenchyma, consistent with air trapping from underlying small airways disease. 3. Mild prominence of the mediastinal lymph nodes within the pretracheal region and peribronchial regions may represent reactive lymphadenopathy FINDINGS: Diaphragm: A small hiatal hernia is present. Liver: The liver is enlarged measuring 16.5 cm. Low-attenuation lesions righ and left t liver lobe likely represent small hepatic cysts. There is no evidence of intrahepatic or extrahepatic biliary ductal dilation. Gallbladder and biliary ducts: The gallbladder is normal. There is no cholelitiasis, wall thickening or pericholecystic fluid to suggest cholecystitis. Pancreas: There is mild pancreatic atrophy and fatty replacement. Spleen: Probable small splenic cyst within the medial aspect of the spleen. The spleen is enlarged. The spleen otherwise appears normal. Adrenal glands: The adrenal glands are normal. Kidneys and ureters: Mild perinephric stranding.. No hydronephrosis. Stomach and bowel: There is mild thickening of the gastric wall with mild soft tissue stranding present. Consider early gastritis. There are fluid-filled loops of small bowel with air-fluid levels. No significant bowel wall thickening or inflammatory changes. No evidence of obstruction. Consider early enteritis. There is no evidence of intestinal obstruction. Appendix: There is no evidence of appendicitis. Intraperitoneal space: Mild haziness within the mesentery may represent mild mesenteritis. There is no free intraperitoneal air. There is no evidence of free intraperitoneal or pelvic fluid. Vasculature: The portal, mesenteric and splenic veins are patent.The aorta demonstrates mild atherosclerotic calcification. The arterial peripheral vasculature demonstrates diffuse mild atherosclerotic calcification. Lymph nodes: There is no evidence of lymphadenopathy. Urinary bladder: There is a nonobstructing bladder calculus present measuring approximately 8 mm in diameter. Reproductive: The prostate gland demonstrates calcification and mild nonspecific enlargement. The seminal vesicles are normal. Bones/joints: The skeletal structures and soft tissues show no evidence of fracture or other acute processes. The thoracolumbar spine demonstrates moderate degenerative changes at multiple levels. The lumbar spine demonstrates mild degenerative changes. The skeletal structures and soft tissues show no evidence of fracture or other acute processes. Soft tissues: There is a fat-containing umbilical hernia. There is a nonobstructing right inguinal hernia containing fat and possibly a small amount of mesentery. IMPRESSION: 1. There is mild thickening of the gastric wall with mild soft tissue stranding present. Consider early gastritis. There are fluid-filled loops of small bowel with air-fluid levels. No significant bowel wall thickening or inflammatory changes. No evidence of obstruction. Consider early gastroenteritis. 2. Mild haziness within the mesentery may represent mild mesenteritis. 3. Mild hepatosplenomegaly Thank you for allowing us to participate in the care of your patient. Dictated and Authenticated by: Ron Carney MD 01/17/2025 12:09 AM Eastern Time ([place] & [place]) Quality:SDOH Health Related Social Needs: Health related social needs daily activities lonely/isolated Health related social needs details caregiver is his Critical Care Time Critical Care Time Critical Care Time: Yes Total Critical Care Time: 45 Attestation: Upon my evaluation, this patient had a high probability of imminent or life-threatening deterioration, which required my direct attention, intervention, and personal management. I have personally provided 45 minutes of critical care time exclusive of time spent on separately billable procedures. Time includes review of laboratory data, radiology results, discussion with consultants, and monitoring for potential decompensation. Interventions were performed as documented. [facility] All Active Problems (Updated 01/17/25 @ 01:27 by Cabrera Woods DO) Atrial fibrillation with RVR (Acute) Pneumonia (Acute) Acute kidney injury (Acute) Dehydration (Acute) Sepsis (Acute) Right hip pain (Acute) Exertional dyspnea (Acute) Tubular adenoma of colon (Acute) BPH (benign prostatic hyperplasia) (Acute) Stable. Voiding without difficulty. Continue to monitor. Chronic obstructive lung disease (Acute) O2 saturation 95-97% both at rest and with ambulating in the halls greater than 150 at a fast pace. Long discussion regarding her portable oxygen and not being helpful for his symptoms. Using albuterol prophylactically for increased activity. I also offered pulmonary function tests and or referral to pulmonology. Patient declined both. I stressed that his VILLEDA is not related to low oxygen levels but more to a functional issue with his respiratory status. Encouraged him to focus on weight loss and maintain activity. I encouraged him to call for f/u so we could spend more time on this condition. Chronic pain of left wrist (Acute 09/14/16) Essential hypertension (Acute 05/29/13) Gastroesophageal reflux disease (Acute) Taking ranitidine 150 mg daily with good control of his GERD symptoms. Continue and monitor. Hypothyroidism (Acute 12/05/14) Increased BMI (body mass index) (Acute 12/27/16) . BMI is 32%. He has remained stable over the last several years. Encouraged to stay active. We did talk about again making healthy diet choices and portion control. 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 states no arthoplasty but ARTHROSCOPY Family History Mother , AGE 76 Bone cancer Father , AGE 85 Diabetes Essential hypertension Hyperlipidemia Stroke Sister Essential hypertension Hyperlipidemia Maternal Grandfather Lung cancer Paternal Grandfather Heart disease Stroke Maternal Grandmother , Age 98 Diabetes Asthma Paternal Grandmother Heart disease Stroke Social History Smoking/Tobacco Use Status: Former Tobacco Use tobacco type: cigarettes Quit Date: 09/12/99 Second Hand Exposure: Yes Smoking risk assessment performed?: Yes Alcohol Intake: former Drug use: Never Substance use type: does not use Adopted: No Caregiver/Support person: Yes Household members: spouse Housing: house Number of Children: 2 number of grandchildren: 2 Communication Needs: Hard of Hearing Education Level: college Details: 1 year Do you need help understanding health information?: Never current occupation: Retired Pets and animals: No Sexually active: No Do you think of yourself as: straight/heterosexual Current gender identity: male What is your relationship status?: How often do you talk on the phone with friends or family?: three or more times per week How often do you get together with friends or relatives?: three or more times per week How often do you attend voodoo or gnosticism services?: decline to answer Do you belong to any clubs or organized social groups?: no Panel score (0-1 are the most socially isolated patients): 2 Duration: < 15 minutes/day Do you feel safe at home: Yes Do you feel safe in your relationship?: Yes
[2025-01-16 22:52] LABS: TSH (W/Ref FT4) 1.18 uIU/mL (0.36-3.74)
[2025-01-16 22:56] LABS: Procalcitonin 0.28 ng/mL
[2025-01-16] MEDS: VANCOMYCIN 2,000 MG in Normal Saline 500 ML 333.3333 MG IVPB (23:15)
[2025-01-16] MEDS: Omnipaque 350 MG/ML 100 ML BTL IJ (23:39)
[2025-01-16] MEDS: Normal Saline - Diluent 50 ML VIAL IJ (23:40)
--- NOTE | 2025-01-16 23:40 | DI.CT_ITS ---
Exam(s) CT CHEST/ABD/PEL W EXAM: CT CHEST/ABD/PEL W CLINICAL HISTORY: febrile, AMS, Weak, r/o infectious source TECHNIQUE: Imaging Protocol: Axial computed tomography images with coronal and sagittal reformatted images were created and reviewed. Lung Computer Aided Detection (CAD) was utilized. CONTRAST MATERIAL: Intravenous: Omnipaque 350 contrast volume:100 mL Oral: No COMPARISON: CR,XR XR PORTABLE CHEST AP from 01/16/2025 FINDINGS: CHEST: Tracheobronchial tree: Patent where visualized. No evidence of bronchiectasis. Pulmonary parenchyma: No consolidation or dominant measurable mass. There is mild atelectasis in the lung bases. Emphysematous changes are present in the lungs. Visualized thyroid gland: Unremarkable. Mediastinum and Megan: No dominant adenopathy or fluid collection. There is mild prominence of the mediastinal lymph nodes which may be reactive. The esophagus is unremarkable. There is a tiny hiatal hernia. Pleura: No effusion or pneumothorax. Heart: The heart is not dilated. No coronary artery calcifications are seen. No pericardial effusion. Pulmonary arteries: Due to the timing of the bolus, there is suboptimal opacification of the pulmonary arteries to evaluate for pulmonary emboli. Aorta: Thoracic aorta non-dilated. Atherosclerotic calcification is present. Lymph nodes: There is no significant axillary or supraclavicular adenopathy. Soft tissues: Unremarkable. Bones:Within normal limits for the patient's age. ABDOMEN: Liver: Normal density. There are couple of tiny hypodensity seen in the liver. They are too small for further characterization. Portal, Superior Mesenteric, and Splenic Veins: Unremarkable. Gallbladder and Biliary Tract: No radiodense calculus or dilation. Pancreas: Normal density, no abnormal calcifications or inflammatory process. Spleen: Mildly enlarged. Adrenals: No masses seen. Kidneys: Normal size, contour and axis. No radiodense stones or obstructive uropathy. No masses seen. Abdominal Aorta: Abdominal portion non-dilated. Atherosclerotic calcification is present. Bowel: There is diverticulosis of the colon without evidence of acute diverticulitis. There is no evidence of bowel obstruction or bowel wall thickening. The stomach is incompletely distended limiting evaluation. Peritoneal Cavity: No ascites, collection or mesenteric inflammatory response. No free air. Lymph Nodes: Within normal limits. Bones: Within normal limits for the patient's age. Soft Tissues: There is a small fat containing umbilical hernia. There is a small fat containing right inguinal hernia. PELVIS: Bladder: Symmetric distention, no gross wall thickening. There is a 6 mm stone in the right aspect of the urinary bladder. Reproductive Organs: The prostate gland is enlarged. Lymph Nodes: Within normal limits. Bones: Within normal limits. IMPRESSION: 1. There is no acute pulmonary process. 2. There is no acute abdominal or pelvic process. 3. Colonic diverticulosis without evidence of acute diverticulitis. 4. Urinary bladder stone. No evidence of hydronephrosis. 5. Enlarged prostate gland. 6. The stomach is incompletely distended limiting evaluation. Please correlate with clinical symptoms to evaluate for any concern for gastritis. 7. The preliminary [facility] report was reviewed. RADIATION DOSE DELIVERED: 1,522.4mGy.cm Total DLP DATA REPOSITORY: All CT scans at this facility are submitted to the National Radiology Data Registry (NRDR) Dose Index Registry (DIR) with the [employer] ([employer]). RADIATION OPTIMIZATION: All CT scans at this facility use at least one of these dose optimization techniques: automated exposure control; mA and/or kV adjustment per patient size (includes targeted exams where dose is matched to clinical indication); or iterative reconstruction.
--- NOTE | 2025-01-16 23:41 | DI.CT_ITS ---
Exam(s) CT HEAD WO EXAM: CT HEAD WO CLINICAL HISTORY: Altered mental status. TECHNIQUE: Imaging Protocol: Axial computed tomography images with coronal and sagittal reformatted images were created and reviewed COMPARISON: No exams were available for comparison FINDINGS: The examination is limited due to patient motion artifact. Ventricles and Extra axial spaces: Normal in size and morphology for the patient's age. Hemorrhage: None. Cerebral parenchyma: There is extensive decreased attenuation of the white matter most consistent with chronic microvascular ischemic disease. No evidence of an acute territorial infarct or mass effect. Midline shift: None. Brainstem/Cerebellum: Normal. Calvarium: Normal. Visualized Paranasal sinuses/Mastoids: Clear. Soft Tissues: Unremarkable. IMPRESSION: 1. No acute intracranial process. 2. The preliminary [facility] report was reviewed. RADIATION DOSE DELIVERED: 874.84mGy.cm Total DLP DATA REPOSITORY: All CT scans at this facility are submitted to the National Radiology Data Registry (NRDR) Dose Index Registry (DIR) with the [employer] ([employer]). RADIATION OPTIMIZATION: All CT scans at this facility use at least one of these dose optimization techniques: automated exposure control; mA and/or kV adjustment per patient size (includes targeted exams where dose is matched to clinical indication); or iterative reconstruction.
--- NOTE | 2025-01-16 23:49 | DI.[facility]_ITS ---
PROCEDURE INFORMATION: Exam: CT Head Without Contrast Exam date and time: 01/16/2025 11:25 PM Age: 84 years old Clinical indication: Altered mental status/memory loss; Confusion or disorientation TECHNIQUE: Imaging protocol: Computed tomography of the head without contrast. Radiation optimization: All CT scans at this facility use at least one of these dose optimization techniques: automated exposure control; mA and/or kV adjustment per patient size (includes targeted exams where dose is matched to clinical indication); or iterative reconstruction. COMPARISON: No relevant prior studies available. FINDINGS: Brain: No acute intracranial hemorrhage or mass lesions. No midline shift. Normal ferrer-white differentiation. There are extensive scattered deep and periventricular white matter changes likely associated with chronic microvascular ischemia. Cerebral ventricles: No ventriculomegaly. Paranasal sinuses: Visualized sinuses are unremarkable. No fluid levels. Mastoid air cells: Visualized mastoid air cells are well aerated. Bones: Unremarkable. No acute fracture. Soft tissues: Unremarkable. Vasculature: Atheromatous calcifications are present bilaterally within the cavernous portions of the internal carotid arteries. IMPRESSION: 1. No acute intracranial findings. 2. Findings likely associated with chronic microvascular ischemia. Dictated and Authenticated by: Kristin Polo MD. Orderin Chuck Rees MD
[2025-01-17] VITALS (38 sets, daily range): BP systolic 96–137; BP diastolic 35–68; PULSE 79–131; RESP 16–31; TEMP 36.3–37.1; O2SAT 91–98
--- NOTE | 2025-01-17 00:09 | DI.[facility]_ITS ---
PROCEDURE INFORMATION: Exam: CT Chest With Contrast; Diagnostic Exam date and time: 01/16/2025 11:26 PM Age: 84 years old Clinical indication: Febrile, AMS, weak, R/O infectious source TECHNIQUE: Imaging protocol: Diagnostic computed tomography of the chest with contrast. 3D rendering (Not supervised by radiologist): MIP and/or 3D reconstructed images were created by the technologist. Radiation optimization: All CT scans at this facility use at least one of these dose optimization techniques: automated exposure control; mA and/or kV adjustment per patient size (includes targeted exams where dose is matched to clinical indication); or iterative reconstruction. Contrast material: [id number]; Contrast volume: 100 ml; Contrast route: INTRAVENOUS (IV); COMPARISON: CR XR PORTABLE CHEST AP 01/16/2025 10:36 PM FINDINGS: Lungs: There are diffuse interstitial infiltrates present. This may represent cardiogenic versus noncardiogenic edema. An acute inflammatory process and/or infectious process/pneumonia are not excluded. There is minimal bibasilar atelectasis. [id number] paraseptal emphysematous changes. Mild centrilobular emphysematous changes are present. There is heterogeneous attenuation of the pulmonary parenchyma, consistent with air trapping from underlying small airways disease. Pleural spaces: There is no evidence of pneumothorax. There are no pleural effusions present. Heart: Unremarkable. No cardiomegaly. No pericardial effusion. Coronary arteries: No evidence of coronary artery atherosclerotic plaque or calcification. Lymph nodes: Mild prominence of the mediastinal lymph nodes within the pretracheal region and peribronchial regions may represent reactive lymphadenopathy. Vasculature: The arterial peripheral vasculature demonstrates diffuse mild atherosclerotic calcification. The aorta demonstrates mild atherosclerotic calcification. Bones/joints: The skeletal structures and soft tissues show no evidence of fracture or other acute processes. Soft tissues: The soft tissues of the extrathoracic region are unremarkable. IMPRESSION: 1. There are diffuse interstitial infiltrates present. This may represent cardiogenic versus noncardiogenic edema. An acute inflammatory process and/or infectious process/pneumonia are not excluded. 2. There is heterogeneous attenuation of the pulmonary parenchyma, consistent with air trapping from underlying small airways disease. 3. Mild prominence of the mediastinal lymph nodes within the pretracheal region and peribronchial regions may represent reactive lymphadenopathy. PROCEDURE INFORMATION: Exam: CT Abdomen And Pelvis With Contrast Exam date and time: 01/16/2025 11:26 PM Age: 84 years old Clinical indication: Febrile, AMS, weak, R/O infectious source TECHNIQUE: Imaging protocol: Computed tomography of the abdomen and pelvis with contrast. Radiation optimization: All CT scans at this facility use at least one of these dose optimization techniques: automated exposure control; mA and/or kV adjustment per patient size (includes targeted exams where dose is matched to clinical indication); or iterative reconstruction. Contrast material: [id number]; Contrast volume: 100 ml; Contrast route: INTRAVENOUS (IV); Other technique: 3D rendering (Not supervised x radiologist): MIP and/or 3D reconstructed images were created by the technologist. The COMPARISON: CR XR PORTABLE CHEST AP 01/16/2025 10:36 PM FINDINGS: Diaphragm: A small hiatal hernia is present. Liver: The liver is enlarged measuring 16.5 cm. Low-attenuation lesions righ and left t liver lobe likely represent small hepatic cysts. There is no evidence of intrahepatic or extrahepatic biliary ductal dilation. Gallbladder and biliary ducts: The gallbladder is normal. There is no cholelitiasis, wall thickening or pericholecystic fluid to suggest cholecystitis. Pancreas: There is mild pancreatic atrophy and fatty replacement. Spleen: Probable small splenic cyst within the medial aspect of the spleen. The spleen is enlarged. The spleen otherwise appears normal. Adrenal glands: The adrenal glands are normal. Kidneys and ureters: Mild perinephric stranding.. No hydronephrosis. Stomach and bowel: There is mild thickening of the gastric wall with mild soft tissue stranding present. Consider early gastritis. There are fluid-filled loops of small bowel with air-fluid levels. No significant bowel wall thickening or inflammatory changes. No evidence of obstruction. Consider early enteritis. There is no evidence of intestinal obstruction. Appendix: There is no evidence of appendicitis. Intraperitoneal space: Mild haziness within the mesentery may represent mild mesenteritis. There is no free intraperitoneal air. There is no evidence of free intraperitoneal or pelvic fluid. Vasculature: The portal, mesenteric and splenic veins are patent.The aorta demonstrates mild atherosclerotic calcification. The arterial peripheral vasculature demonstrates diffuse mild atherosclerotic calcification. Lymph nodes: There is no evidence of lymphadenopathy. Urinary bladder: There is a nonobstructing bladder calculus present measuring approximately 8 mm in diameter. Reproductive: The prostate gland demonstrates calcification and mild nonspecific enlargement. The seminal vesicles are normal. Bones/joints: The skeletal structures and soft tissues show no evidence of fracture or other acute processes. The thoracolumbar spine demonstrates moderate degenerative changes at multiple levels. The lumbar spine demonstrates mild degenerative changes. The skeletal structures and soft tissues show no evidence of fracture or other acute processes. Soft tissues: There is a fat-containing umbilical hernia. There is a nonobstructing right inguinal hernia containing fat and possibly a small amount of mesentery. IMPRESSION: 1. There is mild thickening of the gastric wall with mild soft tissue stranding present. Consider early gastritis. There are fluid-filled loops of small bowel with air-fluid levels. No significant bowel wall thickening or inflammatory changes. No evidence of obstruction. Consider early gastroenteritis. 2. Mild haziness within the mesentery may represent mild mesenteritis. 3. Mild hepatosplenomegaly Dictated and Authenticated by: Ron Carney MD. Orderin Chuck Rees MD
[2025-01-17 00:57] LABS: COVID-19 PCR Negative (Negative); RSV PCR Negative (Negative)
--- NOTE | 2025-01-17 01:39 | W.PM.HP.N ---
Date of service: 01/17/25 Time of Service: 01:39 Assessment and Plan Assessment and plan (1) Sepsis: Start date: 01/17/25 Status: Acute Assessment and plan: This is an 84-year-old gentleman presenting to the ED with sepsis especially appearing dehydrated with mental status changes which cleared quickly with IV hydration. His chest x-ray did reveal bilateral pneumonia which appears worsened from previous imaging with the patient never fully recovered according to grandson and possibly having recurrence of the same pneumonia. He will be admitted and treated for hospital-acquired pneumonia and sepsis which is with minimal endorgan involvement and no hypotension. He will be covered also for tickborne disease with doxycycline. He was initiated on Zosyn and vancomycin as well. Follow-up imaging and lab with adjustment of antibiotic therapy as needed. ID consultation if he is not improving. He was febrile upon admission but no elevation of his WBC with some lymphopenia. Liver functions were normal except for slightly elevated total bilirubin which has occurred in the past but usually normalizes. He is a full code. (2) Acute dehydration: Start date: 01/17/25 Status: Acute Assessment and plan: Patient has responded to IV hydration which will be continued gently watching for fluid overload. He has no history of CHF with normal left ventricular ejection fraction and no increase in PA pressures in the spring. (3) Pneumonia: Start date: 01/17/25 Status: Acute Assessment and plan: Bilateral with possible acquired pneumonia coverage as well as coverage for tickborne disease. Continue IV antibiotic therapy with patient on MedSurg is stable. (4) Atrial fibrillation with RVR: Start date: 01/17/25 Status: Acute Assessment and plan: This appears to be a new rhythm but patient is not tachycardic at this time. He is not on anticoagulation chronically and will monitor on telemetry with Lovenox DVT prophylaxis covering as anticoagulation for now. Consider echocardiogram and if persists consider anticoagulation. He does have a previous history of PSVT and this may be a consequence of his acute illness. He is not requiring rate control at this time. Consider starting metoprolol. Troponins were not checked with patient asymptomatic and having no ischemic changes. (5) Essential hypertension: Status: Acute Assessment and plan: Continue outpatient medical therapy and consider adding metoprolol for rate control if he continues in atrial fibrillation with tachycardia. (6) Chronic obstructive lung disease: Status: Chronic Assessment and plan: Continue outpatient medical therapy. Patient was a previous smoker but quit in 1999 when his grandson was born. (7) Hypothyroidism: Status: Chronic Assessment and plan: Continue outpatient medical therapy with TSH normal. History of Present Illness History of Present Illness Chief Complaint: 48 hours of altered mental status and fatigue with respiratory symptoms. Narrative: This is an 84-year-old male patient who was recently hospitalized for pneumonia with sepsis being discharged 01/03/2025 after only 36 hours of hospitalization. He was treated for pneumonia at that time and discharged on cefpodoxime and azithromycin. The grandson stated that the patient never did fully recover after discharge though he felt better. He finished a full 5 days of treatment after discharge and was doing well until this last week and especially over the, 72 to 48 hours prior to this presentation where he began to feel fatigued and had with altered mental status with decreased intake. Prior to that he was working outside with his family which is his usual. 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 In the ED he was found to be febrile with tachypnea and altered mental status and mild hypertension with no hypoxemia. His previous hospitalization he had mild hypoxemia. With IV hydration, his mental status improved and with imaging he was found to have bilateral pneumonia but no elevation in his WBC and lymphopenia. Tickborne illness panel was performed and patient was initiated on vancomycin, Zosyn and doxycycline. He is in reversible sepsis with no hypotension and improved with IV hydration, and will be admitted to [facility] with telemetry. The patient's grandson was present during the interview with the patient being very hard of hearing. He is a full code. Review of Systems Narrative: 13 point review of systems otherwise unrevealing or stable. [facility] All Active Problems (Updated 01/17/25 @ 06:59 by Nathaniel Hodges) Acute dehydration (Acute) Atrial fibrillation with RVR (Acute) Pneumonia (Acute) Acute kidney injury (Acute) Dehydration (Acute) Sepsis (Acute) Right hip pain (Acute) Exertional dyspnea (Acute) Tubular adenoma of colon (Acute) BPH (benign prostatic hyperplasia) (Acute) Stable. Voiding without difficulty. Continue to monitor. Chronic obstructive lung disease (Chronic) O2 saturation 95-97% both at rest and with ambulating in the halls greater than 150 at a fast pace. Long discussion regarding her portable oxygen and not being helpful for his symptoms. Using albuterol prophylactically for increased activity. I also offered pulmonary function tests and or referral to pulmonology. Patient declined both. I stressed that his VILLEDA is not related to low oxygen levels but more to a functional issue with his respiratory status. Encouraged him to focus on weight loss and maintain activity. I encouraged him to call for f/u so we could spend more time on this condition. Chronic pain of left wrist (Acute 09/14/16) Essential hypertension (Acute 05/29/13) Gastroesophageal reflux disease (Acute) Taking ranitidine 150 mg daily with good control of his GERD symptoms. Continue and monitor. Hypothyroidism (Chronic 12/05/14) Increased BMI (body mass index) (Acute 12/27/16) . BMI is 32%. He has remained stable over the last several years. Encouraged to stay active. We did talk about again making healthy diet choices and portion control. 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 states no arthoplasty but ARTHROSCOPY Family History Mother , AGE 76 Bone cancer Father , AGE 85 Diabetes Essential hypertension Hyperlipidemia Stroke Sister Essential hypertension Hyperlipidemia Maternal Grandfather Lung cancer Paternal Grandfather Heart disease Stroke Maternal Grandmother , Age 98 Diabetes Asthma Paternal Grandmother Heart disease Stroke Social History Smoking/Tobacco Use Status: Former Tobacco Use tobacco type: cigarettes Quit Date: 09/12/99 Second Hand Exposure: Yes Smoking risk assessment performed?: Yes Alcohol Intake: former Drug use: Never Substance use type: does not use Adopted: No Caregiver/Support person: Yes Household members: spouse Housing: house Number of Children: 2 number of grandchildren: 2 Communication Needs: Hard of Hearing Education Level: college Details: 1 year Do you need help understanding health information?: Never current occupation: Retired Pets and animals: No Sexually active: No Do you think of yourself as: straight/heterosexual Current gender identity: male What is your relationship status?: How often do you talk on the phone with friends or family?: three or more times per week How often do you get together with friends or relatives?: three or more times per week How often do you attend temple or anabaptist services?: decline to answer Do you belong to any clubs or organized social groups?: no Panel score (0-1 are the most socially isolated patients): 2 Duration: < 15 minutes/day Do you feel safe at home: Yes Do you feel safe in your relationship?: Yes Meds Allergies and Home Medications Allergies Allergy/AdvReac Type Severity Reaction Status Date / Time No Known Allergies Allergy Verified 01/17/25 02:10 Home Medications ?Medication ?Instructions ?Recorded ?Confirmed ?Type inhalational spacing device #1 ea 09/23/12 01/17/25 History (Aerochamber Plus Flow-Vu,Small Mask) nebulizer accessories #50 ea 02/20/19 01/17/25 Rx amlodipine 10 mg tablet 10 mg PO DAILY #90 tabs 03/01/24 01/17/25 Rx triamcinolone acetonide 0.1 % 1 applic topical DAILY PRN 03/12/24 01/17/25 Rx topical ointment pruritis #80 grams tiotropium bromide 1.25 2 puff inhalation DAILY #12 grams 08/02/24 01/17/25 Rx mcg/actuation mist for inhalation (Spiriva Respimat) ipratropium 0.5 mg-albuterol 3 mg 3 ml inhalation QID PRN wheezing 09/17/24 01/17/25 Rx (2.5 mg base)/3 mL nebulization #15 mL soln albuterol sulfate 90 mcg/actuation 2 puff inhalation Q4H PRN 12/03/24 01/17/25 Rx aerosol inhaler shortness of breath or wheezing #34 grams betamethasone valerate 0.1 % 1 applic topical DAILY PRN for 01/02/25 01/17/25 History topical cream scaly feet levothyroxine 50 mcg tablet 50 mcg PO DAILY 01/02/25 01/17/25 History azithromycin 250 mg tablet 250 mg PO DAILY 01/17/25 01/17/25 History Exam Narrative Exam Narrative: General: Patient appears appropriate for age, he is very hard of hearing, alert and oriented x 3 and in no acute distress. His grandson speaks for him during the interview. HEENT: Normocephalic, eyes with pupils equal and reactive to light symmetrically, extraocular move intact and sclera anicteric. Oropharynx with dry mucosa and fair dentition. Neck: Supple without JVD. Lungs: Bibasilar coarse crackles with inspiration more on the right than left with decreased aeration over the left. No expiratory wheeze. Bronchovesicular breath sounds diffusely (Patient was a previous smoker). Heart: Regular rate and rhythm with no appreciable murmur or gallop. Abdomen: Obese contour, soft and nontender to palpation but no palpable hepatosplenomegaly. Bowel sounds positive in all quadrants. Genitalia/rectal: Exam deferred. Extremities: Without clubbing, cyanosis or grossly pitting edema. Fair cap refill. Skin: Actinic changes over sun exposed areas, rough texture, otherwise normal color, warm and dry. Neuro: Cranial nerves II through XII gross intact, no focal motor deficits. No tremor. Psych: Normal affect and mood. No abnormal thought processes. Remote and recent memory intact. Results Imaging Imaging Studies: Exam: CT Head Without Contrast Exam date and time: 01/16/2025 11:25 PM Age: 84 years old Clinical indication: Altered mental status/memory loss; Confusion or disorientation COMPARISON: No relevant prior studies available. FINDINGS: Brain: No acute intracranial hemorrhage or mass lesions. No midline shift. Normal ferrer-white differentiation. There are extensive scattered deep and periventricular white matter changes likely associated with chronic microvascular ischemia. Cerebral ventricles: No ventriculomegaly. Paranasal sinuses: Visualized sinuses are unremarkable. No fluid levels. Mastoid air cells: Visualized mastoid air cells are well aerated. Bones: Unremarkable. No acute fracture. Soft tissues: Unremarkable. Vasculature: Atheromatous calcifications are present bilaterally within the cavernous portions of the internal carotid arteries. IMPRESSION: 1. No acute intracranial findings. 2. Findings likely associated with chronic microvascular ischemia. Exam: CT Chest With Contrast; Diagnostic Exam date and time: 01/16/2025 11:26 PM Age: 84 years old Clinical indication: Febrile, AMS, weak, R/O infectious source COMPARISON: CR XR PORTABLE CHEST AP 01/16/2025 10:36 PM FINDINGS: Lungs: There are diffuse interstitial infiltrates present. This may represent cardiogenic versus noncardiogenic edema. An acute inflammatory process and/or infectious process/pneumonia are not excluded. There is minimal bibasilar atelectasis. [id number] paraseptal emphysematous changes. Mild centrilobular emphysematous changes are present. There is heterogeneous attenuation of the pulmonary parenchyma, consistent with air trapping from underlying small airways disease. Pleural spaces: There is no evidence of pneumothorax. There are no pleural effusions present. Heart: Unremarkable. No cardiomegaly. No pericardial effusion. Coronary arteries: No evidence of coronary artery atherosclerotic plaque or calcification. Lymph nodes: Mild prominence of the mediastinal lymph nodes within the pretracheal region and peribronchial regions may represent reactive lymphadenopathy. Vasculature: The arterial peripheral vasculature demonstrates diffuse mild atherosclerotic calcification. The aorta demonstrates mild atherosclerotic calcification. Bones/joints: The skeletal structures and soft tissues show no evidence of fracture or other acute processes. Soft tissues: The soft tissues of the extrathoracic region are unremarkable. IMPRESSION: 1. There are diffuse interstitial infiltrates present. This may represent cardiogenic versus noncardiogenic edema. An acute inflammatory process and/or infectious process/pneumonia are not excluded. 2. There is heterogeneous attenuation of the pulmonary parenchyma, consistent with air trapping from underlying small airways disease. 3. Mild prominence of the mediastinal lymph nodes within the pretracheal region and peribronchial regions may represent reactive lymphadenopathy. PROCEDURE INFORMATION: Exam: CT Abdomen And Pelvis With Contrast Exam date and time: 01/16/2025 11:26 PM Age: 84 years old Clinical indication: Febrile, AMS, weak, R/O infectious source COMPARISON: CR XR PORTABLE CHEST AP 01/16/2025 10:36 PM FINDINGS: Diaphragm: A small hiatal hernia is present. Liver: The liver is enlarged measuring 16.5 cm. Low-attenuation lesions righ and left t liver lobe likely represent small hepatic cysts. There is no evidence of intrahepatic or extrahepatic biliary ductal dilation. Gallbladder and biliary ducts: The gallbladder is normal. There is no cholelitiasis, wall thickening or pericholecystic fluid to suggest cholecystitis. Pancreas: There is mild pancreatic atrophy and fatty replacement. Spleen: Probable small splenic cyst within the medial aspect of the spleen. The spleen is enlarged. The spleen otherwise appears normal. Adrenal glands: The adrenal glands are normal. Kidneys and ureters: Mild perinephric stranding.. No hydronephrosis. Stomach and bowel: There is mild thickening of the gastric wall with mild soft tissue stranding present. Consider early gastritis. There are fluid-filled loops of small bowel with air-fluid levels. No significant bowel wall thickening or inflammatory changes. No evidence of obstruction. Consider early enteritis. There is no evidence of intestinal obstruction. Appendix: There is no evidence of appendicitis. Intraperitoneal space: Mild haziness within the mesentery may represent mild mesenteritis. There is no free intraperitoneal air. There is no evidence of free intraperitoneal or pelvic fluid. Vasculature: The portal, mesenteric and splenic veins are patent.The aorta demonstrates mild atherosclerotic calcification. The arterial peripheral vasculature demonstrates diffuse mild atherosclerotic calcification. Lymph nodes: There is no evidence of lymphadenopathy. Urinary bladder: There is a nonobstructing bladder calculus present measuring approximately 8 mm in diameter. Reproductive: The prostate gland demonstrates calcification and mild nonspecific enlargement. The seminal vesicles are normal. Bones/joints: The skeletal structures and soft tissues show no evidence of fracture or other acute processes. The thoracolumbar spine demonstrates moderate degenerative changes at multiple levels. The lumbar spine demonstrates mild degenerative changes. The skeletal structures and soft tissues show no evidence of fracture or other acute processes. Soft tissues: There is a fat-containing umbilical hernia. There is a nonobstructing right inguinal hernia containing fat and possibly a small amount of mesentery. IMPRESSION: 1. There is mild thickening of the gastric wall with mild soft tissue stranding present. Consider early gastritis. There are fluid-filled loops of small bowel with air-fluid levels. No significant bowel wall thickening or inflammatory changes. No evidence of obstruction. Consider early gastroenteritis. 2. Mild haziness within the mesentery may represent mild mesenteritis. 3. Mild hepatosplenomegaly Labs 01/16/25 22:15 01/16/25 22:15 Labs: Laboratory Results - last 24 hr 01/16/25 01/17/25 22:15 00:06 WBC 5.97 RBC 4.70 Hgb 14.6 Hct 43.8 MCV 93 MCH 31.1 MCHC 33.3 RDW 13.1 Plt Count 227 MPV 9.9 Immature Gran % 0.3 Neutrophils % 82.3 Lymphocytes % 11.4 Monocytes % 5.5 Eosinophils % 0.0 Basophils % 0.5 Nucleated RBC % 0.0 Absolute Neutrophils 4.91 Absolute Lymphocytes 0.68 L Absolute Monocytes 0.33 Absolute Eosinophils 0.00 Absolute Basophils 0.03 VBG pH 7.41 VBG pCO2 39 L VBG pO2 24 VBG HCO3 25 VBG Total CO2 22 L VBG O2 Saturation 44 VBG Base Excess 0 VBG Lactate 1.9 Sodium 139 Potassium 3.7 Chloride 102 Carbon Dioxide 26.2 Anion Gap 10.8 BUN 13 Creatinine 1.4 H Est GFR (CKD-EPI 2020) 49.87 Glucose 176 H Calcium 8.5 Total Bilirubin 1.9 H AST 18 ALT 29 Alkaline Phosphatase 68 Total Protein 8.0 Albumin 3.7 Procalcitonin 0.28 TSH 1.18 COVID-19 Source Nasopharynx SARS-CoV-2 (PCR) Negative Influenza Type A (PCR) Negative Influenza Type B (PCR) Negative RSV (PCR) Negative Last Vital Signs Temp 39.4 C H 01/16/25 22:09 Pulse 150 H 01/16/25 22:27 Resp 30 H 01/16/25 22:09 BP 157/74 H 01/16/25 22:27 Pulse Ox 98 01/16/25 22:09 Time Spent Time spent with Patient: >75 minutes Time was spent: preparing to see the patient(eg.review tests), obtaining and/or reviewing separately otained hiistory, ordering medications,tests, procedures, indepentently interpreting results, counseling the patient, care coordination and other (Reviewed history and plan of care with grandson.)
--- NOTE | 2025-01-17 02:23 | W.PC.ACHO ---
Registration Status: REG ER Primary Language: Preferred Language: Sami ED Information & Data Chief Complaint AMS/LOC 01/16/25 23:02 Triage Note Mental fog according to 01/16/25 22:04 family. Family reports that the PT seems lethargic along with tremors and left sided lean when sitting. 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/03/16) Primary malignant neoplasm of colon (04/21/12) Primary malignant neoplasm of colon (Last Reviewed 01/17/25 @ 01:45 by Nathaniel Hodges) History of arthroscopy of knee History of hemorrhoidectomy History of orthopedic surgery Status post vasectomy Vasectomy Hemorrhoidectomy ELBOW SURGERY Colonoscopy - MAC (04/20/17) Arthroplasty of knee (~09/2012) Most Recent Vital Signs Temperature 39.4 C H 01/16/25 22:09 Temperature Source Oral 01/16/25 22:09 Pulse 131 H 01/17/25 02:10 Pulse 102 H 01/17/25 02:10 Respiratory Rate 20 01/17/25 02:10 Respiratory Effort Normal 01/17/25 01:55 Respiratory Depth Normal 01/17/25 01:55 Respiratory Pattern Normal 01/17/25 01:55 Blood Pressure 114/54 L 01/17/25 02:06 Blood Pressure Mean 68 01/17/25 02:06 Blood Pressure Position Sitting 01/16/25 22:09 Pulse Oximetry 93 01/17/25 02:10 Oxygen Delivery Method Room Air 01/16/25 22:09 Oxygen Flow Rate 0 01/16/25 22:09 Pain Level 0 01/17/25 02:19 Allergies No Known Allergies Allergy (Verified 01/17/25 02:10) Active Medications Generic Name Dose Route Start Last Admin Trade Name Freq PRN Reason Stop Dose Admin Iohexol 100 ml 01/16/25 23:45 01/16/25 23:39 Omnipaque 350 Mg/Ml 100 Ml Btl IJ 02/15/25 23:59 100 ml DIRECTED LIAM Administration Sodium Chloride 50 ml 01/16/25 23:45 01/16/25 23:40 Normal Saline - Diluent 50 Ml Vial IJ 50 ml .FOR DI USE LIAM Administration IV IV Catheter Type [Left Hand] Saline Lock IV Catheter Type [Right Saline Lock Antecubital] IV Catheter Gauge [Left Hand] 20 IV Catheter Gauge [Right 18 Antecubital] Diagnostics 01/17/25 01/17/25 01/16/25 Range/Units 01:56 00:06 22:15 WBC 5.97 (4.4-10.8) 10^3/uL RBC 4.70 (4.36-5.78) 10^6/uL Hgb 14.6 (13.5-17.5) g/dL Hct 43.8 (40.0-50.0) % MCV 93 (80-95) fL MCH 31.1 (27.0-33.0) pg MCHC 33.3 (32.0-36.0) % RDW 13.1 (11.8-14.1) % Plt Count 227 (130-400) 10^3/uL MPV 9.9 (8.0-11.0) fL Immature Gran % 0.3 % Neutrophils % 82.3 % Lymphocytes % 11.4 % Monocytes % 5.5 % Eosinophils % 0.0 % Basophils % 0.5 % Nucleated RBC % 0.0 (0.0-0.3) % Absolute Neutrophils 4.91 (1.2-6.7) 10^3/uL Absolute Lymphocytes 0.68 L (1.2-3.4) 10^3/uL Absolute Monocytes 0.33 (0.1-0.8) 10^3/uL Absolute Eosinophils 0.00 (0.0-0.7) 10^3/uL Absolute Basophils 0.03 (0.0-0.2) 10^3/uL VBG pH 7.41 (7.31-7.41) VBG pCO2 39 L (41-51) mmHg VBG pO2 24 mmHg VBG HCO3 25 (23-28) mmol/L VBG Total CO2 22 L (24-29) mmol/L VBG O2 Saturation 44 % VBG Base Excess 0 (-2-3) mmol/L VBG Lactate 1.9 (<or=2.0) mmol/L Sodium 139 (136-145) mmol/L Potassium 3.7 (3.5-5.1) mmol/L Chloride 102 (98-107) mmol/L Carbon Dioxide 26.2 (21.0-32.0) mmol/L Anion Gap 10.8 (3-11) mmol/L BUN 13 (7-18) mg/dL Creatinine 1.4 H (0.70-1.30) mg/dL Est GFR (CKD-EPI 2020) 49.87 (mL/min/1.73m2) Glucose 176 H (74-106) mg/dL Calcium 8.5 (8.5-10.1) mg/dL Total Bilirubin 1.9 H (0.2-1.0) mg/dL AST 18 (15-37) U/L ALT 29 (16-63) U/L Alkaline Phosphatase 68 (46-116) U/L Total Protein 8.0 (6.4-8.2) g/dL Albumin 3.7 (3.4-5.0) g/dL Procalcitonin 0.28 ng/mL TSH 1.18 (0.36-3.74) uIU/mL Urine Color Pending Urine Clarity Pending Urine pH Pending Ur Specific [place] Pending Urine Protein Pending Urine Ketones Pending Urine Blood Pending Urine Nitrite Pending Urine Bilirubin Pending Urine Urobilinogen Pending Ur Leukocyte Esterase Pending Urine Glucose Pending B. divergens/MO-1 PCR Pending Babesia duncani (PCR) Pending Babesia microti DNA PCR Pending Lyme Disease Antibody Pending COVID-19 Source Nasopharynx SARS-CoV-2 (PCR) Negative (Negative) E.chaffeensis DNA (PCR) Pending E.ewingii/canis DNA PCR Pending E.muris eauclairensis (PCR) Pending Influenza Type A (PCR) Negative (Negative) Influenza Type B (PCR) Negative (Negative) RSV (PCR) Negative (Negative) A. phagocytophilum (PCR) Pending Blood B. miyamotoi (PCR) Pending 01/17/25 01:56 Urine Culture - Pending Urine - Voided 01/16/25 22:47 Blood Culture - Pending Blood 01/16/25 22:15 Blood Culture - Pending Blood Intake and Output - 24 Hour Total 01/16/25 21:55 thru 01/17/25 02:04 Intake Total 800 Balance 800 Weight 108.862 kg Intake: IV 800 Falls Risk Assessment History of Falls No History 01/16/25 22:09 Contributing Factors No Factors 01/16/25 22:09 Ambulatory Aids Independent 01/16/25 22:09 Tubes/Lines None 01/16/25 22:09 Gait Evaluation No gait disturbance 01/16/25 22:09 Cognition No cognitive impairment 01/16/25 22:09 Fall Total Score 0 01/16/25 22:09 Level of Risk Standard/Low Risk 01/16/25 22:09 Problems (Last Reviewed 01/17/25 @ 01:45 by Nathaniel Hodges) Acute dehydration (Acute) Atrial fibrillation with RVR (Acute) Pneumonia (Acute) Sepsis (Acute) Chronic obstructive lung disease (Acute) Essential hypertension (Acute 05/29/13) Hypothyroidism (Acute 12/05/14) v v v v v v v v v Sending and/or Receiving Nurses: Please use comment section below to note any information pertinent to the patient hand-off not included above. Information / Comments: Report taken from [employer] Amara, patient came in w/ PNA, CT shows fluid in the lungs. [place], has history of Afib, was given Cardizem. Bilateral g.18 on AC. Doxy and Piptaz administered. Remains w/ temp of 39.4. AO x 3. Report received from:
[2025-01-17] MEDS: Normal Saline Flush 10 ML SYR IVP ×3 (04:05→19:56)
[2025-01-17] MEDS: PIPERACILLIN/TAZO 3.375 GM in Normal Saline 50 ML IVPB (04:06)
[2025-01-17] MEDS: Levothyroxine 50 MCG TAB PO (05:57)
[2025-01-17 06:51] LABS: HCT 40.8 % (40.0-50.0); HGB 13.7 g/dL (13.5-17.5); MCH 31.2 pg (27.0-33.0); MCHC 33.6 % (32.0-36.0); MCV 93 fL (80-95); MPV 10.6 fL (8.0-11.0); Platelet Count 178 10^3/uL (130-400); RBC 4.39 10^6/uL (4.36-5.78); RDW 13.1 % (11.8-14.1); RDW-SD 44.9 fL; WBC 7.35 10^3/uL (4.4-10.8)
[2025-01-17 07:12] LABS: ALT 26 U/L (16-63); AST 18 U/L (15-37); Albumin 3.0 g/dL (3.4-5.0); Alkaline Phosphatase 56 U/L (46-116); Anion Gap 8.9 mmol/L (3-11); BUN 12 mg/dL (7-18); Bilirubin, Total 1.5 mg/dL (0.2-1.0); CO2 23.1 mmol/L (21.0-32.0); Calcium 8.1 mg/dL (8.5-10.1); Chloride 108 mmol/L (98-107); Estimated GFR 54.51 (mL/min/1.73m2); Glucose 126 mg/dL (74-106); Magnesium 2.1 mg/dL (1.8-2.4); Potassium 3.7 mmol/L (3.5-5.1); Sodium 140 mmol/L (136-145); Total Protein 6.8 g/dL (6.4-8.2)
[2025-01-17] MEDS: Tiotropium Bromide-Respimat 10 PUFF INH 2 PUFF IH (08:13)
[2025-01-17 08:15] LABS: Glucose Negative (Negative)
[2025-01-17 08:24] LABS: RBC 0-2 HPF (0-2); WBC 0-2 HPF (0-5)
--- NOTE | 2025-01-17 08:34 | W.PULMCON ---
General Date Of Service Date of service: 01/17/25 Time of Service: 08:00 Requesting physician: Shine Pineda Reason for Consult: Respiratory failure Recommendations: Assessment: 1. COPD exacerbation 2. Acute respiratory failure 3. Altered mental status Recommendations: - given normal WBC, normal procal, and lack of consolidation on CT chest imaging, so not see clear evidence of an active pneumonia at this time. CT report noted diffuse interstitial infiltrates, however, is rather subtle on my read. Has some bibasilar atelectasis that is mild. Given this, can d/c vancomycin and zosyn. Will continue doxycycline for COPD exacerbation - start prednisone 50 mg daily for COPD exacerbation - continue bronchodilators - re-evaluate in the AM. If continues to improve, may be ready for discharge in the AM Discussed with Dr. Pineda History of Present Illness Narrative: HPI: Patient is an 84 yo with a history of COPD and recent pneumonia, who was admitted on 01/16/25 for altered mental status and dyspnea. Had a fever of 39.4 in the ED. Denied any sick contacts at home. Flu and COVID PCR were negative. CT chest did not show any consolidation. Mild diffuse interstitial infiltrates were noted in report. Procal was 0.28. WBC 7.35. VBG did not show any CO2 retention. He was started on broad spectrum antibiotics and admitted. He states he is feeling much better this AM. Has a cough with yellowish sputum production. Denied chest pain. Currently on room air. Smoking history: smoked 1 ppd x 45 years. Quit 1999 Family history: grandfather - lung cancer ROS: 10 pt ROS negative except as in HPI PFSH All Active Problems (Updated 01/17/25 @ 06:59 by Nathaniel Hodges) Acute dehydration (Acute) Atrial fibrillation with RVR (Acute) Pneumonia (Acute) Acute kidney injury (Acute) Dehydration (Acute) Sepsis (Acute) Right hip pain (Acute) Exertional dyspnea (Acute) Tubular adenoma of colon (Acute) BPH (benign prostatic hyperplasia) (Acute) Stable. Voiding without difficulty. Continue to monitor. Chronic obstructive lung disease (Chronic) O2 saturation 95-97% both at rest and with ambulating in the halls greater than 150 at a fast pace. Long discussion regarding her portable oxygen and not being helpful for his symptoms. Using albuterol prophylactically for increased activity. I also offered pulmonary function tests and or referral to pulmonology. Patient declined both. I stressed that his VILLEDA is not related to low oxygen levels but more to a functional issue with his respiratory status. Encouraged him to focus on weight loss and maintain activity. I encouraged him to call for f/u so we could spend more time on this condition. Chronic pain of left wrist (Acute 09/14/16) Essential hypertension (Acute 05/29/13) Gastroesophageal reflux disease (Acute) Taking ranitidine 150 mg daily with good control of his GERD symptoms. Continue and monitor. Hypothyroidism (Chronic 12/05/14) Increased BMI (body mass index) (Acute 12/27/16) . BMI is 32%. He has remained stable over the last several years. Encouraged to stay active. We did talk about again making healthy diet choices and portion control. 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 states no arthoplasty but ARTHROSCOPY Family History Mother , AGE 76 Bone cancer Father , AGE 85 Diabetes Essential hypertension Hyperlipidemia Stroke Sister Essential hypertension Hyperlipidemia Maternal Grandfather Lung cancer Paternal Grandfather Heart disease Stroke Maternal Grandmother , Age 98 Diabetes Asthma Paternal Grandmother Heart disease Stroke Social History Smoking/Tobacco Use Status: Former Tobacco Use tobacco type: cigarettes Quit Date: 09/12/99 Second Hand Exposure: Yes Smoking risk assessment performed?: Yes Alcohol Intake: former Drug use: Never Substance use type: does not use Adopted: No Caregiver/Support person: Yes Household members: spouse Housing: house Number of Children: 2 number of grandchildren: 2 Communication Needs: Hard of Hearing Education Level: college Details: 1 year Do you need help understanding health information?: Never current occupation: Retired Pets and animals: No Sexually active: No Do you think of yourself as: straight/heterosexual Current gender identity: male What is your relationship status?: How often do you talk on the phone with friends or family?: three or more times per week How often do you get together with friends or relatives?: three or more times per week How often do you attend restoration or pentecostal services?: decline to answer Do you belong to any clubs or organized social groups?: no Panel score (0-1 are the most socially isolated patients): 2 Duration: < 15 minutes/day Do you feel safe at home: Yes Do you feel safe in your relationship?: Yes Visit Medication and Allergies Active Medications Generic Name Dose Route Start Last Admin Trade Name Freq PRN Reason Stop Dose Admin Acetaminophen 650 mg 01/17/25 02:50 Acetaminophen 325 Mg Tab PO Q4H PRN PRN Al Hydrox/Mg Hydrox/Simethicone 30 ml 01/17/25 02:50 Mylanta Suspension 30 Ml Cup PO Q2H PRN PRN Albuterol Sulfate 2 puff 01/17/25 02:50 Albuterol Hfa 8 Gm 60 Puff Inh IH Q4H PRN shortness of breath or wheezing Albuterol/Ipratropium 3 ml 01/17/25 02:50 Albuterol/Ipratropium 3 Ml Upd Vial IH QID PRN Wheezing Docusate Sodium 100 mg 01/17/25 02:50 Docusate Sodium 100 Mg Cap PO TID PRN PRN Enoxaparin Sodium 40 mg 01/17/25 08:30 Enoxaparin 40 Mg/0.4 Ml Syr SC DAILY LIAM Sodium Chloride 1,000 mls @ 125 mls/hr 01/17/25 02:50 Saline 1000ml Bag IV INFUSION LIAM Vancomycin HCl 1,250 mg/ 250 mls @ 167 mls/hr 01/17/25 08:30 Sodium Chloride IVPB .PER PROTOCOL LIAM Piperacillin Sod/Tazobactam 50 mls @ 100 mls/hr 01/17/25 04:00 01/17/25 05:15 Sod 3.375 gm/ Sodium Chloride IVPB Infused Q6H LIAM Infusion Doxycycline Hyclate 100 mg/ 100 mls @ 100 mls/hr 01/17/25 08:00 Sodium Chloride IVPB Q12H LIAM Vancomycin HCl 1,250 mg/ 250 mls @ 166.667 mls/hr 01/18/25 00:00 Sodium Chloride IVPB Q24H LIAM IV Miscellaneous Supplies 1 each 01/16/25 22:15 Iv Access IV DIRECTED LIAM Levothyroxine Sodium 50 mcg 01/17/25 06:00 01/17/25 05:57 Levothyroxine 50 Mcg Tab PO 50 mcg 0600 LIAM Administration Magnesium Hydroxide 30 ml 01/17/25 02:50 Milk Of Magnesia 30 Ml Cup PO DAILY PRN PRN Polyethylene Glycol 17 gm 01/17/25 02:50 Polyethylene Glycol 3350 17 Gm Packet PO DAILY PRN PRN Constipation Sodium Chloride 0 ml 01/16/25 22:15 01/17/25 04:05 Normal Saline Flush 10 Ml Syr IVP 10 ml PRN PRN Administration Sodium Chloride 0 ml 01/17/25 08:30 Normal Saline Flush 10 Ml Syr IVP BID LIAM Sodium Chloride 0 ml 01/16/25 22:15 Normal Saline 10 Ml Vial IJ DIRECTED PRN Tiotropium [place] 2 puff 01/17/25 08:30 01/17/25 08:13 Tiotropium [place]-Respimat 10 Puff Inh IH 2 inh DAILY LIAM Administration Allergies No Known Allergies Allergy (Verified 01/17/25 02:10) Exam Narrative Exam Narrative: General: alert, no acute distress Head: normocephalic ENT: no stridor, trachea midline CV: normal rate, regular rhythm Respiratory: mild end expiratory wheezing, no crackles, no rhonchi, no prolonged expiration GI: abd soft, non-tender, non-distended Skin: no rashes Extremities: no edema, no digital clubbing Psych: normal affect Results Last Vital Signs Temp 36.3 C L 01/17/25 07:09 Pulse 97 H 01/17/25 07:09 Resp 16 01/17/25 07:09 BP 96/60 L 01/17/25 07:09 Pulse Ox 93 01/17/25 07:09 Labs 01/17/25 06:23 01/17/25 06:23 Labs: Laboratory Results - last 24 hr 01/16/25 01/17/25 01/17/25 22:15 00:06 06:23 WBC 5.97 7.35 RBC 4.70 4.39 Hgb 14.6 13.7 Hct 43.8 40.8 MCV 93 93 MCH 31.1 31.2 MCHC 33.3 33.6 RDW 13.1 13.1 Plt Count 227 178 MPV 9.9 10.6 Immature Gran % 0.3 Neutrophils % 82.3 Lymphocytes % 11.4 Monocytes % 5.5 Eosinophils % 0.0 Basophils % 0.5 Nucleated RBC % 0.0 Absolute Neutrophils 4.91 Absolute Lymphocytes 0.68 L Absolute Monocytes 0.33 Absolute Eosinophils 0.00 Absolute Basophils 0.03 VBG pH 7.41 VBG pCO2 39 L VBG pO2 24 VBG HCO3 25 VBG Total CO2 22 L VBG O2 Saturation 44 VBG Base Excess 0 VBG Lactate 1.9 Sodium 139 140 Potassium 3.7 3.7 Chloride 102 108 H Carbon Dioxide 26.2 23.1 Anion Gap 10.8 8.9 BUN 13 12 Creatinine 1.4 H 1.3 Est GFR (CKD-EPI 2020) 49.87 54.51 Glucose 176 H 126 H Calcium 8.5 8.1 L Magnesium 2.1 Total Bilirubin 1.9 H 1.5 H AST 18 18 ALT 29 26 Alkaline Phosphatase 68 56 Total Protein 8.0 6.8 Albumin 3.7 3.0 L Procalcitonin 0.28 TSH 1.18 Urine Color Urine Clarity Urine pH Ur Specific [place] Urine Protein Urine Ketones Urine Blood Urine Nitrite Urine Bilirubin Urine Urobilinogen Ur Leukocyte Esterase Urine RBC Urine WBC Ur Epithelial Cells Urine Crystals Urine Bacteria Urine Casts Urine Mucus Ur Culture Indicated? Urine Glucose COVID-19 Source Nasopharynx SARS-CoV-2 (PCR) Negative Influenza Type A (PCR) Negative Influenza Type B (PCR) Negative RSV (PCR) Negative 01/17/25 07:48 WBC RBC Hgb Hct MCV MCH MCHC RDW Plt Count MPV Immature Gran % Neutrophils % Lymphocytes % Monocytes % Eosinophils % Basophils % Nucleated RBC % Absolute Neutrophils Absolute Lymphocytes Absolute Monocytes Absolute Eosinophils Absolute Basophils VBG pH VBG pCO2 VBG pO2 VBG HCO3 VBG Total CO2 VBG O2 Saturation VBG Base Excess VBG Lactate Sodium Potassium Chloride Carbon Dioxide Anion Gap BUN Creatinine Est GFR (CKD-EPI 2020) Glucose Calcium Magnesium Total Bilirubin AST ALT Alkaline Phosphatase Total Protein Albumin Procalcitonin TSH Urine Color Yellow Urine Clarity Clear Urine pH 6.0 Ur Specific [place] 1.010 Urine Protein 100 H Urine Ketones Negative Urine Blood Small H Urine Nitrite Negative Urine Bilirubin Negative Urine Urobilinogen 1.0 H Ur Leukocyte Esterase Negative Urine RBC 0-2 Urine WBC 0-2 Ur Epithelial Cells Rare Urine Crystals Negative Urine Bacteria Few Urine Casts Negative Urine Mucus Negative Ur Culture Indicated? C&S Done As Ordered Urine Glucose Negative COVID-19 Source SARS-CoV-2 (PCR) Influenza Type A (PCR) Influenza Type B (PCR) RSV (PCR) Imaging CT scan - chest: report reviewed and image reviewed
[2025-01-17] MEDS: predniSONE 20 MG TAB 40 MG PO (09:08)
[2025-01-17] MEDS: DOXYCYCLINE 100 MG in Normal Saline 100 ML IVPB ×2 (09:08→19:56)
[2025-01-17] MEDS: Enoxaparin 40 MG/0.4 ML SYR SC (09:08)
[2025-01-17] MEDS: Albuterol/Ipratropium 3 ML UPD VIAL IH ×4 (09:21→20:19)
--- NOTE | 2025-01-17 10:43 | PDOC.CMIN ---
Date of service: 01/17/25 Time of Service: 10:43 Care Management Initial Assmt Initial Assessment Reason for Hospitalization: Sepsis Functional Status/Living Situation Patient Presentation: Diallo was sitting up in bed when CM met with him. He was pleasant in interaction and agreeable to conversation. Diallo was admitted yesterday with pneumonia and altered mental status but was not hypoxic. He did well overnight and is feeling better today, although he is still coughing. His mentation is back to baseline. Diallo lives in a single family home in [place] with his Mariajose. He has one daughter who lives in [place], however they have been estranged for many years. She had one son but he has been in his grandparents' (Diallo and Mariajose) custody from . Diallo is retired and is financially stable with 4 sources of income. He was in the for 20 years, then worked for the [employer] for another 19 years. He was granted disability payments as well for hearing impairment and some other conditions about which he did not elaborate. Diallo uses a cane occasionally but is independent at baseline and does not receive any community services. He did ask about Meals on Wheels and has agreed to a referral to [facility] for Options Counseling and shelter planning as well as Meals on Wheels.Diallo shared that his is not in good health and he is concerned about his ability to care forher in the future. She has oxygen dependnet COPD and macular degeneration.It is hoped that there may be some programs through [facility] that could be helpful. Town of Residence: [place] Resides with: Spouse (Mariajose) Significant Other/Family: Local Natural Supports: and grandson Employment Status: Retired Instrumental Activities of Daily Living (ADLs): Independent Medications Medication Management: No Issues/Barriers identified Physical Functioning/Mobility Assistive Device: cane Advance Directives Advance Directives: Do you have an Advance Directive: N 02/07/23, 13:21 AD On File at [facility]: N 02/07/23, 13:21 Date Asked 01/16/25 01/16/25, 22:12 AD Date Reviewed COLST On File at [facility] COLST Date Scanned Code Status Resuscitation Status Full Code Insurance Coverage/Financial Issues Insurance: [employer] Care Team Visit Care Team Role Provider Type More Orozco APRN MD [facility] STAFF PHYSICIAN Umu Mims, OPHTHALMIC SURGEON Primary Care Provider NURSE PRACTITIONER [facility] Other Providers OTHER [place] DO Emergency Provider [facility] STAFF PHYSICIAN Nathaniel Hodges Admit Provider NON-[facility] STAFF PHYSICIAN Attending Provider Discharge Potential Discharge Needs: PT Evaluation Anticipated Barriers to Discharge: None Identified Patient/Family Education Needs: Review discharge instructions, discuss Ask Me Three Transportation: Private vehicle Plan: Anticipate Michelle will be discharged home with no new services when medically stable. He will follow up with his community providers and plan of care and transport with family. CM will follow and continue to assess for discharge needs. Social Determinants of Health Screening Social Determinants of health last assessed in clinic: 01/17/25 Will the Patient Participate in the Screening?: Yes Do you worry about having a steady place to live?: yes What is your living situation today?: I have housing today, but am worried about losing it Problems where you live: no known problems In the past 12 months, have you had to go without electric, gas, oil or water in your home?: no 1. Within the past 12 months, we worried whether our food would run out before we got money to buy more.: Never true 2. Within the past 12 months, the food we bought just didn't last and we didn't have money to get more.: Never true Has lack of transportation kept you from medical appointments or from doing things needed for daily living?: no Has anyone in your life made you feel unsafe or unsupported?: no How hard is it for you to pay for the very basics like food, housing, medical care, and heating? Would you say it is:: Not hard at all Do you want help finding or keeping work or a job?: I do not need or want help If for any reason you need help with day-to-day activities such as bathing, preparing meals, shopping, managing finances, etc., do you get the help you need?: I get all the help I need How often do you feel lonely or isolated from those around you?: Never Do you speak a language other than Yoruba at home?: No Does the patient want assistance with any of the above?: No Health Related Social Needs Health related social needs: housing instability, housed, with risk of homelessness (Z59.811) Health related social needs details: not applicable [facility] All Active Problems (Updated 01/17/25 @ 06:59 by Nathaniel Hodges) Acute dehydration (Acute) Atrial fibrillation with RVR (Acute) Pneumonia (Acute) Acute kidney injury (Acute) Dehydration (Acute) Sepsis (Acute) Right hip pain (Acute) Exertional dyspnea (Acute) Tubular adenoma of colon (Acute) BPH (benign prostatic hyperplasia) (Acute) Stable. Voiding without difficulty. Continue to monitor. Chronic obstructive lung disease (Chronic) O2 saturation 95-97% both at rest and with ambulating in the halls greater than 150 at a fast pace. Long discussion regarding her portable oxygen and not being helpful for his symptoms. Using albuterol prophylactically for increased activity. I also offered pulmonary function tests and or referral to pulmonology. Patient declined both. I stressed that his VILLEDA is not related to low oxygen levels but more to a functional issue with his respiratory status. Encouraged him to focus on weight loss and maintain activity. I encouraged him to call for f/u so we could spend more time on this condition. Chronic pain of left wrist (Acute 09/14/16) Essential hypertension (Acute 05/29/13) Gastroesophageal reflux disease (Acute) Taking ranitidine 150 mg daily with good control of his GERD symptoms. Continue and monitor. Hypothyroidism (Chronic 12/05/14) Increased BMI (body mass index) (Acute 12/27/16) . BMI is 32%. He has remained stable over the last several years. Encouraged to stay active. We did talk about again making healthy diet choices and portion control. 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 states no arthoplasty but ARTHROSCOPY Family History Mother , AGE 76 Bone cancer Father , AGE 85 Diabetes Essential hypertension Hyperlipidemia Stroke Sister Essential hypertension Hyperlipidemia Maternal Grandfather Lung cancer Paternal Grandfather Heart disease Stroke Maternal Grandmother , Age 98 Diabetes Asthma Paternal Grandmother Heart disease Stroke Social History Smoking/Tobacco Use Status: Former Tobacco Use tobacco type: cigarettes Quit Date: 09/12/99 Second Hand Exposure: Yes Smoking risk assessment performed?: Yes Alcohol Intake: former Drug use: Never Substance use type: does not use Adopted: No Caregiver/Support person: Yes Household members: spouse Housing: house Number of Children: 2 number of grandchildren: 2 Communication Needs: Hard of Hearing Education Level: college Details: 1 year Do you need help understanding health information?: Never current occupation: Retired Pets and animals: No Sexually active: No Do you think of yourself as: straight/heterosexual Current gender identity: male What is your relationship status?: How often do you talk on the phone with friends or family?: three or more times per week How often do you get together with friends or relatives?: three or more times per week How often do you attend orthodoxy or shinto services?: decline to answer Do you belong to any clubs or organized social groups?: no Panel score (0-1 are the most socially isolated patients): 2 Duration: < 15 minutes/day Do you feel safe at home: Yes Do you feel safe in your relationship?: Yes Readmission Within the Past 30 Days Yes or No: Yes Date of First Admission Date of 1st Admission: 02/02/25 Date of this Admission Date of Admission: 01/17/25 This admission was: Through ED
--- NOTE | 2025-01-17 11:24 | PHA.REVIEW2 ---
Pharmacy Admission Review Admission Clinical Review Admission Pharmacy Review: Acute dehydration (Acute) Atrial fibrillation with RVR (Acute) Pneumonia (Acute) Sepsis (Acute) Essential hypertension (Acute 05/29/13) No Known Allergies Allergy (Verified 01/17/25 02:10) Resuscitation Status Full Code Height 6 ft Weight 99.79 kg Comments Comments/Follow Ups: Watch BP, HR, SCr, labs, for culture results and for med changes (possible renal dose adjustments) Pharmacy Admission Review Renal Dosing Renal Dosing: BUN 12 mg/dL (7-18) 01/17/25 06:23 Creatinine 1.3 mg/dL (0.70-1.30) 01/17/25 06:23 Medications needing adjustments: Reviewed (Crcl ~52.7 mL/min current meds are okay.) Anticoagulation Anticoagulation: Hgb 13.7 g/dL (13.5-17.5) 01/17/25 06:23 Hct 40.8 % (40.0-50.0) 01/17/25 06:23 Plt Count 178 10^3/uL (130-400) 01/17/25 06:23 Creatinine 1.3 mg/dL (0.70-1.30) 01/17/25 06:23 DVT Prophylaxis: Reviewed Medications: Enoxaparin Opiate Usage Evaluate Pain Scale/Pains Meds: N/A Relevant Labs Relevant Labs: Sodium 140 mmol/L (136-145) 01/17/25 06:23 Potassium 3.7 mmol/L (3.5-5.1) 01/17/25 06:23 Chloride 108 mmol/L (98-107) H 01/17/25 06:23 Magnesium 2.1 mg/dL (1.8-2.4) 01/17/25 06:23 Electrolytes, C-Reactive P, ESR: Reviewed DM Control DM Control: Glucose 126 mg/dL (74-106) H 01/17/25 06:23 DM Control: Reviewed (No DM noted in medical history, A1c 5.6 on 02/2024) Cardiac Review BP, HR, EF%: Reviewed (BP low to normal and HR has been normal to high so far this admission) QTc Review QTc: Reviewed (QTc 501 on EKG done yesterday, current meds are okay) IV to PO Switch IV Medications: Reviewed Home Meds Home Med List reviewed: Reviewed Relevent Home Meds Not ordered & why?: amlodipine, betamethasone (PRN), tiotropium (inpatient order d/c'd by pulm, pt has scheduled duonebs ordered), triamcinolone (PRN) Current Meds Current Medication Order Review: Intervened (Adjusted albuterol order so PRN in sky. and freq. of the order so crosses to pyxis correctly.) Pharmacy Antibiotic Review Relevant Labs: Relevant Labs 01/16/25 22:15 Procalcitonin 0.28 Pharmacy Antibiotic Activity: C/S review and D/C antibiotic Comments: Vancomycin and Zosyn discontinued by pulm. Doxycycline continues for COPD exacerbation. Blood and urine cultures are pending. Comments Comments/Follow Ups: Watch BP, HR, SCr, labs, for culture results and for med changes (possible renal dose adjustments)
--- NOTE | 2025-01-17 15:57 | PT.INNT ---
PT Notes Visit Reasons: Sepsis, bilateral pneumonia, atrial fibrillation w Patient not availble whne PT tried to come in room. Patient in the middle of pulmonary treatment with RT. Will evaluate patient tomorrow morning as ordered.
--- NOTE | 2025-01-17 16:40 | CHAPLAIN ---
Michelle was sitting up at the edge of the bed when I visited. He was pleasant and easily engaged in conversation. He said his is homebound and they are both over 80. His grandson looks after us he said, and his grandson's employer often helps out as well. Michelle talked about the charities he contributes to ([employer] and a free lunch site in [facility]) where he is sure most of the money is used to help people. He is originally from [place] and went to but lives in [place] now. He expects his grandson will be in tonight to visit, and maybe some friends as well. Michelle is interested in getting Meals on Wheels for he and his , so I let Line Department Supervisor, Ghislaine Edward know that.
[2025-01-18 03:16] VITALS: BP 110/66; PULSE 77; RESP 17; TEMP 36; O2SAT 99
[2025-01-18] MEDS: Levothyroxine 50 MCG TAB PO (05:49)
[2025-01-18 06:34] LABS: HCT 38.7 % (40.0-50.0); HGB 13.2 g/dL (13.5-17.5); MCH 31.4 pg (27.0-33.0); MCHC 34.1 % (32.0-36.0); MCV 92 fL (80-95); MPV 10.7 fL (8.0-11.0); Platelet Count 210 10^3/uL (130-400); RBC 4.20 10^6/uL (4.36-5.78); RDW 13.2 % (11.8-14.1); RDW-SD 45.1 fL; WBC 7.75 10^3/uL (4.4-10.8)
[2025-01-18 06:57] LABS: ALT 27 U/L (16-63); AST 17 U/L (15-37); Albumin 3.2 g/dL (3.4-5.0); Alkaline Phosphatase 60 U/L (46-116); Anion Gap 7.1 mmol/L (3-11); BUN 14 mg/dL (7-18); Bilirubin, Total 0.6 mg/dL (0.2-1.0); CO2 26.9 mmol/L (21.0-32.0); Calcium 9.3 mg/dL (8.5-10.1); Chloride 108 mmol/L (98-107); Estimated GFR 66.61 (mL/min/1.73m2); Glucose 137 mg/dL (74-106); Magnesium 2.1 mg/dL (1.8-2.4); Potassium 3.8 mmol/L (3.5-5.1); Sodium 142 mmol/L (136-145); Total Protein 7.3 g/dL (6.4-8.2)
[2025-01-18 07:18] VITALS: BP 129/70; PULSE 80; RESP 18; TEMP 36.2; O2SAT 97
[2025-01-18 07:50] VITALS: PULSE 75; RESP 18; O2SAT 96
[2025-01-18] MEDS: Albuterol/Ipratropium 3 ML UPD VIAL IH (07:50)
[2025-01-18] MEDS: Enoxaparin 40 MG/0.4 ML SYR SC (08:06)
[2025-01-18] MEDS: predniSONE 20 MG TAB 40 MG PO (08:06)
[2025-01-18] MEDS: amLODIPine 10 MG TAB PO (08:06)
[2025-01-18] MEDS: Normal Saline Flush 10 ML SYR IVP (08:06)
[2025-01-18] MEDS: DOXYCYCLINE 100 MG in Normal Saline 100 ML IVPB (08:13)
--- NOTE | 2025-01-18 08:40 | IN_ITS ---
PT Notes Visit Reasons: Sepsis, bilateral pneumonia, atrial fibrillation w Physical Therapy Inpatient Initial Evaluation Date: 01/18/2025 Referring Doctor: Shine Pineda MD PT Orders: PT CONSULT: Safety Consult for D/C Precautions: Fall. Standard. Activity as tolerated. Patient Profile/Admitting Diagnosis: Michelle is an 84-year-old male admitted to the ED due to altered mental status, generalized weakness, and shortness of breath. He is admitted to [facility] of care for management of sepsis, acute dehydration, pneumonia, AF, essential hypertension, COPD exacerbation, and hypothyroidism. PMHX: All Active Problems (Updated 01/17/25 @ 06:59 by Nathaniel Hodges) Acute dehydration (Acute) Atrial fibrillation with RVR (Acute) Pneumonia (Acute) Acute kidney injury (Acute) Dehydration (Acute) Sepsis (Acute) Right hip pain (Acute) Exertional dyspnea (Acute) Tubular adenoma of colon (Acute) BPH (benign prostatic hyperplasia) (Acute) Stable. Voiding without difficulty. Continue to monitor. Chronic obstructive lung disease (Chronic) Chronic pain of left wrist (Acute 09/14/16) Essential hypertension (Acute 05/29/13) Gastroesophageal reflux disease (Acute) Taking ranitidine 150 mg daily with good control of his GERD symptoms. Continue and monitor. Hypothyroidism (Chronic 12/05/14) Increased BMI (body mass index) (Acute 12/27/16) BMI is 32%. He has remained stable over the last several years. Encouraged to stay active. We did talk about again making healthy diet choices and portion control. Ulnar neuropathy (Acute) Vitamin B 12 deficiency (Acute 12/10/14) Nondependent alcohol abuse, in remission (Acute 05/29/13) Knee pain (Acute 05/29/13) bilateralHyperglycemia (Acute) Medical History History of PSVT (paroxysmal supraventricular tachycardia) Paroxysmal SVT (supraventricular tachycardia) 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 Does and laundry. Has 6 steps to enter the house and a flight of steps to the basement where the laundry room is. Equipment Owned/DME: FWW, [facility] Subjective: Worried about . Unsure about accepting HH PT as he did not have a good experience with them before. Objective: General Observation: Rsting on bedside chair. IV through L UE. Mental Status: Alert and oriented as to person, place, time, and purpose. Able to pay attention, focus, and respond appropriately. Pain: None reported Vital Signs: BP 142/71 mmHg, HR 98 bpm, SaO2 98% on RA after walking 150 feet ROM: Right Upper Extremity: Shoulder Flexion WFL. Shoulder abduction WFL. Elbow flexion WFL. Wrist flexion WFL. Functional opening and closing of hand WFL. Left Upper Extremity: Shoulder Flexion WFL. Shoulder abduction WFL. Elbow flexion WFL. Wrist flexion WFL. Functional opening and closing of hand WFL. Right Lower Extremity: Hip flexion WFL. Hip abduction WFL. Knee flexion WFL. Ankle dorsiflexion to neutral only. Ankle plantarflexion WFL. Left Lower Extremity: Hip flexion WFL. Hip abduction WFL. Knee flexion WFL. Ankle dorsiflexion to neutral only. Ankle plantarflexion WFL. Strength: Right Upper Extremity: Shoulder flexors 4/5. Shoulder abductors 4/5. Elbow flexors 5/5. Elbow extensors 5/5. Signal Mechanic strong. Left Upper Extremity: Shoulder flexors 4/5. Shoulder abductors 4/5. Elbow flexors 5/5. Elbow extensors 5/5. Signal Mechanic strong. Right Lower Extremity: Hip flexors 4-/5. Hip abductors 4-/5. Knee flexors 4/5. Knee extensors 4-/5. Ankle dorsiflexors 3-/5. Ankle plantarflexors 4-/5. Left Lower Extremity: Hip flexors 4-/5. Hip abductors 4-/5. Knee flexors 4/5. Knee extensors 4-/5. Ankle dorsiflexors 3-/5. Ankle plantarflexors 4-/5. Bed Mobility/Transfers: Independent Gait: Facilitated safe and car performance of level surface ambulation covering a distance of 250 feet using no assistive device with occasional holding onto IV pole for support. No LOB observed. Minimal dyspnea with walking noted. Patient verbalized at baseline mobility level and breathlessness. Stairs: Guided patient with safe and correct negotiation of 6 x 4 inch steps and 4 x 6 inch step to holding onto 1 rail with supervision and minimal verbal cueing for safety. Balance: Static Sitting: Normal Dynamic Sitting: Normal Static Standing: Good Dynamic Standing: Fair 4-Stage Balance Test: Feet together 10 seconds Semi-tandem 10 seconds Full tandem <10 seonds One-legged stance deferred Special Tests: Mobility Limitations Standardized Measure [facility] AM-PAC 6 clicks Basic Mobility Inpatient Short Form: Raw Score: 23 CMS Score: 11% deficit Informed Consent/Education: Patient was instructed in purpose of PT consult and plan of care. Agreeable to proceed with established PT POC to achieve personal goals. Assessment: Patient was able to complete mobility assessment without need for an assistive device. He was able to tolerate 250 feet of level surface ambulation without undue SOB, denied chest pain and lightheadedness. 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 He was also able to navigate through therapy steps without physical assistance. Patient presents with clinical signs and symptoms consistent with current/admitting diagnoses that have resulted to mobility limitations, gait instability, generalized weakness, and overall ADL decline as demonstrated by the following impairment level findings: 1. Impaired standing balance 2. Impaired activity tolerance 3. Shortness of breath Impairments are contributing to the following functional limitations: 1. Increased completion time for mobility ADL performance 2. Increased risk for falls 3. Difficulty with managing steps alone safely Patient is assessed as a [id number] moderate complexity based on the following: History: 84-year-old male with past medical history as indicated above Examination: Demonstrable impairment in strength, balance, and mobility level with underlying impairments and functional limitations as exhibited above as well as deficit score of 11% utilizing the [employer] AMPAC Mobility Inpatient Short Form Presentation: Stable Decision Makin moderate complexity Goals: Goals X1 week 1. Supine-Sit independent 2. Sit-Supine independent 3. Sit-Stand independent 4. Stand-Sit independent 5. Bed-Chair independent 6. Chair-Bed independent 7. Independent gait on level surface with use of no assistive device for at least 300 feet without report of pain nor dyspnea 8. Independent stair negotiation while holding onto 1 rail for at least 12 steps without report of pain nor dyspnea 9. Independent with home exercise program 10. Good static and dynamic standing balance/tolerance Plan of Care/Treatment Plan: 1-2x/day, 7 days/week x 1 week. Plan of care has been reviewed with the PLUMBING AND HEATING CONTRACTOR providing the service under Physical Therapy direction. Initiate Physical Therapy intervention for pain management as needed, strengthening, bed mobility, transfers, gait, stairs, balance training, and use of assistive device. DISCHARGE RECOMMENDATIONS: PT TREATMENT CODE/TIME: [id number] x 27 minutes for 1 unit (8:40-9:07). Thank you for the opportunity to participate in the care of this patient. Farzana Montes PT, DPT, CLT [facility] [place], [place]
--- NOTE | 2025-01-18 10:27 | PDOC.CMDIS ---
Date of service: 01/18/25 Time of Service: 10:27 LACE Index Scoring Tool Questions: Length of Stay (in days): 1 Was the patient admitted via the E.D.?: Yes Comorbidities: Chronic Pulmonary Disease, Any Tumor and Liver or Renal Disease E.D. Visits: 2 Answers: Total Score: 11 Risk of Readmission: High Risk Care Management Discharge Plan Reason for Hospitalization: pneumonia Discharge Plan: Michelle will be discharged home with new home health services for . He will follow up with his community providers and plan of care and transport with family. Patient/Family Education Needs: Review of discharge instructions, limitations, follow up plan and discuss Ask Me Three SDOH Health Related Social Needs: Health related social needs risk of homeless Health related social needs details not applicable Health related social needs details: not applicable
[2025-01-18 10:44] LABS: Lyme Ab w Rflx to Lyme Confirm Positive (Negative)
[2025-01-18 10:47] LABS: NT-proBNP 928 pg/mL (<300)
[2025-01-18 10:50] VITALS: BP 123/82; PULSE 80; RESP 18; TEMP 36.2; O2SAT 97
[2025-01-18 11:51] LABS: Troponin I 9 ng/L (<or=76)
--- NOTE | 2025-01-18 13:25 | W.PM.DS.N ---
Date of service: 01/18/25 Time of Service: 13:25 DS: Diagnosis Discharge Diagnosis (1) Sepsis: Status: Acute (2) Acute dehydration: Status: Acute (3) Pneumonia: Status: Acute (4) Atrial fibrillation with RVR: Status: Acute (5) Essential hypertension: Status: Acute (6) Chronic obstructive lung disease: Status: Chronic (7) Hypothyroidism: Status: Chronic Discharge Plan Disposition Patient Disposition: Home W/Home Health Services Condition: Improving Discharge Details Reason For Visit: Sepsis, bilateral pneumonia, atrial fibrillation w Admit Date/Time: 01/17/25 02:03 Admit Provider: Nathaniel Hodges Attending Provider: Nathaniel Hodges Primary Care Provider: [facility] Course Hospital Course: This is an 84-year-old male patient with a past medical history of hypothyroidism, hypertension, COPD, previous colon cancer, and recent hospitalization for pneumonia with discharge at 36 hours and completion of a 5 day-course of cefpodoxime and azithromycin presented to the ED on 01/16/25 for evaluation of increased fatigue, shortness of breath, altered mental status and weakness. Workup in the ED was negative for ACS as per EKG showing atrial fibrillation with RVR without signs of coronary occlusion w/o chest pain; treatment with IV cardizem 15mg and 1 liter of crystalloid given in the ED. In the ED he was found to be febrile with tachypnea and altered mental status and mild hypertension with no hypoxemia. Tickborne illness panel was performed and still pending today Vancomycin, Zosyn and doxycycline initiated in the ED and the patient was admitted to the medical surgical floor with telemetry for further management and evaluation. Atrial-fibrillation conversion to SR recorded on telemetry on 01/17/2025 around 10:50. A pneumonology consultation with Dr. Pimentel determined that the patient had COPD exacerbation rather than pneumonia and prednisone burst was started, antibiotic discontinued except for doxycycline. Urine and blood cultures were negative.The patient is hemodynamically stable, afebrile, has clinically improved and his able to ambulate in jacques with physical therapy with recommendation for home health physical therapy on discharge. The patient will be discharged home today on a short course of doxycycline and prednisone and will need to follow-up with PCP within 7 days of discharge. Recommendation for PCP follow-up Cardiac echocardiography US ordered outpatient BNP 928- no crackles Tick panel and sputum culture: Results pending Will need a cardiology referral and a f/u with pulmonary Discussed with Home Meds and New Rx's Prescriptions: New prednisone 20 mg Tablet 40 mg PO DAILY Qty: 3 0RF doxycycline hyclate 100 mg capsule 100 mg PO DAILY Qty: 6 0RF ipratropium-albuterol 0.5 mg-3 mg(2.5 mg base)/3 mL Solution For Nebulization 3 ml inhalation QID Qty: 90 0RF Continued (DME) nebulizer accessories Kit See Rx Instructions .ROUTE .MEDSUPPLY Qty: 50 1RF Rx Instructions: As directed triamcinolone acetonide 0.1 % ointment 1 applic topical DAILY PRN (Reason: pruritis) Qty: 80 3RF Spiriva Respimat 1.25 mcg/actuation mist 2 puff IH DAILY Qty: 12 3RF (DME) Aerochamber Plus Flow-Vu,S Msk 1 EACH spacer 1 ea UD PRN Qty: 1 Rx Instructions: DIRECTED WITH INHALER amlodipine 10 mg tablet 10 mg PO DAILY Qty: 90 3RF albuterol sulfate 90 mcg/actuation HFA aerosol inhaler 2 puff IH Q4H PRN (Reason: shortness of breath or wheezing) Qty: 34 4RF betamethasone valerate 0.1 % cream 1 applic TOPICAL DAILY PRN (Reason: for scaly feet) Patient Comments: If needed. levothyroxine 50 mcg tablet 50 mcg PO DAILY Discontinued ipratropium-albuterol 0.5 mg-3 mg(2.5 mg base)/3 mL solution for nebulization 3 ml inhalation QID PRN (Reason: wheezing) Qty: 15 3RF Discharge Instructions Referrals: Umu Mims REPEAT CHIEF [Primary Care Provider, Medicine] Referral Note: Follow-up with 7 days please Activity:: Activity as Tolerated Equipment/Supplies:: Walker Diet:: heart healthy Discharge Orders Discharge Orders: Discharge Order (Routine); Ordered 01/18/25 Ordered By: More Orozco Other Ambulatory Orders: US echocardiogram (Routine) Timeframe: 10 Day Facility: [facility] - Location: DIAGNOSTIC IMAGING Ordered By: More Orozco DS: Summary Time Spent with Patient providing and/or coordinating discharge services: Greater than 30 minutes Status at Discharge Functional status at discharge: uses cane/walker Overall status at discharge: patient is progressing back to baseline Mental Status: mental status grossly normal Speech and Movement: speech and movement normal Mood: congruent mood Affect: normal affect Quality:SDOH Health Related Social Needs: Health related social needs risk of homeless Health related social needs details not applicable Health related social needs details: not applicable Exam Narrative Exam Narrative: alert and oriented X3 , no acute distress,unlabored breathing, clear upper lung w decreased bases,telemetry SR HR 76, S1, S2 regular, no murmur, no swelling to lower ext., abddomen is non-distended, soft and non-tender, bowel sounds are present, no CVA tenderness Psych Mental Status: mental status grossly normal Speech and Movement: speech and movement normal Mood: congruent mood Affect: normal affect DS: Data Vitals/I&O Vitals and I&O: Vital Signs Temperature 36.2 C L 01/18/25 10:50 Temperature Source Temporal Artery Scan 01/18/25 10:50 Pulse 80 01/18/25 10:50 Pulse 102 H 01/17/25 02:10 Respiratory Rate 18 01/18/25 10:50 Respiratory Effort Non-Labored, Short of Breath 01/17/25 02:39 Respiratory Depth Shallow 01/17/25 02:39 Respiratory Pattern Irregular 01/17/25 02:39 Blood Pressure 123/82 01/18/25 10:50 Blood Pressure Mean 95 01/18/25 10:50 Blood Pressure Position Sitting 01/16/25 22:09 Pulse Oximetry 97 01/18/25 10:50 Oxygen Delivery Method Room Air 01/18/25 10:50 Oxygen Flow Rate 0 01/18/25 10:50 Pain Level 0 01/18/25 10:50 Intake & Output 01/17/25 01/18/25 01/18/25 23:59 11:59 23:59 Intake Total 560 / 1710 560 / 560 Output Total 200 / 400 Balance 360 / 1310 560 / 560 Intake: IV 200 / 1350 200 / 200 Oral 360 / 360 360 / 360 Output: Urine 200 / 400 Other: Urine Color Straw Urine Appearance Clear Urine Odor Normal Data Completed and Pending Labs on day of discharge: Labs from last 24 hours 01/18/25 01/18/25 11:10 06:04 WBC 7.75 RBC 4.20 L Hgb 13.2 L Hct 38.7 L MCV 92 MCH 31.4 MCHC 34.1 RDW 13.2 Plt Count 210 MPV 10.7 Sodium 142 Potassium 3.8 Chloride 108 H Carbon Dioxide 26.9 Anion Gap 7.1 BUN 14 Creatinine 1.1 Est GFR (CKD-EPI 2020) 66.61 Glucose 137 H Calcium 9.3 Magnesium 2.1 Total Bilirubin 0.6 AST 17 ALT 27 Alkaline Phosphatase 60 Troponin I 9 NT-Pro-B Natriuret Pep 928 H Total Protein 7.3 Albumin 3.2 L 01/18/25 08:25 Sputum Sputum Culture - Pending Preliminary micro results at discharge 01/17/25 07:48 Urine - Voided Urine Culture - Preliminary Gram positive yrn 01/18/25 08:25 Sputum Sputum Culture - Pending 01/16/25 22:47 Blood Blood Culture - Preliminary NO GROWTH 24 HOURS 01/16/25 22:15 Blood Blood Culture - Preliminary NO GROWTH 24 HOURS PFSH All Active Problems (Updated 01/18/25 @ 14:10 by More Orozco APRN) Acute dehydration (Acute) Atrial fibrillation with RVR (Acute) Pneumonia (Acute) Acute kidney injury (Acute) Dehydration (Acute) Sepsis (Acute) Right hip pain (Acute) Exertional dyspnea (Acute) Tubular adenoma of colon (Acute) BPH (benign prostatic hyperplasia) (Acute) Stable. Voiding without difficulty. Continue to monitor. Chronic obstructive lung disease (Chronic) O2 saturation 95-97% both at rest and with ambulating in the halls greater than 150 at a fast pace. Long discussion regarding her portable oxygen and not being helpful for his symptoms. Using albuterol prophylactically for increased activity. I also offered pulmonary function tests and or referral to pulmonology. Patient declined both. I stressed that his VILLEDA is not related to low oxygen levels but more to a functional issue with his respiratory status. Encouraged him to focus on weight loss and maintain activity. I encouraged him to call for f/u so we could spend more time on this condition. Chronic pain of left wrist (Acute 09/14/16) Essential hypertension (Acute 05/29/13) Gastroesophageal reflux disease (Acute) Taking ranitidine 150 mg daily with good control of his GERD symptoms. Continue and monitor. Hypothyroidism (Chronic 12/05/14) Increased BMI (body mass index) (Acute 12/27/16) . BMI is 32%. He has remained stable over the last several years. Encouraged to stay active. We did talk about again making healthy diet choices and portion control. 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 states no arthoplasty but ARTHROSCOPY Family History Mother , AGE 76 Bone cancer Father , AGE 85 Diabetes Essential hypertension Hyperlipidemia Stroke Sister Essential hypertension Hyperlipidemia Maternal Grandfather Lung cancer Paternal Grandfather Heart disease Stroke Maternal Grandmother , Age 98 Diabetes Asthma Paternal Grandmother Heart disease Stroke Social History Smoking/Tobacco Use Status: Former Tobacco Use tobacco type: cigarettes Quit Date: 09/12/99 Second Hand Exposure: Yes Smoking risk assessment performed?: Yes Alcohol Intake: former Drug use: Never Substance use type: does not use Adopted: No Caregiver/Support person: Yes Household members: spouse Housing: house Number of Children: 2 number of grandchildren: 2 Communication Needs: Hard of Hearing Education Level: college Details: 1 year Do you need help understanding health information?: Never current occupation: Retired Pets and animals: No Sexually active: No Do you think of yourself as: straight/heterosexual Current gender identity: male What is your relationship status?: How often do you talk on the phone with friends or family?: three or more times per week How often do you get together with friends or relatives?: three or more times per week How often do you attend anabaptist or roman catholic services?: decline to answer Do you belong to any clubs or organized social groups?: no Panel score (0-1 are the most socially isolated patients): 2 Duration: < 15 minutes/day Do you feel safe at home: Yes Do you feel safe in your relationship?: Yes Time Spent with Patient Time Spent with Patient: >85 minutes Time was spent: preparing to see the patient(eg.review tests), obtaining and/or reviewing separately otained hiistory, ordering medications,tests, procedures, referring, communicating with other health director of managed care, indepentently interpreting results, counseling the patient and care coordination
--- NOTE | 2025-01-18 14:21 | PDOC.HHF2F_ITS ---
Home Health Referral Home Health Orders Clinical synopsis of why skilled professionals are needed: This is an 84-year-old male patient with a past medical history of hypothyroidism, hypertension, COPD, previous colon cancer, and recent hospitalization for pneumonia with discharge at 36 hours and completion of a 5 day-course of cefpodoxime and azithromycin presented to the ED on 01/16/25 for evaluation of increased fatigue, shortness of breath, altered mental status and weakness. Workup in the ED was negative for ACS as per EKG showing atrial fibrillation with RVR without signs of coronary occlusion w/o chest pain; treatment with IV cardizem 15mg and 1 liter of crystalloid given in the ED. In the ED he was found to be febrile with tachypnea and altered mental status and mild hypertension with no hypoxemia. Tickborne illness panel was performed and still pending today Vancomycin, Zosyn and doxycycline initiated in the ED and the patient was admitted to the medical surgical floor with telemetry for further management and evaluation. Atrial-fibrillation conversion to SR recorded on telemetry on 01/17/2025 around 10:50. A pneumonology consultation with Dr. Pimentel determined that the patient had COPD exacerbation rather than pneumonia and prednisone burst was started, antibiotic discontinued except for doxycycline. Urine and blood cultures were negative.The patient is hemodynamically stable, afebrile, has clinically improved and his able to ambulate in jacques with physical therapy with recommendation for home health physical therapy on discharge. The patient will be discharged home today on a short course of doxycycline and prednisone and will need to follow-up with PCP within 7 days of discharge. Recommendation for PCP follow-up Cardiac echocardiography US ordered outpatient BNP 928- no crackles Tick panel and sputum culture: Results pending Will need a cardiology referral and a f/u with pulmonary Discussed with Physical Therapist: Check all that apply Increase strength & endurance for safe mobility at home: Ordered To design/establish home maintenance program: Ordered Fall reduction therapy program for patient with history of frequent falls: Ordered Home safety evaluation and teaching/gait training including stair management (if applicable): Ordered Encounter Date and Reason: I certify that a FTF encounter for this patient was performed on January 18, 2025 and that such encounter was related to the primary reason the patient requires home health services. The encounter was conducted in the following manner: * By me as the certifying physician, MEDICAL TRANSPORT SPECIALIST, PA or * By an inpatient physician, MEDICAL TRANSPORT SPECIALIST or PA during an inpatient stay who communicated findings to me, Certification And Authentication I certify that I composed the above information based on my clinical judgment relating to this patient's medical condition and, if applicable, clinical findings communicated to me by the NPP or inpatient physician who performed the FTF encounter. Name of Provider that will be monitoring home health services: Umu Mims
[2025-01-18 16:30] LABS: Lyme IgG Ab Negative (Negative)
[2025-01-20 19:07] LABS: B. miyamotoi PCR Negative (Negative); Babesia divergens/MO-1 Negative (Negative); Ehrlichia muris eauclairensis Negative (Negative)
== END 2025-01-18 14:58 | disposition home health service (06) | DRG 872 ==
LOC: ER 01-17 02:31 → MS 01-17 02:34
PROVIDERS: Admitting Provider Family Medicine; Emergency Provider Student in an Organized Health Care Education/Training Program; PCP Nurse Practitioner Family; Responsible Provider Nurse Practitioner Acute Care; Visit Provider Family Medicine
DX: A41.9 Sepsis, unspecified organism (principal); N17.9 Acute kidney failure, unspecified; J44.1 Chronic obstructive pulmonary disease with (acute) exacerbation; E86.0 Dehydration; I48.91 Unspecified atrial fibrillation; I10 Essential (primary) hypertension; E03.9 Hypothyroidism, unspecified; Z79.899 Other long term (current) drug therapy; N40.0 Benign prostatic hyperplasia without lower urinary tract symptoms; G89.29 Other chronic pain; K21.9 Gastro-esophageal reflux disease without esophagitis; E53.8 Deficiency of other specified B group vitamins; F10.11 Alcohol abuse, in remission; Z87.891 Personal history of nicotine dependence; Z85.038 Personal history of other malignant neoplasm of large intestine; D72.810 Lymphocytopenia
CPT/HCPCS: 00123; 36415; 74177; 80053; 82805; 84145; 85027; 86617; 87040; 87637; 87798; 93005; 94640; 96365; 96366; 96367; 96375; 97162; 99222; 99291; J1650; 70450; 71045; 71260; 81003; 81015; 83605; 83735; 83880; 84443; 84484; 85025; 86618; 87070; 87086; 87205; 93010; 94664; 94760; 99223; 99239; J0131; J2543; J3373; J3490; J7512; J7620

== ENCOUNTER 2025-02-01 01:11 | Outpatient (CLI) | payer OTHER, SELFPAY ==
--- NOTE | 2025-02-01 07:30 | DI.US_ITS ---
APPROVED REPORT EXAM: Comprehensive 2D, Doppler, and color-flow Echocardiogram Patient Location: Out-Patient Braiding Machine Tender: Sergei Barnett RDCS (AE) Indications: PAF, mild elevation in BNP, atrial fibrillation with rapid ventricular response Other Information Study Quality: Fair. Technically limited study due to body habitus. Conclusion Normal left ventricular wall thickness and chamber size. Ejection fraction is 55%. Wall motion is normal Normal right ventricular size and function Both atria are normal in size There is no significant valvular disease Ascending aorta measures 3.5 cm Wall motion Left Ventricle The left ventricle is normal size. Left ventricular systolic function is borderline normal. There is normal left ventricular wall thickness. There is mild global hypokinesis of the left ventricle. There is no ventricular septal defect visualized. LVEF is 55%. Right Ventricle The right ventricle is normal size. The right ventricular systolic function is normal. Atria The left atrium size is normal. The right atrium size is normal. The interatrial septum is intact with no evidence for an atrial septal defect. Aortic Valve The aortic valve is normal in structure. Aortic valve is trileaflet. There is no aortic valvular stenosis. No aortic regurgitation is present. Mitral Valve Mild mitral annular calcification. No evidence of mitral valve stenosis. Trace mitral regurgitation. Tricuspid Valve The tricuspid valve is normal in structure. There is no tricuspid valve stenosis. Mild tricuspid regurgitation. Pulmonic Valve The pulmonary valve is normal in structure. There is no pulmonic valvular stenosis. Trace pulmonic regurgitation. Great Vessels The aortic root is normal in size. The ascending aorta is very mildly dilated. IVC is normal in size and collapses >50% with inspiration. Pericardium There is no pericardial effusion. 2D Dimensions IVSD d PLAX 0.91 cm M: 0.6-1.2 Ao Root d 2.74 cm M: 3.1 - 3.7 LVPW d PLAX 0.91 cm M: 0.6 - 1.2 Ao Asc Diam d 3.50 cm M: 2.6 - 3.4 LVID d PLAX 5.76 cm M: 4.2 - 5.8 LVDs 4.18 cm M: 2.5 - 4.0 LV EF Teichholz 52.7 % FS 27.50 % LV EDV (Teich) 164.0 mL LV ESV (Teich) 77.5 mL Stroke Vol Index (Teich) 38.58 M-Mode TAPSE 2.73 cm (M/F) >1.7 Auto EF LV EDV A4C 127.8 mL LV EDV A2C 97.6 mL LV EDV BP 113.8 mL LV ESV A4C 59.3 mL LV ESV A2C 46.6 mL LV ESV BP 51.5 mL LVEF(%) A4C 53.6 % LVEF(%) A2C 52.3 % LVEF(%) BP 54.8 % LV SV A4C 68.5 ml LV SV A2C 51.0 ml LV SV BP 62.3 ml LV CO A4C 4.7 L/min LV CO A2C 3.4 L/min LV CO BP 4.0 L/min HR A4C 68.29 BPM HR A2C 66.79 BPM LV EDV Index (BP) LA Volume LA Length A4C 3.7 cm LA Length A2C 4.9 cm LA Area A4C s 8.18 cm2 LA Area A2C s 11.90 cm2 LA Vol A4C A-L 15.25 mL LA Vol A2C A-L 24.68 mL LA Vol Biplane A-L 22.2 mL LA Vol/BSA A4C A-L LA Vol/BSA A2C A-L LA Vol/BSA BP A-L 9.9 mL/m2 LA Vol A4C MOD 15.1 mL LA Vol A2C MOD 24.3 mL LA Vol BP MOD 21.8 mL RA Volume RA Area A4C 7.2 cm2 RA ESV A4C (A-L) 13.4mL RA Vol/BSA A4C A-L RA Length A4C 3.3 cm RA ESV A4C (MOD) 13.7mL LV Diastology MV E' medial 0.070 (>0.07 m/s) MV E Vmax 0.60 (0.4-1.3 m/s) MV E/E' MED 8.59 (<14) MV A Vmax 0.90 (0.4-1.3 m/s) MV E' lateral 0.074 (>0.1 m/s) E/A Ratio 0.7 MV E/E' LAT 8.08 (<14) MV E' Average 0.072 m/s MV E/E'(average) 8.33 Aortic Valve AoV Vmax 1.00 m/s LVOT Vmax 0.85 m/s AoV Peak Grad 4.0 mmHg LVOT Peak Grad 2.9 mmHg AoV Area (Vmax) 2.75 cm2 LVOT VTI 0.201 m AoV VTI 0.236 m LVOT Mean Grad 1.5 mmHg AoV Mean Jose Luis. 0.72 m/s LVOT SV 65.12 mL AoV Mean Grad 2.4 mmHg LVOT Diam s 2.00 cm AoV Area (VTI) 2.76 cm2 AV Regurg Peak Gr. 3.98 mmHg Velocity Ratio 0.85 Mitral Valve MV DT 255 (160-240 msec) Pulmonary Valve PV Vmax 1.00 (0.5-1.5 m/s) RVOT Vmax 0.84 m/s PV Peak Grad 4.0 mmHg RVOT Peak Gr. 2.8 mmHg PV Mean Jose Luis 0.65 m/s RVOT VTI 0.144 m PV Mean Grad 2.0 mmHg RVOT Mean Gr. 1.7 mmHg Tricuspid Valve RA Pressure 3.00 mmHg TR Vmax 2.64 m/s TR Peak Grad 27.9 mmHg RVSP (TR) 30.9 mmHg
== END 2025-02-01 01:31 ==
PROVIDERS: PCP Nurse Practitioner Family; Visit Provider Internal Medicine Cardiovascular Disease
DX: I48.91 Unspecified atrial fibrillation (principal)
CPT/HCPCS: 93306

== ENCOUNTER 2025-02-08 11:11 | Outpatient (CLI) | payer OTHER, SELFPAY ==
--- NOTE | 2025-02-08 11:00 | RT.EKG_ITS ---
APPROVED REPORT Exam: Resting ECG Reason for Exam: NPW baseline needed Patient Location: O HR:82 bpm ECG Measurements Heart Rate 82 AXIS IN 166 P 67 QRSd 130 QRS 0 QT 405 T 5 QTc 473 Conclusion Sinus rhythm...normal P axis, V-rate 50- 99 IVCD
== END 2025-02-08 11:12 | disposition home or self-care (01) ==
LOC: DI.CARD 11:12
PROVIDERS: PCP Nurse Practitioner Family; Visit Provider Internal Medicine Cardiovascular Disease
DX: E86.0 Dehydration (principal); R06.00 Dyspnea, unspecified; J41.0 Simple chronic bronchitis; I10 Essential (primary) hypertension; I48.91 Unspecified atrial fibrillation
CPT/HCPCS: 93010

== ENCOUNTER 2025-05-15 11:12 | Day surgery (SDC) | payer OTHER, SELFPAY ==
[2025-05-15 12:17] VITALS: BP 126/71; PULSE 78; RESP 16; TEMP 36.4; O2SAT 98
[2025-05-15] MEDS: Lactated Ringers 1,000 ML 80 ML IV (13:15)
--- NOTE | 2025-05-15 13:15 | ANES.PREOP_ITS ---
General Info Date of Service Date Performed: 05/15/25 Height: 6 ft 1 in Weight: 102 kg Body Mass Index (BMI): 29.6 Surgical Procedure: Operation Date: 05/15/25 13:35 Proposed Procedure Side Surgeon rajwinder Washington MD Meds Allergies and Home Medications Allergies Allergy/AdvReac Type Severity Reaction Status Date / Time No Known Allergies Allergy Verified 05/15/25 12:07 Home Medication ?Medication ?Instructions ?Recorded inhalational spacing device #1 ea 09/23/12 (Aerochamber Plus Flow-Vu,Small Mask) nebulizer accessories #50 ea 02/20/19 triamcinolone acetonide 0.1 % 1 applic topical DAILY P RN 03/12/24 topical ointment pruritis #80 grams albuterol sulfate 90 mcg/actuation 2 puff inhalation Q 4H PRN 12/03/24 aerosol inhaler shortness of breath or wheez ing #34 grams betamethasone valerate 0.1 % 1 applic topical DAILY NV N for 01/02/25 topical cream scaly feet Nexium 20 mg capsule,delayed 20 mg PO DAILY #90 caps 1 release (esomeprazole magnesium) cyclosporine 0.05 % eye drops in a 1 drp ophthalmic (e ye) Q12H 03/14/25 dropperette (Restasis) levothyroxine 50 mcg tablet 50 mcg PO DAILY #90 tabs 1 tiotropium bromide 1.25 2 puff inhalation DAILY #12 grams 03/14/25 mcg/actuation mist for inhalation (Spiriva Respimat) bisacodyl 5 mg tablet,delayed 5 mg PO ONCE Colonoscopy Bowel 04/29/25 release Prep #4 tabs polyethylene glycol 3350 17 238 g PO ONCE #238 grams 1 06/29/24 gram/dose oral powder ipratropium 0.5 mg-albuterol 3 mg 3 ml inhalation QID #180 mL 05/06/25 (2.5 mg base)/3 mL nebulization soln amlodipine 10 mg tablet 10 mg PO HS 05/13/25 Current Visit Medications: Current Medications Generic Name Dose Route Start Last Admin Trade Name Freq PRN Reason Stop Dose Admin Ringer's Solution 1,000 mls @ 80 mls/hr 05/15/25 06:00 IV 05/15/25 23:59 INFUSION LIAM Sodium Chloride 0 ml 05/15/25 06:00 Normal Saline Flush 10 Ml Syr IV 05/15/25 23:59 PRN PRN Sodium Chloride 0 ml 05/15/25 06:00 Normal Saline 10 Ml Vial IJ 05/15/25 23:59 DIRECTED PRN Sterile Water 0 ml 05/15/25 06:00 Water,Injection,Sterile 10 Ml Vial IJ 05/15/25 23:59 DIRECTED PRN PFSH Active Problems Active Problems: Problem Status Onset Code PAF (paroxysmal atrial fibrillation) Acute I48.0 Acute kidney injury Acute N17.9 Right hip pain Acute M25.551 Exertional dyspnea Acute R06.00 Tubular adenoma of colon Acute D12.6 BPH (benign prostatic hyperplasia) Acute N40.0 Chronic obstructive lung disease Chronic J44.9 Chronic pain of left wrist Acute 09/14/16 M25.532, G89.29 Essential hypertension Acute 05/29/13 I10 Gastroesophageal reflux disease Acute K21.9 Hypothyroidism Chronic 12/05/14 E03.9 Increased BMI (body mass index) Acute 12/27/16 R63.8 Ulnar neuropathy Acute G56.20 Vitamin B 12 deficiency Acute 12/10/14 E53.8 Nondependent alcohol abuse, 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 states no arthoplasty but ARTHROSCOPY Tobacco Smoking/Tobacco Use Status: Former Tobacco Use Passive smoking exposure: Yes Second hand exposure: Yes Alcohol Alcohol Intake: former Substance Use Substance use: Never Substance use type: does not use Vital Signs and Lab Results Vital Signs Most Recent Vital Signs in EMR: Most Recent Vital Signs Temp Pulse Resp BP Pulse Ox 36.4 C L 78 16 126/71 98 05/15/25 12:17 05/15/25 12:17 05/15/25 12:17 05/15/25 12:17 05/15/25 12:17 Imaging and Studies Imaging and Studies Study information below may be from another EMR and interpreted by another provider. Please see original notes in EMR for more complete details. EKG Summary: 02/08/25 Conclusion Sinus rhythm...normal P axis, V-rate 50- 99 IVCD Stress Test Summary: Patient Name: SONI CASTILLO Unit #: [id number] Loc: Ordering Provider: Romulo Wise M.D. Status: [facility] Primary Care Provider: Carl Hooker Date of Exam: 08/11/20 Sex: M Admission Date: 08/11/20 : 1940 Age: 80 Exam(s) a NM:NM MPI rest & stress grp APPROVED REPORT Exam: Exercise Treadmill Patient Location: Out-Patient Room/Bed: Stress Nurse: Maude Hope RN Ordering Provider:ROMULO WISE, Contact Number: [phone] BMI: 31.00 Baseline Rhythm: Sinus Rhythm Comment: RBBB, borderline prolonged QT interval, inverted T waves V1-V4, PAC, PVC Indications: dyspnea on exertion, h/o PSVT Medical History Medical History: COPD, VILLEDA, hypertension, gerd, PSVT, hyperlipidemia, hypothyroidism Cardiac Medications: Metoprolol tartrate, amoldipine, pantoprazole, spiriva, albuterol sulfate Allergies: NKA Cardiac Risk Factors: family hx, hypertension, COPD, obesity, smoker (former) Previous Cardiac Procedures: None Pretest Chest Pain Characteristics: None Exercise History: Sedentary Physical Disabilities: None Lung Sounds: Clear to auscultation Heart Sounds: Regular Stress Test Details Test: Exercise stress testing was performed using a Delvis protocol. Nuclear Acquisition: Rest Tc-99m/Stress Tc-99m 1 day Rest Isotope: Tc-99m Sestamibi. Dose: 12.1 Date: 08/11/2020 Injection Time: 0915 Stress Isotope: Tc-99m Sestamibi. Dose: 36.6 Date: 08/11/2020 Injection Time: 1110 HR Resting HR Supine: 80 bpmMax Heart Rate (APMHR): 141 bpm Resting HR Standin bpmTarget HR (85% APMHR): 119 bpm Max HR Achieved: 128 bpm % of APMHR: 90 Recovery HR: 92 bpm HR response to stress: Normal HR response to stress Comment: metoprolol tartrate held for 48 hrs BP Resting BP Supine: 150/76 mmHg Resting BP Standin/78 mmHg Max BP: 182/60 mmHg Recovery BP: 148/72 mmHg BP response to stress: Normal blood pressure response to stress. ECG Resting ECG: Sinus Rhythm, RBBB, borderline prolonged QT interval Ectopy: PAC, PVC Comment: Inverted T waves leads V1-V4 Stress ECG: Sinus Tachycardia, RBBB ST Change: No significant ST segment changes noted Arrhythmia: Frequent PACs, PVCs, couplet Comment: Inverted T waves leads V1-V4 Recovery ECG: Sinus Rhythm, RBBB Recovery ST Change: No significant ST segment changes noted Recovery Arrhythmia: PACs, PVCs Comment: Inverted T waves leads V1-V4 Clinical Reason for Termination: Dyspnea Stress Symptoms: Dyspnea, General Fatigue Exercise duration: 5 min59 sec Highest Stage Reached: Stage 2: 2.5 mph at 12% grade. Exercise capacity: 7.05 METs Blum Treadmill Score: 5 Rate Pressure Product: 95725 Stress ECG Conclusion 1. The patient exercised for 6 minutes (7 METS). Exercise was stopped due to fatigue. 2. The EKG portion of this exam is nondiagnostic due to baseline inverted T waves. Blum Treadmill Score is 5 which is Low risk. Stress Test Summary STAGETime (mins)Speed (mph)Grade (%)[id number] [id number]/76 Kkjmmwdi99074/78 [phone] 1 min [id number]/60 3 min [id number]/66 6 min [id number]/72 MPI Conclusion The patient's ejection fraction was 69% with stress. There were no wall motion normalities. There is no evidence of ischemia on the imaging portion exam. This represents a normal SPECT stress test. Ordered By: Romulo Wise M.D. CC: Dictated By: Romulo Wise M.D. 08/11/20 1136 <Electronically signed by Romulo Wise M.D. in OV> 08/12/20 1110 Transcribed By: Romulo Wise MD Echocardiogram Summary: 02/01/25 Conclusion Normal left ventricular wall thickness and chamber size. Ejection fraction is 55%. Wall motion is normal Normal right ventricular size and function Both atria are normal in size There is no significant valvular disease Ascending aorta measures 3.5 cm Anesthesia Assessment and Plan Anesthesia History Personal History: No History of Anesthesia Complications Family History: No Family History of Anesthesia Complications Exercise Tolerance Exercise Tolerance: Metabolic Equivalents<4 Pertinent Negatives Pertinent Negatives: No Major Cardiovascular Symptoms or Complaints and No Major Pulmonary Symptoms or Complaints Cardiac & Pulmonary Exam Cardiac Exam: Normal S1/S2 Heart Sounds Pulmonary Exam: Clear Bilateral Breath Sounds (diminished bases) Implantable Cardiac Device Does patient have a Pacemaker or an ICD?: No Airway Exam Known Difficult Airway: No Mallampati Class: 2 Mouth Opening: Normal (> 3cm) Thyromental Distance: Greater than 3 cm Neck Range of Motion: Full ROM Neck Circumference: Normal Teeth Condition: Edentulous ASA Classification ASA Score: ASA 3 Emergency Case?: No NPO Status NPO Status: NPO Clears >2 hours, Solids >8 hours Anesthesia Plan Resuscitation Status: Full Code Anesthesia Technique: General Anesthesia Airway Planned: Natural Airway Monitors Used: Standard Monitors
[2025-05-15 13:33] VITALS: BMI 29.6
--- NOTE | 2025-05-15 13:57 | BOWEL_PTH ---
PATIENT: Michelle Swenson LOC: [facility] U#:[id number] AGE/SX: 84/M ROOM: RE05/15/[address]: Nuha Washington : 1940 BED: DIS: 05/15/2025 SPEC #: [id number] RECD: 05/15/25 17:54 STATUS: VITO RECandice #: [id number] LORENZA: 05/15/25 13:[address]: Nuha Washington DEPT: Surgical Specimen RECD BY: Lizet Melgar ENTERED: 05/15/25 17:55 SP TYPE: Bowel OTHR DR: Umu Mims, GABRIEL Tissues: 1 - BIOPSY BOWEL Procedures: GROSS AND MICRO LEVEL 4 Comments: [id number]
[2025-05-15 14:08] VITALS: BP 111/54; PULSE 55; RESP 16; TEMP 36.5; O2SAT 93
--- NOTE | 2025-05-15 14:09 | W.PM.DSUDISC ---
Date of service: 05/15/25 Discharge Plan Disposition Patient Disposition: Home Condition: Good Discharge Details Reason For Visit: History of colon polyps Attending Provider: Nuha Washington Primary Care Provider: Umu Mims Recommendations for Follow Up Recommended tests to be ordered by follow up provider: Follow up pathology Home Meds and New Rx's Prescriptions: Continued (DME) nebulizer accessories Kit See Rx Instructions .ROUTE .MEDSUPPLY Qty: 50 1RF Rx Instructions: As directed triamcinolone acetonide 0.1 % ointment 1 applic topical DAILY PRN (Reason: pruritis) Qty: 80 3RF cyclosporine [Restasis] 0.05 % dropperette 1 drp ophthalmic (eye) Q12H levothyroxine 50 mcg tablet 50 mcg PO DAILY Qty: 90 4RF esomeprazole magnesium [Nexium] 20 mg capsule,delayed release(DR/EC) 20 mg PO DAILY Qty: 90 4RF Rx Instructions: Patient states only brand name works for him Spiriva Respimat 1.25 mcg/actuation mist 2 puff IH DAILY Qty: 12 4RF (DME) Aerochamber Plus Flow-Vu,S Msk 1 EACH spacer 1 ea UD PRN Qty: 1 Rx Instructions: DIRECTED WITH INHALER albuterol sulfate 90 mcg/actuation HFA aerosol inhaler 2 puff IH Q4H PRN (Reason: shortness of breath or wheezing) Qty: 34 4RF ipratropium-albuterol 0.5 mg-3 mg(2.5 mg base)/3 mL solution for nebulization 3 ml inhalation QID Qty: 180 1RF amlodipine 10 mg tablet 10 mg PO HS betamethasone valerate 0.1 % cream 1 applic TOPICAL DAILY PRN (Reason: for scaly feet) Patient Comments: If needed. Discontinued bisacodyl 5 mg tablet,delayed release (DR/EC) 5 mg PO ONCE Qty: 4 0RF Rx Instructions: Per Colonoscopy bowel prep instructions polyethylene glycol 3350 17 gram/dose powder 238 g PO ONCE Qty: 238 0RF Rx Instructions: For Colonoscopy bowel prep, as directed by office Discharge Instructions Additional Instructions: Your procedure went well today. You did have evidence of 1 small polyp which was removed. This polyp will be sent to pathology. We will contact you when these results return. If you have any questions in the interim please contact the general surgery office. 1. If tolerated, consume a soft, low fiber diet for 1-2 days. 2[address] Do not drive, drink alcohol, operate machinery, make critical decisions, or do activities that require coordination or balance for 24 hours. 3. Because air was put into your colon during the procedure, expelling air from your rectum (passing gas or farting) is normal. 4. You may not have a bowel movement for 1-3 days because of the colonoscopy prep. This is normal. 5. Go directly to the emergency room if you notice any of the following: Develop chills (warm to touch), or if you have a thermometer and your temperature is above 101 Difficulty breathing or difficultly swallowing Persistent vomiting Severe abdominal pain, other than gas cramps Severe chest pain Black, tarry stools Any bleeding ? exceeding one tablespoon 6. Call your physician if the site where your intravenous was started becomes red, swollen, painful, and warm to touch. 7. Your physician has reviewed your pre-procedure medications. Please continue to take those medications as previously ordered. You will be given specific information/education regarding any changes to your medications before leaving. Stand Alone Forms: Portal Information Activity:: Activity as Tolerated Diet:: As Tolerated Discharge Orders Discharge Orders: Discharge Order (Routine); Ordered 05/15/25 Ordered By: Nuha Washington
--- NOTE | 2025-05-15 14:11 | W.COLOREPORT ---
Date of service: 05/15/25 Time of Service: 14:12 Colonoscopy Report Date of procedure: 05/15/25 Pre-op diagnosis general: History of polyps Post-op diagnosis procedure note: same Procedure: Colonoscopy with polypectomy Surgeon: Nuha Washington Anesthesia Type: General:No Airway Estimated blood loss (mL): 1 Pathology: other (Colon polyp at 85cm ) Complications: None Disposition: PACU Indications: Patient is an 84-year-old male who presents for a surveillance colonoscopy given history of intramucosal carcinoma and significant history of colon polyps. Prep: Miralax/Dulcolax Procedure Start Time: 12:51 Procedure End Time: 13:17 Retraction Time: 10 Findings: Evidence of diverticulosis predominantly throughout the rectosigmoid colon. Small polyp at 85 cm removed with cold forceps. Procedure Description: The patient was brought to the endoscopy suite and placed in the left lateral decubitus position. After induction of IV sedation, a digital rectal exam was performed. Digital exam was normal. The colonoscope was then passed to the cecum without difficulty. Cecal intubation was confirmed by the identification of the appendiceal orifice and the ileocecal valve. Upon withdrawing the colonoscope, all mucosal surfaces were inspected. The prep was noted to be adequate. At 85 cm , there was a small polyp, which was removed using cold forceps in its entirety. Specimen was retrieved for pathological analysis. There was evidence of diverticulosis mainly throughout the rectosigmoid colon. There was no other evidence of mucosal abnormality, polyp or cancer. Retroflexion in the rectum was unremarkable. The patient tolerated the procedure well with no complications. Postoperatively, the patient was transferred to the recovery room in stable condition. [place] Bowel Prep [place] Bowel Prep Right Colon: 3 Left Colon: 3 Transverse Colon: 3 Total Score: 9
[2025-05-15 14:30] VITALS: BP 110/83; PULSE 75; RESP 16; TEMP 36.2; O2SAT 95
--- NOTE | 2025-05-15 14:33 | W.ANESPOSTOP ---
Postoperative Evaluation Date, Time and Location Date Performed: 05/15/25 Time Performed: 14:18 Patient Location: Day Surgery Unit Vital Signs Most Recent Imported Vital Signs: Most Recent Vital Signs Temp Pulse Resp BP Pulse Ox 36.5 C 55 L 16 111/54 L 93 05/15/25 14:08 05/15/25 14:08 05/15/25 14:08 05/15/25 14:08 05/15/25 14:08 Pain Score Most Recent Pain Score: Most Recent Pain Score Pain Level 5 05/15/25 14:08 Assessment Mental Status: Awake (Alert & Oriented to Patient Baseline) Airway and Respiratory Function: Patent airway with normal (patient baseline) respiratory exam Cardiovascular Function: Hemodynamically Stable Hydration Status: Adequately Hydrated Nausea & Vomiting: No Nausea or Vomiting Pain: Pt. Denies Any Pain Peripheral Nerve Block: Patient did not receive a nerve block
== END 2025-05-15 15:02 | disposition home or self-care (01) ==
PROVIDERS: PCP Nurse Practitioner Family; Visit Provider Student in an Organized Health Care Education/Training Program
PROC: 0DJD8ZZ Inspection of Lower Intestinal Tract, Via Natural or Artificial Opening Endoscopic (ICD-10-PCS; CPT 45378; principal; 2025-05-15 13:30)
DX: Z12.11 Encounter for screening for malignant neoplasm of colon (principal); K63.5 Polyp of colon
CPT/HCPCS: 45380; 88305; J2003; J2704